=== PATIENT | female | born 1945 | race Caucasian/White ===

== ENCOUNTER 2016-07-07 11:22 | Inpatient (IN) | payer MEDICARE ==
[2016-07-07] MEDS ORDERED: Ondansetron INJ* 2 MG/ML VIAL IV ONE (11:32)
[2016-07-07] MEDS ORDERED: NS 0.9% 1000 ML* 1,000 ML IV ONE (11:32)
[2016-07-07 12:39] LABS: Hematocrit 37 % (35-47); Hemoglobin 11.6 g/dl (12.0-16.0); Mean Corpuscular HGB Conc 32 g/dl (31-36); Mean Corpuscular Hemoglobin 29 pg (27-31); Mean Corpuscular Volume 92 fL (80-97); Mean Platelet Volume 8 um3 (7.4-10.4); Red Blood Count 4.01 10^6/ul (4.0-5.4); Red Cell Distribution Width 16 % (10.5-15); White Blood Count 11.3 10^3/ul (3.5-10.8)
[2016-07-07 12:59] LABS: Albumin 4.1 g/dL (3.2-5.2); BUN/Creatinine Ratio 21.5 (8-20); C Reactive Protein 12.58 mg/L (< 5.00); Calcium 9.1 mg/dL (8.6-10.3); EGFR African American 114.9 (>60); EGFR Non-African American 89.3 (>60); Globulin 3.2 g/dL (2-4); Potassium 4.3 mmol/L (3.5-5.0); Total Bilirubin 0.5 mg/dL (0.2-1.0); Total Protein 7.3 g/dL (6.4-8.9)
[2016-07-07 14:41] LABS: Urine Bacteria 1+ (Absent); Urine Bilirubin Negative (Negative); Urine Glucose Negative (Negative); Urine Nitrite Negative (Negative)
--- NOTE | 2016-07-07 14:49 | RAD ---
Indication: Confusion, history of vomiting. CT of the brain was performed without IV contrast. Comparison is made previous exam dated April 02, 2016. Ventricular structures are midline. No midline shift is noted. The extraction spaces are unremarkable. Patient is status post left craniotomy with placement of aneurysm clip. No intracranial hemorrhage is noted. Overall no changes noted since previous exam of April 02, 2016. IMPRESSION: No intracranial mass or hemorrhage. Patient status post left craniotomy. Patient status post aneurysm repair. No changes noted since March 28, 2016.
--- NOTE | 2016-07-07 15:19 | ED ---
Fernando Abraham Claudia, scribed for Haleigh Hutchins MD on 07/07/16 at 1333 . Complex/Multi-Sys Presentation - HPI Summary HPI Summary: 71 year old female presents to the ED with multi-sx. Since pt was greeted she has become less responsive. Pt reports a SHAH which cause her to have some nausea. Pt is unable to answer questions. Level 5 caveat - History Of Current Complaint Chief Complaint: EDNauseaVomitDiarrh Time Seen by Provider: 07/07/16 11:32 Hx Obtained From: Patient Onset/Duration: Still Present Timing: Constant Associated Signs And Symptoms: Positive: Headache, Nausea - Allergies/Home Medications Allergies/Adverse Reactions: Allergies Allergy/AdvReac Type Severity Reaction Status Date / Time Adhesive Tape Allergy Blisters Verified 05/13/16 09:31 PMH/Surg Hx/FS Hx/Imm Hx Previously Healthy: Yes Endocrine/Hematology History: Denies: Hx Anticoagulant Therapy, Hx Diabetes, Hx Anemia, Hx Unexplained Bleeding Cardiovascular History: Reports: Hx Aneurysm, Hx Congestive Heart Failure Denies: Hx Angina, Hx Angioplasty, Hx Auto Implanted Cardiovert Defib, Hx Cardiac Arrest, Hx Cardiomegaly, Hx Congenital Heart Disease, Hx Coronary Artery Disease, Hx Deep Vein Thrombosis, Hx Embolism, Hx Hypercholesterolemia, Hx Hypotension, Hx Hypertension, Hx Pacemaker/ICD, Hx Peripheral Vascular Disease, Hx Rheumatic Fever, Hx Syncope, Hx Valvular Heart Disease, Other Cardiovascular Problems/Disorders Respiratory History: Reports: Hx Asthma, Hx Chronic Obstructive Pulmonary Disease (COPD), Other Respiratory Problems/Disorders - Emphysema Denies: Hx Cystic Fibrosis, Hx Lung Cancer, Hx Pleural Effusion, Hx Pneumonia , Hx Pulmonary Edema, Hx Pulmonary Embolism, Hx Seasonal Allergies, Hx Sleep Apnea GI History: Reports: Hx Cirrhosis, Hx Gastroesophageal Reflux Disease, Hx Hiatal Hernia, Hx Jaundice - 30+ YEARS AGO History: Denies: Hx Acute Renal Failure, Hx Benign Prostatic Hyperplasia, Hx Chronic Renal Failure, Hx Dialysis, Hx Kidney Infection, Hx Kidney Stones, Hx Renal Disease, Other Problems/Disorders Musculoskeletal History: Reports: Hx Arthritis Denies: Hx Back Problems, Hx Bursitis, Hx Congenital Bone Abnormalities, Hx Fibromyalgia, Hx Gout, Hx Orthopedic Injury, Hx Osteoporosis, Hx Scoliosis, Hx Tendonitis, Other Musculoskeletal History - NERVE PROBLEM IN BACK AMBULATES WITH WALKER Sensory History: Reports: Hx Cataracts, Hx Contacts or Glasses, Hx Legally Blind , Hx Macular Degeneration, Hx Vision Problem Denies: Hx Deafness, Hx Hearing Aid, Hx Hearing Problem, Other Sensory Impairments Opthamlomology History: Reports: Hx Cataracts, Hx Contacts or Glasses, Hx Legally Blind, Hx Macular Degeneration, Hx Vision Problem Denies: Other Sensory Impairments Neurological History: Denies: Hx Dementia, Hx Developmental Delay, Hx Headaches, Hx Migraine, Hx Nerve Disease, Hx Seizures, Hx Spinal Cord Injury, Hx Transient Ischemic Attacks (TIA), Other Neuro Impairments/Disorders Psychiatric History: Reports: Hx Anxiety, Hx Depression - ON MEDICATION FOR Denies: Hx Eating Disorder, Hx Inpatient Treatment, Hx of Violent Episodes Against Others - Cancer History Cancer Type, 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oratory lap in her 20s [place]. Aneurysm in head in her early 50s [place]. Hysterectomy and Bladder surgery [place] [facility] [place] arm and Left shoulder for [place] [facility] [place] 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 Right Cataract 07/01/12 [facility] Hx Anesthesia Reactions: No Infectious Disease History: No Infectious Disease History: Denies: Hx Clostridium Difficile, Hx Hepatitis, Hx Human Immunodeficiency Virus (HIV), Hx of Known/Suspected MRSA, Hx Shingles, Hx Tuberculosis, Hx Known/ Suspected VRE, Hx Known/Suspected VRSA, History Other Infectious Disease, Traveled Outside the [place] in Last 30 Days - Family History Known Family History: Positive: None, Other - Alcoholism Family History: FHx of EtOH abuse. FHx of lymphoma - sister. Full FHx not obtained due to AMS. - Social History [facility]: [facility] Alcohol Use: None Alcohol Amount: hx of alcoholism Hx Substance Use: No Substance Use Type: Reports: None Substance Use Comment - Amount & Last Used: Pt stopped drinking 3 years prior Hx Tobacco Use: Yes Smoking Status (MU): Former Smoker Type: Cigarettes Amount Used/How Often: 1 ppd Length of Time of Smoking/Using Tobacco: 50 years Have You Smoked in the Last Year: Yes Review of Systems - ROS Summary Review of Systems Summary: Level 5 caveat- limited responsiveness Positive: Fever Eyes: Negative ENT: Negative Cardiovascular: Negative Respiratory: Negative Positive: Vomiting, Diarrhea, Nausea Genitourinary: Negative Musculoskeletal: Negative Skin: Negative Positive: Headache Psychological: Normal All Other Systems Reviewed And Are Negative: No Physical Exam Triage Information Reviewed: Yes Vital Signs On Initial Exam: Initial Vitals Temp Pulse Resp BP Pulse Ox 99.1 F 78 20 164/85 97 07/07/16 12:33 07/07/16 12:33 07/07/16 12:33 07/07/16 12:33 07/07/16 12:33 Vital Signs Reviewed: Yes Appearance: Positive: Well-Appearing, No Pain Distress Skin: Positive: Warm, Skin Color Reflects Adequate Perfusion, Dry Eyes: Positive: EOMI, GT ENT: Positive: Pharynx normal, TMs normal Neck: Positive: Supple, Nontender Respiratory/Lung Sounds: Positive: Clear to Auscultation, Breath Sounds Present. Negative: Rales, Rhonchi, Wheezes Cardiovascular: Positive: RRR. Negative: Murmur, Rub Abdomen Description: Positive: Nontender, Soft Musculoskeletal: Positive: Strength/ROM Intact Neurological: Positive: Sensory/Motor Intact, Other - Sinc greeting the pt she has become less responsiveness to questions. Psychiatric: Positive: Affect/Mood Appropriate - [place] Coma Scale Coma Scale Total: 15 Diagnostics - Vital Signs Vital Signs Temp Pulse Resp BP Pulse Ox 07/07/16 12:33 99.1 F 78 20 164/85 97 - Laboratory Lab Results: Lab Results 07/07/16 07/07/16 07/07/16 Range/Units 12:30 12:30 12:30 WBC 11.3 H (3.5-10.8) 10^3/ul RBC 4.01 (4.0-5.4) 10^6/ul Hgb 11.6 L (12.0-16.0) g/dl Hct 37 (35-47) % MCV 92 (80-97) fL MCH 29 (27-31) pg MCHC 32 (31-36) g/dl RDW 16 H (10.5-15) % Plt Count 152 (150-450) 10^3/ul MPV 8 (7.4-10.4) um3 Neut % (Auto) 93.2 H (38-83) % Lymph % (Auto) 3.7 L (25-47) % Kern % (Auto) 2.5 (1-9) % Eos % (Auto) 0.2 (0-6) % Baso % (Auto) 0.4 (0-2) % Absolute Neuts (auto) 10.5 H (1.5-7.7) 10^3/ul Absolute Lymphs (auto) 0.4 L (1.0-4.8) 10^3/ul Absolute Monos (auto) 0.3 (0-0.8) 10^3/ul Absolute Eos (auto) 0 (0-0.6) 10^3/ul Absolute Basos (auto) 0 (0-0.2) 10^3/ul Absolute Nucleated RBC 0.01 10^3/ul Nucleated RBC % 0.1 Sodium 137 (133-145) mmol/L Potassium 4.3 (3.5-5.0) mmol/L Chloride 101 (101-111) mmol/L Carbon Dioxide 32 (22-32) mmol/L Anion Gap 4 (2-11) mmol/L BUN 14 (6-24) mg/dL Creatinine 0.65 (0.51-0.95) mg/dL Est GFR ( Amer) 114.9 (>60) Est GFR (Non-Af Amer) 89.3 (>60) BUN/Creatinine Ratio 21.5 H (8-20) Glucose 139 H (70-100) mg/dL Lactic Acid 1.3 (0.5-2.0) mmol/L Calcium 9.1 (8.6-10.3) mg/dL Magnesium 2.0 (1.9-2.7) mg/dL Total Bilirubin 0.50 (0.2-1.0) mg/dL AST 27 (13-39) U/L ALT 21 (7-52) U/L Alkaline Phosphatase 73 (34-104) U/L C-Reactive Protein 12.58 H (< 5.00) mg/L Total Protein 7.3 (6.4-8.9) g/dL Albumin 4.1 (3.2-5.2) g/dL Globulin 3.2 (2-4) g/dL Albumin/Globulin Ratio 1.3 (1-3) Lipase 54 (11.0-82.0) U/L Result Diagrams: 07/07/16 12:30 07/07/16 12:30 Lab Statement: Any lab studies that have been ordered have been reviewed, and results considered in the medical decision making process. - Radiology BRAIN CT Xray Interpretation: No Acute Changes - NO INTRACRANIAL MASS OR HEMORRHAGE. PATIENT STATUS POST LEFT CRANIOTOMY. PATIENT STATUS POST ANEURYSM REPAIR. NO CHANGES NOTED SINCE MARCH 2016. Radiology Interpretation Completed By: Radiologist Complex Multi-Symp Course/Dx Course Of Treatment: Pt seems to be very sleepy on exam, no history of altered mental status, labs and ct look good having internal medicine evaluate pt for admission - Diagnoses Provider Diagnoses: Vomiting, Altered mental status - Physician Notifications Discussed Care Of Patient With: Discussed care of patient with Dr. Vasquez. Dr. Vasquez will see the patient. Time Discussed With Above Provider: 14:48 Discharge - Discharge Plan Condition: Stable Disposition: ADMITTED TO [facility] Discharge Disposition Comment: Signout per shift change Referrals: Judy Munguia MD [Primary Care Provider] - The documentation as recorded by the Fernando fuentes Claudia accurately reflects the service I personally performed and the decisions made by me, Haleigh Hutchins MD.
[2016-07-07] MEDS ORDERED: NS 0.9% 1000 ML* 1,000 ML IV SCH (15:30)
[2016-07-07] MEDS ORDERED: cefTRIAXone VIAL(*) 1,000 MG in NS 0.9% 50 ML* 50 ML IVPB SCH (16:00)
[2016-07-07] MEDS ORDERED: Albuterol/Ipratropium NEB.SOL* Albuterol 2.5 MG/Ipratropium 0.5 MG 3 ML INH PRN (16:05)
[2016-07-07] MEDS ORDERED: Iohexol 300* (CONTRAST) 10 ML SDV IV ONE (16:06)
--- NOTE | 2016-07-07 16:35 | RAD ---
Indication: Leukocytosis. Single frontal view of the chest performed at 1612 hours was reviewed. Comparison is made with previous exam dated May 13, 2016. Cardiomegaly is noted. Lung fong demonstrate no pleural fluid, pneumonia or pneumothorax. IMPRESSION: NO ACTIVE CARDIOPULMONARY DISEASE IS NOTED.
--- NOTE | 2016-07-07 17:48 | PN ---
Hospitalist Progress Note I tried to contact the son multiple times without success.
--- NOTE | 2016-07-07 18:14 | RAD ---
Indication: Abdominal pain, sepsis. CT of the abdomen and pelvis was performed after oral and IV contrast administration. Coronal and sagittal reconstructed images were obtained. A total of Administered 116.8 ml of OMNIPAQUE 300 mgi/ml was given intravenously without adverse reaction. Comparison is made with previous exam dated May 13, 2016. Lung bases demonstrate no pleural fluid, nodules or masses. Heart is of normal size without evidence of pericardial effusion. Liver is normal in size. No focal lesions or intrahepatic ductal dilatation is noted. Patient status post cholecystectomy. The spleen is normal in size. Common duct is not dilated. The spleen is normal in size. No adrenal masses are noted. The kidneys demonstrate no focal masses. Perinephric fluid is present surrounding both kidneys. Small cortical cysts are noted in the right kidney. No retroperitoneal lymphadenopathy is noted. No dilated loops of bowel are noted. Atherosclerotic aorta is noted. CT of the pelvis demonstrates no dilated small bowel. Anterior abdominal wall hernia containing small bowel and colon is noted. No evidence of obstruction is noted. Urinary bladder is otherwise unremarkable. No hernias are noted. No fluid collections are noted. No free fluid is identified. The bony structures demonstrate degenerative disc disease. Patient is status post hysterectomy. Overall no changes noted since previous exam of May 13, 2016. Lumbar spine demonstrates grade 1 spondylolisthesis of L4 on 5 is unchanged from prior exam. Generative disc disease at multiple levels is noted. IMPRESSION: ANTERIOR ABDOMINAL WALL HERNIA CONTAINING SMALL BOWEL AND COLON. NO EVIDENCE OF BOWEL OBSTRUCTION IS NOTED. PERINEPHRIC INFILTRATION OF FAT IS NOTED SURROUNDING BOTH KIDNEYS. THIS IS NONSPECIFIC. OVERALL NO CHANGES NOTED SINCE MAY 13, 2016 WITH NO NEW MASSES OR FLUID COLLECTION.
[2016-07-07] MEDS: NS 0.9% 1000 ML* 1,000 ML IV SCH (18:33)
[2016-07-07] MEDS: Ciprofloxacin 400MG IVPREMIX(* 400 MG/200 ML BAG IVPB SCH (18:33)
[2016-07-07] MEDS: Acetaminophen TAB* 325 MG PO PRN (18:36)
--- NOTE | 2016-07-07 20:26 | HP ---
HISTORY AND PHYSICAL: DATE OF ADMISSION: 07/07/16 PROVIDER: Ilya Case NP ATTENDING PHYSICIAN: Dr. Pierson *(report dictated by Ilya Case NP). PRIMARY CARE PROVIDER: Dr. Rondon and Lesly Willoughby NP CHIEF COMPLAINT: Sent from [facility] for nausea, vomiting, diarrhea. HISTORY OF PRESENT ILLNESS: Ms. Mejia is a 71-year-old female with past medical history of atrial fibrillation, not on anticoagulation; hypertension; COPD, on 3 L nasal cannula at her baseline; history of schizoaffective disorder , who presented from [facility] for nausea, vomiting, diarrhea. Per the patient, she was in her apartment ringing medical alert system and she reports that she was lying in bed for hours without any help, so she called 911 and an ambulance came and evaluated the patient, brought her to the emergency department for further evaluation. Per [place], they do not think the patient was ringing her beth and the patient has a history of schizoaffective disorder; therefore, it is unclear exactly what happened. Per the patient, she reports that she has been unwell for 2 days, which started with nausea, vomiting, diarrhea, increased urinary frequency, burning with urination. The patient denies fevers or chills. She vomited on arrival to the emergency department as well as as she had a large loose watery stool in the emergency department. Per emergency department nurse, when she arrived, she was covered in caked on dry old and as well as new stool. In the emergency department, per emergency physician, reported that when she came into the emergency department, she appeared to be awake, alert, and oriented, sitting up in the emergency department stretcher and when she went to evaluate her, she appeared to be more lethargic, falling asleep during examination. She underwent a CT of the brain which showed "no intracranial mass or hemorrhage. The patient is status post craniotomy." On admission, she was noted to have a leukocytosis of 11.3. CRP of 12. Urinalysis possibly of positive urinalysis and Hospital Medicine was asked to evaluate the patient for admission. On evaluation in the emergency department, the patient does appear to be lethargic, she does awake to voice, and answers questions appropriately; however , she does fall asleep mid sentence. The patient does report she has intermittent diarrhea at her baseline, but does state it has been more worse over the last 2 days. She denies any hematemesis or blood noted in her stool. Denies myalgias. Denies shortness of breath, chest pain, orthopnea, or lower extremity swelling. Hospital Medicine will admit the patient for sepsis of unclear etiology. PAST MEDICAL HISTORY: 1. Legally blind. 2. COPD, on 3 L nasal cannula. 3. Depression/anxiety. 4. History of psychosis and paraphrenia. 5. AFib, not on anticoagulation. 6. Hypertension. 7. GERD. 8. History of alcohol abuse. 9. Cerebral aneurysm, status post clipping. 10. History of tobacco abuse. 11. History of oral tumor. 12. Last hospitalization, May 2016, for influenza. 13. Chronic pain. PAST SURGICAL HISTORY: 1. Status post cholecystectomy in 2014. 2. Status post mouth resection for cancer. 3. Status post left craniotomy. HOME MEDICATIONS: "Please note these medications still need to be confirmed." 1. Trazodone 25 mg p.o. bedtime. 2. Oxycodone 10 mg p.o. t.i.d. p.r.n. 3. Klonopin 1.5 mg p.o. at bedtime p.r.n. 4. Norvasc 5 mg p.o. daily. 5. Senna-S 8.6/50 mg 2 tabs p.o. bedtime p.r.n. 6. Zantac 150 mg p.o. daily. 7. Lyrica 25 mg p.o. t.i.d. 8. Metoprolol succinate XL 12.5 mg p.o. daily. 9. Lisinopril 10 mg p.o. daily. 10. Gaviscon 2 tabs two p.o. q.12 hours p.r.n. 11. Prozac 40 mg p.o. b.i.d. 12. Symbicort 160/4.5 two puffs INH b.i.d. 13. Aspirin 81 mg p.o. daily. 14. Albuterol nebulized solution 2.5 mg/3 mL INH q.6 hours p.r.n. 15. Acetaminophen Extra Strength 1000 mg p.o. q.8 hours p.r.n. ALLERGIES: ADHESIVE TAPE. FAMILY HISTORY: No family history of coronary artery disease or diabetes. Her sister who from lymph node cancer. SOCIAL HISTORY: Former smoker, smoking a pack a day for approximately 60 years , quitting 10 years ago. History of heavy alcohol use for approximately 60 years. Please note this was taken from the medical record, do not know when the patient stopped drinking. The patient is retired, lives at [facility] in independent apartment. The patient's son, Emanuel Reed, is the surrogate decision maker. REVIEW OF SYSTEMS: A 14-point review of systems was performed. All the pertinent positive and negatives are mentioned in the history of present illness. All the remaining systems are negative. PHYSICAL EXAMINATION GENERAL APPEARANCE: A 71-year-old female, lying in the emergency department stretcher. Appears lethargic, she is alert, and oriented x3. Answering questions appropriately. VITAL SIGNS: Temperature 99.1, heart rate 84, O2 sat 98% on 3 L nasal cannula, blood pressure 165/69, respirations 20. HEENT: Head is normocephalic, atraumatic. Pupils equal and reactive to light. Oropharynx is clear with dry mucous membranes. NECK: Supple. No cervical or supraclavicular lymphadenopathy. RESPIRATORY: Lungs clear to auscultation bilaterally. Good aeration throughout. CARDIAC: S1, S2. Regular rate and rhythm. No murmurs, rubs, or gallops appreciated. No lower extremity edema noted. ABDOMEN: Obese, soft, diffuse tenderness, mild guarding, normal bowel sounds x4. EXTREMITIES: Strength is 5/5 throughout. Full range of motion in all extremities. NEURO: Alert and oriented x3. Appears to be lethargic, falling asleep throughout the exam, unable to perform full cranial nerve examination. No noted slurred speech or facial droop. Tongue is midline. No pronator drift. Sensation to lower extremities intact to light touch. PSYCHOLOGICAL: Answering questions appropriately per ED set staff fitter. The patient is exhibiting signs of paranoia stating "somebody is trying to poison me." SKIN: No rashes, lesions, or open wounds noted. DIAGNOSTIC STUDIES/LAB DATA: WBC is 11.3, RBC 4.01, Hgb 11.6, Hct 37, MCV 92, MCH 29, MCHC 32, RDW 16, platelet count 152. INR 0.97. Sodium 137, potassium 4.3, chloride 101, carbon dioxide 32, anion gap 4, BUN 14, creatinine 0.65, glucose 139, lactic acid 1.3, calcium 9.1, magnesium 2.0. Total bilirubin 0.50 , AST 27, ALT 21, alkaline phosphatase 73. C-reactive protein 12.58. Total protein 7.3, album 4.1, lipase 54. Urinalysis abnormal. Influenza A, B negative. Brain CT: No intracranial mass or hemorrhage. The patient is status post left craniotomy. The patient is status post aneurysm repair. No noted changes from 03/28/16. Chest x-ray, impression: No active cardiopulmonary disease is noted. ASSESSMENT AND PLAN: Bety Mejia is a 71-year-old female with past medical history of chronic obstructive pulmonary disease, on 3 L; atrial fibrillation, not on anticoagulation; anxiety; depression; history of psychosis; gastroesophageal reflux disease, who presents to the emergency department today with report of nausea, vomiting, diarrhea, dysuria, increased urinary frequency. 1. Sepsis of unclear etiology. The patient has mildly elevated WBCs. Appears to be lethargic. Whether this is secondary to sepsis or the patient was awake all night is unclear, respirations were 20. Therefore, I will treat the patient like sepsis as clinically she appears ill. The patient has no lactic acidosis. She is hemodynamically stable. She received only 1 L of normal saline in the emergency department. We will give the patient another 2 L of normal saline. Suspect she either has a gastroenteritis or possible urinary tract infection. The patient also has diffusely tender abdomen and we will send the patient for a CT of the abdomen and pelvis with contrast. Obtain blood cultures. Start the patient on Cipro and Flagyl. Check labs in the morning. Add on drug, urine tox screen. 2. Atrial fibrillation. Continue metoprolol, aspirin. 3. Hypertension. Controlled. Continue metoprolol, lisinopril, Norvasc. 4. Anxiety/depression. Continue Prozac. Hold Klonopin due to lethargy. 5. Chronic obstructive pulmonary disease. The patient does not appear to be in exacerbation and she is on her baseline oxygen of 3 L nasal cannula. Continue p.r.n. nebulizers and home inhalers. 6. Chronic pain. Plan to hold oxycodone due to the patient is somewhat lethargic. Continue acetaminophen p.r.n. 7. DVT prophylaxis. Heparin subcu. 8. Code status. Full code. HOSPITAL STATUS: Inpatient. TIME SPENT: Approximately 60 minutes was spent on this admission. This case is discussed with attending physician, Dr. Pierson, who agrees with plan of care. ILYA CASE, JEANNA [id number]/CPS #: [id number] [facility]
[2016-07-07] MEDS: metroNIDAZOLE IV 500 MG/100ML* 500 MG/100 ML BAG IVPB SCH (20:30)
[2016-07-07] MEDS: Heparin VIAL(*) 5000 UNITS/ML VIAL (FIVE THOUSAND) SUBCUT SCH (21:03)
[2016-07-07] MEDS ORDERED: oxyCODONE/Acetamin 5/325 MG* TAB PO ONE (22:17)
[2016-07-07] MEDS ORDERED: oxyCODONE/Acetamin 5/325 MG* TAB ONE (22:37)
[2016-07-08 02:11] LABS: Benzodiazepine Urine Screen None Detected (None Detect)
[2016-07-08] MEDS: Acetaminophen TAB* 325 MG PO PRN ×3 (02:30→21:49)
[2016-07-08] MEDS: metroNIDAZOLE IV 500 MG/100ML* 500 MG/100 ML BAG IVPB SCH ×3 (02:55→21:18)
[2016-07-08] MEDS: Ciprofloxacin 400MG IVPREMIX(* 400 MG/200 ML BAG IVPB SCH ×2 (05:22→18:13)
[2016-07-08] MEDS: Heparin VIAL(*) 5000 UNITS/ML VIAL (FIVE THOUSAND) SUBCUT SCH ×3 (05:22→21:56)
[2016-07-08 06:21] LABS: Hematocrit 34 % (35-47); Hemoglobin 10.7 g/dl (12.0-16.0); Mean Corpuscular HGB Conc 32 g/dl (31-36); Mean Corpuscular Hemoglobin 29 pg (27-31); Mean Corpuscular Volume 92 fL (80-97); Mean Platelet Volume 9 um3 (7.4-10.4); Red Blood Count 3.66 10^6/ul (4.0-5.4); Red Cell Distribution Width 16 % (10.5-15); White Blood Count 5.6 10^3/ul (3.5-10.8)
[2016-07-08 06:36] LABS: Calcium 8.4 mg/dL (8.6-10.3); Potassium 3.7 mmol/L (3.5-5.0)
[2016-07-08] MEDS: NS 0.9% 1000 ML* 1,000 ML IV SCH (07:14)
--- NOTE | 2016-07-08 07:51 | PN ---
Subjective Date of Service: 07/08/16 Interval History: . Patient is much more alert and oriented on exam this morning compared to admission, but still feels a little drowsy. She now reports she started not feeling well early Friday with N/V/D and think she felt ok Friday and Friday. She reports she takes "MOM quite often for constipation" and believes she has taken this recently. She reports her biggest compliant was the nausea and vomiting, also stating it is very uncommon for her to vomit when she is ill and thinks it has been at least 8-10 years. No abdominal pain. No known sick contacts. Denies fever or chills. Continues to have nausea today - no further vomiting or diarrhea since admission. Denies SOB, CP, cough or URI symptoms. Denies myaglias. No LE edma or orthopnea Objective Active Medications: Acetaminophen (Tylenol Tab*) 650 mg PO Q6H PRN PRN Reason: FEVER/PAIN Last Admin: 07/08/16 02:30 Dose: 650 mg Albuterol/Ipratropium (Duoneb Neb.Mary*) 1 neb INH Q4H PRN PRN Reason: SOB/WHEEZING Heparin Sodium (Porcine) (Heparin Vial(*)) 5,000 units SUBCUT Q8HR [facility] Last Admin: 07/08/16 05:22 Dose: 5,000 units Sodium Chloride (Ns 0.9% 1000 Ml*) 1,000 mls @ 125 mls/hr IV PER RATE [facility] Stop: 07/08/16 23:51 Last Admin: 07/08/16 07:14 Dose: 125 mls/hr Ciprofloxacin/Dextrose (Cipro 400 Mg Ivpremix(*)) 400 mg in 200 mls @ 200 mls/ hr IVPB Q12H [facility] Last Admin: 07/08/16 05:22 Dose: 200 mls/hr Metronidazole/Sodium Chloride (Flagyl 500 Mg Ivpb*) 500 mg in 100 mls @ 100 mls /hr IVPB Q8H [facility] Last Admin: 07/08/16 02:55 Dose: 100 mls/hr Ondansetron HCl (Zofran Inj*) 4 mg IV Q4H PRN PRN Reason: NAUSEA Oxycodone HCl (Roxycodone Tab*) 5 mg PO Q6H PRN PRN Reason: PAIN Vital Signs 07/07/16 07/07/16 07/07/16 16:30 16:52 17:00 Temperature Pulse Rate 79 76 82 Respiratory Rate Blood Pressure 198/156 232/191 136/82 (mmHg) O2 Sat by Pulse 97 97 97 Oximetry 07/07/16 07/07/16 07/07/16 17:18 17:27 17:42 Temperature 97.7 F Pulse Rate 79 77 Respiratory 16 Rate Blood Pressure 136/82 113/66 (mmHg) O2 Sat by Pulse 96 Oximetry 07/07/16 07/07/16 07/07/16 18:00 18:25 18:30 Temperature 100.4 F 100.4 F Pulse Rate 84 87 86 Respiratory 22 22 Rate Blood Pressure 118/102 132/50 132/50 (mmHg) O2 Sat by Pulse 91 97 97 Oximetry 07/07/16 07/07/16 07/07/16 19:42 19:59 22:41 Temperature Pulse Rate Respiratory 22 22 16 Rate Blood Pressure (mmHg) O2 Sat by Pulse Oximetry 07/07/16 07/07/16 07/08/16 23:26 23:35 00:41 Temperature 100.2 F Pulse Rate 90 Respiratory 20 16 20 Rate Blood Pressure 127/96 (mmHg) O2 Sat by Pulse 94 Oximetry 07/08/16 07/08/16 07/08/16 03:53 06:27 07:33 Temperature 100.0 F 98.9 F 99.6 F Pulse Rate 88 84 83 Respiratory 20 16 17 Rate Blood Pressure 118/47 107/53 111/58 (mmHg) O2 Sat by Pulse 96 96 97 Oximetry Oxygen Devices in Use Now: Nasal Cannula - 3L NC Appearance: 71 yo F laying in bed A+O x3 in NAD Eyes: No Scleral Icterus, PERRLA Ears/Nose/Mouth/Throat: NL Teeth, Lips, Gums, Clear Oropharnyx, Mucous Membranes Moist Neck: NL Appearance and Movements; NL JVP Respiratory: Symmetrical Chest Expansion and Respiratory Effort, Clear to Auscultation Cardiovascular: NL Sounds; No Murmurs; No JVD, RRR, No Edema Abdominal: NL Sounds; No Tenderness; No Distention, - - noted RLQ large Hernia, no guarding, or tendernsss Extremities: No Edema, No Clubbing, Cyanosis Skin: No Rash or Ulcers, No Nodules or Sclerosis Neurological: Alert and Oriented x 3, NL Sensation, NL Gait, NL Muscle Strength and Tone Lines/Tubes/Other Access: Clean, Dry and Intact Peripheral IV Nutrition: Taking PO's Result Diagrams: 07/08/16 05:53 07/08/16 05:53 Additional Lab and Data: Lab Results 07/07/16 07/07/16 07/07/16 Range/Units 12:30 12:30 12:30 WBC 11.3 H (3.5-10.8) 10^3/ul RBC 4.01 (4.0-5.4) 10^6/ul Hgb 11.6 L (12.0-16.0) g/dl Hct 37 (35-47) % MCV 92 (80-97) fL MCH 29 (27-31) pg MCHC 32 (31-36) g/dl RDW 16 H (10.5-15) % Plt Count 152 (150-450) 10^3/ul MPV 8 (7.4-10.4) um3 Neut % (Auto) 93.2 H (38-83) % Lymph % (Auto) 3.7 L (25-47) % Carlton % (Auto) 2.5 (1-9) % Eos % (Auto) 0.2 (0-6) % Baso % (Auto) 0.4 (0-2) % Absolute Neuts (auto) 10.5 H (1.5-7.7) 10^3/ul Absolute Lymphs (auto) 0.4 L (1.0-4.8) 10^3/ul Absolute Monos (auto) 0.3 (0-0.8) 10^3/ul Absolute Eos (auto) 0 (0-0.6) 10^3/ul Absolute Basos (auto) 0 (0-0.2) 10^3/ul Absolute Nucleated RBC 0.01 10^3/ul Nucleated RBC % 0.1 Sodium 137 (133-145) mmol/L Potassium 4.3 (3.5-5.0) mmol/L Chloride 101 (101-111) mmol/L Carbon Dioxide 32 (22-32) mmol/L Anion Gap 4 (2-11) mmol/L BUN 14 (6-24) mg/dL Creatinine 0.65 (0.51-0.95) mg/dL Est GFR ( Amer) 114.9 (>60) Est GFR (Non-Af Amer) 89.3 (>60) BUN/Creatinine Ratio 21.5 H (8-20) Glucose 139 H (70-100) mg/dL Lactic Acid 1.3 (0.5-2.0) mmol/L Calcium 9.1 (8.6-10.3) mg/dL Magnesium 2.0 (1.9-2.7) mg/dL Total Bilirubin 0.50 (0.2-1.0) mg/dL AST 27 (13-39) U/L ALT 21 (7-52) U/L Alkaline Phosphatase 73 (34-104) U/L C-Reactive Protein 12.58 H (< 5.00) mg/L Total Protein 7.3 (6.4-8.9) g/dL Albumin 4.1 (3.2-5.2) g/dL Globulin 3.2 (2-4) g/dL Albumin/Globulin Ratio 1.3 (1-3) Lipase 54 (11.0-82.0) U/L Microbiology and Other Data: Microbiology 07/07/16 18:35 Nasal Screen MRSA (PCR)(TOMMY) - Final Nasal Mrsa Negative 07/07/16 16:05 Influenza Types A,B Antigen (TOMMY) - Final Nasal Specimen received for Influenza A/B Molecular testing Assess/Plan/Problems-Billing Assessment: Ms. Mejia is a 71 yo with a PMH of afib not on anticoagulation, HTN, COPD on 3L NC at baseline, paraphrenia who presented with N/V/D screening positive for sepsis. - Patient Problems (1) Sepsis Comment: - Sepsis resolved. Clinically appears to be improving. Leukocytosis resolved. Low grade temp. Continues to have nausea. No abdominal pain. - Suspect viral gastrenteritis vs possible UTI. - urine cx growing ecoli with only colony count 10-25K. - Blood cx pending. Influenza negative - CT abdomen/pelvis w/ contrast - "anterior abdominal wall hernia containing small bowel and colon. No evidence of bowel obstruction. Perinephric infiltraion of fat is noted surrounding both kidneys which is nonspecific. Overall no changes from 05/2016 CT". - Continue Flagyl and Cipro - zofran prn - Continue gentle IVFs and start clear liquid diet (2) COPD (chronic obstructive pulmonary disease) Comment: - controlled. On 3L NC which is her baseline. - Continue nebs - It does not appear she is on spiriva, will start today (3) Depression Comment: - with anxiety - continue prozac. Hold Klonopin for now. (4) Paraphrenia Comment: - hx of psychosis and schizo-affective disorder - stable, no psychosis noted today (5) HTN (hypertension) Comment: Normotensive. Hold lisinopril, continue amlodipine. continue to monitor (6) A-fib Comment: - continue metoprolol (7) Chronic pain Comment: - decrease oxycodone dose - continue lyrica (8) DVT prophylaxis Comment: SQ heparin Status and Disposition: inpatient with sepsis. Lives at [facility] in the assisted care, home when medically stable. PT/OT evals. I have not been able to reach the patients son, have tried multiple times.
[2016-07-08] MEDS: Ondansetron INJ* 2 MG/ML VIAL IV PRN ×2 (08:59→14:02)
[2016-07-08] MEDS: Metoprolol Succinate XL TAB* 25 MG PO SCH (08:59)
[2016-07-08] MEDS: oxyCODONE TAB* 5 MG TAB PO PRN ×3 (08:59→18:10)
[2016-07-08] MEDS ORDERED: NS 0.9% 1000 ML* 1,000 ML IV SCH (11:23)
[2016-07-08] MEDS: Pregabalin CAP(*) 25 MG PO SCH (21:43)
[2016-07-08] MEDS: FLUoxetine CAP* 20 MG PO SCH (21:43)
[2016-07-08] MEDS: clonazePAM TAB(*) 0.5 MG PO SCH (21:44)
[2016-07-08] MEDS: traZODone TAB* 50 MG TAB PO SCH (21:50)
[2016-07-09] MEDS: metroNIDAZOLE IV 500 MG/100ML* 500 MG/100 ML BAG IVPB SCH ×2 (03:58→12:49)
[2016-07-09] MEDS: oxyCODONE TAB* 5 MG TAB PO PRN ×3 (05:38→22:12)
[2016-07-09] MEDS: Ciprofloxacin 400MG IVPREMIX(* 400 MG/200 ML BAG IVPB SCH (05:42)
[2016-07-09] MEDS: Heparin VIAL(*) 5000 UNITS/ML VIAL (FIVE THOUSAND) SUBCUT SCH ×3 (05:50→22:14)
[2016-07-09 07:09] LABS: Hematocrit 33 % (35-47); Hemoglobin 10.6 g/dl (12.0-16.0); Mean Corpuscular HGB Conc 32 g/dl (31-36); Mean Corpuscular Hemoglobin 29 pg (27-31); Mean Corpuscular Volume 92 fL (80-97); Mean Platelet Volume 8 um3 (7.4-10.4); Red Cell Distribution Width 16 % (10.5-15)
[2016-07-09 07:15] LABS: Comments Flag Yes
[2016-07-09 07:23] LABS: BUN/Creatinine Ratio 12.5 (8-20); Calcium 8.6 mg/dL (8.6-10.3); EGFR African American 136.5 (>60); EGFR Non-African American 106.1 (>60); Potassium 3.6 mmol/L (3.5-5.0)
[2016-07-09] MEDS: Tiotropium CAP.INH* CAP.INH/18 MCG (USE ORDER SET !) INH SCH (08:25)
[2016-07-09] MEDS ORDERED: Lisinopril TAB* 5 MG PO SCH (09:00)
[2016-07-09] MEDS ORDERED: Spiriva Inhaler DEVICE* 1 EACH DEVICE INH ONE (09:00)
[2016-07-09] MEDS: Acetaminophen TAB* 325 MG PO PRN (09:47)
[2016-07-09] MEDS: Pregabalin CAP(*) 25 MG PO SCH ×3 (10:51→22:11)
[2016-07-09] MEDS: Nicotine PATCH 7 MG/24 HR* PATCH TRANSDERM SCH (10:52)
[2016-07-09] MEDS: FLUoxetine CAP* 20 MG PO SCH ×2 (10:55→22:12)
[2016-07-09] MEDS: clonazePAM TAB(*) 1 MG PO SCH (10:55)
[2016-07-09] MEDS: Omeprazole CAP* 20 MG PO SCH (10:56)
[2016-07-09] MEDS: Metoprolol Succinate XL TAB* 25 MG PO SCH (10:56)
[2016-07-09] MEDS: amLODIPine TAB* 5 MG PO SCH (10:56)
[2016-07-09] MEDS: Aspirin EC Low Dose* 81 MG TAB.EC PO SCH (10:56)
[2016-07-09] MEDS ORDERED: Ibuprofen TAB* 600 MG PO PRN (11:22)
--- NOTE | 2016-07-09 15:02 | DCNOTE ---
Patient seen this morning. Asking when she can go home. Tolerating clears with no further N/V/D. Had solid lunch with no problems as well. On exam, RRR, s1 and s2 present, no m/g/r, abd soft, NTND, BS hyperactive ABx stopped, likely viral infection. Plan to discharge back to [place] independent living.
[2016-07-09] MEDS ORDERED: Ondansetron ODT TAB* 4 MG PO PRN (18:51)
[2016-07-09] MEDS: clonazePAM TAB(*) 0.5 MG PO SCH (22:12)
[2016-07-09] MEDS: traZODone TAB* 50 MG TAB PO SCH (22:13)
[2016-07-10] MEDS: Heparin VIAL(*) 5000 UNITS/ML VIAL (FIVE THOUSAND) SUBCUT SCH (05:47)
[2016-07-10] MEDS: Tiotropium CAP.INH* CAP.INH/18 MCG (USE ORDER SET !) INH SCH (07:45)
[2016-07-10 07:49] VITALS: BP 142/74
[2016-07-10] MEDS ORDERED: Loperamide CAP* 2 MG PO PRN (08:53)
[2016-07-10] MEDS: Omeprazole CAP* 20 MG PO SCH (09:21)
[2016-07-10] MEDS: amLODIPine TAB* 5 MG PO SCH (09:24)
[2016-07-10] MEDS: Pregabalin CAP(*) 25 MG PO SCH (09:25)
[2016-07-10] MEDS: FLUoxetine CAP* 20 MG PO SCH (09:25)
[2016-07-10] MEDS: Aspirin EC Low Dose* 81 MG TAB.EC PO SCH (09:26)
[2016-07-10] MEDS: clonazePAM TAB(*) 1 MG PO SCH (09:26)
[2016-07-10] MEDS: oxyCODONE TAB* 5 MG TAB PO PRN (09:27)
[2016-07-10] MEDS: Metoprolol Succinate XL TAB* 25 MG PO SCH (09:27)
[2016-07-10] MEDS: Nicotine PATCH 7 MG/24 HR* PATCH TRANSDERM SCH (09:32)
--- NOTE | 2016-10-14 04:07 | DS ---
DISCHARGE SUMMARY: DATE OF ADMISSION: 07/07/16 DATE OF INTENDED DISCHARGE: 07/09/16 DATE OF ACTUAL DISCHARGE: 07/10/16 PRIMARY CARE PHYSICIAN: Dr. Rondon. PRINCIPAL DISCHARGE DIAGNOSES: 1. Nausea. 2. Vomiting. 3. Viral gastroenteritis. SECONDARY DIAGNOSES: 1. Chronic obstructive pulmonary disease, on 3 L nasal cannula. 2. Legally blind. 3. Depression and anxiety. 4. Atrial fibrillation. 5. Hypertension. 6. Gastroesophageal reflux disease. 7. Cerebral aneurysm, status post clipping. STUDIES DONE DURING HOSPITALIZATION: CT of the brain, impression: No intracranial mass or hemorrhage. The patient is status post left craniotomy. The patient is status post aneurysm repair. Chest x-ray, impression: No active cardiopulmonary disease is noted. CT of the abdomen and pelvis with contrast, impression: Anterior abdominal wall hernia containing small bowel and colon. No evidence of bowel obstruction is noted. Perinephric infiltration of fat is noted surrounding both kidneys, this is nonspecific. Overall, no changes noted since 05/13/16 with no new masses or fluid collections. DISCHARGE MEDICATION REGIMEN: 1. Risperidone 2 mg by mouth at bedtime. 2. Oxycodone 10 mg by mouth every 8 hours as needed for pain. 3. Clonazepam 0.25 mg by mouth every 8 hours as needed for anxiety. 4. Amlodipine 5 mg by mouth daily. 5. Theragran 1 tablet by mouth daily. 6. Spiriva 1 capsule inhaled daily. 7. Senna 1 tablet by mouth three times daily. 8. Lyrica 25 mg by mouth three times daily. 9. Zofran 4 mg by mouth every 6 hours as needed for nausea. 10. Omeprazole 40 mg by mouth two times daily. 11. Nystatin 1 application topical three times daily. 12. Mirtazapine 7.5 mg by mouth at bedtime. 13. Metoprolol tartrate 12.5 mg by mouth daily. 14. Magnesium hydroxide 30 mL by mouth daily as needed for constipation. 15. Lisinopril 10 mg by mouth daily. 16. Lasix 20 mg by mouth daily. 17. Pepcid 20 mg by mouth daily. 18. Fluoxetine 40 mg by mouth two times daily. 19. Colace 100 mg by mouth two times daily. 20. Aspirin 81 mg by mouth daily. 21. Albuterol 2.5 mg inhaled every 6 hours as needed for shortness of breath or wheezing. HPI AND HOSPITAL SUMMARY: Please see the full history and physical by Yazmin Wise NP, for full details. Briefly, Ms. Mejia is a 71-year-old female, resident of [place] with past medical history as above, who presented to the hospital with nausea, vomiting, and diarrhea. There was initially concern for possible bacterial infection as underlying etiology. The patient was started on Cipro and Flagyl. She had a mild leukocytosis on admission. However, the following days it was felt that her symptoms were more likely due to a viral cause. The patient had a urine culture that was growing ESBL E. coli ; however, there was only 10,000 to 25,000 colony forming units. Over the following days, the patient's symptoms improved. She was treated with IV fluids and was tolerating a diet with no issues. She was discharged home without any further antibiotics, back to [facility] living and was instructed to follow up with her PCP as an outpatient. TIME SPENT: Total time spent on this discharge, 35 minutes. This is a summary of the hospitalization, please see the full medical record for further details. [id number]/[facility] #: [id number] [facility]
== END 2016-07-10 11:05 | disposition home or self-care (01) | DRG 872 ==
LOC: ED 11:22 → MED 16:04
PROVIDERS: ADMIT Internal Medicine; ATTEND Hospitalist
DX: A41.89 Other specified sepsis (principal); Z99.81 Dependence on supplemental oxygen; N39.0 Urinary tract infection, site not specified; A08.4 Viral intestinal infection, unspecified; B96.20 Unspecified Escherichia coli [E. coli] as the cause of diseases classified elsewhere; J44.9 Chronic obstructive pulmonary disease, unspecified; F32.89 Other specified depressive episodes; F41.9 Anxiety disorder, unspecified; F22 Delusional disorders; I10 Essential (primary) hypertension; I48.91 Unspecified atrial fibrillation; G89.29 Other chronic pain; F25.9 Schizoaffective disorder, unspecified; H54.8 Legal blindness, as defined in USA; Z79.1 Long term (current) use of non-steroidal anti-inflammatories (NSAID); Z79.82 Long term (current) use of aspirin; Z79.899 Other long term (current) drug therapy; Z91.048 Other nonmedicinal substance allergy status; Z80.7 Family history of other malignant neoplasms of lymphoid, hematopoietic and related tissues; Z87.891 Personal history of nicotine dependence
CPT/HCPCS: 36415; 70450; 71010; 74177; 80048; 80053; 80307; 81003; 81015; 83605; 83690; 83735; 85025; 85610; 86140; 87040; 87077; 87086; 87186; 87502; 87641; 93005; 94640; 94760; 99406; A9270-GY; J0744; J1644; J2405; J3490; Q9967

== ENCOUNTER 2016-08-05 09:47 | Inpatient (IN) | payer MEDICARE ==
--- NOTE | 2016-08-05 10:22 | RAD ---
INDICATION: Neurologic change. Code calvin. History of craniotomy/aneurysm clipping COMPARISON: CT brain July 07, 2016 TECHNIQUE: Noncontrast axial source images were acquired from the skull base to the vertex. FINDINGS: Ventricles/sulci: There is cortical atrophy with compensatory dilatation of the CSF spaces. Brain parenchyma: There is no acute focal parenchymal finding, evidence of intracranial mass, or intracranial mass effect. There are findings of chronic microcytic ischemia. There is volume loss in the left temporal lobe at the operative site with evidence of aneurysm clipping, unchanged. Intracranial hemorrhage:None. Extra-axial spaces: There are no abnormal extra axial fluid collections or evidence of extra-axial mass. Calvarium: Left-sided craniotomy defect. Scalp: There is no evidence of scalp or extracalvarial soft tissue abnormality. Paranasal sinuses/mastoid: The paranasal sinuses and mastoid air cells are clear. Other: None. IMPRESSION: No acute intracranial findings. Postsurgical change with aneurysm clipping. Chronic microvascular ischemic changes. Findings called to ED at 1016 hours
[2016-08-05 10:35] LABS: Hematocrit 34 % (35-47); Hemoglobin 10.8 g/dl (12.0-16.0); Mean Corpuscular HGB Conc 32 g/dl (31-36); Mean Corpuscular Hemoglobin 29 pg (27-31); Mean Corpuscular Volume 89 fL (80-97); Mean Platelet Volume 9 um3 (7.4-10.4); Red Blood Count 3.77 10^6/ul (4.0-5.4); Red Cell Distribution Width 16 % (10.5-15); White Blood Count 4.7 10^3/ul (3.5-10.8)
[2016-08-05 10:42] LABS: Urine Bilirubin Negative (Negative); Urine Glucose Negative (Negative); Urine Nitrite Negative (Negative)
[2016-08-05 10:49] LABS: BUN/Creatinine Ratio 17.8 (8-20); Calcium 9.6 mg/dL (8.6-10.3); EGFR African American 100.5 (>60); EGFR Non-African American 78.1 (>60); Globulin 3.3 g/dL (2-4); HDL Cholesterol 52.9 mg/dL; Potassium 4.1 mmol/L (3.5-5.0); Total Bilirubin 0.5 mg/dL (0.2-1.0); Total Protein 7.3 g/dL (6.4-8.9)
--- NOTE | 2016-08-05 10:51 | RAD ---
Indication: Sepsis. Single frontal view of the chest performed at 1010 hours was reviewed. Comparison is made with previous exam dated July 07, 2016. Cardiomegaly is noted. Interstitial edema consistent with CHF is noted. No alveolar consolidation is noted. IMPRESSION: CARDIOMEGALY WITH INTERSTITIAL EDEMA CONSISTENT WITH CHF.
[2016-08-05 10:52] LABS: Troponin I 0.04 ng/mL (<0.04)
[2016-08-05] MEDS ORDERED: Metoclopramide IV* 5 MG/ML 2 ML VIAL IV ONE (11:51)
[2016-08-05] MEDS ORDERED: Metoprolol Tartrate IV* 1 MG/ML 5 ML VIAL IV ONE (11:51)
[2016-08-05] MEDS ORDERED: Acetaminophen TAB* 325 MG PO ONE (12:06)
[2016-08-05] MEDS ORDERED: Furosemide IV* 10 MG/ML 10 ML VIAL (100 MG) IV ONE (12:31)
[2016-08-05] MEDS ORDERED: Albuterol 2.5 MG/3 ML NEB.SOL* (0.083%) INH PRN (14:35)
[2016-08-05] MEDS ORDERED: clonazePAM TAB(*) 1 MG PO PRN ×3 (14:35)
[2016-08-05] MEDS ORDERED: Gaviscon CHEW TAB* 1 TAB PO PRN (14:40)
[2016-08-05] MEDS ORDERED: oxyCODONE TAB* 5 MG TAB PO PRN (14:40)
[2016-08-05 15:57] LABS: C Reactive Protein 14.15 mg/L (< 5.00)
[2016-08-05] MEDS: oxyCODONE TAB* 5 MG TAB PO SCH ×3 (16:26→20:22)
[2016-08-05] MEDS: Acetaminophen TAB* 325 MG PO SCH (20:20)
[2016-08-05] MEDS: FLUoxetine CAP* 20 MG PO SCH (20:21)
[2016-08-05] MEDS: Omeprazole CAP* 20 MG PO SCH (20:22)
[2016-08-05] MEDS: Pregabalin CAP(*) 25 MG PO SCH (20:25)
[2016-08-05] MEDS: traZODone TAB* 50 MG TAB PO SCH (20:28)
--- NOTE | 2016-08-05 22:56 | HP ---
ATTENDING PHYSICIAN ADDENDUM NOW INCLUDED ON THIS REPORT HISTORY AND PHYSICAL: DATE OF ADMISSION: 08/05/16 PRIMARY CARE PROVIDER: Judy Munguia M.D. ATTENDING PHYSICIAN: Dr. Estella Haynes *(dictation provided by Gaby Gaspar NP) CHIEF COMPLAINT: "Not feeling well with multiple somatic complaints" HISTORY OF PRESENT ILLNESS: Ms. Mejia is a 71-year-old female with past medical history of depression, severe anxiety, chronic pain on multiple narcotics, COPD and AFib, who presents today to the hospital with multiple complaints. Ms. Richardson states that she started feeling unwell about 5 days ago. From her estimation, this is when the facility changed the dosing of her oxycodone. She believes that the facility has been withholding oxycodone from her routinely. When I reviewed the list of medication administrations, it appears that the patient actually had increase in her oxycodone on 07/20/16 has been receiving oxycodone 5 times a day routinely. Regardless, Ms. Mejia states that she is very concerned about the decreased oxycodone. She reports cough that is nonproductive. She states that one morning she awoke with chest pain. She states that she has had increased urinary frequency and increased incontinence. Her main complaint seems to be that in the morning for the past 5 days when she awakes she is unable to move. She states that it is secondary to being completely weak. She states that after few minutes her strength returns and she is able to get up. Today, when she awoke this happened again. She states even after most of the weakness resolved, she still did not feel herself and ultimately requested to come to the emergency room for evaluation. I did speak with providers at [facility] regarding the history of present illness. They state that Ms. Mejia has had erratic behavior for sometime and is "allover the place." They have not noticed this episodes of weakness. They have noted that she had towels all over her room, but there is no odor of urine to suggest that she has been incontinent. They have not noticed any neurological deficits. They did report that there is concern for brief left arm drift during neuro checks with the emergency providers, but they did not feel that there was an accurate reflection of her strength, as she was again "allover the place." They report that she has significant paranoia and has called the police to report that there is still in her medications and also reported that people are coming into the facility to steal her clothing. In the emergency room, Ms. Mejia had a fever to 100.4. Her flu swab is negative. Her urine shows no evidence of infection. Her electrolytes are essentially normal, though she does have a slight elevation in her troponin to 0.04. Her white blood cell count is normal. She is slightly anemic, but this is consistent with previous. Her chest x-ray shows concern for vascular congestion and BNP is elevated significantly to 985. I do note that this is consistent with a previous one drawn in May. Based on Ms. Meija complaint with multiple somatic complaints as well as finding of CHF on chest x-ray, Hospital Medicine was called regarding admission. PAST MEDICAL HISTORY: 1. GERD. 2. Depression. 3. COPD, on 3 L nasal cannula routinely. 4. Atrial fibrillation (the patient states that this only happened once). 5. Anxiety, severe. 6. Hypertension. 7. History of brain aneurysm with surgery. 8. Legally blind. 9. History of psychosis and paraphrenia. 10. History of alcohol abuse. 11. History of tobacco abuse. 12. History of oral tumor. 13. History of cholecystectomy. 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 MEDICATIONS: 1. Tylenol 1000 mg p.o. q.8 hours p.r.n. 2. Budesonide/formoterol 160/4.5 2 puffs inhaled b.i.d. 3. Fluticasone/vilanterol 1 puff inhaled daily. 4. Loperamide 2 mg p.o. p.r.n. 5. Nicotine patch 7 mg. 6. Ranitidine 150 mg p.o. daily. 7. Albuterol nebulizers p.r.n. 8. Aspirin 81 mg p.o. daily. 9. Fluoxetine 20 mg p.o. b.i.d. 10. Gaviscon 2 tabs chewable q.12 hours p.r.n. 11. Lisinopril 10 mg p.o. daily. 12. Metoprolol succinate 12.5 mg p.o. daily. 13. Omeprazole 40 mg p.o. b.i.d. 14. Oxycodone 15 mg at 8 a.m. at 1600, 10 mg at bedtime, and 10 mg t.i.d. p.r.n. breakthrough pain. 15. Pregabalin 25 mg p.o. t.i.d. 16. Tiotropium 1 cap inhaled daily. 17. Amlodipine 5 mg p.o. daily. 18. Clonazepam 1 mg in the a.m., 1 mg at 1600 at 1.5 mg at bedtime. 19. Trazodone 25 mg p.o. bedtime. ALLERGIES: ADHESIVE TAPE. FAMILY HISTORY: The patient reports her mother of old age and her father in a car accident. REVIEW OF SYSTEMS: Constitutional: The patient denies fevers or chills or weight loss. Cardiac: Positive for chest pain x1, self limited while at rest. No edema. Respiratory: Positive for cough, nonproductive. No hemoptysis, no shortness of breath. GI: No nausea, vomiting, diarrhea or abdominal pain. She has been tolerating oral intake well. : No gross hematuria or dysuria though the patient does report increased frequency. Neuro: No focal weakness or sensory loss. Eyes: No vision complaints. ENT: No dysphagia. Musculoskeletal: Positive for chronic back pain. Skin: No rashes or lesions. Psych: Positive for depression, anxiety, or paranoia. PHYSICAL EXAMINATION GENERAL: Ms. Mejia is sitting in the bed with no acute distress. She is calm and cooperative with my examination. VITAL SIGNS: Temperature peak in emergency room was 100.4, pulse rate 72, respiratory rate 20, O2 saturation 94% on 3 L nasal cannula with a blood pressure of 165/59. LUNGS: Show very mild wheezing with no accessory muscle use and good aeration. HEART: S1, S2. No murmurs, rubs, or gallops. ABDOMEN: Soft. There is some tenderness in the right mid to lower quadrant at the site of her hernia. Bowel sounds are positive x4. EXTREMITIES: No cyanosis or edema. SKIN: Intact. NEUROLOGIC: She is alert. She is oriented x3. She appears coherent in her thought. LABORATORY DATA: Sodium 135, potassium 4.1, chloride 99, serum bicarbonate 32 , BUN 13, creatinine 0.73, glucose 97, lactic acid 0.5, troponin 0.04, BNP 985. WBC 4.7, hemoglobin 10.8, hematocrit 34, platelet count 159, INR 1.06. Urine shows no evidence of infection. Influenza swab is negative. Chest x-ray shows concern for pulmonary edema. CT of the brain is negative for any acute process and the EKG shows sinus rhythm with heart rate at 80s and no evidence of ischemia. ASSESSMENT: Ms. Mejia is a 71-year-old female with past medical history of anxiety, depression, paranoia as well as COPD, on 3 L nasal cannula, paroxysmal atrial fibrillation and GERD, who presents today to the hospital with multiple complaints, but seems to be primarily of intermittent weakness. In the emergency room, she has been found to have chest x-ray consistent with pulmonary edema, and elevated BNP. Our plan is as follows: 1. Weakness: Exam on Ms. Mejia stay is normal. She has no weakness. Nursing staff in the emergency room also confirmed that there is no weakness noted on arrival. I spoke again to the nursing staff at [facility] and they felt that her exam was inadequate to determine any neurological deficit as the patient was "allover the place." The patient herself denies any localized weakness. My plan for now will just be to observe the patient with neurological checks q.2 hours. I do not think based on the paucity of information that a complete stroke or TIA workup is warranted. 2. Question of CHF. The patient has no history of CHF documented, but I do note that she had a transthoracic echocardiogram in 2012, which was that normal showing concentric hypertrophy and ejection fraction of 65% with moderate-to- severely dilated right ventricular hypertrophy and mild hypokinesis. There is also severe biatrial enlargement noted at that time as well as moderate pulmonary hypertension. The patient has been given one time dose of Lasix in the emergency room. I plan to hold further dosing of Lasix till the a.m. when her labs and her physical assessment can be checked to guide further dosing. The patient will have transthoracic echocardiogram. She will be monitored on telemetry unit. She will have Is and Os. She will have daily weights. 3. Chronic pain. Plan to continue home oxycodone regimen. 4. Anxiety and depression. Continue home regimen of Klonopin and fluoxetine. 5. Hypertension. Continue lisinopril and metoprolol. The patient will also continue her amlodipine. 6. History of COPD. No evidence of exacerbation today. There is a very small wheeze that seems insignificant. The patient will continue on her home Symbicort and Spiriva. 7. DVT prophylaxis with heparin subcu. 8. Disposition to telemetry floor. 9. Code status. DNR. This was reviewed with the patient at the bedside. 10. Elevated temperature. The patient has a temp elevated to 100.4 in the emergency room. Does not quite technically qualify as a fever. She has no focal sign of infection. Her white blood cell count is normal. I am adding on a CRP now, but we will continue to monitor for the development of infection. Chest x-ray does not show pneumonia. Her flu swab is negative. Urinalysis is negative. TIME SPENT: Approximately 70 minutes were spent on the admission of this patient, more than half the time spent with her at the bedside reviewing the events leading up to this hospitalization, performing the physical examination, and reviewing the plan of care. GABY GASPAR NP ADDENDUM: Bety Mejia is a 71-year-old female with history of anxiety and COPD, oxygen dependent, who presents complaining of "pain all over." There was a questionable left-sided weakness, but it was not confirmed by physical evaluation. The patient also denies any focal neuro deficits. She appears to be in new CHF. She is going to be placed on overnight observation. For further details of the patient's presentation and plan, please see history and physical dictated by Gaby Gaspar NP, on 08/05/16 with which I agree. ESTELLA HAYNES MD CC: Judy Munguia M.D. * [id number]/[facility] #: [id number]/[facility] #: [id number] CHOLO
--- NOTE | 2016-08-05 23:13 | HP ---
HISTORY AND PHYSICAL:* ADDENDUM: Bety Mejia is a 71-year-old female with history of anxiety and COPD, oxygen dependent, who presents complaining of "pain all over." There was a questionable left-sided weakness, but it was not confirmed by physical evaluation. The patient also denies any focal neuro deficits. She appears to be in new CHF. She is going to be placed on overnight observation. For further details of the patient's presentation and plan, please see history and physical dictated by Gaby Gaspar NP, on 08/05/16 with which I agree. [id number]/[id number] #: [id number] MTDD
--- NOTE | 2016-08-06 08:06 | ED ---
Johan Abraham Adam, scribed for Ash Grant MD on 08/05/16 at 1024 . Neurological HPI - HPI Summary HPI Summary: Pt is a 71 year old female BIBA from skilled nursing with sudden onset of SHAH and AMS. She developed a SHAH in the front of her head 30-45 minutes ROLFER at the ED and it has grown worse since. The pt also presents with left-sided weakness ( per EMS). According to a caregiver at her nursing facility the pt also exhibits AMS and slurred speech relative to her baseline. Pt's temperature was 100.4 F and glucose was 99 en route to ED (per EMS). PMHx of aneurysm, A Fib, CHF, and COPD. No PMHx of migraines. - History of Current Complaint Stated Complaint: WEAKNESS, Hx Obtained From: Patient, EMS Onset/Duration: Sudden Onset, Started minutes ago, Still Present Timing: Constant Onset Severity: Moderate Current Severity: Moderate Headache Location: Frontal Aggravating: Unknown Alleviating: Nothing Associated Signs and Symptoms: Positive: Weakness - Left side, AMS, Impaired Speech - Additional Pertinent History Primary Care Physician: MARLENI - Allergy/Home Medications Allergies/Adverse Reactions: Allergies Allergy/AdvReac Type Severity Reaction Status Date / Time Adhesive Tape Allergy Blisters Verified 05/13/16 09:31 Home Medications: Home Medications Fluticasone/Vilanterol MDI(NF) [Breo Ellipta MDI (NF)] 1 puff INH DAILY [History Confirmed 08/05/16] Loperamide CAP* [Imodium CAP*] 2 mg PO ONCE PRN 08/05/16 [History Confirmed ] Loperamide CAP* [Imodium CAP*] 4 mg PO DAILY PRN 08/05/16 [History Confirmed ] Oxycodone TAB(NF) [Oxycodone HCl 10 MG] 15 mg PO BID PRN 08/05/16 [History Confirmed 08/05/16] clonazePAM TAB(*) [KlonoPIN TAB(*)] 1 mg PO 1600 PRN 08/05/16 [History Confirmed 08/05/16] clonazePAM TAB(*) [KlonoPIN TAB(*)] 1 mg PO QAM PRN 08/05/16 [History Confirmed 08/05/16] clonazePAM TAB(*) [KlonoPIN TAB(*)] 1.5 mg PO BEDTIME PRN 08/05/16 [History Confirmed 08/05/16] oxyCODONE TAB* [Roxycodone TAB 5 mg*] 5 mg PO TID PRN MDD 15 mg 08/05/16 [ History Confirmed 08/05/16] oxyCODONE TAB* [Roxycodone TAB 5 mg*] 10 mg PO BEDTIME PRN 08/05/16 [History Confirmed 08/05/16] PMH/Surg Hx/FS Hx/Imm Hx Endocrine/Hematology History: Denies: Hx Anticoagulant Therapy, Hx Diabetes, Hx Anemia, Hx Unexplained Bleeding Cardiovascular History: Reports: Hx Aneurysm, Hx Congestive Heart Failure, Other Cardiovascular Problems/Disorders - AFIB Denies: Hx Angina, Hx Angioplasty, Hx Auto Implanted Cardiovert Defib, Hx Cardiac Arrest, Hx Cardiomegaly, Hx Congenital Heart Disease, Hx Coronary Artery Disease, Hx Deep Vein Thrombosis, Hx Embolism, Hx Hypercholesterolemia, Hx Hypotension, Hx Hypertension, Hx Pacemaker/ICD, Hx Peripheral Vascular Disease, Hx Rheumatic Fever, Hx Syncope, Hx Valvular Heart Disease Respiratory History: Reports: Hx Asthma, Hx Chronic Obstructive Pulmonary Disease (COPD) - 3L O2 at baseline, Other Respiratory Problems/Disorders - emphysema Denies: Hx Cystic Fibrosis, Hx Lung Cancer, Hx Pleural Effusion, Hx Pneumonia , Hx Pulmonary Edema, Hx Pulmonary Embolism, Hx Seasonal Allergies, Hx Sleep Apnea GI History: Reports: Hx Cirrhosis, Hx Gastroesophageal Reflux Disease, Hx Hiatal Hernia, Hx Jaundice History: Denies: Hx Acute Renal Failure, Hx Benign Prostatic Hyperplasia, Hx Chronic Renal Failure, Hx Dialysis, Hx Kidney Infection, Hx Kidney Stones, Hx Renal Disease, Other Problems/Disorders Musculoskeletal History: Reports: Hx Arthritis Denies: Hx Back Problems, Hx Bursitis, Hx Congenital Bone Abnormalities, Hx Fibromyalgia, Hx Gout, Hx Orthopedic Injury, Hx Osteoporosis, Hx Scoliosis, Hx Tendonitis, Other Musculoskeletal History - NERVE PROBLEM IN BACK AMBULATES WITH WALKER Sensory History: Reports: Hx Cataracts, Hx Contacts or Glasses, Hx Legally Blind , Hx Macular Degeneration, Hx Vision Problem Denies: Hx Deafness, Hx Hearing Aid, Hx Hearing Problem, Other Sensory Impairments Opthamlomology History: Reports: Hx Cataracts, Hx Contacts or Glasses, Hx Legally Blind, Hx Macular Degeneration, Hx Vision Problem Denies: Other Sensory Impairments Neurological History: Denies: Hx Dementia, Hx Developmental Delay, Hx Headaches, Hx Migraine, Hx Nerve Disease, Hx Seizures, Hx Spinal Cord Injury, Hx Transient Ischemic Attacks (TIA), Other Neuro Impairments/Disorders Psychiatric History: Reports: Hx Anxiety, Hx Depression - ON MEDICATION FOR Denies: Hx Eating Disorder, Hx Inpatient Treatment, Hx of Violent Episodes Against Others - Cancer History Cancer Type, 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 Exploratory lap in her 20s [place]. Aneurysm in head in her early 50s [place]. Hysterectomy and Bladder surgery mesh [place] [facility] [place] Bilateral arm and Left shoulder for fractures [facility] [place] 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 Right Cataract 07/01/12 [facility] Hx Anesthesia Reactions: No Infectious Disease History: Denies: Hx Clostridium Difficile, Hx Hepatitis, Hx Human Immunodeficiency Virus (HIV), Hx of Known/Suspected MRSA, Hx Shingles, Hx Tuberculosis, Hx Known/ Suspected VRE, Hx Known/Suspected VRSA, History Other Infectious Disease - Family History Known Family History: Positive: Other - Alcoholism Family History: FHx of EtOH abuse. FHx of lymphoma - sister. Full FHx not obtained due to AMS. - Social History Occupation: Retired Lives: At [employer] Alcohol Use: Hx of alcoholism Hx Substance Use: No Substance Use Type: Reports: None Substance Use Comment - Amount & Last Used: Pt stopped drinking 3 years prior Hx Tobacco Use: Yes Smoking Status (MU): Former Smoker Type: Cigarettes Amount Used/How Often: 1 ppd Length of Time of Smoking/Using Tobacco: 50 years Have You Smoked in the Last Year: Yes Review of Systems Positive: Fever. Negative: Chills Negative: Erythema Negative: Sore Throat Negative: Chest Pain Negative: Shortness Of Breath, Cough Negative: Abdominal Pain, Vomiting, Nausea Negative: dysuria, hematuria Negative: Myalgia, Edema Negative: Rash Positive: Headache, Weakness - Left side, Slurred Speech All Other Systems Reviewed And Are Negative: Yes Physical Exam - Summary Physical Exam Summary: Constitutional: Well-developed, Well-nourished, Alert. (-) Distressed Skin: Warm, Dry HENT: Eyes: Conjunctiva normal Neck: Musculoskeletal ROM normal neck. (-) JVD, (-) Stridor, (-) Tracheal deviation Cardio: Rhythm regular, rate normal, Heart sounds normal; Intact distal pulses ; The pedal pulses are 2+ and symmetric. Radial pulses are 2+ and symmetric. (- ) Murmur Pulmonary/Chest wall: Effort normal. (-) Respiratory distress, (-) Wheezes, (-) Rales Abd: Soft. (-) Tenderness, (-) Distension, (-) Guarding, (-) Rebound Musculoskeletal: (-) Edema Lymph: (-) Cervical adenopathy Neuro: Alert, Oriented x3, Strength normal, Cranial nerves II-XII are grossly intact. (-) Dysmetria, (-) Nystagmus, (-) Ataxia by finger to nose testing, (-) Sensory deficit. Psych: Mood and affect Normal Triage Information Reviewed: Yes Vital Signs Reviewed: Yes Diagnostics - Laboratory Result Diagrams: 08/05/16 10:15 08/05/16 10:15 Lab Statement: Any lab studies that have been ordered have been reviewed, and results considered in the medical decision making process. - Radiology CXR Radiology Interpretation Completed By: Radiologist - IMPRESSION: CARDIOMEGALY WITH INTERSTITIAL EDEMA CONSISTENT WITH CHF. - CT BRAIN CT Interpretation Completed By: Radiologist - IMPRESSION: No acute intracranial findings. Postsurgical change with aneurysm clipping. Chronic microvascular ischemic changes. - EKG 09:58 Cardiac Rate: NL - 80 BPM EKG Rhythm: Sinus Rhythm EKG Interpretation: First degree AV block. No STEMI. - Additional Comments Diagnostic Additional Comments: Troponin I - 0.04 Course/Dx - Diagnoses Provider Diagnoses: CHF exacerbation, Altered mental status, Uncontrolled hypertension Discharge - Discharge Plan Condition: Stable Disposition: ADMITTED TO [facility] Referrals: Judy Munguia MD [Primary Care Provider] - The documentation as recorded by the Johan fuentes Adam accurately reflects the service I personally performed and the decisions made by me, Ash Grant MD.
[2016-08-06] MEDS ORDERED: Spiriva Inhaler DEVICE* 1 EACH DEVICE INH ONE (09:00)
[2016-08-06] MEDS: oxyCODONE TAB* 5 MG TAB PO SCH ×3 (09:11→20:24)
[2016-08-06] MEDS: Aspirin EC Low Dose* 81 MG TAB.EC PO SCH (09:12)
[2016-08-06] MEDS: Acetaminophen TAB* 325 MG PO SCH ×2 (09:12→20:26)
[2016-08-06] MEDS: amLODIPine TAB* 5 MG PO SCH (09:12)
[2016-08-06] MEDS: FLUoxetine CAP* 20 MG PO SCH ×2 (09:12→20:25)
[2016-08-06] MEDS: Pregabalin CAP(*) 25 MG PO SCH ×2 (09:13→20:26)
[2016-08-06] MEDS: Omeprazole CAP* 20 MG PO SCH ×2 (09:13→20:24)
[2016-08-06] MEDS: Metoprolol Succinate XL TAB* 25 MG PO SCH (09:13)
[2016-08-06] MEDS: Lisinopril TAB* 5 MG PO SCH (09:13)
[2016-08-06] MEDS: Tiotropium CAP.INH* CAP.INH/18 MCG (USE ORDER SET !) INH SCH (09:33)
--- NOTE | 2016-08-06 10:45 | ECHO ---
Patient: BERNARDINO CASEY [facility] Rec#: [id number] : 1945 Date: 08/06/2016 Age: 71y Height: 152.4 cm / 60.0 in Weight: 86.18 kg / 189.9 lbs Sex: F BSA: 1.83 Room#: [facility] Admit Date#: 08/05/2016 Type: Inpatient Referring: Gaby Gaspar NP Reading: Fran Santoro MD Pourer Buggy Ladle: Dora Rowland Pourer Buggy Ladle: Adrienne Khanna RDCS CC: Ezra STARR,Judy Transthoracic Echocardiogram Indication: Pulmonary edema BP: 143/80 HR: 76 Rhythm: NSR with PACs Findings History: HTN, COPD, a-fib, GERD, depression/anxiety. Technical Comments: The study is technically limited due to patient body habitus. The study is technically limited due to the patient's history of COPD. COmpleted at 0914. Left Ventricle: The left ventricular chamber size is normal. Moderate concentric left ventricular hypertrophy is observed. There is diffuse global hypokinesis of the left ventricle. There is mildly decreased left ventricular systolic function. The estimated ejection fraction is 45-50%. The assessment of diastolic function is non-diagnostic. Left Atrium: The left atrium is severely dilated. Right Ventricle: The right ventricular cavity size is normal. The right ventricular global systolic function is mildly reduced. Right Atrium: The right atrium is moderate to severely dilated. Aortic Valve: The aortic valve is trileaflet. The aortic valve leaflets are mildly thickened. There is a trace of aortic regurgitation. There is borderline aortic stenosis present. The highest aortic valve velocity was obtained with the standard probe from the A5C view. Mitral Valve: The mitral valve leaflets are mildly thickened. There is a trace of mitral regurgitation. There is no evidence of mitral stenosis. Tricuspid Valve: The tricuspid valve leaflets are normal. There is trace to mild tricuspid regurgitation. There is evidence of mild pulmonary hypertension. There is no tricuspid stenosis. Pulmonic Valve: The pulmonic valve appears normal. There is mild pulmonic regurgitation. There is no pulmonic stenosis. Pericardium: There is no pericardial effusion. Aorta: The ascending aorta is not well visualized. The aortic arch is not well visualized. There is no dilation of the aortic root. Pulmonary Artery: The main pulmonary artery appears normal. Venous: The inferior vena cava appears normal in size. There is a greater than 50% respiratory change in the inferior vena cava dimension. Conclusions The study is technically limited due to the patient's history of COPD. COmpleted at 0914. The study is technically limited due to patient body habitus. Moderate concentric left ventricular hypertrophy is observed. There is diffuse global hypokinesis of the left ventricle. There is mildly decreased left ventricular systolic function. The estimated ejection fraction is 45-50%. There is a trace of mitral regurgitation. The left atrium is severely dilated. There is trace to mild tricuspid regurgitation. There is evidence of mild pulmonary hypertension. The right atrium is moderate to severely dilated. There is mild pulmonic regurgitation. There is a trace of aortic regurgitation. There is borderline aortic stenosis present.Compared to report of study from 01/28/2013 The LV systolic function has decreased(was reported as normal to hyperdynamic with EF of 65%). The degree of pulmonary hypertension is less (was moderate). Measurements Name Value Normal Range RVIDd (AP) 2D 2.5 cm (0.9 - 2.6) RVDdMajor (2D) 3.4 cm (2.2 - 4.4) RAd ISD 4CH 5.9 cm (3.4 - 4.9) RA (A4C)W 4.6 cm (2.9 - 4.6) IVSd (2D) 1.6 cm (0.6 - 1) LVPWd (2D) 1.3 cm (0.6 - 1) LVIDd (2D) 4.8 cm (3.6 - 5.4) LVIDs (2D) 3.6 cm - LV FS (2D) 25 % (25 - 45) Aortic Annulus 1.9 cm (1.4 - 2.6) Ao root diameter (2D) 2.6 cm (2.1 - 3.5) LA dimension (AP) 2D 4.9 cm (2.3 - 3.8) LAd ISD 4CH 6.8 cm (2.9 - 5.3) LA ISD 4CH W 4.6 cm (2.5 - 4.5) Name Value Normal Range LA ESV SP 4CH (A/L) 106 ml - LA ESV SP 2CH (A/L) 111 ml - LA ESV BP (A/L) 110 ml - LA ESV BP (A/L) index 60.05 ml/m2 - LA ESV SP 4CH (MOD) 102 ml - LA ESV SP 2CH (MOD) 106 ml - Name Value Normal Range MV E-wave Vmax 0.6 m/sec - MV deceleration time 352 msec - MV A-wave Vmax 0.9 m/sec - MV E:A ratio 0.73 ratio - LV septal e' Vmax 0.03 m/sec - LV lateral e' Vmax 0.04 m/sec - LV E:e' septal ratio 20 ratio - LV E:e' lateral ratio 15 ratio - Name Value Normal Range AV Vmax 1.9 m/sec - AV VTI 39 cm - AV peak gradient 15.22 mmHg - AV mean gradient 8.44 mmHg - LVOT diameter 2 cm - LVOT Vmax 0.95 m/sec - LVOT VTI 20 cm - LVOT peak gradient 3.67 mmHg - LVOT mean gradient 1.79 mmHg - HITESH (continuity Vmax) 1.6 cm2 - HITESH (continuity VTI) 1.6 cm2 - Name Value Normal Range TR Vmax 2.9 m/sec - TR peak gradient 34 mmHg - RAP 3 mmHg - RVSP 37 mmHg - IVC diameter 1.5 cm - Name Value Normal Range PV Vmax 1.6 m/sec - PV peak gradient 10.18 mmHg -
--- NOTE | 2016-08-06 13:38 | PN ---
Subjective Date of Service: 08/06/16 Interval History: C/O pain both lower legs. She c/o that her oxycodone was stopped at [place]. No new c/o. She denies cough, SOB, chest pain. Objective Active Medications: Acetaminophen (Tylenol Tab*) 975 mg PO BID [facility] Last Admin: 08/06/16 09:12 Dose: 975 mg Al Hydroxide/Mg Trisilicate (Gaviscon Chew Tab*) 2 tab.chew PO Q12HR PRN PRN Reason: INDIGESTION Albuterol (Ventolin 2.5 Mg/3 Ml Neb.Mary*) 2.5 mg INH Q6H PRN PRN Reason: SHORTNESS OF BREATH Amlodipine Besylate (Norvasc Tab*) 5 mg PO DAILY [facility] Last Admin: 08/06/16 09:12 Dose: 5 mg Aspirin (Aspirin Ec Low Dose*) 81 mg PO DAILY [facility] Last Admin: 08/06/16 09:12 Dose: 81 mg Clonazepam (Klonopin Tab(*)) 1 mg PO 1600 PRN PRN Reason: ANXIETY Clonazepam (Klonopin Tab(*)) 1 mg PO QAM PRN PRN Reason: ANXIETY Clonazepam (Klonopin Tab(*)) 1 mg PO BEDTIME PRN PRN Reason: ANXIETY Fluoxetine HCl (Prozac Cap*) 20 mg PO BID [facility] Last Admin: 08/06/16 09:12 Dose: 20 mg Furosemide (Lasix Tab*) 20 mg PO DAILY [facility] Lisinopril (Prinivil Tab*) 10 mg PO DAILY [facility] Last Admin: 08/06/16 09:13 Dose: 10 mg Metoprolol Succinate (Toprol Xl Tab*) 12.5 mg PO DAILY [facility] Last Admin: 08/06/16 09:13 Dose: 12.5 mg Omeprazole (Prilosec Cap*) 40 mg PO BID [facility] Last Admin: 08/06/16 09:13 Dose: 40 mg Oxycodone HCl (Roxycodone Tab*) 15 mg PO 0800,1600 [facility] Last Admin: 08/06/16 09:11 Dose: 15 mg Oxycodone HCl (Roxycodone Tab*) 10 mg PO TID PRN PRN Reason: PAIN Oxycodone HCl (Roxycodone Tab*) 10 mg PO BEDTIME [facility] Last Admin: 08/05/16 20:22 Dose: 10 mg Pregabalin (Lyrica Cap(*)) 25 mg PO BID [facility] Tiotropium Diana (Spiriva Cap.Inh*) 1 cap INH DAILY [facility] Last Admin: 08/06/16 09:33 Dose: 1 cap.inh Trazodone HCl (Desyrel Tab*) 25 mg PO BEDTIME [facility] Last Admin: 08/05/16 20:28 Dose: 25 mg Vital Signs 08/05/16 08/05/16 08/05/16 14:00 14:30 14:37 Temperature 99.2 F Pulse Rate 68 69 70 Respiratory 14 18 20 Rate Blood Pressure 139/69 135/86 135/86 (mmHg) O2 Sat by Pulse 95 95 Oximetry 08/05/16 08/05/16 08/05/16 15:00 16:00 16:26 Temperature 98.8 F Pulse Rate 68 85 Respiratory 17 16 16 Rate Blood Pressure 145/88 122/60 (mmHg) O2 Sat by Pulse 95 93 Oximetry 08/05/16 08/05/16 08/05/16 18:26 19:28 19:35 Temperature 98.9 F Pulse Rate 25 59 Respiratory 16 16 Rate Blood Pressure 136/63 (mmHg) O2 Sat by Pulse 97 Oximetry 08/05/16 08/05/16 08/05/16 20:00 20:22 20:25 Temperature Pulse Rate Respiratory 16 16 Rate Blood Pressure (mmHg) O2 Sat by Pulse 95 Oximetry 08/05/16 08/05/16 08/05/16 22:22 22:25 23:45 Temperature 97.3 F Pulse Rate 62 Respiratory 16 16 16 Rate Blood Pressure 110/57 (mmHg) O2 Sat by Pulse 95 Oximetry 08/06/16 08/06/16 08/06/16 03:41 09:11 09:13 Temperature 97.5 F Pulse Rate 64 Respiratory 16 16 16 Rate Blood Pressure 143/80 (mmHg) O2 Sat by Pulse 97 Oximetry 08/06/16 08/06/16 08/06/16 09:26 11:11 11:13 Temperature 97.8 F Pulse Rate 64 Respiratory 16 16 Rate Blood Pressure 125/65 (mmHg) O2 Sat by Pulse 96 Oximetry 08/06/16 11:30 Temperature 97.8 F Pulse Rate 78 Respiratory 16 Rate Blood Pressure 117/61 (mmHg) O2 Sat by Pulse 94 Oximetry Oxygen Devices in Use Now: None Appearance: Alert, partly up in bed. Anxious, but otherwise looks comfortable. Eyes: No Scleral Icterus Ears/Nose/Mouth/Throat: Clear Oropharnyx, Mucous Membranes Moist Neck: NL Appearance and Movements; NL JVP, No Thyroid Enlargement, Masses Respiratory: Symmetrical Chest Expansion and Respiratory Effort, Clear to Auscultation, Clear to Percussion Cardiovascular: NL Sounds; No Murmurs; No JVD, RRR, No Edema, - Extremities: No Edema, No Clubbing, Cyanosis, - - many soft varicosities both lower legs Skin: No Rash or Ulcers, No Nodules or Sclerosis, - Neurological: Alert and Oriented x 3, NL Sensation Result Diagrams: 08/05/16 10:15 08/05/16 10:15 Microbiology and Other Data: Microbiology 08/05/16 14:30 Nasal Screen MRSA (PCR)([facility]) - Final Nasal Mrsa Negative 08/05/16 12:55 Influenza Types A,B Antigen (TOMMY) - Final Nasopharyngeal Specimen received for Influenza A/B Molecular testing Assess/Plan/Problems-Billing Assessment: - Patient Problems (1) Cardiomyopathy Current Visit: Yes Status: Acute Code(s): I42.9 - CARDIOMYOPATHY, UNSPECIFIED SNOMED Code(s): 69001802 Comment: Global hypokinesis with LVEF 45-50% 08/05/16. She received furosemide 60 mg IV in ED, but no output recorded. Start furosemide 20 mg po daily 08/07. Note BNP 900+. (2) Chronic pain Current Visit: No Status: Chronic Code(s): G89.29 - OTHER CHRONIC PAIN SNOMED Code(s): 21045735 Comment: Taper pregabalin. I reduced hs clonazepam to 1 mg hs. Taper oxycodone later. She might do better with more frequent doses of a lower dose of oxycodone. (3) COPD (chronic obstructive pulmonary disease) Current Visit: No Status: Chronic Code(s): J44.9 - CHRONIC OBSTRUCTIVE PULMONARY DISEASE, UNSPECIFIED SNOMED Code(s): 59277070 Comment: Continue tiotropium, start Dulera to substitute for Symbicort. (4) HTN (hypertension) Current Visit: No Status: Acute Code(s): I10 - ESSENTIAL (PRIMARY) HYPERTENSION SNOMED Code(s): 62787547 Comment: Resume amlodipine.
[2016-08-06] MEDS: clonazePAM TAB(*) 1 MG PO PRN (19:31)
[2016-08-06] MEDS: Mometasone/Formoter 100/5 MDI INH SCH (19:59)
[2016-08-06] MEDS: traZODone TAB* 50 MG TAB PO SCH (20:26)
[2016-08-07] MEDS: Heparin VIAL(*) 5000 UNITS/ML VIAL (FIVE THOUSAND) SUBCUT SCH ×3 (05:56→22:10)
[2016-08-07] MEDS: Lisinopril TAB* 5 MG PO SCH (09:22)
[2016-08-07] MEDS: Omeprazole CAP* 20 MG PO SCH ×2 (09:22→21:45)
[2016-08-07] MEDS: Metoprolol Succinate XL TAB* 25 MG PO SCH (09:22)
[2016-08-07] MEDS: Furosemide TAB* 20 MG PO SCH (09:22)
[2016-08-07] MEDS: FLUoxetine CAP* 20 MG PO SCH ×2 (09:23→21:45)
[2016-08-07] MEDS: amLODIPine TAB* 5 MG PO SCH (09:23)
[2016-08-07] MEDS: Pregabalin CAP(*) 25 MG PO SCH ×2 (09:23→21:45)
[2016-08-07] MEDS: Aspirin EC Low Dose* 81 MG TAB.EC PO SCH (09:23)
[2016-08-07] MEDS: oxyCODONE TAB* 5 MG TAB PO SCH ×3 (09:23→21:44)
[2016-08-07] MEDS: Acetaminophen TAB* 325 MG PO SCH ×2 (09:24→21:44)
[2016-08-07] MEDS: Tiotropium CAP.INH* CAP.INH/18 MCG (USE ORDER SET !) INH SCH (10:36)
[2016-08-07] MEDS: Mometasone/Formoter 100/5 MDI INH SCH ×2 (10:36→20:34)
--- NOTE | 2016-08-07 16:02 | PN ---
Subjective Date of Service: 08/07/16 Interval History: Patient seen this afternoon. Had a cramp in her lower abdomen that resolved quickly. No acute complaints. Repeatedly states she cannot go back to [place] due to medication problems there, concerned about her Oxycodone. As per nursing patient had mentioned jumping out of the window to PT. I pressed her asking if she had an thoughts of suicide or harming herself and she said no. When asked why she said she recently "found the Lord" and this has been helpful for her. Family History: Unchanged from Admission Social History: Unchanged from Admission Past Medical History: Unchanged from Admission Objective Active Medications: Acetaminophen (Tylenol Tab*) 975 mg PO BID [facility] Al Hydroxide/Mg Trisilicate (Gaviscon Chew Tab*) 2 tab.chew PO Q12HR PRN Albuterol (Ventolin 2.5 Mg/3 Ml Neb.Mary*) 2.5 mg INH Q6H PRN Amlodipine Besylate (Norvasc Tab*) 5 mg PO DAILY [facility] Aspirin (Aspirin Ec Low Dose*) 81 mg PO DAILY [facility] Clonazepam (Klonopin Tab(*)) 1 mg PO 1600 PRN Clonazepam (Klonopin Tab(*)) 1 mg PO QAM PRN Clonazepam (Klonopin Tab(*)) 1 mg PO BEDTIME PRN Fluoxetine HCl (Prozac Cap*) 20 mg PO BID [facility] Furosemide (Lasix Tab*) 20 mg PO DAILY [facility] Heparin Sodium (Porcine) (Heparin Vial(*)) 5,000 units SUBCUT Q8HR [facility] Lisinopril (Prinivil Tab*) 10 mg PO DAILY [facility] Metoprolol Succinate (Toprol Xl Tab*) 12.5 mg PO DAILY [facility] Mometasone Furoate/Formoterol Fumar (Dulera 100/5 Mdi*) 2 puff INH BID [facility] Omeprazole (Prilosec Cap*) 40 mg PO BID [facility] Oxycodone HCl (Roxycodone Tab*) 15 mg PO 0800,1600 [facility] Oxycodone HCl (Roxycodone Tab*) 10 mg PO TID PRN Oxycodone HCl (Roxycodone Tab*) 10 mg PO BEDTIME [facility] Pregabalin (Lyrica Cap(*)) 25 mg PO BID [facility] Tiotropium Mcnary (Spiriva Cap.Inh*) 1 cap INH DAILY [facility] Trazodone HCl (Desyrel Tab*) 25 mg PO BEDTIME [facility] Vital Signs 08/06/16 08/06/16 08/06/16 17:25 19:25 19:30 Temperature 97.9 F Pulse Rate 65 Respiratory 16 12 16 Rate Blood Pressure 109/57 (mmHg) O2 Sat by Pulse 94 Oximetry 08/06/16 08/07/16 08/07/16 22:26 00:09 03:00 Temperature 98.6 F Pulse Rate 67 45 Respiratory 12 20 16 Rate Blood Pressure 137/71 126/51 (mmHg) O2 Sat by Pulse 95 99 Oximetry 08/07/16 08/07/16 08/07/16 11:45 14:39 15:32 Temperature 98.8 F 98.3 F Pulse Rate 62 55 Respiratory 16 16 16 Rate Blood Pressure 119/60 95/45 (mmHg) O2 Sat by Pulse 94 99 Oximetry Oxygen Devices in Use Now: Nasal Cannula - 2L Appearance: Elderly, F, laying in bed in NAD Eyes: No Scleral Icterus Ears/Nose/Mouth/Throat: Mucous Membranes Moist Neck: NL Appearance and Movements; NL JVP Respiratory: Symmetrical Chest Expansion and Respiratory Effort, - - trace rales in B/L bases Cardiovascular: NL Sounds; No Murmurs; No JVD, RRR Abdominal: NL Sounds; No Tenderness; No Distention Lymphatic: No Cervical Adenopathy Extremities: No Edema Skin: No Rash or Ulcers Neurological: Alert and Oriented x 3 Result Diagrams: 08/05/16 10:15 08/05/16 10:15 Microbiology and Other Data: Assess/Plan/Problems-Billing Assessment: Acute on chronic systolic CHF exacerbation in a 71 yo F with hx of HTN, COPD, chronic pain - Patient Problems (1) Cardiomyopathy Current Visit: Yes Comment: Global hypokinesis with LVEF 45-50% 08/05/16. She received furosemide 60 mg IV in ED, but no output recorded. Continue Lasix PO 20 mg daily. Note elevated BNP but no current signs of fluid overload. (2) Chronic pain Current Visit: No Comment: Continue current dose of pregabalin. Dr. Gonzalez reduced hs clonazepam to 1 mg hs. Taper oxycodone later. She might do better with more frequent doses of a lower dose of oxycodone. (3) HTN (hypertension) Current Visit: No Comment: Continue amlodipine. (4) COPD (chronic obstructive pulmonary disease) Current Visit: No Comment: Continue tiotropium, Dulera to substitute for Symbicort. On home 3L. No wheezing appreciated. (5) DVT prophylaxis Current Visit: No Comment: SQ heparin Status and Disposition: Will need LTC placement
[2016-08-07] MEDS: traZODone TAB* 50 MG TAB PO SCH (21:45)
[2016-08-08] MEDS: clonazePAM TAB(*) 1 MG PO PRN (01:14)
[2016-08-08] MEDS: Heparin VIAL(*) 5000 UNITS/ML VIAL (FIVE THOUSAND) SUBCUT SCH ×3 (06:20→23:16)
[2016-08-08] MEDS: oxyCODONE TAB* 5 MG TAB PO SCH ×3 (08:12→23:11)
[2016-08-08] MEDS: Acetaminophen TAB* 325 MG PO SCH ×2 (08:13→23:13)
[2016-08-08] MEDS: Lisinopril TAB* 5 MG PO SCH (08:13)
[2016-08-08] MEDS: FLUoxetine CAP* 20 MG PO SCH ×2 (08:13→23:14)
[2016-08-08] MEDS: Aspirin EC Low Dose* 81 MG TAB.EC PO SCH (08:13)
[2016-08-08] MEDS: Omeprazole CAP* 20 MG PO SCH ×2 (08:13→23:15)
[2016-08-08] MEDS: Pregabalin CAP(*) 25 MG PO SCH ×2 (08:13→23:13)
[2016-08-08] MEDS: amLODIPine TAB* 5 MG PO SCH (08:13)
[2016-08-08] MEDS: Metoprolol Succinate XL TAB* 25 MG PO SCH (08:14)
[2016-08-08] MEDS: Furosemide TAB* 20 MG PO SCH (08:14)
[2016-08-08] MEDS: Mometasone/Formoter 100/5 MDI INH SCH ×2 (09:21→20:39)
[2016-08-08] MEDS: Tiotropium CAP.INH* CAP.INH/18 MCG (USE ORDER SET !) INH SCH (09:21)
[2016-08-08] MEDS ORDERED: Ondansetron ODT TAB* 4 MG PO PRN (12:12)
--- NOTE | 2016-08-08 14:21 | PN ---
Subjective Date of Service: 08/08/16 Interval History: Patient accusatory today, asking if I have been holding her Oxycodone doses from her. Says she feels "off" and attributes it to that (even though she received her normally scheduled dose). Denies chest pain, SOB. Family History: Unchanged from Admission Social History: Unchanged from Admission Past Medical History: Unchanged from Admission Objective Active Medications: Acetaminophen (Tylenol Tab*) 975 mg PO BID [facility] Last Admin: 08/08/16 08:13 Dose: 975 mg Al Hydroxide/Mg Trisilicate (Gaviscon Chew Tab*) 2 tab.chew PO Q12HR PRN PRN Reason: INDIGESTION Albuterol (Ventolin 2.5 Mg/3 Ml Neb.Mary*) 2.5 mg INH Q6H PRN PRN Reason: SHORTNESS OF BREATH Amlodipine Besylate (Norvasc Tab*) 5 mg PO DAILY [facility] Last Admin: 08/08/16 08:13 Dose: 5 mg Aspirin (Aspirin Ec Low Dose*) 81 mg PO DAILY [facility] Last Admin: 08/08/16 08:13 Dose: 81 mg Clonazepam (Klonopin Tab(*)) 1 mg PO 1600 PRN PRN Reason: ANXIETY Clonazepam (Klonopin Tab(*)) 1 mg PO QAM PRN PRN Reason: ANXIETY Clonazepam (Klonopin Tab(*)) 1 mg PO BEDTIME PRN PRN Reason: ANXIETY Last Admin: 08/08/16 01:14 Dose: 1 mg Fluoxetine HCl (Prozac Cap*) 20 mg PO BID [facility] Last Admin: 08/08/16 08:13 Dose: 20 mg Furosemide (Lasix Tab*) 20 mg PO DAILY [facility] Last Admin: 08/08/16 08:14 Dose: 20 mg Heparin Sodium (Porcine) (Heparin Vial(*)) 5,000 units SUBCUT Q8HR [facility] Last Admin: 08/08/16 13:56 Dose: 5,000 units Lisinopril (Prinivil Tab*) 10 mg PO DAILY [facility] Last Admin: 08/08/16 08:13 Dose: 10 mg Melatonin (Melatonin (Nf)) 1 mg PO BEDTIME [facility] Metoprolol Succinate (Toprol Xl Tab*) 12.5 mg PO DAILY [facility] Last Admin: 08/08/16 08:14 Dose: 12.5 mg Mometasone Furoate/Formoterol Fumar (Dulera 100/5 Mdi*) 2 puff INH BID [facility] Last Admin: 08/08/16 09:21 Dose: 2 puff Omeprazole (Prilosec Cap*) 40 mg PO BID [facility] Last Admin: 08/08/16 08:13 Dose: 40 mg Ondansetron HCl (Zofran Odt Tab*) 4 mg PO Q6H PRN PRN Reason: NAUSEA Last Admin: 08/08/16 13:24 Dose: 4 mg Oxycodone HCl (Roxycodone Tab*) 15 mg PO 0800,1600 [facility] Last Admin: 08/08/16 08:12 Dose: 15 mg Oxycodone HCl (Roxycodone Tab*) 10 mg PO TID PRN PRN Reason: PAIN Oxycodone HCl (Roxycodone Tab*) 10 mg PO BEDTIME [facility] Last Admin: 08/07/16 21:44 Dose: 10 mg Pregabalin (Lyrica Cap(*)) 25 mg PO BID [facility] Last Admin: 08/08/16 08:13 Dose: 25 mg Tiotropium [place] (Spiriva Cap.Inh*) 1 cap INH DAILY [facility] Last Admin: 08/08/16 09:21 Dose: 1 cap.inh Trazodone HCl (Desyrel Tab*) 25 mg PO BEDTIME [facility] Last Admin: 08/07/16 21:45 Dose: 25 mg Vital Signs 08/07/16 08/07/16 08/07/16 14:39 15:32 16:08 Temperature 98.3 F Pulse Rate 55 56 Respiratory 16 16 Rate Blood Pressure 95/45 107/53 (mmHg) O2 Sat by Pulse 99 97 Oximetry 08/08/16 08/08/16 08/08/16 03:14 03:39 07:38 Temperature 98.0 F 98.1 F Pulse Rate 54 59 Respiratory 18 18 Rate Blood Pressure 124/65 134/68 (mmHg) O2 Sat by Pulse 97 98 Oximetry 08/08/16 08/08/16 08/08/16 08:12 08:13 09:24 Temperature Pulse Rate 60 Respiratory 16 16 16 Rate Blood Pressure (mmHg) O2 Sat by Pulse 98 Oximetry Oxygen Devices in Use Now: Nasal Cannula - 3L Appearance: Elderly, F, laying in bed in NAD Eyes: No Scleral Icterus Ears/Nose/Mouth/Throat: Mucous Membranes Moist Neck: NL Appearance and Movements; NL JVP Respiratory: Symmetrical Chest Expansion and Respiratory Effort, Clear to Auscultation Cardiovascular: NL Sounds; No Murmurs; No JVD, RRR Abdominal: NL Sounds; No Tenderness; No Distention Lymphatic: No Cervical Adenopathy Extremities: No Edema Skin: No Rash or Ulcers Neurological: - - Alert, oriented, no focal deficits Result Diagrams: 08/05/16 10:15 08/05/16 10:15 Microbiology and Other Data: Assess/Plan/Problems-Billing Assessment: Acute on chronic systolic CHF exacerbation in a 71 yo F with hx of HTN, COPD, chronic pain - Patient Problems (1) Cardiomyopathy Current Visit: Yes Comment: Global hypokinesis with LVEF 45-50% 08/05/16. She received furosemide 60 mg IV in ED, but no output recorded. Continue Lasix PO 20 mg daily. Note elevated BNP but no current signs of fluid overload. (2) Chronic pain Current Visit: No Comment: Continue current dose of pregabalin. Dr. Gonzalez reduced hs clonazepam to 1 mg hs. Taper oxycodone later. She might do better with more frequent doses of a lower dose of oxycodone. (3) HTN (hypertension) Current Visit: No Comment: Continue amlodipine. (4) COPD (chronic obstructive pulmonary disease) Current Visit: No Comment: Continue tiotropium, Dulera to substitute for Symbicort. On home 3L. No wheezing appreciated. (5) DVT prophylaxis Current Visit: No Comment: SQ heparin Status and Disposition: Will discuss transfer back to [place] with the patient
[2016-08-08] MEDS ORDERED: CMCS Melatonin (NF) 3 MG TAB PO SCH (21:00)
[2016-08-08] MEDS: traZODone TAB* 50 MG TAB PO SCH (23:13)
[2016-08-09] MEDS: Heparin VIAL(*) 5000 UNITS/ML VIAL (FIVE THOUSAND) SUBCUT SCH (06:28)
[2016-08-09] MEDS: Pregabalin CAP(*) 25 MG PO SCH (08:35)
[2016-08-09] MEDS: oxyCODONE TAB* 5 MG TAB PO SCH (08:35)
[2016-08-09] MEDS: Lisinopril TAB* 5 MG PO SCH (08:35)
[2016-08-09] MEDS: Aspirin EC Low Dose* 81 MG TAB.EC PO SCH (08:36)
[2016-08-09] MEDS: Furosemide TAB* 20 MG PO SCH (08:36)
[2016-08-09] MEDS: amLODIPine TAB* 5 MG PO SCH (08:36)
[2016-08-09] MEDS: Omeprazole CAP* 20 MG PO SCH (08:36)
[2016-08-09] MEDS: Metoprolol Succinate XL TAB* 25 MG PO SCH (08:36)
[2016-08-09] MEDS: FLUoxetine CAP* 20 MG PO SCH (08:36)
[2016-08-09] MEDS: Acetaminophen TAB* 325 MG PO SCH (08:36)
[2016-08-09 08:38] VITALS: BP 131/59
[2016-08-09] MEDS: Tiotropium CAP.INH* CAP.INH/18 MCG (USE ORDER SET !) INH SCH (09:48)
[2016-08-09] MEDS: Mometasone/Formoter 100/5 MDI INH SCH (09:49)
--- NOTE | 2016-08-09 10:10 | PN ---
Subjective Date of Service: 08/09/16 Interval History: Patient seen this morning. Says she is feeling "more herself" today. No complaints. Explained to her that we need to send her back to [place] as there are no other options at this point. She says she cannot go back there and refuses. She would like to talk to her son but has not attempted to call him this admission, will ask the aide to help patient try to get in touch with him. Family History: Unchanged from Admission Social History: Unchanged from Admission Past Medical History: Unchanged from Admission Objective Active Medications: Acetaminophen (Tylenol Tab*) 975 mg PO BID [facility] Al Hydroxide/Mg Trisilicate (Gaviscon Chew Tab*) 2 tab.chew PO Q12HR PRN Albuterol (Ventolin 2.5 Mg/3 Ml Neb.Mary*) 2.5 mg INH Q6H PRN Amlodipine Besylate (Norvasc Tab*) 5 mg PO DAILY [facility] Aspirin (Aspirin Ec Low Dose*) 81 mg PO DAILY [facility] Clonazepam (Klonopin Tab(*)) 1 mg PO 1600 PRN Clonazepam (Klonopin Tab(*)) 1 mg PO QAM PRN Clonazepam (Klonopin Tab(*)) 1 mg PO BEDTIME PRN Fluoxetine HCl (Prozac Cap*) 20 mg PO BID [facility] Furosemide (Lasix Tab*) 20 mg PO DAILY [facility] Heparin Sodium (Porcine) (Heparin Vial(*)) 5,000 units SUBCUT Q8HR [facility] Lisinopril (Prinivil Tab*) 10 mg PO DAILY [facility] Melatonin (Melatonin (Nf)) 1 mg PO BEDTIME [facility] Metoprolol Succinate (Toprol Xl Tab*) 12.5 mg PO DAILY [facility] Mometasone Furoate/Formoterol Fumar (Dulera 100/5 Mdi*) 2 puff INH BID [facility] Omeprazole (Prilosec Cap*) 40 mg PO BID [facility] Ondansetron HCl (Zofran Odt Tab*) 4 mg PO Q6H PRN Oxycodone HCl (Roxycodone Tab*) 15 mg PO 0800,1600 [facility] Oxycodone HCl (Roxycodone Tab*) 10 mg PO TID PRN Oxycodone HCl (Roxycodone Tab*) 10 mg PO BEDTIME [facility] Pregabalin (Lyrica Cap(*)) 25 mg PO BID [facility] Tiotropium [place] (Spiriva Cap.Inh*) 1 cap INH DAILY [facility] Trazodone HCl (Desyrel Tab*) 25 mg PO BEDTIME [facility] Vital Signs 08/08/16 08/08/16 08/08/16 10:12 15:55 16:14 Temperature 97.8 F Pulse Rate 56 Respiratory 18 17 18 Rate Blood Pressure 116/58 (mmHg) O2 Sat by Pulse 96 Oximetry 08/08/16 08/08/16 08/08/16 19:45 20:00 23:11 Temperature Pulse Rate 55 Respiratory 20 19 16 Rate Blood Pressure (mmHg) O2 Sat by Pulse 96 96 Oximetry 08/08/16 08/08/16 08/09/16 23:13 23:31 01:11 Temperature 97.7 F Pulse Rate 59 Respiratory 16 16 16 Rate Blood Pressure 82/46 (mmHg) O2 Sat by Pulse 94 Oximetry 08/09/16 08/09/16 08/09/16 01:13 07:37 08:35 Temperature 97.2 F Pulse Rate 57 Respiratory 16 16 20 Rate Blood Pressure 131/59 (mmHg) O2 Sat by Pulse 96 Oximetry 08/09/16 09:42 Temperature Pulse Rate Respiratory 20 Rate Blood Pressure (mmHg) O2 Sat by Pulse Oximetry Oxygen Devices in Use Now: Nasal Cannula - 3L Appearance: Elderly, F, laying in bed in NAD Eyes: No Scleral Icterus Ears/Nose/Mouth/Throat: Mucous Membranes Moist Neck: NL Appearance and Movements; NL JVP Respiratory: Symmetrical Chest Expansion and Respiratory Effort, Clear to Auscultation Cardiovascular: NL Sounds; No Murmurs; No JVD, RRR Abdominal: - - ventral hernia, non-tender, BS+ Lymphatic: No Cervical Adenopathy Extremities: No Edema Skin: No Rash or Ulcers Neurological: - - Alert, oriented, no focal deficits Result Diagrams: 08/05/16 10:15 08/05/16 10:15 Microbiology and Other Data: Assess/Plan/Problems-Billing Assessment: Acute on chronic systolic CHF exacerbation in a 71 yo F with hx of HTN, COPD, chronic pain - Patient Problems (1) Cardiomyopathy Current Visit: Yes Comment: Global hypokinesis with LVEF 45-50% 08/05/16. Continue Lasix PO 20 mg daily. Note elevated BNP but no current signs of fluid overload. (2) Chronic pain Current Visit: No Comment: Continue current dose of pregabalin. Dr. Gonzalez reduced hs clonazepam to 1 mg hs. Taper oxycodone later. She might do better with more frequent doses of a lower dose of oxycodone. (3) HTN (hypertension) Current Visit: No Comment: Continue amlodipine. (4) COPD (chronic obstructive pulmonary disease) Current Visit: No Comment: Continue tiotropium, Dulera to substitute for Symbicort. On home 3L. No wheezing appreciated. (5) DVT prophylaxis Current Visit: No Comment: SQ heparin Status and Disposition: [facility] agreeable to take patient back, patient currently refusing discharge, may offer appeal today
--- NOTE | 2016-08-10 04:29 | DS ---
DISCHARGE SUMMARY: DATE OF ADMISSION: 08/05/16 DATE OF DISCHARGE: 08/09/16 PRIMARY CARE PROVIDER: Dr. Judy Munguia. PRINCIPAL DISCHARGE DIAGNOSIS: Acute on chronic congestive heart failure exacerbation. SECONDARY DIAGNOSES: 1. Chronic pain. 2. Hypertension. 3. Anxiety. 4. Chronic obstructive pulmonary disease, on 3 L of oxygen. DISCHARGE MEDICATION REGIMEN: 1. Lasix 20 mg by mouth daily. 2. Fluoxetine 20 mg by mouth 2 times daily. 3. Zantac 150 mg by mouth daily. 4. Spiriva 1 capsule inhaled daily. 5. Aspirin 81 mg by mouth daily. 6. Amlodipine 5 mg by mouth daily. 7. Lisinopril 10 mg by mouth daily. 8. Metoprolol succinate 12.5 mg by mouth daily. 9. Lyrica 25 mg by mouth 3 times daily. 10. Breo Ellipta 1 puff inhaled daily. 11. Trazodone 25 mg by mouth at bedtime. 12. Symbicort 2 puffs inhaled 3 times daily. 13. Omeprazole 40 mg by mouth 2 times daily. 14. Imodium 2 mg by mouth p.r.n. for diarrhea. 15. Gaviscon 2 tablets every 12 hours as needed for indigestion. 16. Imodium 4 mg by mouth daily as needed for diarrhea. 17. Nicotine patch 7 mg transdermal daily. 18. Tylenol 1000 mg by mouth every 8 hours as needed for pain. 19. Albuterol 2.5 mg inhaled every 6 hours as needed for shortness of breath or wheezing. 20. Clonazepam 1mg by mouth every morning as needed for anxiety, 1mg by mouth at 1600 as needed for anxiety, 1mg by mouth at bedtime as needed for anxiety. 21. Oxycodone 15 mg by mouth at 8 a.m. and 1600 as needed for pain. 21. Oxycodone 10 mg by mouth at bedtime as needed for pain. 22. Oxycodone 10 mg by mouth 3 times daily as needed for pain. STUDIES DONE DURING HOSPITALIZATION: CT of the brain without contrast, impression: No acute intracranial findings, post surgical change with aneurysm clipping, chronic microvascular ischemic changes. Chest x-ray, impression: Cardiomegaly with interstitial edema. Transthoracic echocardiogram: Technically limited study due to the patient's history of COPD and body habitus. Moderate concentric LVH, diffuse global hypokinesis of the left ventricle, mildly decreased left ventricular systolic function, estimated ejection fraction of 45% to 50%, trace mitral regurgitation , severely dilated left atrium, [id number] tricuspid regurgitation, mild pulmonary hypertension, [id number] dilated right atrium, mild pulmonic regurgitation, trace aortic regurgitation, borderline aortic stenosis. Compared to report of 01/28/13, the systolic function has decreased, the degree of pulmonary hypertension is less. HISTORY OF PRESENT ILLNESS AND HOSPITAL SUMMARY: Please see the full history and physical by Gaby Gaspar NP, for full details. Briefly, Ms. Mejia is a 71 -year- old female with a past medical history of depression, anxiety, chronic pain, and other medical history as above, who presented to the hospital with multiple somatic complaints. She also reported some increased urinary frequency. In speaking with the providers from [facility], they state that Ms. Mejia has been having very erratic behavior. She is very paranoid about her medications. She did have an elevated B natriuretic peptide and some congestion on chest x-ray and she was treated for CHF exacerbation. She got a dose of IV Lasix and then was transitioned to oral Lasix, which she does not take at home, but she will be discharged on. The patient was on her baseline oxygen throughout the rest of the hospital stay. She was mainly asymptomatic; however, she was constantly inquiring and suspicious about her narcotic regimen. I ensured her that I did not change her oxycodone dosing at all. Dr. Gonzalez who evaluated the patient initially, did her bedtime Xanax to 1 mg. The patient initially did not want to return to [facility]; however, there were no other placement options available and as we were not doing anything acutely in the hospital, she was discharged back to [place], where she can continue to work with her son and with the staff there to try to find somewhere else to live if she would like. TIME SPENT : Total time spent on this discharge 45 minutes. This is a summary of hospitalization. Please see the full medical record for further details. CC: Dr. Judy Munguia* [id number]/CPS #: [id number] MTDD
== END 2016-08-09 12:40 | disposition home health service (06) | DRG 293 ==
LOC: ED 09:47 → MEDTELE 12:48 → OBSVTOIN 08-06 14:28 → INTOOBSV 08-07 14:28 → MED 08-07 19:02
PROVIDERS: ADMIT Internal Medicine; ATTEND Hospitalist
DX: I11.0 Hypertensive heart disease with heart failure (principal); I27.2 Other secondary pulmonary hypertension; I42.9 Cardiomyopathy, unspecified; G89.29 Other chronic pain; F41.9 Anxiety disorder, unspecified; J44.9 Chronic obstructive pulmonary disease, unspecified; I08.3 Combined rheumatic disorders of mitral, aortic and tricuspid valves; F32.9 Major depressive disorder, single episode, unspecified; J45.909 Unspecified asthma, uncomplicated; K74.60 Unspecified cirrhosis of liver; K21.9 Gastro-esophageal reflux disease without esophagitis; M19.90 Unspecified osteoarthritis, unspecified site; H54.8 Legal blindness, as defined in USA; H35.30 Unspecified macular degeneration; F17.210 Nicotine dependence, cigarettes, uncomplicated; F22 Delusional disorders; I48.0 Paroxysmal atrial fibrillation; Z66 Do not resuscitate; R50.9 Fever, unspecified; I50.23 Acute on chronic systolic (congestive) heart failure; Z80.7 Family history of other malignant neoplasms of lymphoid, hematopoietic and related tissues; Z99.81 Dependence on supplemental oxygen; Z91.048 Other nonmedicinal substance allergy status; Z85.51 Personal history of malignant neoplasm of bladder; Z85.819 Personal history of malignant neoplasm of unspecified site of lip, oral cavity, and pharynx; Z98.41 Cataract extraction status, right eye; Z90.710 Acquired absence of both cervix and uterus; Z79.82 Long term (current) use of aspirin
CPT/HCPCS: 36415; 70450; 71010; 80053; 80061; 81003; 83605; 83880; 84484; 85025; 85610; 85730; 86140; 87502; 87641; 93005; 93306; 94640; 94760; 99284; A9270-GY; G0378; G8978-GP-CI; G8978-GP-CJ; G8979-GP-CI; G8980-GP-CI; G8980-GP-CJ; J1644; J1940; J2765; J3490

== ENCOUNTER 2016-08-18 09:47 | Emergency (ER) | payer MEDICARE, MEDICAID ==
[2016-08-18] MEDS ORDERED: NS 0.9% 1000 ML* 1,000 ML IV ONE (11:06)
[2016-08-18] MEDS ORDERED: Morphine INJ* 4 MG/ML 1 ML CARPUJECT IV ONE (11:46)
[2016-08-18] MEDS ORDERED: Ondansetron INJ* 2 MG/ML VIAL IV ONE (11:46)
[2016-08-18 11:58] VITALS: BP 196/61
[2016-08-18 12:06] LABS: Hematocrit 37 % (35-47); Hemoglobin 11.9 g/dl (12.0-16.0); Mean Corpuscular HGB Conc 33 g/dl (31-36); Mean Corpuscular Hemoglobin 29 pg (27-31); Mean Corpuscular Volume 89 fL (80-97); Mean Platelet Volume 9 um3 (7.4-10.4); Red Blood Count 4.11 10^6/ul (4.0-5.4); Red Cell Distribution Width 16 % (10.5-15); White Blood Count 7.3 10^3/ul (3.5-10.8)
[2016-08-18 12:20] LABS: Albumin 4.2 g/dL (3.2-5.2); BUN/Creatinine Ratio 22.8 (8-20); C Reactive Protein 3.45 mg/L (< 5.00); Calcium 9.7 mg/dL (8.6-10.3); EGFR African American 91.7 (>60); EGFR Non-African American 71.3 (>60); Globulin 3.1 g/dL (2-4); Potassium 4.2 mmol/L (3.5-5.0); Total Bilirubin 0.4 mg/dL (0.2-1.0); Total Protein 7.3 g/dL (6.4-8.9)
[2016-08-18 12:25] LABS: Urine Bacteria Absent (Absent); Urine Bilirubin Negative (Negative); Urine Glucose Negative (Negative); Urine Nitrite Negative (Negative)
[2016-08-18] MEDS ORDERED: Iohexol 300* (CONTRAST) 10 ML SDV IV ONE (13:59)
--- NOTE | 2016-08-18 14:06 | RAD ---
Indication: Abdominal pain. Flat and upright views of the abdomen demonstrates no free air. Dextroscoliosis of the lower to upper lumbar spine is noted. No dilated loops of bowel are noted. IMPRESSION: Dextroscoliosis without fracture. No free air or obstruction is noted.
--- NOTE | 2016-08-18 14:55 | RAD ---
Indication: Right lower quadrant pain. Contrast: Administered 112.0 ml of OMNIPAQUE 300 mgi/ml CT of the abdomen and pelvis was performed after oral and IV contrast administration. Coronal and sagittal reconstructed images were obtained. Comparison is made with previous exam dated July 07, 2016. Lung bases demonstrate no pleural fluid, nodules or masses. Heart is of normal size without evidence of pericardial effusion. Liver is normal in size. No focal lesions or intrahepatic ductal dilatation is noted. Patient is status post cholecystectomy. The pancreas demonstrates no mass or pancreatic duct dilatation. Pancreas demonstrates no mass or pancreatic duct dilatation. No adrenal masses are noted. The kidneys demonstrate symmetric nephrograms with scarring of the left kidney. Small renal cortical cysts are noted. No hydronephrosis. Atherosclerotic aorta is noted. The spleen is normal in size. The colon demonstrates transverse colon hernia in the anterior abdominal wall. No evidence of obstruction is noted. No free fluid is identified. Beginning bladder is unremarkable. IMPRESSION: Anterior abdominal wall hernia containing small bowel. No dilated loops of bowel are noted. Atherosclerotic aorta is noted. Overall no changes noted since previous exam of June 28, 2016.
[2016-08-18] MEDS ORDERED: Sodium Phosphate ADULT ENEMA* 118 ml bottle PR PRN (15:08)
--- NOTE | 2016-08-18 17:58 | ED ---
Varsha Abraham Michael, scribed for Sean Mcduffie MD on 08/18/16 at 1127 . Abdominal Pain/Female - HPI Summary HPI Summary: 71 y/o female was BIBA to the ED presenting with constant RUQ abd pain that started 2 days ago. The pt reports that the pain is a 10 out of 10 on a pain severity scale with palpation. She also notes not having a BM for the past couple days. She also c/o nausea and denies vomiting, fever, and chills. The PMHx is significant for A-fib, CHF, and GERD. She has had a cholecystectomy. - History of Current Complaint Chief Complaint: EDAbdPain Stated Complaint: ABD PAIN Time Seen by Provider: 08/18/16 11:05 Hx Obtained From: Patient, EMS, Medical Records Onset/Duration: Gradual Onset, Lasting Days, Still Present Timing: Constant Severity Initially: Moderate Severity Currently: Moderate Pain Intensity: 10 Pain Scale Used: 0-10 Numeric Location: Discrete At: RUQ Radiates: No Aggravating Factor(s): Nothing Alleviating Factor(s): Nothing Associated Signs and Symptoms: Positive: Negative - fever and chills, Nausea. Negative: Vomiting Allergies/Adverse Reactions: Allergies Allergy/AdvReac Type Severity Reaction Status Date / Time Adhesive Tape Allergy Blisters Verified 05/13/16 09:31 PMH/Surg Hx/FS Hx/Imm Hx Endocrine/Hematology History: Denies: Hx Anticoagulant Therapy, Hx Diabetes, Hx Anemia, Hx Unexplained Bleeding Cardiovascular History: Reports: Hx Aneurysm, Hx Atrial Fibrillation, Hx Congestive Heart Failure, Hx Hypertension, Other Cardiovascular Problems/ Disorders - AFIB Denies: Hx Angina, Hx Angioplasty, Hx Auto Implanted Cardiovert Defib, Hx Cardiac Arrest, Hx Cardiomegaly, Hx Congenital Heart Disease, Hx Coronary Artery Disease, Hx Deep Vein Thrombosis, Hx Embolism, Hx Hypercholesterolemia, Hx Hypotension, Hx Pacemaker/ICD, Hx Peripheral Vascular Disease, Hx Rheumatic Fever, Hx Syncope, Hx Valvular Heart Disease Respiratory History: Reports: Hx Asthma, Hx Chronic Obstructive Pulmonary Disease (COPD), Other Respiratory Problems/Disorders - emphysema Denies: Hx Cystic Fibrosis, Hx Lung Cancer, Hx Pleural Effusion, Hx Pneumonia , Hx Pulmonary Edema, Hx Pulmonary Embolism, Hx Seasonal Allergies, Hx Sleep Apnea GI History: Reports: Hx Cirrhosis, Hx Gastroesophageal Reflux Disease, Hx Hiatal Hernia, Hx Jaundice History: Denies: Hx Acute Renal Failure, Hx Benign Prostatic Hyperplasia, Hx Chronic Renal Failure, Hx Dialysis, Hx Kidney Infection, Hx Kidney Stones, Hx Renal Disease, Other Problems/Disorders Musculoskeletal History: Reports: Hx Arthritis Denies: Hx Back Problems, Hx Bursitis, Hx Congenital Bone Abnormalities, Hx Fibromyalgia, Hx Gout, Hx Orthopedic Injury, Hx Osteoporosis, Hx Scoliosis, Hx Tendonitis, Other Musculoskeletal History - NERVE PROBLEM IN BACK AMBULATES WITH WALKER Sensory History: Reports: Hx Cataracts, Hx Contacts or Glasses, Hx Legally Blind , Hx Macular Degeneration, Hx Vision Problem Denies: Hx Deafness, Hx Hearing Aid, Hx Hearing Problem, Other Sensory Impairments Opthamlomology History: Reports: Hx Cataracts, Hx Contacts or Glasses, Hx Legally Blind, Hx Macular Degeneration, Hx Vision Problem Denies: Other Sensory Impairments Neurological History: Denies: Hx Dementia, Hx Developmental Delay, Hx Headaches, Hx Migraine, Hx Nerve Disease, Hx Seizures, Hx Spinal Cord Injury, Hx Transient Ischemic Attacks (TIA), Other Neuro Impairments/Disorders Psychiatric History: Reports: Hx Anxiety, Hx Depression - ON MEDICATION FOR Denies: Hx Eating Disorder, Hx Inpatient Treatment, Hx of Violent Episodes Against Others - Cancer History Cancer Type, 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 Exploratory lap in her 20s [place]. 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 Hysterectomy and Bladder surgery mesh placed [facility]. Bilateral arm and Left shoulder for fractures [facility]. 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 Right Cataract 07/01/12 [facility] Hx Anesthesia Reactions: No Infectious Disease History: No Infectious Disease History: Denies: Hx Clostridium Difficile, Hx Hepatitis, Hx Human Immunodeficiency Virus (HIV), Hx of Known/Suspected MRSA, Hx Shingles, Hx Tuberculosis, Hx Known/ Suspected VRE, Hx Known/Suspected VRSA, History Other Infectious Disease, Traveled Outside the [place] in Last 30 Days - Family History Known Family History: Positive: Other - Alcoholism Family History: FHx of EtOH abuse. FHx of lymphoma - sister. Full FHx not obtained due to AMS. - Social History Occupation: Retired Lives: Alone Alcohol Use: None Alcohol Amount: hx of alcoholism Hx Substance Use: No Substance Use Type: Reports: None Substance Use Comment - Amount & Last Used: Pt stopped drinking 3 years prior Hx Tobacco Use: Yes Smoking Status (MU): Former Smoker Type: Cigarettes Amount Used/How Often: 1 ppd Length of Time of Smoking/Using Tobacco: 50 years Have You Smoked in the Last Year: Yes Review of Systems Negative: Fever, Chills Positive: Abdominal Pain, Nausea. Negative: Vomiting All Other Systems Reviewed And Are Negative: Yes Physical Exam - Summary Physical Exam Summary: VITAL SIGNS: Reviewed. GENERAL: Patient is an obese female who is lying comfortable in the stretcher. Patient is not in any acute respiratory distress. HEAD AND FACE: Normocephalic and atraumatic. EYES: PERRLA, EOMI x 2, No injected conjunctiva. EARS: Hearing grossly intact. Ear canals and tympanic membranes are WNL. MOUTH: Oropharynx within normal limits. NECK: Supple, trachea is midline, no adenopathy, no JVD. CHEST: Symmetric, no tenderness at palpation LUNGS: Clear to auscultation bilaterally. No wheezing or crackles. CVS: RRR,, S1 and S2 present, no murmurs or gallops appreciated. ABDOMEN: Soft, right sided tenders. No signs of distention. Positive bowel sounds. No rebound no guarding, and no masses palpated. No abdominal bruit or pulsations. Multiple lower badominal surgical scars which are well healed. EXTREMITIES: FROM in all major joints, no edema, no cyanosis or clubbing. NEURO: Alert and oriented x 3. No acute neurological deficits. Speech is normal. SKIN: Dry and warm Triage Information Reviewed: Yes Vital Signs On Initial Exam: Initial Vitals Temp Pulse Resp BP Pulse Ox 98.8 F 63 22 175/108 99 08/18/16 09:51 08/18/16 09:51 08/18/16 09:51 08/18/16 09:51 08/18/16 09:51 Vital Signs Reviewed: Yes Diagnostics - Vital Signs Vital Signs Temp Pulse Resp BP Pulse Ox 08/18/16 09:51 98.8 F 63 22 175/108 99 - Laboratory Lab Results: Lab Results 08/18/16 Range/Units 11:57 WBC 7.3 (3.5-10.8) 10^3/ul RBC 4.11 (4.0-5.4) 10^6/ul Hgb 11.9 L (12.0-16.0) g/dl Hct 37 (35-47) % MCV 89 (80-97) fL MCH 29 (27-31) pg MCHC 33 (31-36) g/dl RDW 16 H (10.5-15) % Plt Count 202 (150-450) 10^3/ul MPV 9 (7.4-10.4) um3 Neut % (Auto) 76.5 (38-83) % Lymph % (Auto) 18.3 L (25-47) % [place] % (Auto) 4.2 (1-9) % Eos % (Auto) 0.8 (0-6) % Baso % (Auto) 0.2 (0-2) % Absolute Neuts (auto) 5.6 (1.5-7.7) 10^3/ul Absolute Lymphs (auto) 1.3 (1.0-4.8) 10^3/ul Absolute Monos (auto) 0.3 (0-0.8) 10^3/ul Absolute Eos (auto) 0.1 (0-0.6) 10^3/ul Absolute Basos (auto) 0 (0-0.2) 10^3/ul Absolute Nucleated RBC 0 10^3/ul Nucleated RBC % 0 Result Diagrams: 08/18/16 11:57 08/18/16 11:57 Lab Statement: Any lab studies that have been ordered have been reviewed, and results considered in the medical decision making process. - Radiology ABD XR Xray Interpretation: Positive (See Comments) - Dextroscoliosis without fracture. No free air or obstruction is noted. Radiology Interpretation Completed By: Radiologist - CT CT abd CT Interpretation: Positive (See Comments) - Anterior abdominal wall hernia containing small bowel. No dilated loops of bowel are noted. Atherosclerotic aorta is noted. Overall no changes noted since previous exam of June 28, 2016. CT Interpretation Completed By: Radiologist - EKG EK EKG Rhythm: Sinus Rhythm - 67 bpm EKG Interpretation: no st elevations Abdominal Pain Fem Course/Dx - Course Course Of Treatment: 71 y/o female was BIBA to the ED presenting with constant RUQ abd pain that started 2 days ago. The pt reports that the pain is a 10 out of 10 on a pain severity scale with palpation. She also notes not having a BM for the past couple days. She also c/o nausea and denies vomiting, fever, and chills. The PMHx is significant for A-fib, CHF, and GERD. She has had a cholecystectomy. The blood work is within normal limits except for glucose of 106 and Urine Analysis shows no UTI. CXR abd shows no free air or obstruction noted. In ED course, patient was given IV fluids for nausea and vomiting. Also she was given morphine for pain. The ABD CT shows anterior abdominal wall hernia with no dilated loops of the bowel. Atherosclerotic aorta is noted and no changes from previous CT on 06/28/16. The patient is feeling better and will be discharged home. She will follow up with PCP. The patient is hemodynamically stable and alert/oriented x3. I discussed all the findings and test results with the patient. Patient was instructed to return to the emergency room immediately if any of the symptoms return or worsens. They were explained the possibility of an early abdominal pathology which was not detected at this time despite the physical exam and testing. They understand and agree. Abdominal exam before discharge: Soft, NT. No signs of distention. BS present. No rebound no guarding, and no masses palpated. Patient is alert and oriented and hemodynamically stable. Patient is to follow up with primary care physician in the next 2 to 3 days. Patient agree and understands. - Diagnoses Differential Diagnosis: Positive: Constipation, Diverticulitis, Pancreatitis, Urinary Tract Infection Provider Diagnoses: Abdominal pain, Nausea and vomiting Discharge - Discharge Plan Condition: Stable Disposition: HOME Prescriptions: Ondansetron ODT TAB* [Zofran 4 MG Odt TAB*] 4 mg PO Q8H PRN #10 tab.odt PRN Reason: Vomiting Patient Education Materials: Acute Abdominal Pain (ED), Dehydration in Children (ED) Referrals: Lesly Willoughby NP [Primary Care Provider] - Additional Instructions: You will follow up with Dr. Willoughby within the next 2-3 days. The documentation as recorded by the Varsha fuentes Michael accurately reflects the service I personally performed and the decisions made by me, Sean Mcduffie MD.
--- NOTE | 2016-08-20 11:37 | ED ---
Progress - Progress Note Progress Note: Pt's prelim urine cx reveals 25-50,000 e. coli UTI. No anbx at d/c. This is a moderate quantity of bacteria. Will wait until final results to see if pt is having sx - if so, may benefit from anbx. If not, may increase water intake, void frequently and monitor sx for UTI - if none, no meds necessary. Course/Dx - Course Course Of Treatment: 71 y/o female was BIBA to the ED presenting with constant RUQ abd pain that started 2 days ago. The pt reports that the pain is a 10 out of 10 on a pain severity scale with palpation. She also notes not having a BM for the past couple days. She also c/o nausea and denies vomiting, fever, and chills. The PMHx is significant for A-fib, CHF, and GERD. She has had a cholecystectomy. The blood work is within normal limits except for glucose of 106 and Urine Analysis shows no UTI. CXR abd shows no free air or obstruction noted. In ED course, patient was given IV fluids for nausea and vomiting. Also she was given morphine for pain. The ABD CT shows anterior abdominal wall hernia with no dilated loops of the bowel. Atherosclerotic aorta is noted and no changes from previous CT on 06/28/16. The patient is feeling better and will be discharged home. She will follow up with PCP. The patient is hemodynamically stable and alert/oriented x3. I discussed all the findings and test results with the patient. Patient was instructed to return to the emergency room immediately if any of the symptoms return or worsens. They were explained the possibility of an early abdominal pathology which was not detected at this time despite the physical exam and testing. They understand and agree. Abdominal exam before discharge: Soft, NT. No signs of distention. BS present. No rebound no guarding, and no masses palpated. Patient is alert and oriented and hemodynamically stable. Patient is to follow up with primary care physician in the next 2 to 3 days. Patient agree and understands. - Diagnoses Provider Diagnoses: Abdominal pain, Nausea and vomiting
--- NOTE | 2016-08-21 09:55 | PN ---
Progress Note - Progress Note Note: I spoke with staff at [facility] who state that the patient is asymptomatic without fever, or urinary symptoms. I advised them of her urine analysis from 3 days ago and that if she become symptomatic she should seek evaluation.
== END 2016-08-18 16:19 | disposition home or self-care (01) ==
LOC: ED 09:47
DX: R10.11 Right upper quadrant pain (principal); R11.2 Nausea with vomiting, unspecified; Z87.891 Personal history of nicotine dependence; K46.9 Unspecified abdominal hernia without obstruction or gangrene
CPT/HCPCS: 36415; 74020; 74177; 80053; 81003; 81015; 83690; 85025; 86140; 87077; 87086; 87186; 93005; 99284; A9270-GY; J2270; J2405; Q9967

== ENCOUNTER 2016-08-22 05:58 | Emergency (ER) | payer MEDICARE, MEDICAID ==
[2016-08-22] MEDS ORDERED: NS 0.9% 1000 ML* 1,000 ML IV SCH (06:30)
[2016-08-22 06:44] LABS: Hematocrit 35 % (35-47); Hemoglobin 11.6 g/dl (12.0-16.0); Mean Corpuscular HGB Conc 33 g/dl (31-36); Mean Corpuscular Hemoglobin 29 pg (27-31); Mean Corpuscular Volume 86 fL (80-97); Mean Platelet Volume 9 um3 (7.4-10.4); Red Blood Count 4.09 10^6/ul (4.0-5.4); Red Cell Distribution Width 16 % (10.5-15); White Blood Count 6.6 10^3/ul (3.5-10.8)
[2016-08-22 06:52] LABS: Troponin I 0.03 ng/mL (<0.04)
[2016-08-22 06:53] LABS: ALT 10 U/L (7-52); AST 17 U/L (13-39); Albumin 4.1 g/dL (3.2-5.2); Alkaline Phosphatase 55 U/L (34-104); Ammonia 42 mol/L (16-53); Anion Gap 7 mmol/L (2-11); BUN/Creatinine Ratio 15.4 (8-20); Blood Urea Nitrogen 12 mg/dL (6-24); C Reactive Protein 1.81 mg/L (< 5.00); CO2 Carbon Dioxide 26 mmol/L (22-32); Calcium 9.3 mg/dL (8.6-10.3); Chloride 94 mmol/L (101-111); Creatine Kinase 78 U/L (10-223); EGFR African American 93.1 (>60); EGFR Non-African American 72.4 (>60); Globulin 2.8 g/dL (2-4); Glucose 112 mg/dL (70-100); Lipase 11 U/L (11.0-82.0); Magnesium 1.8 mg/dL (1.9-2.7); Potassium 3.5 mmol/L (3.5-5.0); Sodium 127 mmol/L (133-145); Total Protein 6.9 g/dL (6.4-8.9)
[2016-08-22 06:53] LABS: Urine Bilirubin Negative (Negative); Urine Glucose Negative (Negative); Urine Nitrite Negative (Negative)
[2016-08-22 06:54] LABS: B Type Natriuretic Peptide 253 pg/mL
--- NOTE | 2016-08-22 07:06 | ED ---
charu Abraham Timothy, scribed for Dylan Carrillo MD on 08/22/16 at 0624 . Abdominal Pain/Female - HPI Summary HPI Summary: Bety Mejia is a 71 yo female presenting to [facility] with 5/10 upper abd pain since 0500. She states her "mind is crazy....they gave me the wrong pill". She states that she is having hallucinations and is confused. She is from [place]. Her MHx includes Afib, CHF, murmur, HTN, COPD, asthma, emohysema, GERD , hiatal hernia, jaundice, depression, anxiety, cirrhosis, tobacco use. - History of Current Complaint Stated Complaint: ABD PAIN Time Seen by Provider: 08/22/16 06:21 Hx Obtained From: Patient ?: No Onset/Duration: Sudden Onset, Lasting Hours, Still Present Timing: Constant Severity Initially: Moderate Severity Currently: Moderate Pain Intensity: 5 Pain Scale Used: 0-10 Numeric Location: Epigastric Radiates: No Associated Signs and Symptoms: Positive: Other: - confusion, hallucination Allergies/Adverse Reactions: Allergies Allergy/AdvReac Type Severity Reaction Status Date / Time Adhesive Tape Allergy Blisters Verified 05/13/16 09:31 PMH/Surg Hx/FS Hx/Imm Hx Endocrine/Hematology History: Denies: Hx Anticoagulant Therapy, Hx Diabetes, Hx Anemia, Hx Unexplained Bleeding Cardiovascular History: Reports: Hx Aneurysm, Hx Atrial Fibrillation, Hx Congestive Heart Failure, Hx Hypertension, Other Cardiovascular Problems/ Disorders - AFIB Denies: Hx Angina, Hx Angioplasty, Hx Auto Implanted Cardiovert Defib, Hx Cardiac Arrest, Hx Cardiomegaly, Hx Congenital Heart Disease, Hx Coronary Artery Disease, Hx Deep Vein Thrombosis, Hx Embolism, Hx Hypercholesterolemia, Hx Hypotension, Hx Pacemaker/ICD, Hx Peripheral Vascular Disease, Hx Rheumatic Fever, Hx Syncope, Hx Valvular Heart Disease Respiratory History: Reports: Hx Asthma, Hx Chronic Obstructive Pulmonary Disease (COPD), Other Respiratory Problems/Disorders - emphysema Denies: Hx Cystic Fibrosis, Hx Lung Cancer, Hx Pleural Effusion, Hx Pneumonia , Hx Pulmonary Edema, Hx Pulmonary Embolism, Hx Seasonal Allergies, Hx Sleep Apnea GI History: Reports: Hx Cirrhosis, Hx Gastroesophageal Reflux Disease, Hx Hiatal Hernia, Hx Jaundice History: Denies: Hx Acute Renal Failure, Hx Benign Prostatic Hyperplasia, Hx Chronic Renal Failure, Hx Dialysis, Hx Kidney Infection, Hx Kidney Stones, Hx Renal Disease, Other Problems/Disorders Musculoskeletal History: Reports: Hx Arthritis Denies: Hx Back Problems, Hx Bursitis, Hx Congenital Bone Abnormalities, Hx Fibromyalgia, Hx Gout, Hx Orthopedic Injury, Hx Osteoporosis, Hx Scoliosis, Hx Tendonitis, Other Musculoskeletal History - NERVE PROBLEM IN BACK AMBULATES WITH WALKER Sensory History: Reports: Hx Cataracts, Hx Contacts or Glasses, Hx Legally Blind , Hx Macular Degeneration, Hx Vision Problem Denies: Hx Deafness, Hx Hearing Aid, Hx Hearing Problem, Other Sensory Impairments Opthamlomology History: Reports: Hx Cataracts, Hx Contacts or Glasses, Hx Legally Blind, Hx Macular Degeneration, Hx Vision Problem Denies: Other Sensory Impairments Neurological History: Denies: Hx Dementia, Hx Developmental Delay, Hx Headaches, Hx Migraine, Hx Nerve Disease, Hx Seizures, Hx Spinal Cord Injury, Hx Transient Ischemic Attacks (TIA), Other Neuro Impairments/Disorders Psychiatric History: Reports: Hx Anxiety, Hx Depression - ON MEDICATION FOR Denies: Hx Eating Disorder, Hx Inpatient Treatment, Hx of Violent Episodes Against Others - Cancer History Cancer Type, 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 Exploratory lap in her 20s [place]. 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 Hysterectomy and Bladder surgery mesh placed [facility]. Bilateral arm and Left shoulder for fractures [facility]. 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 Right Cataract 07/01/12 [facility] Hx Anesthesia Reactions: No Infectious Disease History: No Infectious Disease History: Denies: Hx Clostridium Difficile, Hx Hepatitis, Hx Human Immunodeficiency Virus (HIV), Hx of Known/Suspected MRSA, Hx Shingles, Hx Tuberculosis, Hx Known/ Suspected VRE, Hx Known/Suspected VRSA, History Other Infectious Disease, Traveled Outside the [place] in Last 30 Days - Family History Known Family History: Positive: Other - Alcoholism Family History: FHx of EtOH abuse. FHx of lymphoma - sister. Full FHx not obtained due to AMS. - Social History Alcohol Use: None Alcohol Amount: hx of alcoholism Hx Substance Use: No Substance Use Type: Reports: None Substance Use Comment - Amount & Last Used: Pt stopped drinking 3 years prior Hx Tobacco Use: Yes Smoking Status (MU): Former Smoker Type: Cigarettes Amount Used/How Often: 1 ppd Length of Time of Smoking/Using Tobacco: 50 years Have You Smoked in the Last Year: Yes Review of Systems Constitutional: Negative Eyes: Negative ENT: Negative Negative: Epistaxis Cardiovascular: Negative Respiratory: Negative Positive: Abdominal Pain Genitourinary: Negative Musculoskeletal: Negative Skin: Negative Neurological: Negative Psychological: Other - confusion, hallucination All Other Systems Reviewed And Are Negative: Yes Physical Exam Triage Information Reviewed: Yes Vital Signs On Initial Exam: Initial Vitals Temp Pulse Resp BP Pulse Ox 99.3 F 70 11 138/88 98 08/22/16 06:12 08/22/16 06:12 08/22/16 06:12 08/22/16 06:12 08/22/16 06:12 Vital Signs Reviewed: Yes Appearance: Positive: Well-Appearing, No Pain Distress Skin: Positive: Warm, Skin Color Reflects Adequate Perfusion, Dry Head/Face: Positive: Normal Head/Face Inspection Eyes: Positive: EOMI, GT ENT: Positive: Normal ENT inspection Neck: Positive: Supple, Nontender Cardiovascular: Positive: RRR Abdomen Description: Positive: Soft. Negative: Nontender - epigastric tenderness Bowel Sounds: Positive: Present Musculoskeletal: Positive: Normal, Strength/ROM Intact Neurological: Positive: Sensory/Motor Intact Psychiatric: Positive: Anxious Diagnostics - Vital Signs Vital Signs Temp Pulse Resp BP Pulse Ox 08/22/16 06:12 99.3 F 70 11 138/88 98 - Laboratory Lab Results: Lab Results 08/22/16 08/22/16 08/22/16 Range/Units 06:10 06:10 06:10 WBC 6.6 (3.5-10.8) 10^3/ul RBC 4.09 (4.0-5.4) 10^6/ul Hgb 11.6 L (12.0-16.0) g/dl Hct 35 (35-47) % MCV 86 (80-97) fL MCH 29 (27-31) pg MCHC 33 (31-36) g/dl RDW 16 H (10.5-15) % Plt Count 197 (150-450) 10^3/ul MPV 9 (7.4-10.4) um3 Neut % (Auto) 67.9 (38-83) % Lymph % (Auto) 22.3 L (25-47) % [place] % (Auto) 8.6 (1-9) % Eos % (Auto) 0.8 (0-6) % Baso % (Auto) 0.4 (0-2) % Absolute Neuts (auto) 4.5 (1.5-7.7) 10^3/ul Absolute Lymphs (auto) 1.5 (1.0-4.8) 10^3/ul Absolute Monos (auto) 0.6 (0-0.8) 10^3/ul Absolute Eos (auto) 0.1 (0-0.6) 10^3/ul Absolute Basos (auto) 0 (0-0.2) 10^3/ul Absolute Nucleated RBC 0 10^3/ul Nucleated RBC % 0.1 INR (Anticoag Therapy) 1.06 (0.89-1.11) APTT 30.8 (26.0-36.3) seconds Sodium 127 L (133-145) mmol/L Potassium 3.5 (3.5-5.0) mmol/L Chloride 94 L (101-111) mmol/L Carbon Dioxide 26 (22-32) mmol/L Anion Gap 7 (2-11) mmol/L BUN 12 (6-24) mg/dL Creatinine 0.78 (0.51-0.95) mg/dL Est GFR ( Amer) 93.1 (>60) Est GFR (Non-Af Amer) 72.4 (>60) BUN/Creatinine Ratio 15.4 (8-20) Glucose 112 H (70-100) mg/dL Lactic Acid (0.5-2.0) mmol/L Calcium 9.3 (8.6-10.3) mg/dL Magnesium 1.8 L (1.9-2.7) mg/dL Total Bilirubin 0.60 (0.2-1.0) mg/dL AST 17 (13-39) U/L ALT 10 (7-52) U/L Alkaline Phosphatase 55 (34-104) U/L Ammonia (16-53) mol/L Total Creatine Kinase 78 (10-223) U/L CK-MB (CK-2) 5.7 (0.6-6.3) ng/mL Troponin I 0.03 (<0.04) ng/mL C-Reactive Protein 1.81 (< 5.00) mg/L B-Natriuretic Peptide ( - 100) pg/mL Total Protein 6.9 (6.4-8.9) g/dL Albumin 4.1 (3.2-5.2) g/dL Globulin 2.8 (2-4) g/dL Albumin/Globulin Ratio 1.5 (1-3) Lipase 11 (11.0-82.0) U/L TSH Pending Urine Color Urine Appearance Urine pH (5-9) Ur Specific [place] (1.010-1.030) Urine Protein (Negative) Urine Ketones (Negative) Urine Blood (Negative) Urine Nitrate (Negative) Urine Bilirubin (Negative) Urine Urobilinogen (Negative) Ur Leukocyte Esterase (Negative) Urine Glucose (Negative) Salicylates Pending Acetaminophen Pending Serum Alcohol Pending 08/22/16 08/22/16 08/22/16 Range/Units 06:10 06:10 06:30 WBC (3.5-10.8) 10^3/ul RBC (4.0-5.4) 10^6/ul Hgb (12.0-16.0) g/dl Hct (35-47) % MCV (80-97) fL MCH (27-31) pg MCHC (31-36) g/dl RDW (10.5-15) % Plt Count (150-450) 10^3/ul MPV (7.4-10.4) um3 Neut % (Auto) (38-83) % Lymph % (Auto) (25-47) % [place] % (Auto) (1-9) % Eos % (Auto) (0-6) % Baso % (Auto) (0-2) % Absolute Neuts (auto) (1.5-7.7) 10^3/ul Absolute Lymphs (auto) (1.0-4.8) 10^3/ul Absolute Monos (auto) (0-0.8) 10^3/ul Absolute Eos (auto) (0-0.6) 10^3/ul Absolute Basos (auto) (0-0.2) 10^3/ul Absolute Nucleated RBC 10^3/ul Nucleated RBC % INR (Anticoag Therapy) (0.89-1.11) APTT (26.0-36.3) seconds Sodium (133-145) mmol/L Potassium (3.5-5.0) mmol/L Chloride (101-111) mmol/L Carbon Dioxide (22-32) mmol/L Anion Gap (2-11) mmol/L BUN (6-24) mg/dL Creatinine (0.51-0.95) mg/dL Est GFR ( Amer) (>60) Est GFR (Non-Af Amer) (>60) BUN/Creatinine Ratio (8-20) Glucose (70-100) mg/dL Lactic Acid 0.9 (0.5-2.0) mmol/L Calcium (8.6-10.3) mg/dL Magnesium (1.9-2.7) mg/dL Total Bilirubin (0.2-1.0) mg/dL AST (13-39) U/L ALT (7-52) U/L Alkaline Phosphatase (34-104) U/L Ammonia 42 (16-53) mol/L Total Creatine Kinase (10-223) U/L CK-MB (CK-2) (0.6-6.3) ng/mL Troponin I (<0.04) ng/mL C-Reactive Protein (< 5.00) mg/L B-Natriuretic Peptide 253 H ( - 100) pg/mL Total Protein (6.4-8.9) g/dL Albumin (3.2-5.2) g/dL Globulin (2-4) g/dL Albumin/Globulin Ratio (1-3) Lipase (11.0-82.0) U/L TSH Urine Color Yellow Urine Appearance Clear Urine pH 6.0 (5-9) Ur Specific [place] 1.009 L (1.010-1.030) Urine Protein Negative (Negative) Urine Ketones Negative (Negative) Urine Blood Negative (Negative) Urine Nitrate Negative (Negative) Urine Bilirubin Negative (Negative) Urine Urobilinogen Negative (Negative) Ur Leukocyte Esterase Negative (Negative) Urine Glucose Negative (Negative) Salicylates Acetaminophen Serum Alcohol Result Diagrams: 08/22/16 06:10 08/22/16 06:10 Lab Statement: Any lab studies that have been ordered have been reviewed, and results considered in the medical decision making process. Abdominal Pain Fem Course/Dx - Course Course Of Treatment: Bety mejia is a 71 yo female presenting to [facility] with abd pain since 0500 and confusion and hallucinations. She is signed out to Dr. Grant at [address] RESULTS PENDING AT SHIFT CHANGE. - Diagnoses Provider Diagnoses: Altered mental state, Abdominal pain Discharge - Discharge Plan Condition: Stable Disposition: OTHER Discharge Disposition Comment: signed out to Dr. Grant pending further evaluation Referrals: Lesly Willoughby, JEANNA [Primary Care Provider] - The documentation as recorded by the charu fuentes Timothy accurately reflects the service I personally performed and the decisions made by me, Dylan Carrillo MD.
[2016-08-22 07:34] LABS: TSH (Thyroid Stimulating Horm) 1.62 mcIU/mL (0.34-5.60)
[2016-08-22 07:59] LABS: Acetaminophen < 15 mcg/mL; Alcohol < 10 mg/dL (<10); Salicylate < 2.50 mg/dL (<30)
[2016-08-22] MEDS ORDERED: Al Hydrox/Mg Hydrox/Simet LIQ* 30 ML UDC PO ONE (08:00)
[2016-08-22] MEDS ORDERED: oxyCODONE TAB* 5 MG TAB PO ONE (08:00)
[2016-08-22] MEDS ORDERED: Lidocaine 2% VISCOUS* 15 ML UDC PO ONE (08:00)
--- NOTE | 2016-08-22 08:00 | RAD ---
INDICATION: Altered mental status COMPARISON: Chest x-ray dated August 05, 2016 TECHNIQUE: Single AP portable view of the chest was obtained. FINDINGS: Image quality is compromised due to the relative inferiority of a portable chest x-ray. The heart and mediastinum exhibit normal size and contour. There is faint calcified atherosclerosis overlying the arch of the aorta. Overlying the left upper lung there are 2 irregularly-shaped densities measuring 2.1 and 2.9 cm. These densities appear to correspond to calcified pleural plaques visualized on the January 12, 2016 CT examination. There is right lateral lung base density as well as bibasilar costophrenic angle blunting. Visualized bones are normal for the patient's age. IMPRESSION: Density at the bilateral lung bases with blunting of the costophrenic angles could be secondary to atelectasis or small pleural effusions.
[2016-08-22 08:41] LABS: Benzodiazepine Urine Screen None Detected (None Detect)
[2016-08-22] MEDS ORDERED: diPHENhydraMINE PO* 25 MG PO ONE (10:14)
[2016-08-22 14:27] VITALS: BP 141/76
--- NOTE | 2016-08-25 09:42 | ED ---
Bereket Abraham Matthew, scribed for Ash Grant MD on 08/22/16 at 0755 . Progress - Progress Note Progress Note: The patient is a sign out from Dr. Grant. Re-evaluation at 07:54 She continues to have epigastric abdominal pain, but denies vomiting. The patient also states that her SHx includes cholecystectomy. On physical exam, she has epigastric tenderness, but no pain or tenderness over her ventral hernia. Course/Dx - Course Course Of Treatment: The patient refused CT contrast. - Diagnoses Provider Diagnoses: Chronic abdominal pain, Drug-seeking behavior, Insomnia The documentation as recorded by the Bereket fuentes Matthew accurately reflects the service I personally performed and the decisions made by Juanita willis Jerry, MD.
== END 2016-08-22 14:26 | disposition home or self-care (01) ==
LOC: ED 05:58
DX: R10.10 Upper abdominal pain, unspecified (principal); Z87.891 Personal history of nicotine dependence; R41.0 Disorientation, unspecified; R41.82 Altered mental status, unspecified
CPT/HCPCS: 36415; 71010; 80053; 80307; 80320; 80329; 81003; 82140; 82550; 82553; 83605; 83690; 83735; 83880; 84443; 84484; 85025; 85610; 85730; 86140; 99282; A9270-GY; G0480

== ENCOUNTER 2016-08-25 09:09 | Inpatient (IN) | payer MEDICARE ==
[2016-08-25 11:03] LABS: Hematocrit 38 % (35-47); Hemoglobin 12.3 g/dl (12.0-16.0); Mean Corpuscular HGB Conc 33 g/dl (31-36); Mean Corpuscular Hemoglobin 28 pg (27-31); Mean Corpuscular Volume 87 fL (80-97); Mean Platelet Volume 9 um3 (7.4-10.4); Red Blood Count 4.34 10^6/ul (4.0-5.4); Red Cell Distribution Width 16 % (10.5-15); White Blood Count 6.1 10^3/ul (3.5-10.8)
[2016-08-25 11:14] LABS: Albumin 4.2 g/dL (3.2-5.2); BUN/Creatinine Ratio 17.1 (8-20); C Reactive Protein 4.38 mg/L (< 5.00); Calcium 9.4 mg/dL (8.6-10.3); EGFR African American 95.9 (>60); EGFR Non-African American 74.6 (>60); Globulin 2.9 g/dL (2-4); Potassium 3.9 mmol/L (3.5-5.0); Total Bilirubin 0.5 mg/dL (0.2-1.0); Total Protein 7.1 g/dL (6.4-8.9)
[2016-08-25] MEDS ORDERED: Ondansetron INJ* 2 MG/ML VIAL IV ONE (12:24)
[2016-08-25] MEDS ORDERED: HYDROmorphone* 1 MG/ML 1 ML SYR IV ONE (12:24)
[2016-08-25] MEDS ORDERED: Albuterol 2.5 MG/3 ML NEB.SOL* (0.083%) INH PRN (14:59)
[2016-08-25] MEDS ORDERED: Nicotine PATCH 7 MG/24 HR* PATCH TRANSDERM PRN (14:59)
[2016-08-25] MEDS ORDERED: clonazePAM TAB(*) 1 MG PO PRN ×2 (14:59)
[2016-08-25] MEDS ORDERED: Iohexol 300* (CONTRAST) 10 ML SDV IV ONE (15:03)
[2016-08-25] MEDS: Morphine INJ* 4 MG/ML 1 ML SYRINGE IV PRN (16:48)
--- NOTE | 2016-08-25 16:53 | RAD ---
INDICATION: Epigastric abdominal pain. Periumbilical pain. Post appendectomy. Post hysterectomy and bladder surgery. COMPARISON: August 18, 2016 CT. TECHNIQUE: Multidetector CT images were obtained from the lung bases to the ischial tuberosities with 100 mL Omnipaque 300 IV and oral contrast. Multiplanar reformation. REPORT: Mild RIGHT greater than LEFT basilar subsegmental atelectasis. Cardiomegaly. Negative for pericardial effusion. Post cholecystectomy. Negative for biliary dilatation. Unremarkable liver. Moderately atrophic pancreas without suspicious finding. Unremarkable spleen. Negative for CT abnormality of the upper GI or small bowel. Fat and transverse colon containing umbilical level 8 cm AP by 13.5 cm transverse by 13.5 cm cephalocaudal ventral hernia without resulting bowel obstruction or inflammatory change. Mild colonic diverticulosis without findings of diverticulitis. The appendix is not visualized consistent with surgical history. Negative for ascites or free air. Normal adrenal glands. Bilateral too small to characterize hypodense renal cortical lesions most likely representing benign cysts. No suspicious focal renal lesions or hydronephrosis. Cortical scarring at the peripheral mid to upper pole of the LEFT kidney without change. Symmetric nephrograms and pyelograms. Unremarkable ureters and largely decompressed urinary bladder. Post hysterectomy. Unremarkable adnexal regions. Negative for lymphadenopathy. Atherosclerotic plaque of normal diameter abdominal aorta. 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 Significant calcific plaque at the ostia of the celiac axis, superior mesenteric artery, and renal arteries. Decompressed IVC indicating low volume state. Negative for superficial or retroperitoneal hematoma. Polyarticular degenerative arthropathy. Unchanged degenerative appearing grade 2 L4-L5 anterolisthesis. Negative for suspicious focal osseous lesions. IMPRESSION: 1. Post cholecystectomy. 2. Grossly unchanged fat and transverse colon containing umbilical level 8 cm AP by 13.5 cm transverse by 13.5 cm cephalocaudal ventral hernia without resulting bowel obstruction or inflammatory change. 3. 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 Extensive peripheral vascular disease including involvement of the ostia of the visceral arteries. 4. Decompressed IVC indicating low volume state.
[2016-08-25] MEDS: oxyCODONE TAB* 5 MG TAB PO PRN ×3 (17:24→22:52)
[2016-08-25] MEDS: clonazePAM TAB(*) 1 MG PO PRN (17:25)
[2016-08-25] MEDS ORDERED: Haloperidol INJ IV/IM* 5 MG/ML AMP IV SLOW PU ONE (17:44)
--- NOTE | 2016-08-25 17:45 | ED ---
Moi Abraham SooYoung, scribed for Demarcus Chavira MD on 08/25/16 at 0927 . Abdominal Pain/Female - HPI Summary HPI Summary: A 71 y/o F presents to ED with c/o ongoing diffuse epigastric abd pain onset one week ago. Denies bowel changes, melena. Known medical hernia for years. Past abd surgeries. Seen three days ago in ED for similar sx. - History of Current Complaint Chief Complaint: EDAbdPain Stated Complaint: ABD PAIN Time Seen by Provider: 08/25/16 09:25 Hx Obtained From: Patient Onset/Duration: Lasting Days - one week, Still Present Timing: Constant Severity Initially: Moderate Severity Currently: Severe Pain Intensity: 7 Pain Scale Used: 0-10 Numeric Location: Diffuse, Epigastric Allergies/Adverse Reactions: Allergies Allergy/AdvReac Type Severity Reaction Status Date / Time Adhesive Tape Allergy Blisters Verified 05/13/16 09:31 PMH/Surg Hx/FS Hx/Imm Hx Previously Healthy: No Endocrine/Hematology History: Denies: Hx Anticoagulant Therapy, Hx Diabetes, Hx Anemia, Hx Unexplained Bleeding Cardiovascular History: Reports: Hx Aneurysm, Hx Atrial Fibrillation, Hx Congestive Heart Failure, Hx Hypertension, Other Cardiovascular Problems/ Disorders - AFIB Denies: Hx Angina, Hx Angioplasty, Hx Auto Implanted Cardiovert Defib, Hx Cardiac Arrest, Hx Cardiomegaly, Hx Congenital Heart Disease, Hx Coronary Artery Disease, Hx Deep Vein Thrombosis, Hx Embolism, Hx Hypercholesterolemia, Hx Hypotension, Hx Pacemaker/ICD, Hx Peripheral Vascular Disease, Hx Rheumatic Fever, Hx Syncope, Hx Valvular Heart Disease Respiratory History: Reports: Hx Asthma, Hx Chronic Obstructive Pulmonary Disease (COPD), Other Respiratory Problems/Disorders - emphysema Denies: Hx Cystic Fibrosis, Hx Lung Cancer, Hx Pleural Effusion, Hx Pneumonia , Hx Pulmonary Edema, Hx Pulmonary Embolism, Hx Seasonal Allergies, Hx Sleep Apnea GI History: Reports: Hx Cirrhosis, Hx Gastroesophageal Reflux Disease, Hx Hiatal Hernia, Hx Jaundice History: Denies: Hx Acute Renal Failure, Hx Benign Prostatic Hyperplasia, Hx Chronic Renal Failure, Hx Dialysis, Hx Kidney Infection, Hx Kidney Stones, Hx Renal Disease, Other Problems/Disorders Musculoskeletal History: Reports: Hx Arthritis Denies: Hx Back Problems, Hx Bursitis, Hx Congenital Bone Abnormalities, Hx Fibromyalgia, Hx Gout, Hx Orthopedic Injury, Hx Osteoporosis, Hx Scoliosis, Hx Tendonitis, Other Musculoskeletal History - NERVE PROBLEM IN BACK AMBULATES WITH WALKER Sensory History: Reports: Hx Cataracts, Hx Contacts or Glasses, Hx Legally Blind , Hx Macular Degeneration, Hx Vision Problem Denies: Hx Deafness, Hx Hearing Aid, Hx Hearing Problem, Other Sensory Impairments Opthamlomology History: Reports: Hx Cataracts, Hx Contacts or Glasses, Hx Legally Blind, Hx Macular Degeneration, Hx Vision Problem Denies: Other Sensory Impairments Neurological History: Denies: Hx Dementia, Hx Developmental Delay, Hx Headaches, Hx Migraine, Hx Nerve Disease, Hx Seizures, Hx Spinal Cord Injury, Hx Transient Ischemic Attacks (TIA), Other Neuro Impairments/Disorders Psychiatric History: Reports: Hx Anxiety, Hx Depression - ON MEDICATION FOR Denies: Hx Eating Disorder, Hx Inpatient Treatment, Hx of Violent Episodes Against Others - Cancer History Cancer Type, 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 Exploratory lap in her 20s [place]. Aneurysm in head in her early 50s [place]. Hysterectomy and Bladder surgery mesh placed [facility] [place]. Bilateral arm and Left shoulder for fractures [facility] [place]. 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 Right Cataract 07/01/12 [facility] Hx Anesthesia Reactions: No Infectious Disease History: Denies: Hx Clostridium Difficile, Hx Hepatitis, Hx Human Immunodeficiency Virus (HIV), Hx of Known/Suspected MRSA, Hx Shingles, Hx Tuberculosis, Hx Known/ Suspected VRE, Hx Known/Suspected VRSA, History Other Infectious Disease - Family History Known Family History: Positive: None, Other - Alcoholism Family History: FHx of EtOH abuse. FHx of lymphoma - sister. Full FHx not obtained due to AMS. - Social History Occupation: Retired Lives: With Family Alcohol Use: None Alcohol Amount: hx of alcoholism Hx Substance Use: No Substance Use Type: Reports: None Substance Use Comment - Amount & Last Used: Pt stopped drinking 3 years prior Hx Tobacco Use: Yes Smoking Status (MU): Former Smoker Type: Cigarettes Amount Used/How Often: 1 ppd Length of Time of Smoking/Using Tobacco: 50 years Have You Smoked in the Last Year: Yes Review of Systems Positive: Abdominal Pain Positive: other - neg: bowel changes All Other Systems Reviewed And Are Negative: Yes Physical Exam Triage Information Reviewed: Yes Vital Signs On Initial Exam: Initial Vitals Temp Pulse Resp BP Pulse Ox 98.9 F 81 16 157/69 95 08/25/16 09:24 08/25/16 09:24 08/25/16 09:24 08/25/16 09:24 08/25/16 09:24 Vital Signs Reviewed: Yes Appearance: Positive: Well-Appearing, No Pain Distress Skin: Positive: Warm, Skin Color Reflects Adequate Perfusion, Dry Head/Face: Positive: Normal Head/Face Inspection Eyes: Positive: Normal ENT: Positive: Normal ENT inspection, Other - pos: oral mucosa dry - mild Neck: Positive: Supple, Nontender Respiratory/Lung Sounds: Positive: Clear to Auscultation, Breath Sounds Present Cardiovascular: Positive: RRR Abdomen Description: Positive: Soft, Other: - pos: diffusely tender Bowel Sounds: Positive: Hypoactive Musculoskeletal: Positive: Normal Neurological: Positive: Normal Psychiatric: Positive: Normal, Affect/Mood Appropriate Diagnostics - Vital Signs Vital Signs Temp Pulse Resp BP Pulse Ox 08/25/16 12:40 72 18 165/62 98 08/25/16 12:31 20 08/25/16 11:59 69 16 157/70 99 08/25/16 10:49 67 18 132/84 94 08/25/16 09:24 98.9 F 81 16 157/69 95 - Laboratory Lab Results: Lab Results 08/25/16 08/25/16 Range/Units 10:40 10:40 WBC 6.1 (3.5-10.8) 10^3/ul RBC 4.34 (4.0-5.4) 10^6/ul Hgb 12.3 (12.0-16.0) g/dl Hct 38 (35-47) % MCV 87 (80-97) fL MCH 28 (27-31) pg MCHC 33 (31-36) g/dl RDW 16 H (10.5-15) % Plt Count 190 (150-450) 10^3/ul MPV 9 (7.4-10.4) um3 Neut % (Auto) 67.8 (38-83) % Lymph % (Auto) 21.1 L (25-47) % [place] % (Auto) 7.1 (1-9) % Eos % (Auto) 3.6 (0-6) % Baso % (Auto) 0.4 (0-2) % Absolute Neuts (auto) 4.1 (1.5-7.7) 10^3/ul Absolute Lymphs (auto) 1.3 (1.0-4.8) 10^3/ul Absolute Monos (auto) 0.4 (0-0.8) 10^3/ul Absolute Eos (auto) 0.2 (0-0.6) 10^3/ul Absolute Basos (auto) 0 (0-0.2) 10^3/ul Absolute Nucleated RBC 0.01 10^3/ul Nucleated RBC % 0.1 Sodium 128 L (133-145) mmol/L Potassium 3.9 (3.5-5.0) mmol/L Chloride 94 L (101-111) mmol/L Carbon Dioxide 30 (22-32) mmol/L Anion Gap 4 (2-11) mmol/L BUN 13 (6-24) mg/dL Creatinine 0.76 (0.51-0.95) mg/dL Est GFR ( Amer) 95.9 (>60) Est GFR (Non-Af Amer) 74.6 (>60) BUN/Creatinine Ratio 17.1 (8-20) Glucose 98 (70-100) mg/dL Calcium 9.4 (8.6-10.3) mg/dL Total Bilirubin 0.50 (0.2-1.0) mg/dL AST 17 (13-39) U/L ALT 11 (7-52) U/L Alkaline Phosphatase 59 (34-104) U/L C-Reactive Protein 4.38 (< 5.00) mg/L Total Protein 7.1 (6.4-8.9) g/dL Albumin 4.2 (3.2-5.2) g/dL Globulin 2.9 (2-4) g/dL Albumin/Globulin Ratio 1.4 (1-3) Lipase 23 (11.0-82.0) U/L Result Diagrams: 08/25/16 10:40 08/25/16 10:40 Lab Statement: Any lab studies that have been ordered have been reviewed, and results considered in the medical decision making process. Abdominal Pain Fem Course/Dx - Course Course Of Treatment: Ms. Mejia presented to the ED C/O vague abdominal pain. Looking back through the record, I can see that this is a chronic problem that has remained undiagnosed. She was most recently here in the ED a week ago and had a CT scan and subsequently returned a few days ago. She is on chronic narcotics at the senior care. Her labs here were negative and she was given pain medications here. She got very upset at the prospect of going back to the senior care and the hospitalists were asked to evaulate her. - Diagnoses Provider Diagnoses: abdomincal pain - Provider Notifications Discussed Care Of Patient With: Dr. Vasquez, hospitalist Time Discussed With Above Provider: 14:01 Instructed by Provider To: MD Will See In ED Discharge - Discharge Plan Condition: Stable Disposition: ADMITTED TO [facility] documentation as recorded by the Moi fuentes SooYoung accurately reflects the service I personally performed and the decisions made by me, Demarcus Chavira MD.
[2016-08-25] MEDS: Nystatin OINT* 15 GM TOPICAL SCH (21:00)
[2016-08-25] MEDS: Heparin VIAL(*) 5000 UNITS/ML VIAL (FIVE THOUSAND) SUBCUT SCH ×2 (21:05→21:16)
[2016-08-25] MEDS: Pregabalin CAP(*) 25 MG PO SCH (21:15)
[2016-08-25] MEDS: FLUoxetine CAP* 20 MG PO SCH (21:15)
[2016-08-25] MEDS: Omeprazole CAP* 20 MG PO SCH (21:15)
[2016-08-25] MEDS: traZODone TAB* 50 MG TAB PO SCH (21:16)
--- NOTE | 2016-08-26 00:07 | HP ---
HISTORY AND PHYSICAL: DATE OF ADMISSION: 08/25/16 PRIMARY CARE PROVIDER: Joy Willoughby NP CHIEF COMPLAINT: Abdominal pain. HISTORY OF PRESENT ILLNESS: Ms. Mejia is a 71-year-old female who has been in the emergency room on August 18, August 22, and August 25 with complaints of abdominal pain. Today, all the patient is only able to tell me is that she needs help. She is unable to tell me when the abdominal pain began. When specifically asked what the pain feels like, she states she cannot really describe it, but it feels like an ache in her epigastrium. The patient states that she has a large abdominal wall hernia that has been present for a prolonged period of time that does not bother her and the pain again is located in the area between her ribs. She denies any constipation. She denies any nausea. She is unable to tell me if anything makes it feel better or worse. In general, the patient is an incredibly poor historian. PAST MEDICAL HISTORY: 1. GERD. 2. Depression/anxiety - severe. 3. COPD. 4. Atrial fibrillation - single episode. 5. Hypertension. 6. History of brain aneurysm, status post surgery. 7. Legally blind. 8. History of psychosis and paraphrenia. 9. History of alcohol abuse. 10. History of tobacco abuse. 11. History of oral cancer. 12. Cholecystectomy. 13. Oral cancer resection. MEDICATIONS: 1. Imodium 4 mg p.o. daily p.r.n. loose stool followed by 2 mg p.o. q.3 hours p.r.n. each subsequent loose stool up to 16 mg total. 2. DuoNeb 1 neb inhaled q.4 hours p.r.n. shortness of breath. 3. Zofran ODT 4 mg p.o. q.8 hours p.r.n. nausea. 4. Gaviscon 2 tabs p.o. q.12 hours p.r.n. indigestion. 5. Albuterol 1 neb inhaled q.6 hours p.r.n. shortness of breath. 6. Tylenol 1000 mg p.o. q.8 hours p.r.n. pain. 7. Oxycodone 10 mg p.o. q.h.s. p.r.n. pain. 8. Oxycodone 15 mg p.o. at 8 a.m. and 1600 p.r.n. pain. 9. Clonazepam 1 mg p.o. q.a.m., 1600, and bedtime p.r.n. anxiety. 10. Nicotine patch 7 mg per 24 hours topically daily p.r.n. craving. 11. Trazodone 25 mg p.o. q.h.s. 12. Lasix 20 mg p.o. daily. 13. Ranitidine 150 mg p.o. daily. 14. Lyrica 25 mg p.o. t.i.d. 15. Fluoxetine 40 mg p.o. b.i.d. 16. Spiriva 1 puff inhaled daily. 17. Omeprazole 40 mg p.o. b.i.d. 18. Metoprolol tartrate 12.5 mg p.o. daily. 19. Lisinopril 10 mg p.o. daily. 20. Breo Ellipta 100/25 one puff inhaled daily. 21. Aspirin 81 mg p.o. daily. 22. Amlodipine 5 mg p.o. daily. ALLERGIES: ADHESIVE TAPE. FAMILY HISTORY: The patient's mom of old age and father in a car accident. REVIEW OF SYSTEMS: Difficult to obtain from the patient. She perseverates on her abdominal pain and does not answer other questions. PHYSICAL EXAMINATION GENERAL: The patient is a well-developed, elderly female lying in a stretcher, crying mildly, but in no acute distress. VITAL SIGNS: Blood pressure 165/62, pulse 76, respirations 18, temp 98.4, O2 sat 98% on 3 L. HEENT: Pupils are equal. They are round, they react to light. Extraocular muscles are intact. Oropharynx is clear. Oral mucosa is moist. There is no submandibular, cervical, or supraclavicular adenopathy. NECK: Thyroid is not enlarged. No thyroid nodules are noted. PULMONARY: Lungs are clear to auscultation bilaterally. CARDIAC: Normal S1, S2. Regular rate and rhythm. I do not appreciate any murmurs. There is no lower extremity edema. There are varicose veins in the bilateral lower extremities. ABDOMEN: Bowel sounds present. Abdomen is soft. There is an abdominal wall hernia to the right of midline incision. This is nontender to palpation. The patient has deep tenderness to palpation in the epigastrium. MUSCULOSKELETAL: There is no cyanosis or clubbing of the digits. There is full active range of motion. NEURO: Cranial nerves II through XII are grossly intact. Sensation is intact to light touch throughout. Strength is 5/5 and symmetric, both upper and lower extremities bilaterally. PSYCH: The patient is alert. She is oriented x3. She seemed overly dramatic at this time. SKIN: Warm and dry. There are no rashes. DIAGNOSTIC STUDIES/LAB DATA: WBC 6.1, hemoglobin 12.3, hematocrit 38, platelets 190. Sodium 128, potassium 3.9, chloride 94, CO2 30, BUN 13, creatinine 0.76, glucose 98, calcium 9.4. AST 17, ALT 11, alk phos 59, bilirubin 0.5. CRP 4.38. Albumin 4.2. Lipase 23. ASSESSMENT AND PLAN: Ms. Mejia is a 71-year-old female who has presented to the emergency room for the third time in 1 week with complaints of severe abdominal pain though no clear etiology has been identified and is now being admitted under observation status for further monitoring. 1. Abdominal pain: So far, no clear etiology has been identified. The patient 's lab work is completely normal with a normal CRP and white blood cell count making infection seem very unlikely. She did have a CT scan on August 18 that revealed a hernia, but no signs of obstruction at that time. The patient states her pain is now more severe than it was then. Therefore, I will go ahead and repeat her abdominal CT. The patient, in fact, has been quite hysterical about her pain. We will try morphine for the severe pain. If CT scan is unrevealing, we will consider a GI evaluation tomorrow for possible EGD , though I do not believe that this itself will be revealing either. 2. Gastroesophageal reflux disease: The patient will be maintained on her PPI and H2 awais. 3. Depression/anxiety: The patient will be maintained on her Prozac and clonazepam regimen from home. 4. Chronic obstructive pulmonary disease: No signs of exacerbation at this time. 5. Hypertension: The patient's blood pressure is moderately elevated though she is quite worked up currently. She will be maintained on her usual dose of metoprolol tartrate. 6. DVT prophylaxis: According to the Adult Thrombosis Prophylaxis Risk Factor Assessment Guide, the patient has a total risk factor score of 3 making her high risk. She will be placed on heparin 5000 subcutaneous q.8 hours. 7. Code status is DNR. TIME SPENT: Sixty-five minutes was spent admitting this patient. CC: Joy Willoughby NP* [id number]/CPS #: [id number] [facility]
[2016-08-26] MEDS: Morphine INJ* 4 MG/ML 1 ML SYRINGE IV PRN ×2 (02:07→06:39)
[2016-08-26] MEDS: NS 0.9% 1000 ML* 1,000 ML IV SCH ×3 (03:45→14:20)
[2016-08-26] MEDS: Acetaminophen TAB* 325 MG PO PRN (03:46)
[2016-08-26] MEDS: Heparin VIAL(*) 5000 UNITS/ML VIAL (FIVE THOUSAND) SUBCUT SCH ×3 (06:31→21:38)
[2016-08-26 07:18] LABS: BUN/Creatinine Ratio 17.7 (8-20); Calcium 8.9 mg/dL (8.6-10.3); EGFR African American 91.7 (>60); EGFR Non-African American 71.3 (>60); Potassium 4.4 mmol/L (3.5-5.0)
[2016-08-26] MEDS: Metoprolol Tartrate TAB* 25 MG PO SCH (08:38)
[2016-08-26] MEDS: oxyCODONE TAB* 5 MG TAB PO PRN ×3 (08:40→21:48)
[2016-08-26] MEDS: Famotidine TAB* 20 MG PO SCH (08:45)
[2016-08-26] MEDS: amLODIPine TAB* 5 MG PO SCH (08:45)
[2016-08-26] MEDS: FLUoxetine CAP* 20 MG PO SCH ×2 (08:46→21:35)
[2016-08-26] MEDS: Lisinopril TAB* 5 MG PO SCH (08:46)
[2016-08-26] MEDS: Aspirin EC Low Dose* 81 MG TAB.EC PO SCH (08:46)
[2016-08-26] MEDS: Omeprazole CAP* 20 MG PO SCH ×2 (08:46→21:35)
[2016-08-26] MEDS: Pregabalin CAP(*) 25 MG PO SCH ×3 (08:47→21:34)
[2016-08-26] MEDS: Furosemide TAB* 20 MG PO SCH (08:48)
[2016-08-26] MEDS: Nystatin OINT* 15 GM TOPICAL SCH ×3 (09:06→21:37)
[2016-08-26] MEDS: Tiotropium CAP.INH* CAP.INH/18 MCG INH SCH (09:37)
--- NOTE | 2016-08-26 16:51 | PN ---
Subjective Date of Service: 08/26/16 Interval History: Seen and examined Abdominal pain persists but is difficult to characterize. No N/V, diarrhea. Tolerating her diet Feels distressed because she is concerned that she has an infection in her belly Objective Active Medications: Acetaminophen (Tylenol Tab*) 650 mg PO Q4H PRN PRN Reason: PAIN Last Admin: 08/26/16 03:46 Dose: 650 mg Al Hydrox/Mg Hydrox/Simethicone (Maalox Plus*) 30 ml PO Q2H PRN PRN Reason: DYSPEPSIA Albuterol (Ventolin 2.5 Mg/3 Ml Neb.Mary*) 2.5 mg INH Q6H PRN PRN Reason: SHORTNESS OF BREATH Amlodipine Besylate (Norvasc Tab*) 5 mg PO DAILY [facility] Last Admin: 08/26/16 08:45 Dose: 5 mg Aspirin (Aspirin Ec Low Dose*) 81 mg PO DAILY [facility] Last Admin: 08/26/16 08:46 Dose: 81 mg Clonazepam (Klonopin Tab(*)) 1 mg PO 1600 PRN PRN Reason: ANXIETY Last Admin: 08/25/16 17:25 Dose: 1 mg Clonazepam (Klonopin Tab(*)) 1 mg PO BEDTIME PRN PRN Reason: ANXIETY Clonazepam (Klonopin Tab(*)) 1 mg PO QAM PRN PRN Reason: ANXIETY Famotidine (Pepcid Tab*) 20 mg PO DAILY [facility] PRN Reason: Protocol Last Admin: 08/26/16 08:45 Dose: 20 mg Fluoxetine HCl (Prozac Cap*) 40 mg PO BID [facility] Last Admin: 08/26/16 08:46 Dose: 40 mg Furosemide (Lasix Tab*) 20 mg PO DAILY [facility] Last Admin: 08/26/16 08:48 Dose: 20 mg Heparin Sodium (Porcine) (Heparin Vial(*)) 5,000 units SUBCUT Q8HR [facility] Last Admin: 08/26/16 14:18 Dose: 5,000 units Sodium Chloride (Ns 0.9% 1000 Ml*) 1,000 mls @ 100 mls/hr IV PER RATE [facility] Stop: 08/27/16 00:44 Last Admin: 08/26/16 14:20 Dose: 100 mls/hr Lisinopril (Prinivil Tab*) 10 mg PO DAILY [facility] Last Admin: 08/26/16 08:46 Dose: 10 mg Metoprolol Tartrate (Lopressor Tab*) 12.5 mg PO DAILY [facility] Last Admin: 08/26/16 08:38 Dose: 12.5 mg Morphine Sulfate (Morphine Inj (Syringe)*) 4 mg IV Q4H PRN PRN Reason: PAIN Last Admin: 08/26/16 06:39 Dose: 4 mg Nicotine (Nicotine Patch 7 Mg/24 Hr*) 1 patch TRANSDERM DAILY PRN PRN Reason: CRAVING Nystatin (Nystatin Oint*) 1 applic TOPICAL TID [facility] Last Admin: 08/26/16 14:17 Dose: 1 applic Omeprazole (Prilosec Cap*) 40 mg PO BID [facility] Last Admin: 08/26/16 08:46 Dose: 40 mg Ondansetron HCl (Zofran Inj*) 4 mg IV Q6H PRN PRN Reason: NAUSEA Oxycodone HCl (Roxycodone Tab*) 15 mg PO 0800,1600 PRN PRN Reason: PAIN Last Admin: 08/26/16 16:11 Dose: 15 mg Oxycodone HCl (Roxycodone Tab*) 10 mg PO BEDTIME PRN PRN Reason: PAIN Last Admin: 08/25/16 22:52 Dose: 10 mg Pregabalin (Lyrica Cap(*)) 25 mg PO TID [facility] Last Admin: 08/26/16 14:17 Dose: 25 mg Tiotropium [place] (Spiriva Cap.Inh*) 1 cap INH DAILY [facility] Last Admin: 08/26/16 09:37 Dose: Not Given Trazodone HCl (Desyrel Tab*) 25 mg PO BEDTIME [facility] Last Admin: 08/25/16 21:16 Dose: 25 mg Vital Signs 08/25/16 08/25/16 08/25/16 16:48 16:58 17:24 Temperature 99.6 F Pulse Rate 62 Respiratory 14 16 14 Rate Blood Pressure 161/54 (mmHg) O2 Sat by Pulse 100 Oximetry 08/25/16 08/25/16 08/25/16 17:25 17:48 19:24 Temperature Pulse Rate Respiratory 16 14 16 Rate Blood Pressure (mmHg) O2 Sat by Pulse Oximetry 08/25/16 08/25/16 08/25/16 19:25 19:43 20:00 Temperature 98.4 F Pulse Rate 65 Respiratory 16 20 22 Rate Blood Pressure 74/50 (mmHg) O2 Sat by Pulse 97 Oximetry 08/25/16 08/25/16 08/25/16 20:45 20:56 21:15 Temperature Pulse Rate Respiratory 12 20 Rate Blood Pressure 90/61 (mmHg) O2 Sat by Pulse Oximetry 08/25/16 08/25/16 08/25/16 22:52 23:15 23:17 Temperature 98.1 F Pulse Rate 57 Respiratory 22 20 18 Rate Blood Pressure 147/60 (mmHg) O2 Sat by Pulse 98 Oximetry 08/26/16 08/26/16 08/26/16 00:52 02:07 03:07 Temperature Pulse Rate Respiratory 16 20 22 Rate Blood Pressure (mmHg) O2 Sat by Pulse Oximetry 08/26/16 08/26/16 08/26/16 06:39 07:39 07:44 Temperature 97.9 F Pulse Rate 64 Respiratory 20 16 16 Rate Blood Pressure 152/71 (mmHg) O2 Sat by Pulse 100 Oximetry 08/26/16 08/26/16 08/26/16 08:00 08:40 08:47 Temperature Pulse Rate Respiratory 16 18 16 Rate Blood Pressure (mmHg) O2 Sat by Pulse Oximetry 08/26/16 08/26/16 08/26/16 10:40 10:47 12:00 Temperature 98.3 F Pulse Rate 45 Respiratory 16 16 16 Rate Blood Pressure 108/44 (mmHg) O2 Sat by Pulse 98 Oximetry 08/26/16 08/26/16 14:17 16:11 Temperature Pulse Rate Respiratory 16 16 Rate Blood Pressure (mmHg) O2 Sat by Pulse Oximetry Oxygen Devices in Use Now: Nasal Cannula Appearance: NAD Eyes: No Scleral Icterus, PERRLA Ears/Nose/Mouth/Throat: Clear Oropharnyx, Mucous Membranes Moist Neck: NL Appearance and Movements; NL JVP, Trachea Midline Respiratory: Symmetrical Chest Expansion and Respiratory Effort, - - +wheeze Cardiovascular: RRR Abdominal: - - notable hernia, soft, TTP epigastrum, +bs Extremities: No Edema Skin: No Rash or Ulcers Neurological: Alert and Oriented x 3 Result Diagrams: 08/25/16 10:40 08/26/16 06:15 Additional Lab and Data: Lab Results 08/25/16 08/25/16 Range/Units 10:40 10:40 WBC 6.1 (3.5-10.8) 10^3/ul RBC 4.34 (4.0-5.4) 10^6/ul Hgb 12.3 (12.0-16.0) g/dl Hct 38 (35-47) % MCV 87 (80-97) fL MCH 28 (27-31) pg MCHC 33 (31-36) g/dl RDW 16 H (10.5-15) % Plt Count 190 (150-450) 10^3/ul MPV 9 (7.4-10.4) um3 Neut % (Auto) 67.8 (38-83) % Lymph % (Auto) 21.1 L (25-47) % [place] % (Auto) 7.1 (1-9) % Eos % (Auto) 3.6 (0-6) % Baso % (Auto) 0.4 (0-2) % Absolute Neuts (auto) 4.1 (1.5-7.7) 10^3/ul Absolute Lymphs (auto) 1.3 (1.0-4.8) 10^3/ul Absolute Monos (auto) 0.4 (0-0.8) 10^3/ul Absolute Eos (auto) 0.2 (0-0.6) 10^3/ul Absolute Basos (auto) 0 (0-0.2) 10^3/ul Absolute Nucleated RBC 0.01 10^3/ul Nucleated RBC % 0.1 Sodium 128 L (133-145) mmol/L Potassium 3.9 (3.5-5.0) mmol/L Chloride 94 L (101-111) mmol/L Carbon Dioxide 30 (22-32) mmol/L Anion Gap 4 (2-11) mmol/L BUN 13 (6-24) mg/dL Creatinine 0.76 (0.51-0.95) mg/dL Est GFR ( Amer) 95.9 (>60) Est GFR (Non-Af Amer) 74.6 (>60) BUN/Creatinine Ratio 17.1 (8-20) Glucose 98 (70-100) mg/dL Calcium 9.4 (8.6-10.3) mg/dL Total Bilirubin 0.50 (0.2-1.0) mg/dL AST 17 (13-39) U/L ALT 11 (7-52) U/L Alkaline Phosphatase 59 (34-104) U/L C-Reactive Protein 4.38 (< 5.00) mg/L Total Protein 7.1 (6.4-8.9) g/dL Albumin 4.2 (3.2-5.2) g/dL Globulin 2.9 (2-4) g/dL Albumin/Globulin Ratio 1.4 (1-3) Lipase 23 (11.0-82.0) U/L Microbiology and Other Data: Microbiology 08/25/16 19:45 Nasal Screen MRSA (PCR)(TOMMY) - Final Nasal Mrsa Negative Assess/Plan/Problems-Billing Assessment: 71 yo F h/o admissions with multiple somatic complaints including abdominal pain 01/2015 without identification of etiology returning with abdominal pain - Patient Problems (1) Abdominal pain Comment: Concer for anxiety as source in 2014 Has not received maalox Will ask GI for assistance to eval if would benefit from EGD to r/o PUD (2) History of COPD Current Visit: No Status: Chronic Priority: Medium Code(s): Z87.09 - PERSONAL HISTORY OF OTHER DISEASES OF THE RESPIRATORY SYSTEM SNOMED Code(s): 343354587 Comment: Stable- no signs of exacerbation. Continue spiriva and prn albuterol. (3) Hx of portal hypertension Comment: per history (4) Hernia, abdominal Comment: Large RLQ Hernia, reducible (5) Anxiety Comment: clonazepam (6) DVT prophylaxis Comment: SQ heparin
[2016-08-26] MEDS: clonazePAM TAB(*) 1 MG PO PRN (17:16)
[2016-08-26 20:13] LABS: Urine Bacteria Absent (Absent); Urine Bilirubin Negative (Negative); Urine Glucose Negative (Negative); Urine Nitrite Negative (Negative)
[2016-08-26] MEDS: traZODone TAB* 50 MG TAB PO SCH (21:36)
[2016-08-27] MEDS: Ondansetron INJ* 2 MG/ML VIAL IV PRN (05:42)
[2016-08-27] MEDS: Heparin VIAL(*) 5000 UNITS/ML VIAL (FIVE THOUSAND) SUBCUT SCH ×3 (05:42→21:25)
[2016-08-27] MEDS: oxyCODONE TAB* 5 MG TAB PO PRN ×3 (08:57→21:23)
[2016-08-27] MEDS: Furosemide TAB* 20 MG PO SCH (08:59)
[2016-08-27] MEDS: Pregabalin CAP(*) 25 MG PO SCH ×3 (09:00→21:21)
[2016-08-27] MEDS: Famotidine TAB* 20 MG PO SCH (09:00)
[2016-08-27] MEDS: amLODIPine TAB* 5 MG PO SCH (09:00)
[2016-08-27] MEDS: Lisinopril TAB* 5 MG PO SCH (09:00)
[2016-08-27] MEDS: Aspirin EC Low Dose* 81 MG TAB.EC PO SCH (09:00)
[2016-08-27] MEDS: FLUoxetine CAP* 20 MG PO SCH ×2 (09:00→21:23)
[2016-08-27] MEDS: Omeprazole CAP* 20 MG PO SCH ×2 (09:00→21:21)
[2016-08-27] MEDS: Metoprolol Tartrate TAB* 25 MG PO SCH (09:01)
[2016-08-27] MEDS: Nystatin OINT* 15 GM TOPICAL SCH ×3 (09:01→21:26)
[2016-08-27] MEDS: Tiotropium CAP.INH* CAP.INH/18 MCG INH SCH (10:44)
[2016-08-27] MEDS ORDERED: Spiriva Inhaler DEVICE* 1 EACH DEVICE INH ONE (11:00)
--- NOTE | 2016-08-27 14:04 | PN ---
Subjective Date of Service: 08/27/16 Interval History: Ate all of lunch. No nausea, no vomiting, no diarrhea Feels pain is better but because she is receiving medication Still feels pain is severe. Anxious because she does not know what is causing it Relayed that about 1 month prior she had to sell her house in order to pay for [employer]. Very tearful during this conversation. We discussed how sometimes severe stress can manifest as somatic symptoms like abdominal pain and she relayed she thinks this is what is happening now Objective Active Medications: Acetaminophen (Tylenol Tab*) 650 mg PO Q4H PRN PRN Reason: PAIN Last Admin: 08/26/16 03:46 Dose: 650 mg Al Hydrox/Mg Hydrox/Simethicone (Maalox Plus*) 30 ml PO Q2H PRN PRN Reason: DYSPEPSIA Albuterol (Ventolin 2.5 Mg/3 Ml Neb.Mary*) 2.5 mg INH Q6H PRN PRN Reason: SHORTNESS OF BREATH Amlodipine Besylate (Norvasc Tab*) 5 mg PO [facility]ILY [facility] Last Admin: 08/27/16 09:00 Dose: 5 mg Aspirin (Aspirin Ec Low Dose*) 81 mg PO DAILY [facility] Last Admin: 08/27/16 09:00 Dose: 81 mg Clonazepam (Klonopin Tab(*)) 1 mg PO Q8H [facility] Famotidine (Pepcid Tab*) 20 mg PO DAILY [facility] PRN Reason: Protocol Last Admin: 08/27/16 09:00 Dose: 20 mg Fluoxetine HCl (Prozac Cap*) 40 mg PO BID [facility] Last Admin: 08/27/16 09:00 Dose: 40 mg Furosemide (Lasix Tab*) 20 mg PO DAILY [facility] Last Admin: 08/27/16 08:59 Dose: 20 mg Heparin Sodium (Porcine) (Heparin Vial(*)) 5,000 units SUBCUT Q8HR [facility] Last Admin: 08/27/16 05:42 Dose: 5,000 units Lisinopril (Prinivil Tab*) 10 mg PO DAILY [facility] Last Admin: 08/27/16 09:00 Dose: 10 mg Metoprolol Tartrate (Lopressor Tab*) 12.5 mg PO DAILY [facility] Last Admin: 08/27/16 09:01 Dose: 12.5 mg Morphine Sulfate (Morphine Inj (Syringe)*) 4 mg IV Q4H PRN PRN Reason: PAIN Last Admin: 08/26/16 06:39 Dose: 4 mg Nicotine (Nicotine Patch 7 Mg/24 Hr*) 1 patch TRANSDERM DAILY PRN PRN Reason: CRAVING Nystatin (Nystatin Oint*) 1 applic TOPICAL TID [facility] Last Admin: 08/27/16 09:01 Dose: 1 applic Omeprazole (Prilosec Cap*) 40 mg PO BID [facility] Last Admin: 08/27/16 09:00 Dose: 40 mg Ondansetron HCl (Zofran Inj*) 4 mg IV Q6H PRN PRN Reason: NAUSEA Last Admin: 08/27/16 05:42 Dose: 4 mg Oxycodone HCl (Roxycodone Tab*) 15 mg PO 0800,1600 PRN PRN Reason: PAIN Last Admin: 08/27/16 08:57 Dose: 15 mg Oxycodone HCl (Roxycodone Tab*) 10 mg PO BEDTIME PRN PRN Reason: PAIN Last Admin: 08/26/16 21:48 Dose: 10 mg Pregabalin (Lyrica Cap(*)) 25 mg PO TID [facility] Last Admin: 08/27/16 09:00 Dose: 25 mg Tiotropium [place] (Spiriva Cap.Inh*) 1 cap INH DAILY [facility] Last Admin: 08/27/16 10:44 Dose: Not Given Trazodone HCl (Desyrel Tab*) 25 mg PO BEDTIME [facility] Last Admin: 08/26/16 21:36 Dose: 25 mg Vital Signs 08/26/16 08/26/16 08/26/16 14:17 15:53 16:11 Temperature 98.1 F Pulse Rate 47 Respiratory 16 12 16 Rate Blood Pressure 125/57 (mmHg) O2 Sat by Pulse 100 Oximetry 08/26/16 08/26/16 08/26/16 16:17 17:16 18:11 Temperature Pulse Rate Respiratory 16 16 16 Rate Blood Pressure (mmHg) O2 Sat by Pulse Oximetry 08/26/16 08/26/16 08/26/16 19:16 19:36 20:06 Temperature 97.7 F Pulse Rate 45 52 Respiratory 18 20 Rate Blood Pressure 97/40 103/40 (mmHg) O2 Sat by Pulse 100 100 Oximetry 08/26/16 08/26/16 08/26/16 21:34 21:48 22:17 Temperature Pulse Rate Respiratory 18 18 18 Rate Blood Pressure (mmHg) O2 Sat by Pulse Oximetry 08/26/16 08/26/16 08/26/16 23:28 23:34 23:48 Temperature 98.4 F Pulse Rate 58 Respiratory 12 16 16 Rate Blood Pressure 125/57 (mmHg) O2 Sat by Pulse 93 Oximetry 08/27/16 08/27/16 08/27/16 03:25 07:14 08:00 Temperature 97.7 F 98.4 F Pulse Rate 53 62 Respiratory 20 18 16 Rate Blood Pressure 138/57 145/61 (mmHg) O2 Sat by Pulse 99 100 Oximetry 08/27/16 08/27/16 08/27/16 08:57 09:00 11:05 Temperature Pulse Rate Respiratory 16 16 16 Rate Blood Pressure (mmHg) O2 Sat by Pulse Oximetry Oxygen Devices in Use Now: Nasal Cannula Appearance: NAD, tearful Eyes: No Scleral Icterus, PERRLA Ears/Nose/Mouth/Throat: Clear Oropharnyx, Mucous Membranes Moist Neck: NL Appearance and Movements; NL JVP, Trachea Midline Respiratory: Symmetrical Chest Expansion and Respiratory Effort, Clear to Auscultation Cardiovascular: RRR Abdominal: NL Sounds; No Tenderness; No Distention, No Hepatosplenomegaly Extremities: No Edema Skin: No Rash or Ulcers Neurological: Alert and Oriented x 3 Result Diagrams: 08/25/16 10:40 08/26/16 06:15 Additional Lab and Data: Lab Results 08/25/16 08/25/16 Range/Units 10:40 10:40 WBC 6.1 (3.5-10.8) 10^3/ul RBC 4.34 (4.0-5.4) 10^6/ul Hgb 12.3 (12.0-16.0) g/dl Hct 38 (35-47) % MCV 87 (80-97) fL MCH 28 (27-31) pg MCHC 33 (31-36) g/dl RDW 16 H (10.5-15) % Plt Count 190 (150-450) 10^3/ul MPV 9 (7.4-10.4) um3 Neut % (Auto) 67.8 (38-83) % Lymph % (Auto) 21.1 L (25-47) % [place] % (Auto) 7.1 (1-9) % Eos % (Auto) 3.6 (0-6) % Baso % (Auto) 0.4 (0-2) % Absolute Neuts (auto) 4.1 (1.5-7.7) 10^3/ul Absolute Lymphs (auto) 1.3 (1.0-4.8) 10^3/ul Absolute Monos (auto) 0.4 (0-0.8) 10^3/ul Absolute Eos (auto) 0.2 (0-0.6) 10^3/ul Absolute Basos (auto) 0 (0-0.2) 10^3/ul Absolute Nucleated RBC 0.01 10^3/ul Nucleated RBC % 0.1 Sodium 128 L (133-145) mmol/L Potassium 3.9 (3.5-5.0) mmol/L Chloride 94 L (101-111) mmol/L Carbon Dioxide 30 (22-32) mmol/L Anion Gap 4 (2-11) mmol/L BUN 13 (6-24) mg/dL Creatinine 0.76 (0.51-0.95) mg/dL Est GFR ( Amer) 95.9 (>60) Est GFR (Non-Af Amer) 74.6 (>60) BUN/Creatinine Ratio 17.1 (8-20) Glucose 98 (70-100) mg/dL Calcium 9.4 (8.6-10.3) mg/dL Total Bilirubin 0.50 (0.2-1.0) mg/dL AST 17 (13-39) U/L ALT 11 (7-52) U/L Alkaline Phosphatase 59 (34-104) U/L C-Reactive Protein 4.38 (< 5.00) mg/L Total Protein 7.1 (6.4-8.9) g/dL Albumin 4.2 (3.2-5.2) g/dL Globulin 2.9 (2-4) g/dL Albumin/Globulin Ratio 1.4 (1-3) Lipase 23 (11.0-82.0) U/L Microbiology and Other Data: Microbiology 08/25/16 19:45 Nasal Screen MRSA (PCR)(TOMMY) - Final Nasal Mrsa Negative Assess/Plan/Problems-Billing Assessment: 71 yo F h/o admissions with multiple somatic complaints including abdominal pain 01/2015 without identification of etiology returning with abdominal pain - Patient Problems (1) Anxiety Comment: clonazepam - change from PRN to TID with hold parameters If no change tomorrow will involve psych for assistance c/w paroxatine (2) Abdominal pain Comment: Concern for anxiety as source in 2015. Possible conversion disorder c/w maalox PRN c/w oxycodone PRN Will ask GI for assistance to eval if would benefit from EGD to r/o PUD (3) History of COPD Current Visit: No Status: Chronic Priority: Medium Code(s): Z87.09 - PERSONAL HISTORY OF OTHER DISEASES OF THE RESPIRATORY SYSTEM SNOMED Code(s): 111063712 Comment: Stable- no signs of exacerbation. Continue spiriva and prn albuterol. (4) Hx of portal hypertension Comment: per history (5) Hernia, abdominal Comment: Large RLQ Hernia, reducible (6) DVT prophylaxis Comment: SQ heparin
[2016-08-27] MEDS: clonazePAM TAB(*) 1 MG PO SCH ×2 (15:04→21:22)
[2016-08-27] MEDS: traZODone TAB* 50 MG TAB PO SCH (21:22)
[2016-08-28] MEDS: Acetaminophen TAB* 325 MG PO PRN ×2 (02:03→21:32)
[2016-08-28] MEDS: clonazePAM TAB(*) 1 MG PO SCH ×3 (06:06→21:31)
[2016-08-28] MEDS: Heparin VIAL(*) 5000 UNITS/ML VIAL (FIVE THOUSAND) SUBCUT SCH ×3 (06:06→21:33)
[2016-08-28] MEDS: Tiotropium CAP.INH* CAP.INH/18 MCG INH SCH (09:52)
[2016-08-28] MEDS: Omeprazole CAP* 20 MG PO SCH ×2 (09:57→21:30)
[2016-08-28] MEDS: Lisinopril TAB* 5 MG PO SCH (09:58)
[2016-08-28] MEDS: Aspirin EC Low Dose* 81 MG TAB.EC PO SCH (09:58)
[2016-08-28] MEDS: Pregabalin CAP(*) 25 MG PO SCH ×3 (09:58→21:29)
[2016-08-28] MEDS: FLUoxetine CAP* 20 MG PO SCH ×2 (09:59→21:31)
[2016-08-28] MEDS: Famotidine TAB* 20 MG PO SCH (09:59)
[2016-08-28] MEDS: Furosemide TAB* 20 MG PO SCH (09:59)
[2016-08-28] MEDS: amLODIPine TAB* 5 MG PO SCH (09:59)
[2016-08-28] MEDS: oxyCODONE TAB* 5 MG TAB PO PRN ×2 (10:00→18:14)
[2016-08-28] MEDS: Ondansetron INJ* 2 MG/ML VIAL IV PRN (10:00)
[2016-08-28] MEDS: Nystatin OINT* 15 GM TOPICAL SCH ×3 (10:08→22:05)
[2016-08-28] MEDS: Metoprolol Tartrate TAB* 25 MG PO SCH (10:08)
[2016-08-28] MEDS ORDERED: Diazepam TAB(*) 5 MG PO ONE (13:22)
[2016-08-28] MEDS: Al Hydrox/Mg Hydrox/Simet LIQ* 30 ML UDC PO PRN (14:38)
--- NOTE | 2016-08-28 15:39 | CONSULT ---
Consult Consult: S:Psychiatry is asked to see this 71 y.o. , white female with a history of long-standing depression, anxiety and episodic psychosis, who is currently admitted to the Hospitalist service due to presumably non-organic abdominal pain , due to symptoms of anxiety and passive SI. On exam the patient continues to present as highly somatic and is requesting transfer to [facility]. She complains about a woman who, she claims, used to live in her house for 25 years. After reviewing documentation from her [facility] admission in 2014, I can see that this is a chronic delusion, according to her son, who was involved in her care at the time. Documents further state that she did quite well when risperidone 1mg PO qhs was added to her fluoxetine. She does endorse thoughts of but without any plan to harm herself. O: obese, aging white female wearing hospital gown, laying in bed, writhing as though in distress; depressed mood with labile, tearful, somewhat exaggerated affect; thoughts are circumstantial with content that is highly somatic; she endorses passive SI without plan and denies HI. She denies AH or VH. I/J are poor and limited A/P: Likely depression with possible psychotic features: the patient has done well in the past on adjunctive risperidone therapy. Will add risperidone 1mg PO qhs and reassess in the AM. Cannot rule out the need for inpatient psychiatric hospitalization at this time. Will try to reach Joy Willoughby, JEANNA and family for collateral information. Psychiatry to reassess tomorrow (08/29).
--- NOTE | 2016-08-28 16:23 | PN ---
Subjective Date of Service: 08/28/16 Interval History: Seen and examined this AM Ate all of her meals, no N/V, diarrhea Taking PRN oxycodone but not morphine Resistant to the idea that her pain may be related to her current anxiety and depression Very tearful during encounter Expressed passive suicidal ideation without a plan Objective Active Medications: Acetaminophen (Tylenol Tab*) 650 mg PO Q4H PRN PRN Reason: PAIN Last Admin: 08/28/16 02:03 Dose: 650 mg Al Hydrox/Mg Hydrox/Simethicone (Maalox Plus*) 30 ml PO Q2H PRN PRN Reason: DYSPEPSIA Last Admin: 08/28/16 14:38 Dose: 30 ml Albuterol (Ventolin 2.5 Mg/3 Ml Neb.Mary*) 2.5 mg INH Q6H PRN PRN Reason: SHORTNESS OF BREATH Amlodipine Besylate (Norvasc Tab*) 5 mg PO DAILY [facility] Last Admin: 08/28/16 09:59 Dose: 5 mg Aspirin (Aspirin Ec Low Dose*) 81 mg PO DAILY [facility] Last Admin: 08/28/16 09:58 Dose: 81 mg Clonazepam (Klonopin Tab(*)) 1 mg PO Q8H [facility] Last Admin: 08/28/16 14:39 Dose: 1 mg Famotidine (Pepcid Tab*) 20 mg PO DAILY [facility] PRN Reason: Protocol Last Admin: 08/28/16 09:59 Dose: 20 mg Fluoxetine HCl (Prozac Cap*) 40 mg PO BID [facility] Last Admin: 08/28/16 09:59 Dose: 40 mg Furosemide (Lasix Tab*) 20 mg PO DAILY [facility] Last Admin: 08/28/16 09:59 Dose: 20 mg Heparin Sodium (Porcine) (Heparin Vial(*)) 5,000 units SUBCUT Q8HR [facility] Last Admin: 08/28/16 14:37 Dose: 5,000 units Lisinopril (Prinivil Tab*) 10 mg PO DAILY [facility] Last Admin: 08/28/16 09:58 Dose: 10 mg Metoprolol Tartrate (Lopressor Tab*) 12.5 mg PO DAILY [facility] Last Admin: 08/28/16 10:08 Dose: Not Given Morphine Sulfate (Morphine Inj (Syringe)*) 4 mg IV Q4H PRN PRN Reason: PAIN Last Admin: 08/26/16 06:39 Dose: 4 mg Nicotine (Nicotine Patch 7 Mg/24 Hr*) 1 patch TRANSDERM DAILY PRN PRN Reason: CRAVING Nystatin (Nystatin Oint*) 1 applic TOPICAL TID [facility] Last Admin: 08/28/16 14:43 Dose: 1 applic Omeprazole (Prilosec Cap*) 40 mg PO BID [facility] Last Admin: 08/28/16 09:57 Dose: 40 mg Ondansetron HCl (Zofran Inj*) 4 mg IV Q6H PRN PRN Reason: NAUSEA Last Admin: 08/28/16 10:00 Dose: 4 mg Oxycodone HCl (Roxycodone Tab*) 15 mg PO 0800,1600 PRN PRN Reason: PAIN Last Admin: 08/28/16 10:00 Dose: 15 mg Oxycodone HCl (Roxycodone Tab*) 10 mg PO BEDTIME PRN PRN Reason: PAIN Last Admin: 08/27/16 21:23 Dose: 10 mg Pregabalin (Lyrica Cap(*)) 25 mg PO TID [facility] Last Admin: 08/28/16 14:39 Dose: 25 mg Risperidone (Risperdal*) 1 mg PO BEDTIME [facility] Tiotropium [place] (Spiriva Cap.Inh*) 1 cap INH DAILY [facility] Last Admin: 08/28/16 09:52 Dose: 1 cap Trazodone HCl (Desyrel Tab*) 25 mg PO BEDTIME [facility] Last Admin: 08/27/16 21:22 Dose: 25 mg Vital Signs 08/27/16 08/27/16 08/27/16 17:00 17:04 17:46 Temperature Pulse Rate Respiratory 16 16 16 Rate Blood Pressure (mmHg) O2 Sat by Pulse Oximetry 08/27/16 08/27/16 08/27/16 21:21 21:22 21:23 Temperature Pulse Rate Respiratory 18 18 18 Rate Blood Pressure (mmHg) O2 Sat by Pulse Oximetry 08/27/16 08/27/16 08/27/16 23:15 23:18 23:21 Temperature Pulse Rate Respiratory 16 16 18 Rate Blood Pressure (mmHg) O2 Sat by Pulse Oximetry 08/27/16 08/28/16 08/28/16 23:37 06:06 07:29 Temperature 97.8 F Pulse Rate 54 Respiratory 20 16 16 Rate Blood Pressure 100/46 (mmHg) O2 Sat by Pulse 100 Oximetry 08/28/16 08/28/16 08/28/16 07:32 08:06 09:58 Temperature Pulse Rate 56 Respiratory 18 16 14 Rate Blood Pressure 144/57 (mmHg) O2 Sat by Pulse 100 Oximetry 08/28/16 08/28/16 08/28/16 10:00 14:38 14:39 Temperature Pulse Rate Respiratory 14 16 16 Rate Blood Pressure (mmHg) O2 Sat by Pulse Oximetry Oxygen Devices in Use Now: None Appearance: NAD, sitting on edge of bed Eyes: No Scleral Icterus, PERRLA Ears/Nose/Mouth/Throat: Clear Oropharnyx, Mucous Membranes Moist Neck: NL Appearance and Movements; NL JVP, Trachea Midline Respiratory: Symmetrical Chest Expansion and Respiratory Effort, Clear to Auscultation Cardiovascular: RRR Abdominal: NL Sounds; No Tenderness; No Distention, No Hepatosplenomegaly Lymphatic: No Cervical Adenopathy Extremities: No Edema Skin: No Rash or Ulcers Neurological: Alert and Oriented x 3 Result Diagrams: 08/25/16 10:40 08/26/16 06:15 Additional Lab and Data: Lab Results 08/25/16 08/25/16 Range/Units 10:40 10:40 WBC 6.1 (3.5-10.8) 10^3/ul RBC 4.34 (4.0-5.4) 10^6/ul Hgb 12.3 (12.0-16.0) g/dl Hct 38 (35-47) % MCV 87 (80-97) fL MCH 28 (27-31) pg MCHC 33 (31-36) g/dl RDW 16 H (10.5-15) % Plt Count 190 (150-450) 10^3/ul MPV 9 (7.4-10.4) um3 Neut % (Auto) 67.8 (38-83) % Lymph % (Auto) 21.1 L (25-47) % [place] % (Auto) 7.1 (1-9) % Eos % (Auto) 3.6 (0-6) % Baso % (Auto) 0.4 (0-2) % Absolute Neuts (auto) 4.1 (1.5-7.7) 10^3/ul Absolute Lymphs (auto) 1.3 (1.0-4.8) 10^3/ul Absolute Monos (auto) 0.4 (0-0.8) 10^3/ul Absolute Eos (auto) 0.2 (0-0.6) 10^3/ul Absolute Basos (auto) 0 (0-0.2) 10^3/ul Absolute Nucleated RBC 0.01 10^3/ul Nucleated RBC % 0.1 Sodium 128 L (133-145) mmol/L Potassium 3.9 (3.5-5.0) mmol/L Chloride 94 L (101-111) mmol/L Carbon Dioxide 30 (22-32) mmol/L Anion Gap 4 (2-11) mmol/L BUN 13 (6-24) mg/dL Creatinine 0.76 (0.51-0.95) mg/dL Est GFR ( Amer) 95.9 (>60) Est GFR (Non-Af Amer) 74.6 (>60) BUN/Creatinine Ratio 17.1 (8-20) Glucose 98 (70-100) mg/dL Calcium 9.4 (8.6-10.3) mg/dL Total Bilirubin 0.50 (0.2-1.0) mg/dL AST 17 (13-39) U/L ALT 11 (7-52) U/L Alkaline Phosphatase 59 (34-104) U/L C-Reactive Protein 4.38 (< 5.00) mg/L Total Protein 7.1 (6.4-8.9) g/dL Albumin 4.2 (3.2-5.2) g/dL Globulin 2.9 (2-4) g/dL Albumin/Globulin Ratio 1.4 (1-3) Lipase 23 (11.0-82.0) U/L Microbiology and Other Data: Microbiology 08/25/16 19:45 Nasal Screen MRSA (PCR)(TOMMY) - Final Nasal Mrsa Negative Assess/Plan/Problems-Billing Assessment: 71 yo F h/o admissions with multiple somatic complaints including abdominal pain 01/2015 without identification of etiology returning with abdominal pain thought to be somatic in nature - Patient Problems (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 Continue spiriva and prn albuterol. (5) Hx of portal hypertension Comment: per history (6) Hernia, abdominal Comment: Large RLQ Hernia, reducible (7) DVT prophylaxis Comment: SQ heparin
[2016-08-28] MEDS: risperiDONE TAB* 1 MG PO SCH (21:30)
[2016-08-28] MEDS: traZODone TAB* 50 MG TAB PO SCH (21:32)
[2016-08-29] MEDS: clonazePAM TAB(*) 1 MG PO SCH ×3 (06:19→21:13)
[2016-08-29] MEDS: Heparin VIAL(*) 5000 UNITS/ML VIAL (FIVE THOUSAND) SUBCUT SCH ×3 (06:19→21:13)
[2016-08-29] MEDS: Tiotropium CAP.INH* CAP.INH/18 MCG INH SCH (08:47)
[2016-08-29] MEDS: oxyCODONE TAB* 5 MG TAB PO PRN ×2 (09:08→21:04)
[2016-08-29] MEDS: Pregabalin CAP(*) 25 MG PO SCH ×3 (09:09→21:00)
[2016-08-29] MEDS: Omeprazole CAP* 20 MG PO SCH ×2 (09:09→21:00)
[2016-08-29] MEDS: Lisinopril TAB* 5 MG PO SCH (09:10)
[2016-08-29] MEDS: amLODIPine TAB* 5 MG PO SCH (09:10)
[2016-08-29] MEDS: Furosemide TAB* 20 MG PO SCH (09:10)
[2016-08-29] MEDS: Famotidine TAB* 20 MG PO SCH (09:10)
[2016-08-29] MEDS: FLUoxetine CAP* 20 MG PO SCH ×2 (09:10→21:00)
[2016-08-29] MEDS: Metoprolol Tartrate TAB* 25 MG PO SCH (09:11)
[2016-08-29] MEDS: Aspirin EC Low Dose* 81 MG TAB.EC PO SCH (09:11)
[2016-08-29] MEDS: Ondansetron INJ* 2 MG/ML VIAL IV PRN (09:13)
[2016-08-29] MEDS: Nystatin OINT* 15 GM TOPICAL SCH ×3 (09:16→21:06)
--- NOTE | 2016-08-29 11:10 | CONSULT ---
Identification - Patient Identification Reason for Psychiatric Consultation: Suicidal Ideation -: Patient is a 71 year old, F admitted on 08/26/16. - MHU Identification Employment Status: Disabled History - Objective HPI: The patient is seen this morning for follow up. She continues to present as depressed and somatic. "I have no reason to live. I'm just taking up space. Why would you even care about me?" Prior to speaking with her I consulted with DUPLEX TRIMMER, Bety Flynn's PCP, who has been her treating clinician in the community for a number of years. Ms. Willoughby has observed recently that the patient has been very paranoid about care providers at [facility], where she has resided for the past 5-6 months, stating that they give her the wrong medications and otherwise plot against her. A question of dementia has come up , due to some memory deficits that have become apparent. The patient recently had an adjunctive trial of low-dose aripiprazole which did not appear to help. Ms. Willoughby was supportive of the idea of transfer to inpatient psychiatry. The patient is ambivalent about this idea, telling me that she doesn't feel worthy of further care. She is educated about depression being a treatable condition. Lab Results: Laboratory Tests 08/26/16 19:50 Urine Color Yellow Urine Appearance Cloudy Urine pH 5.0 Ur Specific [place] 1.012 Urine Protein Negative Urine Ketones Negative Urine Blood Negative Urine Nitrate Negative Urine Bilirubin Negative Urine Urobilinogen Negative Ur Leukocyte Esterase 3+ H Urine WBC (Auto) 3+(>20/hpf) H Urine RBC (Auto) 1+(3-5/hpf) H Ur Squamous Epith Cells Present H Urine Bacteria Absent Urine Glucose Negative Exam Appearance: Obese Hygiene: Normal Grooming: Disheveled Psychomotor Activities: Abnormal-Decreased Exhibits Abnormal Movement: No Attitude and Relatedness: Irritable Eye Contact: Fair - Speech Quality: Unpressured Latencies: Normal Quantity: Appropriate Patient's Decription of Mood: "Sad" Observed Affect: Depressed Affect Consistent with: Dysphoria Patient's Thought Process: Circumstantial Thought Content: Yes Passive Wish, Yes Paranoid Ideation, No Suicidal Planning, No Homicidal Ideation Experiencing Hallucinations: No, Sensorium is Clear Type of Hallucinations: Visual: No, Auditory: No, Command: No Level of Consciousness: Lethargic Orientation: Yes Intact, Yes Orientated to Time, Yes Orientated to Place, Yes Orientated to Person Impulse Control: Poor Insight and Judgement: Impaired Impression - Impression Clinical Impression: 71 y.o. , white female with a history of depression and episodic psychosis admitted to Medicine due to seemingly non-organic abdominal pain, referred to psychiatry d/t depressed mood, anxiety, somaticization, paranoia and passive suicidality. Merits Inpatient Hospitalization: Yes Problem List - MHU Problems Type of Problem: Mood Status of Problem: Active Plan - Treatment Plan Treatment Plan: Recommend transfer to [facility] for inpatient psychiatric stablization. Care will likely include optimization of antidepressant therapy and addition of low-dose antipsychotic. Cannot rule out the need for ECT. I have spoken with Dr. Lukasz Nava about the case and he is in agreement with recommendations. If the patient will sign voluntary paperwork, this would be acceptable. If not, she would warrant a 2PC. Await transfer to Unit [address]. Continued Medication Management: Different Medication Medications: Current Medications Acetaminophen (Tylenol Tab*) 650 mg PO Q4H PRN PRN Reason: PAIN Last Admin: 08/28/16 21:32 Dose: 650 mg Al Hydrox/Mg Hydrox/Simethicone (Maalox Plus*) 30 ml PO Q2H PRN PRN Reason: DYSPEPSIA Last Admin: 08/28/16 14:38 Dose: 30 ml Albuterol (Ventolin 2.5 Mg/3 Ml Neb.Mary*) 2.5 mg INH Q6H PRN PRN Reason: SHORTNESS OF BREATH Amlodipine Besylate (Norvasc Tab*) 5 mg PO DAILY [facility] Last Admin: 08/29/16 09:10 Dose: 5 mg Aspirin (Aspirin Ec Low Dose*) 81 mg PO DAILY [facility] Last Admin: 08/29/16 09:11 Dose: 81 mg Clonazepam (Klonopin Tab(*)) 1 mg PO Q8H [facility] Last Admin: 08/29/16 06:19 Dose: 1 mg Famotidine (Pepcid Tab*) 20 mg PO DAILY [facility] PRN Reason: Protocol Last Admin: 08/29/16 09:10 Dose: 20 mg Fluoxetine HCl (Prozac Cap*) 40 mg PO BID [facility] Last Admin: 08/29/16 09:10 Dose: 40 mg Furosemide (Lasix Tab*) 20 mg PO DAILY [facility] Last Admin: 03/23/17 09:10 Dose: 20 mg Heparin Sodium (Porcine) (Heparin Vial(*)) 5,000 units SUBCUT Q8HR [facility] Last Admin: 08/29/16 06:19 Dose: 5,000 units Lisinopril (Prinivil Tab*) 10 mg PO DAILY [facility] Last Admin: 08/29/16 09:10 Dose: 10 mg Metoprolol Tartrate (Lopressor Tab*) 12.5 mg PO DAILY [facility] Last Admin: 08/29/16 09:11 Dose: 12.5 mg Nicotine (Nicotine Patch 7 Mg/24 Hr*) 1 patch TRANSDERM DAILY PRN PRN Reason: CRAVING Nystatin (Nystatin Oint*) 1 applic TOPICAL TID [facility] Last Admin: 08/29/16 09:16 Dose: 1 applic Omeprazole (Prilosec Cap*) 40 mg PO BID [facility] Last Admin: 08/29/16 09:09 Dose: 40 mg Ondansetron HCl (Zofran Inj*) 4 mg IV Q6H PRN PRN Reason: NAUSEA Last Admin: 08/29/16 09:13 Dose: 4 mg Oxycodone HCl (Roxycodone Tab*) 15 mg PO 0800,1600 PRN PRN Reason: PAIN Last Admin: 08/29/16 09:08 Dose: 15 mg Oxycodone HCl (Roxycodone Tab*) 10 mg PO BEDTIME PRN PRN Reason: PAIN Last Admin: 08/27/16 21:23 Dose: 10 mg Pregabalin (Lyrica Cap(*)) 25 mg PO TID [facility] Last Admin: 08/29/16 09:09 Dose: 25 mg Risperidone (Risperdal*) 1 mg PO BEDTIME [facility] Last Admin: 08/28/16 21:30 Dose: 1 mg Tiotropium [place] (Spiriva Cap.Inh*) 1 cap INH DAILY [facility] Last Admin: 08/29/16 08:47 Dose: 1 cap Trazodone HCl (Desyrel Tab*) 25 mg PO BEDTIME [facility] Last Admin: 08/28/16 21:32 Dose: 25 mg - Discharge Plan Discharge Plan: Inpatient Hospitalization
[2016-08-29] MEDS: Al Hydrox/Mg Hydrox/Simet LIQ* 30 ML UDC PO PRN (12:52)
[2016-08-29] MEDS ORDERED: Diazepam TAB(*) 5 MG PO ONE (16:58)
--- NOTE | 2016-08-29 18:24 | PN ---
Subjective Date of Service: 08/29/16 Interval History: Pt reported that abdominal pain is improved but still present Very hungry and eating everything brought to her. She really enjoys the food No n/v, diarrhea Today she was open to the idea that anxiety and depression may be influencing her abdominal pain. Objective Active Medications: Acetaminophen (Tylenol Tab*) 650 mg PO Q4H PRN PRN Reason: PAIN Last Admin: 08/28/16 21:32 Dose: 650 mg Al Hydrox/Mg Hydrox/Simethicone (Maalox Plus*) 30 ml PO Q2H PRN PRN Reason: DYSPEPSIA Last Admin: 08/29/16 12:52 Dose: 30 ml Albuterol (Ventolin 2.5 Mg/3 Ml Neb.Mary*) 2.5 mg INH Q6H PRN PRN Reason: SHORTNESS OF BREATH Amlodipine Besylate (Norvasc Tab*) 5 mg PO DAILY [facility] Last Admin: 08/29/16 09:10 Dose: 5 mg Aspirin (Aspirin Ec Low Dose*) 81 mg PO DAILY [facility] Last Admin: 08/29/16 09:11 Dose: 81 mg Clonazepam (Klonopin Tab(*)) 1 mg PO Q8H [facility] Last Admin: 08/29/16 14:03 Dose: 1 mg Famotidine (Pepcid Tab*) 20 mg PO DAILY [facility] PRN Reason: Protocol Last Admin: 08/29/16 09:10 Dose: 20 mg Fluoxetine HCl (Prozac Cap*) 40 mg PO BID [facility] Last Admin: 08/29/16 09:10 Dose: 40 mg Furosemide (Lasix Tab*) 20 mg PO DAILY [facility] Last Admin: 08/29/16 09:10 Dose: 20 mg Heparin Sodium (Porcine) (Heparin Vial(*)) 5,000 units SUBCUT Q8HR [facility] Last Admin: 08/29/16 14:04 Dose: 5,000 units Lisinopril (Prinivil Tab*) 10 mg PO DAILY [facility] Last Admin: 08/29/16 09:10 Dose: 10 mg Nicotine (Nicotine Patch 7 Mg/24 Hr*) 1 patch TRANSDERM DAILY PRN PRN Reason: CRAVING Nystatin (Nystatin Oint*) 1 applic TOPICAL TID [facility] Last Admin: 08/29/16 14:06 Dose: 1 applic Omeprazole (Prilosec Cap*) 40 mg PO BID [facility] Last Admin: 08/29/16 09:09 Dose: 40 mg Ondansetron HCl (Zofran Inj*) 4 mg IV Q6H PRN PRN Reason: NAUSEA Last Admin: 08/29/16 09:13 Dose: 4 mg Oxycodone HCl (Roxycodone Tab*) 15 mg PO 0800,1600 PRN PRN Reason: PAIN Last Admin: 08/29/16 09:08 Dose: 15 mg Oxycodone HCl (Roxycodone Tab*) 10 mg PO BEDTIME PRN PRN Reason: PAIN Last Admin: 08/27/16 21:23 Dose: 10 mg Pregabalin (Lyrica Cap(*)) 25 mg PO TID [facility] Last Admin: 08/29/16 14:05 Dose: 25 mg Risperidone (Risperdal*) 1 mg PO BEDTIME [facility] Last Admin: 08/28/16 21:30 Dose: 1 mg Tiotropium [place] (Spiriva Cap.Inh*) 1 cap INH DAILY [facility] Last Admin: 08/29/16 08:47 Dose: 1 cap Trazodone HCl (Desyrel Tab*) 25 mg PO BEDTIME [facility] Last Admin: 08/28/16 21:32 Dose: 25 mg Vital Signs 08/28/16 08/28/16 08/28/16 20:14 21:29 21:31 Temperature Pulse Rate Respiratory 18 18 18 Rate Blood Pressure (mmHg) O2 Sat by Pulse Oximetry 08/28/16 08/28/16 08/29/16 23:29 23:31 01:04 Temperature 98.1 F Pulse Rate 49 Respiratory 16 16 Rate Blood Pressure 113/49 (mmHg) O2 Sat by Pulse 98 Oximetry 08/29/16 08/29/16 08/29/16 01:07 06:19 07:22 Temperature Pulse Rate 44 Respiratory 18 16 18 Rate Blood Pressure 99/51 (mmHg) O2 Sat by Pulse 98 Oximetry 08/29/16 08/29/16 08/29/16 08:00 09:08 09:09 Temperature Pulse Rate Respiratory 18 16 16 Rate Blood Pressure (mmHg) O2 Sat by Pulse Oximetry 08/29/16 08/29/16 08/29/16 14:03 14:05 15:01 Temperature 97.3 F Pulse Rate 46 Respiratory 16 16 20 Rate Blood Pressure 126/41 (mmHg) O2 Sat by Pulse 100 Oximetry 08/29/16 08/29/16 16:03 17:55 Temperature Pulse Rate Respiratory 16 18 Rate Blood Pressure (mmHg) O2 Sat by Pulse Oximetry Oxygen Devices in Use Now: None Appearance: NAD Eyes: No Scleral Icterus Ears/Nose/Mouth/Throat: NL Teeth, Lips, Gums, Mucous Membranes Moist Neck: NL Appearance and Movements; NL JVP Respiratory: Symmetrical Chest Expansion and Respiratory Effort, Clear to Auscultation Cardiovascular: RRR Abdominal: NL Sounds; No Tenderness; No Distention, No Hepatosplenomegaly Lymphatic: No Cervical Adenopathy Neurological: Alert and Oriented x 3 Result Diagrams: 08/25/16 10:40 08/26/16 06:15 Additional Lab and Data: Lab Results 08/25/16 08/25/16 Range/Units 10:40 10:40 WBC 6.1 (3.5-10.8) 10^3/ul RBC 4.34 (4.0-5.4) 10^6/ul Hgb 12.3 (12.0-16.0) g/dl Hct 38 (35-47) % MCV 87 (80-97) fL MCH 28 (27-31) pg MCHC 33 (31-36) g/dl RDW 16 H (10.5-15) % Plt Count 190 (150-450) 10^3/ul MPV 9 (7.4-10.4) um3 Neut % (Auto) 67.8 (38-83) % Lymph % (Auto) 21.1 L (25-47) % Bland % (Auto) 7.1 (1-9) % Eos % (Auto) 3.6 (0-6) % Baso % (Auto) 0.4 (0-2) % Absolute Neuts (auto) 4.1 (1.5-7.7) 10^3/ul Absolute Lymphs (auto) 1.3 (1.0-4.8) 10^3/ul Absolute Monos (auto) 0.4 (0-0.8) 10^3/ul Absolute Eos (auto) 0.2 (0-0.6) 10^3/ul Absolute Basos (auto) 0 (0-0.2) 10^3/ul Absolute Nucleated RBC 0.01 10^3/ul Nucleated RBC % 0.1 Sodium 128 L (133-145) mmol/L Potassium 3.9 (3.5-5.0) mmol/L Chloride 94 L (101-111) mmol/L Carbon Dioxide 30 (22-32) mmol/L Anion Gap 4 (2-11) mmol/L BUN 13 (6-24) mg/dL Creatinine 0.76 (0.51-0.95) mg/dL Est GFR ( Amer) 95.9 (>60) Est GFR (Non-Af Amer) 74.6 (>60) BUN/Creatinine Ratio 17.1 (8-20) Glucose 98 (70-100) mg/dL Calcium 9.4 (8.6-10.3) mg/dL Total Bilirubin 0.50 (0.2-1.0) mg/dL AST 17 (13-39) U/L ALT 11 (7-52) U/L Alkaline Phosphatase 59 (34-104) U/L C-Reactive Protein 4.38 (< 5.00) mg/L Total Protein 7.1 (6.4-8.9) g/dL Albumin 4.2 (3.2-5.2) g/dL Globulin 2.9 (2-4) g/dL Albumin/Globulin Ratio 1.4 (1-3) Lipase 23 (11.0-82.0) U/L Microbiology and Other Data: Microbiology 08/25/16 19:45 Nasal Screen MRSA (PCR)(TOMMY) - Final Nasal Mrsa Negative Assess/Plan/Problems-Billing Assessment: 71 yo F h/o admissions with multiple somatic complaints including abdominal pain 01/2015 without identification of etiology returning with abdominal pain thought to be somatic in nature - Patient Problems (1) Bradycardia Comment: d/c metoprolol narcotics may also be contributing (2) Depression with somatization Comment: Somatization and psychosis Appreciate pyschiatry assistance Risperdol 1mg Accepted to MHU however no bed currently available (3) Anxiety Comment: clonazepam - change from PRN to TID with hold parameters c/w paroxatine diazepam 5mg PO once again today (4) Abdominal pain Comment: Concern for depression as etiology c/w maalox PRN c/w oxycodone PRN d/c morphine (5) History of COPD Comment: Stable- no signs of exacerbation. Continue spiriva and prn albuterol. (6) Hx of portal hypertension Comment: per history (7) Hernia, abdominal Comment: Large RLQ Hernia, reducible (8) DVT prophylaxis Comment: SQ heparin
[2016-08-29] MEDS: traZODone TAB* 50 MG TAB PO SCH (21:00)
[2016-08-29] MEDS: risperiDONE TAB* 1 MG PO SCH (21:00)
[2016-08-30] MEDS: Acetaminophen TAB* 325 MG PO PRN (01:43)
[2016-08-30] MEDS: clonazePAM TAB(*) 1 MG PO SCH (06:18)
[2016-08-30] MEDS: Heparin VIAL(*) 5000 UNITS/ML VIAL (FIVE THOUSAND) SUBCUT SCH (06:19)
[2016-08-30] MEDS: Tiotropium CAP.INH* CAP.INH/18 MCG INH SCH (08:24)
[2016-08-30] MEDS: Omeprazole CAP* 20 MG PO SCH (08:48)
[2016-08-30] MEDS: Furosemide TAB* 20 MG PO SCH (09:53)
[2016-08-30] MEDS: FLUoxetine CAP* 20 MG PO SCH (09:54)
[2016-08-30] MEDS: Aspirin EC Low Dose* 81 MG TAB.EC PO SCH (09:54)
[2016-08-30] MEDS: Pregabalin CAP(*) 25 MG PO SCH (09:54)
[2016-08-30] MEDS: Lisinopril TAB* 5 MG PO SCH (09:54)
[2016-08-30] MEDS: amLODIPine TAB* 5 MG PO SCH (09:54)
[2016-08-30] MEDS: Famotidine TAB* 20 MG PO SCH (09:55)
[2016-08-30] MEDS: Nystatin OINT* 15 GM TOPICAL SCH (09:56)
[2016-08-30] MEDS: oxyCODONE TAB* 5 MG TAB PO PRN (10:49)
[2016-08-30 12:14] VITALS: BP 125/52
== END 2016-08-30 13:45 | DRG 885 ==
LOC: ED 09:09 → MED 14:42 → OBSVTOIN 08-26 10:07
PROVIDERS: ADMIT Hospitalist; ATTEND Internal Medicine
DX: F32.3 Major depressive disorder, single episode, severe with psychotic features (principal); R00.1 Bradycardia, unspecified; J44.9 Chronic obstructive pulmonary disease, unspecified; F41.9 Anxiety disorder, unspecified; K43.9 Ventral hernia without obstruction or gangrene; F45.41 Pain disorder exclusively related to psychological factors; K21.9 Gastro-esophageal reflux disease without esophagitis; I10 Essential (primary) hypertension; H54.8 Legal blindness, as defined in USA; Z87.891 Personal history of nicotine dependence; Z85.819 Personal history of malignant neoplasm of unspecified site of lip, oral cavity, and pharynx; Z79.82 Long term (current) use of aspirin; Z91.048 Other nonmedicinal substance allergy status
CPT/HCPCS: 36415; 74177; 80048; 80053; 81003; 81015; 83690; 85025; 86140; 87086; 87641; 94640; 94760; A9270-GY; G0378; G8978-GP-CI; G8979-GP-CI; G8980-GP-CI; J1170; J1644; J2270; J2405; Q9967

== ENCOUNTER 2016-08-29 11:02 | Inpatient (IN) | payer MEDICARE ==
[2016-08-29] MEDS ORDERED: Albuterol 2.5 MG/3 ML NEB.SOL* (0.083%) INH PRN (12:51)
[2016-08-29] MEDS ORDERED: clonazePAM TAB(*) 1 MG PO PRN (12:53)
[2016-08-30] MEDS: Pregabalin CAP(*) 25 MG PO SCH ×3 (14:21→21:01)
[2016-08-30] MEDS: Acetaminophen TAB* 325 MG PO PRN (14:21)
[2016-08-30] MEDS: Nystatin CREAM* 15 GM TUBE TOPICAL SCH ×2 (14:35→21:00)
[2016-08-30] MEDS: oxyCODONE TAB* 5 MG TAB PO PRN (17:10)
[2016-08-30] MEDS: Tiotropium CAP.INH* CAP.INH/18 MCG INH SCH (18:01)
[2016-08-30] MEDS: FLUoxetine CAP* 20 MG PO SCH (21:00)
[2016-08-30] MEDS: risperiDONE TAB* 1 MG PO SCH (21:01)
[2016-08-30] MEDS: Omeprazole CAP* 20 MG PO SCH (21:01)
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
--- NOTE | 2016-08-31 01:26 | TRS ---
DISCHARGE/TRANSFER SUMMARY: DATE OF ADMISSION: 08/25/16 DATE OF TRANSFER: 08/30/16 PRIMARY CARE PROVIDER: Joy Willoughby NP. DISPOSITION ON TRANSFER: Transferred from [address] [place] [address] to inpatient mental health unit. PRIMARY DIAGNOSES: 1. Depression with psychotic features including somatic complaints. 2. Abdominal pain. SECONDARY DIAGNOSES: 1. Bradycardia. 2. Anxiety. 3. History of chronic obstructive pulmonary disease. 4. History of portal hypertension. 5. Abdominal hernia. 6. Hypertension. 7. Chronic pain. PERTINENT IMAGING STUDIES: CT abdomen and pelvis, impression: Grossly unchanged fat in transverse colon containing umbilical level 8 cm x 13.5 cm transverse by 13.5 cephalocaudal ventral hernia without resulting bowel obstruction or inflammatory changes. 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 Extensive peripheral vascular disease including involvement of the ostia of the visceral arteries, decompressed IVC indicating low volume state. HISTORY OF PRESENT ILLNESS AND HOSPITAL COURSE: This is a 71-year-old female, past medical history as outlined in the history of present illness on the day of admission including previous hospital stay for abdominal pain without identified etiology, who presented to the hospital 4 times with abdominal pain, ultimately admitted to the hospitalist service for further evaluation. Her pain was not controlled with medications. She was very hungry and tolerated all food brought to her without constipation, diarrhea, nausea, or vomiting. She was noted to be increasingly depressed and made suicidal remarks without a plan. She was evaluated by Psychiatry, who agreed that abdominal pain could be in the setting of somatization; specifically, depression with psychotic features. We thought she would benefit from continued stay at MHU unit which was arranged for. The patient was amenable to transfer to MHU. She was started on Risperdal during the course of the hospital stay with some improvement of her abdominal pain. On some day, she was open to the idea that her abdominal pain may have been in the setting of her depression and anxiety. At other times, she seemed agitated that this author would suggest such a connection. MEDICATIONS AT THE TIME OF DISCHARGE: Include: 1. Albuterol nebulizer every 4 hours as needed for shortness of breath. 2. Ondansetron ODT 4 mg every 8 hours as needed for nausea. 3. Oxycodone 10 mg at bedtime as needed. 4. Oxycodone 15 mg 2 times daily as needed. 5. Nicotine patch 7 mg. 6. Trazodone 25 mg at bedtime. 7. Lasix 20 mg daily. 8. Lyrica 25 mg 3 times daily. 9. Prozac 40 mg twice daily. 10. Spiriva 1 cap daily. 11. Prilosec 40 mg twice daily. 12. Lisinopril 10 mg daily. 13. Breo Ellipta 1 puff daily. 14. Aspirin 81 mg daily. 15. Amlodipine 5 mg daily. 16. Risperdal 1 mg at bedtime. 17. Clonazepam 1 mg 3 times a day. 18. Famotidine 20 mg daily. 19. Maalox every 2 hours as needed for abdominal pain. 20. Acetaminophen 650 mg every 4 hours. At followup, please; 1. Evaluate for continued stability of depression and anxiety. 2. No other specific labs or vitals that need followup. TIME SPENT: Greater than 45 minutes were spent on the transfer of this patient of which greater than half was spent [id number] with the patient. CC: Joy Willoughby NP * [id number]/[facility] #: [id number] [facility]
[2016-08-31] MEDS ORDERED: Spiriva Inhaler DEVICE* 1 EACH DEVICE INH ONE (09:00)
[2016-08-31] MEDS: oxyCODONE TAB* 5 MG TAB PO PRN ×2 (09:56→16:53)
[2016-08-31] MEDS: Omeprazole CAP* 20 MG PO SCH ×4 (09:57→23:25)
[2016-08-31] MEDS: Aspirin EC Low Dose* 81 MG TAB.EC PO SCH ×2 (09:57→23:00)
[2016-08-31] MEDS: Pregabalin CAP(*) 25 MG PO SCH ×5 (09:58→23:25)
[2016-08-31] MEDS: Famotidine TAB* 20 MG PO SCH ×2 (09:58→23:00)
[2016-08-31] MEDS: Lisinopril TAB* 10 MG PO SCH ×2 (09:58→23:01)
[2016-08-31] MEDS: amLODIPine TAB* 5 MG PO SCH ×2 (09:58→23:00)
[2016-08-31] MEDS: FLUoxetine CAP* 20 MG PO SCH ×4 (10:00→23:25)
[2016-08-31] MEDS: Tiotropium CAP.INH* CAP.INH/18 MCG INH SCH (10:00)
[2016-08-31] MEDS: Vitamin THERAPEUTIC TAB PO SCH ×2 (10:00→23:01)
[2016-08-31] MEDS: Metoprolol Tartrate TAB* 25 MG PO SCH ×2 (10:08→23:01)
[2016-08-31] MEDS: Furosemide TAB* 20 MG PO SCH ×2 (10:40→23:01)
[2016-08-31] MEDS: Nystatin CREAM* 15 GM TUBE TOPICAL SCH ×5 (10:53→23:25)
[2016-08-31] MEDS: Acetaminophen TAB* 325 MG PO PRN (14:20)
--- NOTE | 2016-08-31 16:45 | PN ---
Subjective - Subjective Service Type: 76042 Hosp care 15 min low complexity Subjective: Bernardino longoria she is admitted : "why am I here ??!!" She dismisses concerns over her expressions of wish, describing permissive attitudes about suicide and the conviction she wouldn't try it because she would not expect it to work (she cited her prior overdose as evidence). She minimized symptoms when confronted on report of paranoid ideation towards her caregivers. Objective - Appearance Appearance: Obese Hygiene: Normal Grooming: Disheveled - Behavior Psychomotor Activities: Normal - Attitude and Relatedness Attitude and Relatedness: Needy - and help rejecting Eye Contact: Good - Speech Quality: Unpressured Latencies: Short Quantity: Appropriate - Mood Patient's Decription of Mood: "Upset" - Affect Observed Affect: Labile Affect Consistent with: Dysphoria - Thought Process Patient's Thought Process: Over Inclusive - meandering Thought Content: Yes Passive Wish, No Suicidal Planning, No Homicidal Ideation, No Paranoid Ideation - Sensorium Experiencing Hallucinations: No, Sensorium is Clear - Level of Consciousness Level of Consciousness: Alert - Impulse Control Impulse Control: Intact - Insight and Judgement Insight and Judgement: Poor Assessment - Assessment Merits Inpatient Hospitalization: For Stabilization, To Initiate Treatment, For Ongoing Evaluation, For Discharge Planning Inpatient DSM-IV Dx: Major depressive disorder with psychotic features. r/o Cogitive disorder NOS Clinical Impression: 71 y/o female with history of depression, psychosis, psychiatric hospitalization , suicide attempt. She was admitted on transfer from hospitalist services due to concern over impairing symptoms and paranoid ideation, along with passive suicidal ideation. Continues dysphoric. Not spontaneously delusional. Has permissive ideas about suicide, and readily endorses wishes, but frames an attempt as unlikely. Medmgt. added Rispderdal to her regimen (mainly Prozac) - it was previously helpful. And will lower clonazepam AR - to preserve cognitive function, and in view of patient not accessing it on the unit so far. Plan - Plan Treatment Plan: Name: BERNARDINO CASEY Birthdate: 1945 [id number] Continued Medication Management: Start Medication Medications: Current Medications Acetaminophen (Tylenol Tab*) 650 mg PO Q4H PRN PRN Reason: for pain; or Temp >101 F Last Admin: 08/31/16 14:20 Dose: 650 mg Al Hydrox/Mg Hydrox/Simethicone (Maalox Plus*) 30 ml PO Q4H PRN PRN Reason: INDIGESTION Albuterol (Ventolin 2.5 Mg/3 Ml Neb.Mary*) 2.5 mg INH Q6H PRN PRN Reason: SOB/WHEEZING Amlodipine Besylate (Norvasc Tab*) 5 mg PO DAILY [facility] Last Admin: 08/31/16 09:58 Dose: 5 mg Aspirin (Aspirin Ec Low Dose*) 81 mg PO DAILY [facility] Last Admin: 08/31/16 09:57 Dose: 81 mg Clonazepam (Klonopin Tab(*)) 1 mg PO Q8H PRN PRN Reason: AGITATION/ANXIETY/INSOMNIA Famotidine (Pepcid Tab*) 20 mg PO DAILY [facility] Last Admin: 08/31/16 09:58 Dose: 20 mg Fluoxetine HCl (Prozac Cap*) 40 mg PO BID [facility] Last Admin: 08/31/16 10:00 Dose: 40 mg Furosemide (Lasix Tab*) 20 mg PO DAILY [facility] Last Admin: 08/31/16 10:40 Dose: 20 mg Lisinopril (Prinivil Tab*) 10 mg PO DAILY [facility] Last Admin: 08/31/16 09:58 Dose: 10 mg Metoprolol Tartrate (Lopressor Tab*) 12.5 mg PO DAILY [facility] Last Admin: 08/31/16 10:08 Dose: 12.5 mg Multivitamins (Theragran Tab*) 1 tab PO DAILY [facility] Last Admin: 08/31/16 10:00 Dose: 1 tab Nystatin (Nystatin Cream*) 1 applic TOPICAL TID [facility] Last Admin: 08/31/16 14:21 Dose: 1 applic Omeprazole (Prilosec Cap*) 40 mg PO BID [facility] Last Admin: 08/31/16 09:57 Dose: 40 mg Ondansetron HCl (Zofran Tab*) 4 mg PO Q6H PRN PRN Reason: NAUSEA Oxycodone HCl (Roxycodone Tab*) 10 mg PO Q8H PRN PRN Reason: PAIN - MODERATE TO SEVERE Last Admin: 08/31/16 09:56 Dose: 10 mg Pregabalin (Lyrica Cap(*)) 25 mg PO TID [facility] Last Admin: 08/31/16 14:20 Dose: 25 mg Risperidone (Risperdal*) 1 mg PO BEDTIME [facility] Last Admin: 08/30/16 21:01 Dose: 1 mg Tiotropium [place] (Spiriva Cap.Inh*) 1 cap INH DAILY [facility] Last Admin: 08/31/16 10:00 Dose: 1 inhaler Trazodone HCl (Desyrel Tab*) 50 mg PO BEDTIME PRN PRN Reason: INSOMNIA - Discharge Plan Discharge Plan: Outpatient Follow Up
[2016-08-31] MEDS: Al Hydrox/Mg Hydrox/Simet LIQ* 30 ML UDC PO PRN (19:28)
[2016-08-31] MEDS: risperiDONE TAB* 1 MG PO SCH ×3 (21:15→23:26)
[2016-09-01] MEDS: Pregabalin CAP(*) 25 MG PO SCH ×3 (08:56→21:42)
[2016-09-01] MEDS: Omeprazole CAP* 20 MG PO SCH ×2 (08:57→21:42)
[2016-09-01] MEDS: Vitamin THERAPEUTIC TAB PO SCH (08:57)
[2016-09-01] MEDS: Metoprolol Tartrate TAB* 25 MG PO SCH (08:57)
[2016-09-01] MEDS: Famotidine TAB* 20 MG PO SCH (08:58)
[2016-09-01] MEDS: amLODIPine TAB* 5 MG PO SCH (08:59)
[2016-09-01] MEDS: Aspirin EC Low Dose* 81 MG TAB.EC PO SCH (08:59)
[2016-09-01] MEDS: Furosemide TAB* 20 MG PO SCH (09:00)
[2016-09-01] MEDS: FLUoxetine CAP* 20 MG PO SCH ×2 (09:00→21:43)
[2016-09-01] MEDS: Lisinopril TAB* 10 MG PO SCH (09:00)
[2016-09-01] MEDS: Nystatin CREAM* 15 GM TUBE TOPICAL SCH ×4 (09:01→22:24)
[2016-09-01] MEDS: Tiotropium CAP.INH* CAP.INH/18 MCG INH SCH (09:09)
[2016-09-01] MEDS: Al Hydrox/Mg Hydrox/Simet LIQ* 30 ML UDC PO PRN (09:55)
[2016-09-01] MEDS: oxyCODONE TAB* 5 MG TAB PO PRN ×2 (10:59→18:30)
[2016-09-01] MEDS: Magnesium Hydroxide LIQ* 30 ML UDC PO PRN (11:42)
[2016-09-01] MEDS: Docusate CAP* 100 MG PO SCH ×2 (11:42→21:40)
[2016-09-01] MEDS: Acetaminophen TAB* 325 MG PO PRN (11:56)
[2016-09-01] MEDS: clonazePAM TAB(*) 0.5 MG PO PRN (13:06)
--- NOTE | 2016-09-01 16:53 | CONSULT ---
Subjective Date of Service: 09/01/16 Interval History: Continues to report abdominal pain. Unchanged in nature or severity since admission Appetite good. No N/V. No diarrhea Review of Systems - Measurements Intake and Output: Intake and Output Last 24 Hours 08/30/16 08/31/16 09/01/16 09/02/16 11:59 11:59 11:59 11:59 Weight 84.368 kg Objective Active Medications: Acetaminophen (Tylenol Tab*) 650 mg PO Q4H PRN PRN Reason: for pain; or Temp >101 F Last Admin: 09/01/16 11:56 Dose: 650 mg Al Hydrox/Mg Hydrox/Simethicone (Maalox Plus*) 30 ml PO Q4H PRN PRN Reason: INDIGESTION Last Admin: 09/01/16 09:55 Dose: 30 ml Albuterol (Ventolin 2.5 Mg/3 Ml Neb.Mary*) 2.5 mg INH Q6H PRN PRN Reason: SOB/WHEEZING Amlodipine Besylate (Norvasc Tab*) 5 mg PO DAILY [facility] Last Admin: 09/01/16 08:59 Dose: 5 mg Aspirin (Aspirin Ec Low Dose*) 81 mg PO DAILY [facility] Last Admin: 09/01/16 08:59 Dose: 81 mg Clonazepam (Klonopin Tab(*)) 0.25 mg PO Q8H PRN PRN Reason: AGITATION/ANXIETY/INSOMNIA Last Admin: 09/01/16 13:06 Dose: 0.25 mg Docusate Sodium (Colace Cap*) 100 mg PO BID [facility] Last Admin: 09/01/16 11:42 Dose: 100 mg Famotidine (Pepcid Tab*) 20 mg PO DAILY [facility] Last Admin: 09/01/16 08:58 Dose: 20 mg Fluoxetine HCl (Prozac Cap*) 40 mg PO BID [facility] Last Admin: 09/01/16 09:00 Dose: 40 mg Furosemide (Lasix Tab*) 20 mg PO DAILY [facility] Last Admin: 09/01/16 09:00 Dose: 20 mg Lisinopril (Prinivil Tab*) 10 mg PO DAILY [facility] Last Admin: 09/01/16 09:00 Dose: 10 mg Magnesium Hydroxide (Milk Of Magnesia Liq*) 30 ml PO DAILY PRN PRN Reason: CONSTIPATION Last Admin: 09/01/16 11:42 Dose: 30 ml Metoprolol Tartrate (Lopressor Tab*) 12.5 mg PO DAILY [facility] Last Admin: 09/01/16 08:57 Dose: 12.5 mg Multivitamins (Theragran Tab*) 1 tab PO DAILY [facility] Last Admin: 09/01/16 08:57 Dose: 1 tab Nystatin (Nystatin Cream*) 1 applic TOPICAL TID [facility] Last Admin: 09/01/16 14:39 Dose: Not Given Omeprazole (Prilosec Cap*) 40 mg PO BID [facility] Last Admin: 09/01/16 08:57 Dose: 40 mg Ondansetron HCl (Zofran Tab*) 4 mg PO Q6H PRN PRN Reason: NAUSEA Oxycodone HCl (Roxycodone Tab*) 10 mg PO Q8H PRN PRN Reason: PAIN - MODERATE TO SEVERE Last Admin: 09/01/16 10:59 Dose: 10 mg Pregabalin (Lyrica Cap(*)) 25 mg PO TID [facility] Last Admin: 09/01/16 14:39 Dose: 25 mg Risperidone (Risperdal*) 1 mg PO BEDTIME [facility] Last Admin: 08/31/16 23:26 Dose: Not Given Tiotropium [place] (Spiriva Cap.Inh*) 1 cap INH DAILY [facility] Last Admin: 09/01/16 09:09 Dose: 1 inhaler Trazodone HCl (Desyrel Tab*) 50 mg PO BEDTIME PRN PRN Reason: INSOMNIA Vital Signs 08/31/16 08/31/16 08/31/16 16:53 18:53 21:16 Respiratory 16 16 16 Rate 08/31/16 09/01/16 09/01/16 23:16 08:56 10:40 Respiratory 18 16 16 Rate 09/01/16 09/01/16 09/01/16 10:56 10:59 12:59 Respiratory 16 16 16 Rate 09/01/16 09/01/16 09/01/16 13:06 14:39 15:06 Respiratory 18 16 16 Rate Oxygen Devices in Use Now: None Appearance: lying flat, NAD Eyes: No Scleral Icterus, PERRLA Ears/Nose/Mouth/Throat: Clear Oropharnyx, Mucous Membranes Moist Neck: NL Appearance and Movements; NL JVP, Trachea Midline Respiratory: Symmetrical Chest Expansion and Respiratory Effort Cardiovascular: RRR Abdominal: NL Sounds; No Tenderness; No Distention, No Hepatosplenomegaly Neurological: Alert and Oriented x 3 Assessment/Plan - Billing Plan By Medical Problem: 71 yo F admitted to hospitalist service with abdominal pain now thought somatic in nature transferred to MHU with depression and suicidal ideation Abdominal pain - maintains good oral intake without other GI complaints. I still suspect this is somatic in nature. She is convinced there is "poison in my belly." -monitor -no intervention Depression -care per psychiatry COPD with chronic respiratory failure -maintain oxygen 3L Will sign off for now Please call with additional questions or concerns [phone]
[2016-09-01] MEDS: risperiDONE TAB* 1 MG PO SCH (21:43)
[2016-09-01] MEDS: traZODone TAB* 50 MG TAB PO PRN (22:18)
[2016-09-02] MEDS: Pregabalin CAP(*) 25 MG PO SCH ×3 (10:06→21:19)
[2016-09-02] MEDS: Omeprazole CAP* 20 MG PO SCH ×2 (10:07→21:20)
[2016-09-02] MEDS: Vitamin THERAPEUTIC TAB PO SCH (10:08)
[2016-09-02] MEDS: Famotidine TAB* 20 MG PO SCH (10:08)
[2016-09-02] MEDS: FLUoxetine CAP* 20 MG PO SCH ×2 (10:09→21:19)
[2016-09-02] MEDS: Aspirin EC Low Dose* 81 MG TAB.EC PO SCH (10:10)
[2016-09-02] MEDS: Docusate CAP* 100 MG PO SCH ×2 (10:11→21:19)
[2016-09-02] MEDS: Lisinopril TAB* 10 MG PO SCH (10:11)
[2016-09-02] MEDS: amLODIPine TAB* 5 MG PO SCH (10:12)
[2016-09-02] MEDS: Metoprolol Tartrate TAB* 25 MG PO SCH (10:12)
[2016-09-02] MEDS: Furosemide TAB* 20 MG PO SCH (10:13)
[2016-09-02] MEDS: Tiotropium CAP.INH* CAP.INH/18 MCG INH SCH (10:15)
[2016-09-02] MEDS: Nystatin CREAM* 15 GM TUBE TOPICAL SCH ×3 (10:19→21:20)
[2016-09-02] MEDS: clonazePAM TAB(*) 0.5 MG PO PRN ×2 (10:29→22:36)
[2016-09-02] MEDS: oxyCODONE TAB* 5 MG TAB PO PRN ×2 (10:30→18:28)
--- NOTE | 2016-09-02 11:29 | PN ---
Subjective - Subjective Service Type: 13177 Hosp care 15 min low complexity Subjective: The patient is on a 1:1, as she has O2 needs, and sitting up in her bed. "I don 't really understand why I was brought down here. Do I think about dying? Yes , but I'm not going to try anything. I've done that before. It doesn't work." The patient talks about the hurt she feels at having to recently sell her house in order to afford placement at [facility]. She's also upset that her son hasn't visited her yet in the hospital. The patient continues to be somatic and requiring prn oxycodone for pain relief. She displays no paranoia today. Objective - Appearance Appearance: Obese Dysmorphic Features: No Hygiene: Normal Grooming: Fairly Well Kept - Behavior Psychomotor Activities: Normal Exhibits Abnormal Movement: No - Attitude and Relatedness Attitude and Relatedness: Cooperative Eye Contact: Fair - Speech Quality: Unpressured Latencies: Normal Quantity: Appropriate - Mood Patient's Decription of Mood: "Sad" - Affect Observed Affect: Depressed Affect Consistent with: Dysphoria - Thought Process Patient's Thought Process: Coherent Thought Content: Yes Passive Wish, No Suicidal Planning, No Homicidal Ideation, No Paranoid Ideation - Sensorium Experiencing Hallucinations: No, Sensorium is Clear Type of Hallucinations: Visual: No, Auditory: No, Command: No - Level of Consciousness Level of Consciousness: Alert Orientation: Yes Intact, Yes Orientated to Time, Yes Orientated to Place, Yes Orientated to Person - Impulse Control Impulse Control: Poor - Insight and Judgement Insight and Judgement: Impaired - Group Participation Particating in Group Activities: No - Medication Management Medication Management Adherence: Yes Assessment - Assessment Merits Inpatient Hospitalization: For Immediate Safety, For Stabilization Inpatient DSM-IV Dx: Major depressive disorder with psychotic features. r/o Cogitive disorder NOS Clinical Impression: 71 y.o. , white female with a history of depression and episodic psychosis admitted as a transfer from the medical unit, where she had been worked up for non-organic abdominal pain, who presents with psychotic depression and passive SI. Plan - Plan Treatment Plan: Name: BERNARDINO CASEY Birthdate: 1945 [id number] The patient remains on fluoxetine 40mg PO BID and we have added risperidone 1mg PO qhs. Her psychosis seems improved but she is still tearful and depressed. Will try to encourage to come out more onto the milieu. Continued Medication Management: Different Medication Medications: Current Medications Acetaminophen (Tylenol Tab*) 650 mg PO Q4H PRN PRN Reason: for pain; or Temp >101 F Last Admin: 09/01/16 11:56 Dose: 650 mg Al Hydrox/Mg Hydrox/Simethicone (Maalox Plus*) 30 ml PO Q4H PRN PRN Reason: INDIGESTION Last Admin: 09/01/16 09:55 Dose: 30 ml Albuterol (Ventolin 2.5 Mg/3 Ml Neb.Mary*) 2.5 mg INH Q6H PRN PRN Reason: SOB/WHEEZING Amlodipine Besylate (Norvasc Tab*) 5 mg PO DAILY [facility] Last Admin: 09/02/16 10:12 Dose: 5 mg Aspirin (Aspirin Ec Low Dose*) 81 mg PO DAILY [facility] Last Admin: 09/02/16 10:10 Dose: 81 mg Clonazepam (Klonopin Tab(*)) 0.25 mg PO Q8H PRN PRN Reason: AGITATION/ANXIETY/INSOMNIA Last Admin: 09/02/16 10:29 Dose: 0.25 mg Docusate Sodium (Colace Cap*) 100 mg PO BID [facility] Last Admin: 09/02/16 10:11 Dose: 100 mg Famotidine (Pepcid Tab*) 20 mg PO DAILY [facility] Last Admin: 09/02/16 10:08 Dose: 20 mg Fluoxetine HCl (Prozac Cap*) 40 mg PO BID [facility] Last Admin: 09/02/16 10:09 Dose: 40 mg Furosemide (Lasix Tab*) 20 mg PO DAILY [facility] Last Admin: 09/02/16 10:13 Dose: 20 mg Lisinopril (Prinivil Tab*) 10 mg PO DAILY [facility] Last Admin: 09/02/16 10:11 Dose: 10 mg Magnesium Hydroxide (Milk Of Magnesia Liq*) 30 ml PO DAILY PRN PRN Reason: CONSTIPATION Last Admin: 09/01/16 11:42 Dose: 30 ml Metoprolol Tartrate (Lopressor Tab*) 12.5 mg PO DAILY [facility] Last Admin: 09/02/16 10:12 Dose: 12.5 mg Multivitamins (Theragran Tab*) 1 tab PO DAILY [facility] Last Admin: 09/02/16 10:08 Dose: 1 tab Nystatin (Nystatin Cream*) 1 applic TOPICAL TID [facility] Last Admin: 09/02/16 10:19 Dose: 1 applic Omeprazole (Prilosec Cap*) 40 mg PO BID [facility] Last Admin: 09/02/16 10:07 Dose: 40 mg Ondansetron HCl (Zofran Tab*) 4 mg PO Q6H PRN PRN Reason: NAUSEA Oxycodone HCl (Roxycodone Tab*) 10 mg PO Q8H PRN PRN Reason: PAIN - MODERATE TO SEVERE Last Admin: 09/02/16 10:30 Dose: 10 mg Pregabalin (Lyrica Cap(*)) 25 mg PO TID [facility] Last Admin: 09/02/16 10:06 Dose: 25 mg Risperidone (Risperdal*) 1 mg PO BEDTIME [facility] Last Admin: 09/01/16 21:43 Dose: 1 mg Tiotropium [place] (Spiriva Cap.Inh*) 1 cap INH DAILY [facility] Last Admin: 09/02/16 10:15 Dose: 1 inhaler Trazodone HCl (Desyrel Tab*) 50 mg PO BEDTIME PRN PRN Reason: INSOMNIA Last Admin: 09/01/16 22:18 Dose: 50 mg - Discharge Plan Discharge Plan: Inpatient Hospitalization
[2016-09-02] MEDS: Acetaminophen TAB* 325 MG PO PRN (12:19)
[2016-09-02] MEDS: risperiDONE TAB* 1 MG PO SCH (21:20)
[2016-09-02] MEDS: traZODone TAB* 50 MG TAB PO PRN (21:28)
[2016-09-03] MEDS: Aspirin EC Low Dose* 81 MG TAB.EC PO SCH (08:20)
[2016-09-03] MEDS: Furosemide TAB* 20 MG PO SCH (08:20)
[2016-09-03] MEDS: FLUoxetine CAP* 20 MG PO SCH ×2 (08:20→21:12)
[2016-09-03] MEDS: Pregabalin CAP(*) 25 MG PO SCH ×3 (08:20→21:10)
[2016-09-03] MEDS: Docusate CAP* 100 MG PO SCH ×2 (08:20→21:14)
[2016-09-03] MEDS: Metoprolol Tartrate TAB* 25 MG PO SCH (08:20)
[2016-09-03] MEDS: Omeprazole CAP* 20 MG PO SCH ×2 (08:20→21:11)
[2016-09-03] MEDS: amLODIPine TAB* 5 MG PO SCH (08:20)
[2016-09-03] MEDS: Vitamin THERAPEUTIC TAB PO SCH (08:20)
[2016-09-03] MEDS: Famotidine TAB* 20 MG PO SCH (08:20)
[2016-09-03] MEDS: Nystatin CREAM* 15 GM TUBE TOPICAL SCH ×3 (08:37→21:16)
[2016-09-03] MEDS: Lisinopril TAB* 10 MG PO SCH (08:38)
[2016-09-03] MEDS: Tiotropium CAP.INH* CAP.INH/18 MCG INH SCH (08:39)
[2016-09-03 09:00] LABS: HDL Cholesterol 51.5 mg/dL
[2016-09-03] MEDS: oxyCODONE TAB* 5 MG TAB PO PRN ×2 (09:06→17:08)
--- NOTE | 2016-09-03 11:58 | PN ---
Subjective - Subjective Service Type: 89673 Hosp care 15 min low complexity Subjective: The patient is seen along with WENDI Dickson for follow up. She c/o insomnia last night despite HS meds. She is tearful on the subject of meaning and purpose in her life, feeling like she has no real reason to live. She denies active suicidal thoughts although she admits that she would welcome . The patient at one point does start discussing a woman who lived in her house in the past, which is a documented delusion per old records. She is more active on the unit and displays an intact sense of humor, at one point razzing this clinician about my name. Objective - Appearance Appearance: Obese Dysmorphic Features: No Hygiene: Normal Grooming: Fairly Well Kept - Behavior Psychomotor Activities: Normal Exhibits Abnormal Movement: No - Attitude and Relatedness Attitude and Relatedness: Cooperative Eye Contact: Good - Speech Quality: Unpressured Latencies: Normal Quantity: Appropriate - Mood Patient's Decription of Mood: "Sad" - Affect Observed Affect: Depressed Affect Consistent with: Dysphoria - Thought Process Patient's Thought Process: Circumstantial Thought Content: Yes Passive Wish, Yes Paranoid Ideation, No Suicidal Planning, No Homicidal Ideation - Sensorium Experiencing Hallucinations: No, Sensorium is Clear Type of Hallucinations: Visual: No, Auditory: No, Command: No - Level of Consciousness Orientation: Yes Intact, Yes Orientated to Time, Yes Orientated to Place, Yes Orientated to Person - Impulse Control Impulse Control: Poor - Insight and Judgement Insight and Judgement: Impaired - Group Participation Particating in Group Activities: No - Medication Management Medication Management Adherence: Yes Assessment - Assessment Merits Inpatient Hospitalization: For Immediate Safety, For Stabilization Inpatient DSM-IV Dx: Major depressive disorder with psychotic features. r/o Cogitive disorder NOS Clinical Impression: 71 y.o. , white female with a history of depression and episodic psychosis admitted as a transfer from the medical unit, where she had been worked up for non-organic abdominal pain, who presents with psychotic depression and passive SI. Plan - Plan Treatment Plan: Name: BERNARDINO CASEY Birthdate: 1945 [id number] The patient remains on fluoxetine 40mg PO BID and we have added risperidone 1mg PO qhs. Her psychosis seems improved but she is still tearful and depressed and also complaining of insomnia. We will add a trial of mirtazapine 7.5mg PO qhs to her regimen and reassess tomorrow. She needs more intensive residential services than [facility] can provide. Will look into SNF placement. Will try to encourage milieu engagement. Continued Medication Management: Different Medication Medications: Current Medications Acetaminophen (Tylenol Tab*) 650 mg PO Q4H PRN PRN Reason: for pain; or Temp >101 F Last Admin: 09/02/16 12:19 Dose: 650 mg Al Hydrox/Mg Hydrox/Simethicone (Maalox Plus*) 30 ml PO Q4H PRN PRN Reason: INDIGESTION Last Admin: 09/01/16 09:55 Dose: 30 ml Albuterol (Ventolin 2.5 Mg/3 Ml Neb.Mary*) 2.5 mg INH Q6H PRN PRN Reason: SOB/WHEEZING Amlodipine Besylate (Norvasc Tab*) 5 mg PO DAILY [facility] Last Admin: 09/03/16 08:20 Dose: 5 mg Aspirin (Aspirin Ec Low Dose*) 81 mg PO DAILY [facility] Last Admin: 09/03/16 08:20 Dose: 81 mg Clonazepam (Klonopin Tab(*)) 0.25 mg PO Q8H PRN PRN Reason: AGITATION/ANXIETY/INSOMNIA Last Admin: 09/02/16 22:36 Dose: 0.25 mg Docusate Sodium (Colace Cap*) 100 mg PO BID [facility] Last Admin: 09/03/16 08:20 Dose: 100 mg Famotidine (Pepcid Tab*) 20 mg PO DAILY [facility] Last Admin: 09/03/16 08:20 Dose: 20 mg Fluoxetine HCl (Prozac Cap*) 40 mg PO BID [facility] Last Admin: 09/03/16 08:20 Dose: 40 mg Furosemide (Lasix Tab*) 20 mg PO DAILY [facility] Last Admin: 09/03/16 08:20 Dose: 20 mg Lisinopril (Prinivil Tab*) 10 mg PO DAILY [facility] Last Admin: 09/03/16 08:38 Dose: 10 mg Magnesium Hydroxide (Milk Of Magnesia Liq*) 30 ml PO DAILY PRN PRN Reason: CONSTIPATION Last Admin: 09/01/16 11:42 Dose: 30 ml Metoprolol Tartrate (Lopressor Tab*) 12.5 mg PO DAILY [facility] Last Admin: 09/03/16 08:20 Dose: 12.5 mg Multivitamins (Theragran Tab*) 1 tab PO DAILY [facility] Last Admin: 09/03/16 08:20 Dose: 1 tab Nystatin (Nystatin Cream*) 1 applic TOPICAL TID [facility] Last Admin: 09/03/16 08:37 Dose: 1 applic Omeprazole (Prilosec Cap*) 40 mg PO BID [facility] Last Admin: 09/03/16 08:20 Dose: 40 mg Ondansetron HCl (Zofran Tab*) 4 mg PO Q6H PRN PRN Reason: NAUSEA Oxycodone HCl (Roxycodone Tab*) 10 mg PO Q8H PRN PRN Reason: PAIN - MODERATE TO SEVERE Last Admin: 09/03/16 09:06 Dose: 10 mg Pregabalin (Lyrica Cap(*)) 25 mg PO TID [facility] Last Admin: 09/03/16 08:20 Dose: 25 mg Risperidone (Risperdal*) 1 mg PO BEDTIME [facility] Last Admin: 09/02/16 21:20 Dose: 1 mg Tiotropium [place] (Spiriva Cap.Inh*) 1 cap INH DAILY [facility] Last Admin: 09/03/16 08:39 Dose: 1 inhaler Trazodone HCl (Desyrel Tab*) 50 mg PO BEDTIME PRN PRN Reason: INSOMNIA Last Admin: 09/02/16 21:28 Dose: 50 mg - Discharge Plan Discharge Plan: Inpatient Hospitalization
[2016-09-03] MEDS: clonazePAM TAB(*) 0.5 MG PO PRN (12:14)
[2016-09-03] MEDS: Acetaminophen TAB* 325 MG PO PRN (16:17)
[2016-09-03] MEDS: Mirtazapine TAB* 15 MG PO SCH (21:13)
[2016-09-03] MEDS: risperiDONE TAB* 1 MG PO SCH (21:14)
[2016-09-04] MEDS: oxyCODONE TAB* 5 MG TAB PO PRN ×2 (06:24→16:39)
[2016-09-04] MEDS: Tiotropium CAP.INH* CAP.INH/18 MCG INH SCH (09:04)
[2016-09-04] MEDS: Omeprazole CAP* 20 MG PO SCH ×2 (09:05→21:11)
[2016-09-04] MEDS: amLODIPine TAB* 5 MG PO SCH (09:05)
[2016-09-04] MEDS: Furosemide TAB* 20 MG PO SCH (09:05)
[2016-09-04] MEDS: Aspirin EC Low Dose* 81 MG TAB.EC PO SCH (09:05)
[2016-09-04] MEDS: Vitamin THERAPEUTIC TAB PO SCH (09:05)
[2016-09-04] MEDS: Metoprolol Tartrate TAB* 25 MG PO SCH (09:05)
[2016-09-04] MEDS: Docusate CAP* 100 MG PO SCH ×2 (09:05→21:12)
[2016-09-04] MEDS: Famotidine TAB* 20 MG PO SCH (09:05)
[2016-09-04] MEDS: Lisinopril TAB* 10 MG PO SCH (09:06)
[2016-09-04] MEDS: FLUoxetine CAP* 20 MG PO SCH ×2 (09:06→21:11)
[2016-09-04] MEDS: Pregabalin CAP(*) 25 MG PO SCH ×3 (09:07→21:11)
[2016-09-04] MEDS: Nystatin CREAM* 15 GM TUBE TOPICAL SCH ×3 (12:01→21:38)
--- NOTE | 2016-09-04 14:20 | PN ---
Subjective - Subjective Service Type: [id number] Hosp care 15 min low complexity Subjective: The patient is calm and cooperative and states that her abdominal pain is greatly improved since admission to the hospital. She is interactive and with a good sense of humor. Once again she tears up at the subject of her disappointment that her son does not visit her more often, and, in fact, has not visited her yet this hospital course. SW reports that he has not returned numerous phone calls. The patient feels that she doesn't have anything to live for but insists that she would not take her own life. Her affect seems significantly better. Pt. c/o constipation. Objective - Appearance Appearance: Obese Dysmorphic Features: No Hygiene: Normal Grooming: Fairly Well Kept - Behavior Psychomotor Activities: Normal Exhibits Abnormal Movement: No - Attitude and Relatedness Attitude and Relatedness: Cooperative Eye Contact: Good - Speech Quality: Unpressured Latencies: Normal Quantity: Appropriate - Mood Patient's Decription of Mood: "Sad" - Affect Observed Affect: Tearful Affect Consistent with: Dysphoria - Thought Process Patient's Thought Process: Coherent Thought Content: No Passive Wish, No Suicidal Planning, No Homicidal Ideation, No Paranoid Ideation - Sensorium Experiencing Hallucinations: No, Sensorium is Clear Type of Hallucinations: Visual: No, Auditory: No, Command: No - Level of Consciousness Level of Consciousness: Alert Orientation: Yes Intact, Yes Orientated to Time, Yes Orientated to Place, Yes Orientated to Person - Impulse Control Impulse Control: Tenuous - Insight and Judgement Insight and Judgement: Fair - Group Participation Particating in Group Activities: No - Medication Management Medication Management Adherence: Yes Assessment - Assessment Merits Inpatient Hospitalization: For Ongoing Evaluation, Consolidate Improvements, Pending Safe DC Plan Inpatient DSM-IV Dx: Major depressive disorder with psychotic features. r/o Cogitive disorder NOS Clinical Impression: 71 y.o. , white female with a history of depression and episodic psychosis admitted as a transfer from the medical unit, where she had been worked up for non-organic abdominal pain, who presents with psychotic depression and passive SI. Plan - Plan Treatment Plan: Name: BERNARDINO CASEY Birthdate: 1945 [id number] The patient remains on fluoxetine 40mg PO BID and we have added both risperidone 1mg PO qhs and mirtazapine 7.5mg PO qhs. Her psychosis seems improved but she is still tearful at times. She needs more intensive residential services than [facility] can provide and so we are looking into SNF placement. Will try to encourage milieu engagement. Start Senna BID for constipation. Medications: Current Medications Acetaminophen (Tylenol Tab*) 650 mg PO Q4H PRN PRN Reason: for pain; or Temp >101 F Last Admin: 09/03/16 16:17 Dose: 650 mg Al Hydrox/Mg Hydrox/Simethicone (Maalox Plus*) 30 ml PO Q4H PRN PRN Reason: INDIGESTION Last Admin: 09/01/16 09:55 Dose: 30 ml Albuterol (Ventolin 2.5 Mg/3 Ml Neb.Mary*) 2.5 mg INH Q6H PRN PRN Reason: SOB/WHEEZING Amlodipine Besylate (Norvasc Tab*) 5 mg PO DAILY [facility] Last Admin: 09/04/16 09:05 Dose: 5 mg Aspirin (Aspirin Ec Low Dose*) 81 mg PO DAILY [facility] Last Admin: 09/04/16 09:05 Dose: 81 mg Clonazepam (Klonopin Tab(*)) 0.25 mg PO Q8H PRN PRN Reason: AGITATION/ANXIETY/INSOMNIA Last Admin: 09/03/16 12:14 Dose: 0.25 mg Docusate Sodium (Colace Cap*) 100 mg PO BID [facility] Last Admin: 09/04/16 09:05 Dose: 100 mg Famotidine (Pepcid Tab*) 20 mg PO DAILY [facility] Last Admin: 09/04/16 09:05 Dose: 20 mg Fluoxetine HCl (Prozac Cap*) 40 mg PO BID [facility] Last Admin: 09/04/16 09:06 Dose: 40 mg Furosemide (Lasix Tab*) 20 mg PO DAILY [facility] Last Admin: 09/04/16 09:05 Dose: 20 mg Lisinopril (Prinivil Tab*) 10 mg PO DAILY [facility] Last Admin: 09/04/16 09:06 Dose: 10 mg Magnesium Hydroxide (Milk Of Magnesia Liq*) 30 ml PO DAILY PRN PRN Reason: CONSTIPATION Last Admin: 09/01/16 11:42 Dose: 30 ml Metoprolol Tartrate (Lopressor Tab*) 12.5 mg PO DAILY [facility] Last Admin: 09/04/16 09:05 Dose: 12.5 mg Mirtazapine (Remeron Tab*) 7.5 mg PO BEDTIME [facility] Last Admin: 09/03/16 21:13 Dose: 7.5 mg Multivitamins (Theragran Tab*) 1 tab PO DAILY [facility] Last Admin: 09/04/16 09:05 Dose: 1 tab Nystatin (Nystatin Cream*) 1 applic TOPICAL TID [facility] Last Admin: 09/04/16 13:44 Dose: 1 applic Omeprazole (Prilosec Cap*) 40 mg PO BID [facility] Last Admin: 09/04/16 09:05 Dose: 40 mg Ondansetron HCl (Zofran Tab*) 4 mg PO Q6H PRN PRN Reason: NAUSEA Oxycodone HCl (Roxycodone Tab*) 10 mg PO Q8H PRN PRN Reason: PAIN - MODERATE TO SEVERE Last Admin: 09/04/16 06:24 Dose: 10 mg Pregabalin (Lyrica Cap(*)) 25 mg PO TID [facility] Last Admin: 09/04/16 13:27 Dose: 25 mg Risperidone (Risperdal*) 1 mg PO BEDTIME [facility] Last Admin: 09/03/16 21:14 Dose: 1 mg Tiotropium [place] (Spiriva Cap.Inh*) 1 cap INH DAILY [facility] Last Admin: 09/04/16 09:04 Dose: 1 inhaler
[2016-09-04] MEDS: Acetaminophen TAB* 325 MG PO PRN (14:38)
[2016-09-04] MEDS: clonazePAM TAB(*) 0.5 MG PO PRN ×2 (14:38→22:39)
[2016-09-04] MEDS: Senna TAB PO SCH (21:11)
[2016-09-04] MEDS: risperiDONE TAB* 1 MG PO SCH (21:11)
[2016-09-04] MEDS: Mirtazapine TAB* 15 MG PO SCH (21:11)
[2016-09-05] MEDS: Ondansetron TAB* 4 MG PO PRN (07:01)
[2016-09-05] MEDS: oxyCODONE TAB* 5 MG TAB PO PRN ×2 (08:30→17:44)
[2016-09-05] MEDS: Lisinopril TAB* 10 MG PO SCH (09:36)
[2016-09-05] MEDS: Omeprazole CAP* 20 MG PO SCH ×2 (09:36→20:30)
[2016-09-05] MEDS: Docusate CAP* 100 MG PO SCH ×2 (09:36→20:29)
[2016-09-05] MEDS: Pregabalin CAP(*) 25 MG PO SCH ×3 (09:36→20:30)
[2016-09-05] MEDS: FLUoxetine CAP* 20 MG PO SCH ×2 (09:36→20:29)
[2016-09-05] MEDS: Furosemide TAB* 20 MG PO SCH (09:37)
[2016-09-05] MEDS: Vitamin THERAPEUTIC TAB PO SCH (09:37)
[2016-09-05] MEDS: Tiotropium CAP.INH* CAP.INH/18 MCG INH SCH (09:37)
[2016-09-05] MEDS: Famotidine TAB* 20 MG PO SCH (09:37)
[2016-09-05] MEDS: Senna TAB PO SCH ×2 (09:37→20:29)
[2016-09-05] MEDS: Aspirin EC Low Dose* 81 MG TAB.EC PO SCH (09:37)
[2016-09-05] MEDS: amLODIPine TAB* 5 MG PO SCH (09:37)
[2016-09-05] MEDS: Metoprolol Tartrate TAB* 25 MG PO SCH (09:38)
[2016-09-05] MEDS: Nystatin CREAM* 15 GM TUBE TOPICAL SCH ×3 (10:23→20:28)
[2016-09-05] MEDS ORDERED: Bisacodyl SUPP* 10 MG SUPP PR ONE (13:48)
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
[2016-09-05] MEDS: Acetaminophen TAB* 325 MG PO PRN (14:04)
[2016-09-05] MEDS: Benzocaine/Menthol LOZ* 1 LOZENGE PO PRN (15:50)
[2016-09-05] MEDS: Mirtazapine TAB* 15 MG PO SCH (20:28)
[2016-09-05] MEDS: risperiDONE TAB* 2 MG PO SCH (20:30)
[2016-09-05] MEDS: clonazePAM TAB(*) 0.5 MG PO PRN (21:42)
[2016-09-06] MEDS: oxyCODONE TAB* 5 MG TAB PO PRN ×3 (03:20→21:20)
[2016-09-06] MEDS: Pregabalin CAP(*) 25 MG PO SCH ×3 (08:06→21:20)
[2016-09-06] MEDS: amLODIPine TAB* 5 MG PO SCH (08:07)
[2016-09-06] MEDS: Docusate CAP* 100 MG PO SCH ×2 (08:08→21:19)
[2016-09-06] MEDS: Aspirin EC Low Dose* 81 MG TAB.EC PO SCH (08:08)
[2016-09-06] MEDS: FLUoxetine CAP* 20 MG PO SCH ×2 (08:09→21:19)
[2016-09-06] MEDS: Famotidine TAB* 20 MG PO SCH (08:09)
[2016-09-06] MEDS: Lisinopril TAB* 10 MG PO SCH (08:10)
[2016-09-06] MEDS: Furosemide TAB* 20 MG PO SCH (08:10)
[2016-09-06] MEDS: Metoprolol Tartrate TAB* 25 MG PO SCH (08:11)
[2016-09-06] MEDS: Omeprazole CAP* 20 MG PO SCH ×2 (08:11→21:19)
[2016-09-06] MEDS: Acetaminophen TAB* 325 MG PO PRN ×3 (08:12→20:29)
[2016-09-06] MEDS: Vitamin THERAPEUTIC TAB PO SCH (08:12)
[2016-09-06] MEDS: Nystatin CREAM* 15 GM TUBE TOPICAL SCH ×3 (08:12→21:54)
[2016-09-06] MEDS: Senna TAB PO SCH ×2 (08:12→21:19)
[2016-09-06] MEDS: Tiotropium CAP.INH* CAP.INH/18 MCG INH SCH (08:13)
--- NOTE | 2016-09-06 12:11 | PN ---
Subjective - Subjective Service Type: [id number] Hosp care 15 min low complexity Subjective: Bernardino states that she feels "great" today. "You've all been so nice to me. I think I might get a job here." She had two large bowel movements yesterday following administration of [place] dulcolax suppositories. The patient denies SI or paranoid ideation today. Her affect appears much brighter. Objective - Appearance Appearance: Well Developed/Nourished, Obese Dysmorphic Features: No Hygiene: Normal Grooming: Fairly Well Kept - Behavior Psychomotor Activities: Normal Exhibits Abnormal Movement: No - Attitude and Relatedness Attitude and Relatedness: Cooperative Eye Contact: Fair - Speech Quality: Unpressured Latencies: Normal Quantity: Appropriate - Mood Patient's Decription of Mood: "Great" - Affect Observed Affect: Good Affect Consistent with: Euthymia - Thought Process Patient's Thought Process: Coherent Thought Content: No Passive Wish, No Suicidal Planning, No Homicidal Ideation, No Paranoid Ideation - Sensorium Experiencing Hallucinations: No, Sensorium is Clear Type of Hallucinations: Visual: No, Auditory: No, Command: No - Level of Consciousness Level of Consciousness: Alert Orientation: Yes Intact, Yes Orientated to Time, Yes Orientated to Place, Yes Orientated to Person - Impulse Control Impulse Control: Tenuous - Insight and Judgement Insight and Judgement: Fair - Group Participation Particating in Group Activities: Yes - Medication Management Medication Management Adherence: Yes Assessment - Assessment Merits Inpatient Hospitalization: Consolidate Improvements, For Discharge Planning Inpatient DSM-IV Dx: Major depressive disorder with psychotic features. r/o Cogitive disorder NOS Clinical Impression: 71 y.o. , white female with a history of depression and episodic psychosis admitted as a transfer from the medical unit, where she had been worked up for non-organic abdominal pain, who presents with psychotic depression and passive SI. Plan - Plan Treatment Plan: Name: BERNARDINO CASEY Birthdate: 1945 [id number] The patient appears better today. She remains on fluoxetine 40mg PO BID and we have added both risperidone 2mg PO qhs and mirtazapine 7.5mg PO qhs. In terms of disposition, she needs more intensive residential services than [facility] can provide and so we are looking into SNF placement at [facility]. Continued Medication Management: Different Medication Medications: Current Medications Acetaminophen (Tylenol Tab*) 650 mg PO Q4H PRN PRN Reason: for pain; or Temp >101 F Last Admin: 09/06/16 08:12 Dose: 650 mg Al Hydrox/Mg Hydrox/Simethicone (Maalox Plus*) 30 ml PO Q4H PRN PRN Reason: INDIGESTION Last Admin: 09/01/16 09:55 Dose: 30 ml Albuterol (Ventolin 2.5 Mg/3 Ml Neb.Mary*) 2.5 mg INH Q6H PRN PRN Reason: SOB/WHEEZING Amlodipine Besylate (Norvasc Tab*) 5 mg PO DAILY [facility] Last Admin: 09/06/16 08:07 Dose: 5 mg Aspirin (Aspirin Ec Low Dose*) 81 mg PO DAILY [facility] Last Admin: 09/06/16 08:08 Dose: 81 mg Clonazepam (Klonopin Tab(*)) 0.25 mg PO Q8H PRN PRN Reason: AGITATION/ANXIETY/INSOMNIA Last Admin: 09/05/16 21:42 Dose: 0.25 mg Docusate Sodium (Colace Cap*) 100 mg PO BID [facility] Last Admin: 09/06/16 08:08 Dose: 100 mg Famotidine (Pepcid Tab*) 20 mg PO DAILY [facility] Last Admin: 09/06/16 08:09 Dose: 20 mg Fluoxetine HCl (Prozac Cap*) 40 mg PO BID [facility] Last Admin: 09/06/16 08:09 Dose: 40 mg Furosemide (Lasix Tab*) 20 mg PO DAILY [facility] Last Admin: 09/06/16 08:10 Dose: 20 mg Lisinopril (Prinivil Tab*) 10 mg PO DAILY [facility] Last Admin: 09/06/16 08:10 Dose: 10 mg Magnesium Hydroxide (Milk Of Magnesia Liq*) 30 ml PO DAILY PRN PRN Reason: CONSTIPATION Last Admin: 09/01/16 11:42 Dose: 30 ml Metoprolol Tartrate (Lopressor Tab*) 12.5 mg PO DAILY [facility] Last Admin: 09/06/16 08:11 Dose: 12.5 mg Mirtazapine (Remeron Tab*) 7.5 mg PO BEDTIME [facility] Last Admin: 09/05/16 20:28 Dose: 7.5 mg Multivitamins (Theragran Tab*) 1 tab PO DAILY [facility] Last Admin: 09/06/16 08:12 Dose: 1 tab Nystatin (Nystatin Cream*) 1 applic TOPICAL TID [facility] Last Admin: 09/06/16 08:12 Dose: Not Given Omeprazole (Prilosec Cap*) 40 mg PO BID [facility] Last Admin: 09/06/16 08:11 Dose: 40 mg Ondansetron HCl (Zofran Tab*) 4 mg PO Q6H PRN PRN Reason: NAUSEA Last Admin: 09/05/16 07:01 Dose: 4 mg Oxycodone HCl (Roxycodone Tab*) 10 mg PO Q8H PRN PRN Reason: PAIN - MODERATE TO SEVERE Last Admin: 09/06/16 03:20 Dose: 10 mg Pregabalin (Lyrica Cap(*)) 25 mg PO TID [facility] Last Admin: 09/06/16 08:06 Dose: 25 mg Risperidone (Risperdal*) 2 mg PO BEDTIME [facility] Last Admin: 09/05/16 20:30 Dose: 2 mg Senna (Senokot Tab*) 1 tab PO BID [facility] Last Admin: 09/06/16 08:12 Dose: 1 tab Throat Lozenges (Chloraseptic Mary*) 1 mary PO Q6H PRN PRN Reason: PAIN Last Admin: 09/05/16 15:50 Dose: 1 mary Tiotropium [place] (Spiriva Cap.Inh*) 1 cap INH DAILY [facility] Last Admin: 09/06/16 08:13 Dose: 1 inhaler - Discharge Plan Discharge Plan: Outpatient Follow Up Outpatient Program: [facility] Cavazos [facility]
[2016-09-06] MEDS: clonazePAM TAB(*) 0.5 MG PO PRN (18:18)
[2016-09-06] MEDS: risperiDONE TAB* 2 MG PO SCH (21:19)
[2016-09-06] MEDS: Mirtazapine TAB* 15 MG PO SCH (21:20)
[2016-09-07] MEDS: clonazePAM TAB(*) 0.5 MG PO PRN ×2 (06:16→16:15)
[2016-09-07] MEDS: Tiotropium CAP.INH* CAP.INH/18 MCG INH SCH (09:06)
[2016-09-07] MEDS: Famotidine TAB* 20 MG PO SCH (09:15)
[2016-09-07] MEDS: Metoprolol Tartrate TAB* 25 MG PO SCH (09:15)
[2016-09-07] MEDS: Senna TAB PO SCH ×2 (09:15→21:00)
[2016-09-07] MEDS: Lisinopril TAB* 10 MG PO SCH (09:16)
[2016-09-07] MEDS: Docusate CAP* 100 MG PO SCH ×2 (09:16→21:00)
[2016-09-07] MEDS: Aspirin EC Low Dose* 81 MG TAB.EC PO SCH (09:17)
[2016-09-07] MEDS: Vitamin THERAPEUTIC TAB PO SCH (09:17)
[2016-09-07] MEDS: Pregabalin CAP(*) 25 MG PO SCH ×3 (09:17→21:01)
[2016-09-07] MEDS: Furosemide TAB* 20 MG PO SCH (09:17)
[2016-09-07] MEDS: Nystatin CREAM* 15 GM TUBE TOPICAL SCH ×3 (09:18→21:07)
[2016-09-07] MEDS: Omeprazole CAP* 20 MG PO SCH ×2 (09:18→21:01)
[2016-09-07] MEDS: amLODIPine TAB* 5 MG PO SCH (09:18)
[2016-09-07] MEDS: FLUoxetine CAP* 20 MG PO SCH ×2 (09:18→21:00)
[2016-09-07] MEDS: Acetaminophen TAB* 325 MG PO PRN (16:15)
[2016-09-07] MEDS: Mirtazapine TAB* 15 MG PO SCH (21:00)
[2016-09-07] MEDS: risperiDONE TAB* 2 MG PO SCH (21:00)
[2016-09-08] MEDS: clonazePAM TAB(*) 0.5 MG PO PRN ×2 (00:10→19:06)
[2016-09-08] MEDS: oxyCODONE TAB* 5 MG TAB PO PRN ×2 (00:39→15:04)
[2016-09-08] MEDS: Ondansetron TAB* 4 MG PO PRN (06:25)
[2016-09-08] MEDS: Tiotropium CAP.INH* CAP.INH/18 MCG INH SCH (09:10)
[2016-09-08] MEDS: Pregabalin CAP(*) 25 MG PO SCH ×3 (09:11→21:02)
[2016-09-08] MEDS: Omeprazole CAP* 20 MG PO SCH ×2 (09:11→21:03)
[2016-09-08] MEDS: Aspirin EC Low Dose* 81 MG TAB.EC PO SCH (09:11)
[2016-09-08] MEDS: FLUoxetine CAP* 20 MG PO SCH ×2 (09:11→21:04)
[2016-09-08] MEDS: Famotidine TAB* 20 MG PO SCH (09:12)
[2016-09-08] MEDS: Metoprolol Tartrate TAB* 25 MG PO SCH (09:12)
[2016-09-08] MEDS: Furosemide TAB* 20 MG PO SCH (09:12)
[2016-09-08] MEDS: amLODIPine TAB* 5 MG PO SCH (09:12)
[2016-09-08] MEDS: Senna TAB PO SCH ×2 (09:13→21:03)
[2016-09-08] MEDS: Vitamin THERAPEUTIC TAB PO SCH (09:13)
[2016-09-08] MEDS: Lisinopril TAB* 10 MG PO SCH (09:13)
[2016-09-08] MEDS: Docusate CAP* 100 MG PO SCH ×2 (09:13→21:04)
[2016-09-08] MEDS: Nystatin CREAM* 15 GM TUBE TOPICAL SCH ×4 (09:17→21:06)
[2016-09-08] MEDS: risperiDONE TAB* 2 MG PO SCH (21:03)
[2016-09-08] MEDS: Mirtazapine TAB* 15 MG PO SCH (21:04)
[2016-09-09] MEDS: Ondansetron TAB* 4 MG PO PRN (04:46)
[2016-09-09] MEDS: oxyCODONE TAB* 5 MG TAB PO PRN ×3 (04:49→22:01)
[2016-09-09] MEDS: amLODIPine TAB* 5 MG PO SCH (08:27)
[2016-09-09] MEDS: Docusate CAP* 100 MG PO SCH ×2 (08:28→21:36)
[2016-09-09] MEDS: Aspirin EC Low Dose* 81 MG TAB.EC PO SCH (08:28)
[2016-09-09] MEDS: Famotidine TAB* 20 MG PO SCH (08:29)
[2016-09-09] MEDS: FLUoxetine CAP* 20 MG PO SCH ×2 (08:29→21:36)
[2016-09-09] MEDS: Furosemide TAB* 20 MG PO SCH (08:29)
[2016-09-09] MEDS: Lisinopril TAB* 10 MG PO SCH (08:29)
[2016-09-09] MEDS: Metoprolol Tartrate TAB* 25 MG PO SCH (08:30)
[2016-09-09] MEDS: Omeprazole CAP* 20 MG PO SCH ×2 (08:31→21:37)
[2016-09-09] MEDS: Pregabalin CAP(*) 25 MG PO SCH ×3 (08:31→21:36)
[2016-09-09] MEDS: Vitamin THERAPEUTIC TAB PO SCH (08:32)
[2016-09-09] MEDS: Senna TAB PO SCH ×2 (08:32→21:38)
[2016-09-09] MEDS: Acetaminophen TAB* 325 MG PO PRN (08:33)
[2016-09-09] MEDS: Tiotropium CAP.INH* CAP.INH/18 MCG INH SCH (08:34)
[2016-09-09] MEDS: Nystatin CREAM* 15 GM TUBE TOPICAL SCH ×3 (08:38→21:40)
--- NOTE | 2016-09-09 11:00 | PN ---
Subjective - Subjective Service Type: [id number] Hosp care 15 min low complexity Subjective: Bernardino reported doing well. She expressed appreciation, had no complaints, and made no delusional comments. Denied feeling depressed. Was content with plan for transfer to SNF. Objective - Appearance Appearance: Obese Hygiene: Normal Grooming: Fairly Well Kept - Behavior Psychomotor Activities: Normal - Attitude and Relatedness Attitude and Relatedness: pleasant Eye Contact: Good - Speech Quality: Unpressured Latencies: Normal Quantity: Terse - Mood Patient's Decription of Mood: "Good" - Affect Observed Affect: Non-labile Affect Consistent with: Euthymia - Thought Process Patient's Thought Process: Coherent, Impoverished Thought Content: No Passive Wish, No Suicidal Planning, No Homicidal Ideation, No Paranoid Ideation - Sensorium Experiencing Hallucinations: No, Sensorium is Clear - Level of Consciousness Level of Consciousness: Alert - Impulse Control Impulse Control: Intact - Insight and Judgement Insight and Judgement: Fair Assessment - Assessment Merits Inpatient Hospitalization: To Initiate Treatment, For Ongoing Evaluation , Consolidate Improvements, For Discharge Planning Inpatient DSM-IV Dx: Major depressive disorder with psychotic features. r/o Cogitive disorder NOS Clinical Impression: 71 y/o female with history of depression, psychosis, psychiatric hospitalization , suicide attempt. She was admitted on transfer from hospitalist services due to concern over impairing symptoms and paranoid ideation, along with passive suicidal ideation. Stabilized here. Mood symptoms are improved. She is not spontaneously delusional. She is safe on checks, free of active suicidal ideation. Medmgt. added Rispderdal to her regimen (now Prozac and Remeron). Plan - Plan Treatment Plan: Name: BERNARDINO CASEY Birthdate: 1945 [id number] Medications: Current Medications Acetaminophen (Tylenol Tab*) 650 mg PO Q4H PRN PRN Reason: for pain; or Temp >101 F Last Admin: 09/09/16 08:33 Dose: 650 mg Al Hydrox/Mg Hydrox/Simethicone (Maalox Plus*) 30 ml PO Q4H PRN PRN Reason: INDIGESTION Last Admin: 09/01/16 09:55 Dose: 30 ml Albuterol (Ventolin 2.5 Mg/3 Ml Neb.Mary*) 2.5 mg INH Q6H PRN PRN Reason: SOB/WHEEZING Amlodipine Besylate (Norvasc Tab*) 5 mg PO DAILY [facility] Last Admin: 09/09/16 08:27 Dose: 5 mg Aspirin (Aspirin Ec Low Dose*) 81 mg PO DAILY [facility] Last Admin: 09/09/16 08:28 Dose: 81 mg Clonazepam (Klonopin Tab(*)) 0.25 mg PO Q8H PRN PRN Reason: AGITATION/ANXIETY/INSOMNIA Last Admin: 09/08/16 19:06 Dose: 0.25 mg Docusate Sodium (Colace Cap*) 100 mg PO BID [facility] Last Admin: 09/09/16 08:28 Dose: 100 mg Famotidine (Pepcid Tab*) 20 mg PO DAILY [facility] Last Admin: 09/09/16 08:29 Dose: 20 mg Fluoxetine HCl (Prozac Cap*) 40 mg PO BID [facility] Last Admin: 09/09/16 08:29 Dose: 40 mg Furosemide (Lasix Tab*) 20 mg PO DAILY [facility] Last Admin: 09/09/16 08:29 Dose: 20 mg Lisinopril (Prinivil Tab*) 10 mg PO DAILY [facility] Last Admin: 09/09/16 08:29 Dose: 10 mg Magnesium Hydroxide (Milk Of Magnesia Liq*) 30 ml PO DAILY PRN PRN Reason: CONSTIPATION Last Admin: 09/01/16 11:42 Dose: 30 ml Metoprolol Tartrate (Lopressor Tab*) 12.5 mg PO DAILY [facility] Last Admin: 09/09/16 08:30 Dose: 12.5 mg Mirtazapine (Remeron Tab*) 7.5 mg PO BEDTIME [facility] Last Admin: 09/08/16 21:04 Dose: 7.5 mg Multivitamins (Theragran Tab*) 1 tab PO DAILY [facility] Last Admin: 09/09/16 08:32 Dose: 1 tab Nystatin (Nystatin Cream*) 1 applic TOPICAL TID [facility] Last Admin: 09/09/16 08:38 Dose: 1 applic Omeprazole (Prilosec Cap*) 40 mg PO BID [facility] Last Admin: 09/09/16 08:31 Dose: 40 mg Ondansetron HCl (Zofran Tab*) 4 mg PO Q6H PRN PRN Reason: NAUSEA Last Admin: 09/09/16 04:46 Dose: 4 mg Oxycodone HCl (Roxycodone Tab*) 10 mg PO Q8H PRN PRN Reason: PAIN - MODERATE TO SEVERE Last Admin: 09/09/16 04:49 Dose: 10 mg Pregabalin (Lyrica Cap(*)) 25 mg PO TID [facility] Last Admin: 09/09/16 08:31 Dose: 25 mg Risperidone (Risperdal*) 2 mg PO BEDTIME [facility] Last Admin: 09/08/16 21:03 Dose: 2 mg Senna (Senokot Tab*) 1 tab PO BID [facility] Last Admin: 09/09/16 08:32 Dose: 1 tab Throat Lozenges (Chloraseptic Mary*) 1 mary PO Q6H PRN PRN Reason: PAIN Last Admin: 09/05/16 15:50 Dose: 1 mary Tiotropium [place] (Spiriva Cap.Inh*) 1 cap INH DAILY [facility] Last Admin: 09/09/16 08:34 Dose: 1 inhaler - Discharge Plan Discharge Plan: Outpatient Follow Up
[2016-09-09] MEDS: Benzocaine/Menthol LOZ* 1 LOZENGE PO PRN (14:07)
[2016-09-09] MEDS: clonazePAM TAB(*) 0.5 MG PO PRN (19:17)
[2016-09-09] MEDS: risperiDONE TAB* 2 MG PO SCH (21:36)
[2016-09-09] MEDS: Mirtazapine TAB* 15 MG PO SCH (21:37)
[2016-09-10] MEDS: clonazePAM TAB(*) 0.5 MG PO PRN (06:32)
[2016-09-10 07:42] VITALS: BP 154/70
[2016-09-10] MEDS: Pregabalin CAP(*) 25 MG PO SCH ×2 (08:40→13:35)
[2016-09-10] MEDS: Lisinopril TAB* 10 MG PO SCH (08:40)
[2016-09-10] MEDS: Furosemide TAB* 20 MG PO SCH (08:40)
[2016-09-10] MEDS: Famotidine TAB* 20 MG PO SCH (08:41)
[2016-09-10] MEDS: Docusate CAP* 100 MG PO SCH (08:41)
[2016-09-10] MEDS: Vitamin THERAPEUTIC TAB PO SCH (08:41)
[2016-09-10] MEDS: Aspirin EC Low Dose* 81 MG TAB.EC PO SCH (08:41)
[2016-09-10] MEDS: Metoprolol Tartrate TAB* 25 MG PO SCH (08:42)
[2016-09-10] MEDS: oxyCODONE TAB* 5 MG TAB PO PRN (08:43)
[2016-09-10] MEDS: FLUoxetine CAP* 20 MG PO SCH (08:43)
[2016-09-10] MEDS: amLODIPine TAB* 5 MG PO SCH (08:44)
[2016-09-10] MEDS: Tiotropium CAP.INH* CAP.INH/18 MCG INH SCH (08:44)
[2016-09-10] MEDS: Senna TAB PO SCH (08:44)
[2016-09-10] MEDS: Omeprazole CAP* 20 MG PO SCH (08:45)
[2016-09-10] MEDS: Magnesium Hydroxide LIQ* 30 ML UDC PO PRN (11:01)
[2016-09-10] MEDS: Nystatin CREAM* 15 GM TUBE TOPICAL SCH ×2 (11:51→14:36)
[2016-09-10] MEDS: Acetaminophen TAB* 325 MG PO PRN (13:41)
--- NOTE | 2016-09-11 07:32 | DS ---
DISCHARGE SUMMARY: DATE OF ADMISSION: 08/30/16 DATE OF DISCHARGE: 09/10/16 DISCHARGE DIAGNOSES: As follows: [place] I: Major depressive disorder, recurrent, severe with psychotic features; alcohol use disorder in sustained remission. [place] II: Deferred. [place] III: Unspecified abdominal pain; gastroesophageal reflux disease; chronic obstructive pulmonary disease; atrial fibrillation; hypertension; history of brain aneurysm, status post surgery; legally blind; history of oral cancer with cancer resection; and history of cholecystectomy. [place] IV: Severe primary support stressors. [place] V: At the time of admission was 30 and at the time of discharge is 60. CONDITION AT THE TIME OF DISCHARGE: Stable. The patient is calm, polite, and pleasant. Her affect is full and bright. She shows no evidence of paranoid delusional thinking. She is quiet, cooperative, and easy to interact with. She is much more future oriented, stating that she is looking forward to moving to the [facility] stating that she feels that will meet her needs better than the [facility], where she was residing until recently. Furthermore, she is denying suicidal or homicidal ideations. She is tolerating her medication changes quite well and she has denied thoughts of self harm on routine checks for the last several days. She is being transferred to the [facility], which can meet all of her half-way needs. MENTAL STATUS EXAM: The patient is an overweight, elderly white female who has an oxygen nasal cannula on. She is sitting on her bed, listening to books on tape. She makes eye contact and is readily engageable. She is fairly well- groomed, wearing a pink nightgown. She is calm, cooperative. Speech has a normal rate, tone, and volume. Mood is euthymic with full affect. Thought process is linear and goal-directed. Thought content is significant for her desire to be transferred to [facility]. She is denying suicidal or homicidal ideation. She denies auditory or visual hallucinations. Insight and judgment are fair given her willingness to follow up with outpatient treatment. Cognitively, she is awake and alert. DISCHARGE INSTRUCTIONS FOR THE PATIENT: As follows: A. Medications: She is currently takin. Albuterol 2.5 mg inhaled on an as needed basis for wheezing. 2. Zofran 4 mg up to every 6 hours as needed for nausea. 3. Oxycodone 10 mg every 8 hours p.r.n. for pain. 4. Nystatin cream apply topically t.i.d. 5. Pregabalin 25 mg p.o. t.i.d. 6. Fluoxetine 40 mg p.o. b.i.d. 7. Omeprazole 40 mg p.o. b.i.d. 8. Amlodipine 5 mg p.o. every day. 9. Aspirin 81 mg p.o. every day. 10. Famotidine 20 mg p.o. every day. 11. Furosemide 20 mg p.o. every day. 12. Lisinopril 10 mg p.o. every day. 13. Metoprolol 12.5 mg p.o. every day. 14. Spiriva 1 cap inhaled daily. 15. Therapeutic vitamin 1 tablet p.o. every day. 16. Klonopin 0.25 mg up to every 8 hours p.r.n. for anxiety. 17. Colace 100 mg p.o. b.i.d. 18. Milk of magnesia p.r.n. for constipation. 19. Mirtazapine 7.5 mg p.o. at bedtime. 20. Senna 1 tab p.o. b.i.d. 21. Chloraseptic lozenge as needed for sore throat. 22. Risperidone 2 mg p.o. at bedtime. B. Diet: Regular. C. Activities: As per the [facility] protocol. The patient is a nonsmoker. D. Followup care: The patient will follow up with her primary care provider, nurse practitioner, Joy Willoughby. HOSPITAL COURSE: As follows: Part A: Reason for admission: The patient is a 71-year-old white female with a longstanding history of recurrent depression, anxiety, and episodic psychosis who was transferred from the hospitalist service where she had been medically worked up for nonorganic abdominal pain, who now presents with symptoms of anxiety and passive suicidality. She was indicating at the time of admission that she still believes there was something wrong with her abdomen and she was requesting a transfer to the [facility] in [place], [place]. She goes on to complain about a woman who she states she is to live with in her house for 25 years. After reviewing documentation from a prior behavioral science unit admission in 2014, I could see that this was a chronic delusion according to her son, Mr. Levy Reed, who was involved in her care at that time. Documents further stated that she did quite well when taking Risperdal 1 mg p.o. at bedtime when this was added to fluoxetine. Currently, she is endorsing thoughts of indicating that she gets no pleasure out of life and she feels like waste of everyone's time and she is asking why I would care about her wellbeing. I was able to speak with her primary care provider and nurse practitioner, Joy Willoughby, who has been treating her in the community for a number of years. Ms. Willoughby has observed recently that the patient has been very paranoid about caregivers at the [facility], where she had been residing for the past 5 to 6 months stating that they had given her the wrong medications and had otherwise been plotting against her. The question of dementia had come up due to some memory deficits and the patient had recently received an adjunctive trial of low-dose aripiprazole, which did not appear to help. Ms. Willoughby was supportive of the idea of transfer to inpatient psychiatry. The patient apparently was ambivalent about the idea of coming to our unit and was resistant to signing voluntary paperwork and was therefore placed on a 9.39 legal status. In terms of depressive symptoms, she was clearly endorsing poor sleep, anhedonia, guilt, poor energy, limited concentration, deficits in appetite, psychomotor retardation, and passive thoughts of dying. When I asked her about a plan for suicide, she indicated "what am I going to do in a fci, there is no possible way that I could end my life." Despite this, she continued to make statements to the effect that she wished that her life was over with and she appeared to be quite depressed. Part B: Psychiatric treatment rendered: The patient was admitted to the Adult Behavioral Health Unit, where she was placed on q.30-minute checks and all her past medications including fluoxetine were carried over. She continued to endorse delusional believes about a female friend of hers being a murderer and for this reason, her risperidone, which we have just started on the medical service, was increased from 1 mg to 2 mg. Additionally, she suffered through some appetite disturbance and poor sleep as well as continued depressive symptomatology because she was at a maximal dose for fluoxetine, we felt that augmentation with mirtazapine was warranted and this was started at the therapeutic dose of 7.5 mg p.o. at bedtime. This combination of the supportive milieu setting and increase in her Risperdal and the introduction of mirtazapine seemed to work quite well. Her affect became much more bright. She stopped being tearful. She stopped spontaneously discussing her delusional believes. She indicated that she did not enjoy living at [facility] and we did receive word from the [facility] staff that they did not feel that they commit to the patient's needs. The patient was given options in terms of the half-way facility placement and she felt that she had good experiences in the past at [facility] and therefore her case was referred to that agency, which promptly accepted her. At this time, she has markedly improved with a quite bright affect and she is actually a delightful person to work with. We think that she will do well with the more supportive environment at [facility]. Followup will be with her nurse practitioner, Joy Willoughby, who notes her issues quite well and we wish her the best for safe and healthy future. [id number]/[facility] #: [id number] [facility]ITAL[facility]
== END 2016-09-10 15:55 | DRG 885 ==
LOC: BSU 08-30 14:02
PROVIDERS: ADMIT Psychiatry & Neurology Psychiatry; ATTEND Psychiatry & Neurology Psychiatry
DX: F33.3 Major depressive disorder, recurrent, severe with psychotic symptoms (principal); J96.10 Chronic respiratory failure, unspecified whether with hypoxia or hypercapnia; J44.9 Chronic obstructive pulmonary disease, unspecified; I48.91 Unspecified atrial fibrillation; R45.851 Suicidal ideations; F10.10 Alcohol abuse, uncomplicated; R10.9 Unspecified abdominal pain; K21.9 Gastro-esophageal reflux disease without esophagitis; I10 Essential (primary) hypertension; F17.210 Nicotine dependence, cigarettes, uncomplicated; H54.8 Legal blindness, as defined in USA; Z85.819 Personal history of malignant neoplasm of unspecified site of lip, oral cavity, and pharynx; Z81.1 Family history of alcohol abuse and dependence
CPT/HCPCS: 36415; 80061; 83036; 99222; 99231; 99238; A9270-GY

== ENCOUNTER 2017-05-05 11:11 | Emergency (ER) | payer MEDICARE, MEDICAID ==
[2017-05-05 14:58] LABS: Hematocrit 29 % (35-47); Hemoglobin 9.1 g/dl (12.0-16.0); Mean Corpuscular HGB Conc 32 g/dl (31-36); Mean Corpuscular Hemoglobin 29 pg (27-31); Mean Corpuscular Volume 92 fL (80-97); Mean Platelet Volume 9 um3 (7.4-10.4); Red Blood Count 3.12 10^6/ul (4.0-5.4); Red Cell Distribution Width 14 % (10.5-15)
[2017-05-05 15:11] LABS: Albumin 3.5 g/dL (3.2-5.2); BUN/Creatinine Ratio 21.5 (8-20); Calcium 9.3 mg/dL (8.6-10.3); EGFR African American 55.9 (>60); EGFR Non-African American 43.5 (>60); Potassium 4.6 mmol/L (3.5-5.0); Total Bilirubin 0.3 mg/dL (0.2-1.0); Total Protein 6.5 g/dL (6.4-8.9)
[2017-05-05 16:30] VITALS: BP 115/51
--- NOTE | 2017-05-05 19:28 | ED ---
Upper Extremity Pain - HPI Summary HPI Summary: Patient presents to the ED from [facility] with aid. She states she has been having shaking fits for several months and has received no help. She has never had this before. Medical problems are extensive including COPD and psych issues. She denies feeling ill. She has never been dx with parkinsons or other tremors. The tremors began abruptly and are worse with movement like eating. She denies worsening SOB. A-fib, CHF, and GERD. She has had a cholecystectomy. - History of Current Complaint Chief Complaint: EDGeneral Stated Complaint: SHAKINESS X 3 MONTHS Time Seen by Provider: 05/05/17 14:31 Hx Obtained From: Patient Onset/Duration: Started Weeks Ago Timing: Constant Severity Initially: Mild Severity Currently: Mild Pain Location: Arm Aggravating Factor(s): Movement Alleviating Factor(s): Rest Associated Signs & Symptoms: Positive: Negative - Risk Factors Non-Orthopedic Risk Factor: Negative DVT Risk Factors: Negative Septic Arthritis Risk Factor: Negative - Allergies/Home Medications Allergies/Adverse Reactions: Allergies Allergy/AdvReac Type Severity Reaction Status Date / Time Adhesive Tape Allergy Blisters Verified 08/30/16 17:38 PMH/Surg Hx/FS Hx/Imm Hx Previously Healthy: Yes Endocrine/Hematology History: Denies: Hx Anticoagulant Therapy, Hx Diabetes, Hx Anemia, Hx Unexplained Bleeding Cardiovascular History: Reports: Hx Aneurysm, Hx Atrial Fibrillation, Hx Congestive Heart Failure, Hx Hypertension, Other Cardiovascular Problems/ Disorders - AFIB Denies: Hx Angina, Hx Angioplasty, Hx Auto Implanted Cardiovert Defib, Hx Cardiac Arrest, Hx Cardiomegaly, Hx Congenital Heart Disease, Hx Coronary Artery Disease, Hx Deep Vein Thrombosis, Hx Embolism, Hx Hypercholesterolemia, Hx Hypotension, Hx Pacemaker/ICD, Hx Peripheral Vascular Disease, Hx Rheumatic Fever, Hx Syncope, Hx Valvular Heart Disease Respiratory History: Reports: Hx Asthma, Hx Chronic Obstructive Pulmonary Disease (COPD) - home O2 (not consistently compliant), Other Respiratory Problems/Disorders - Emphysema Denies: Hx Cystic Fibrosis, Hx Lung Cancer, Hx Pleural Effusion, Hx Pneumonia , Hx Pulmonary Edema, Hx Pulmonary Embolism, Hx Seasonal Allergies, Hx Sleep Apnea GI History: Reports: Hx Cirrhosis, Hx Gastroesophageal Reflux Disease, Hx Hiatal Hernia, Hx Jaundice History: Reports: Other Problems/Disorders - Bladder cancer Denies: Hx Acute Renal Failure, Hx Benign Prostatic Hyperplasia, Hx Chronic Renal Failure, Hx Dialysis, Hx Kidney Infection, Hx Kidney Stones, Hx Renal Disease Musculoskeletal History: Reports: Hx Arthritis Denies: Hx Back Problems, Hx Bursitis, Hx Congenital Bone Abnormalities, Hx Fibromyalgia, Hx Gout, Hx Orthopedic Injury, Hx Osteoporosis, Hx Scoliosis, Hx Tendonitis, Other Musculoskeletal History - NERVE PROBLEM IN BACK AMBULATES WITH WALKER Sensory History: Reports: Hx Cataracts, Hx Legally Blind, Hx Macular Degeneration, Hx Vision Problem Denies: Hx Contacts or Glasses, Hx Deafness, Hx Hearing Aid, Hx Hearing Problem, Other Sensory Impairments Opthamlomology History: Reports: Hx Cataracts, Hx Legally Blind, Hx Macular Degeneration, Hx Vision Problem Denies: Hx Contacts or Glasses, Other Sensory Impairments Neurological History: Reports: Hx Headaches Denies: Hx Dementia, Hx Developmental Delay, Hx Migraine, Hx Nerve Disease, Hx Seizures, Hx Spinal Cord Injury, Hx Transient Ischemic Attacks (TIA), Other Neuro Impairments/Disorders Psychiatric History: Reports: Hx Anxiety, Hx Depression, Hx Inpatient Treatment , Hx Suicide Attempt - OD, Hx Substance Abuse - Alcohol Denies: Hx Eating Disorder, Hx of Violent Episodes Against Others - Cancer History Cancer Type, 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 Exploratory lap in her 20s [place]. Aneurysm in head in her early 50s [place]. Hysterectomy and Bladder surgery [place] [facility]ilateral arm and Left shoulder for [place] [facility] 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 Right Cataract 07/01/12 [facility] Hx Anesthesia Reactions: No - Immunization History Hx Pertussis Vaccination: No Immunizations Up to Date: Unable to Obtain/Confirm Infectious Disease History: No Infectious Disease History: Denies: Hx Clostridium Difficile, Hx Hepatitis, Hx Human Immunodeficiency Virus (HIV), Hx of Known/Suspected MRSA, Hx Shingles, Hx Tuberculosis, Hx Known/ Suspected VRE, Hx Known/Suspected VRSA, History Other Infectious Disease, Traveled Outside the [place] in Last 30 Days - Family History Known Family History: Positive: None, Other - Alcoholism Family History: FHx of EtOH abuse. FHx of lymphoma - sister. Full FHx not obtained due to AMS. - Social History Occupation: Disabled Lives: [facility] Alcohol Use: None Alcohol Amount: History of alcohol abuse Hx Substance Use: No Substance Use Type: Reports: None Substance Use Comment - Amount & Last Used: Pt stopped drinking 3 years prior Hx Tobacco Use: Yes Smoking Status (MU): Former Smoker Type: Cigarettes Amount Used/How Often: 1 ppd Length of Time of Smoking/Using Tobacco: 50 years Have You Smoked in the Last Year: Yes Review of Systems Constitutional: Negative Negative: Fever, Chills, Fatigue Eyes: Negative Positive: Shortness Of Breath Gastrointestinal: Negative Positive: no symptoms reported, see HPI Neurological: Other - tremors in bilateral arms Psychological: Normal All Other Systems Reviewed And Are Negative: Yes Physical Exam Triage Information Reviewed: Yes Vital Signs On Initial Exam: Initial Vitals Temp Pulse Resp BP Pulse Ox 97.8 F 67 20 101/64 93 05/05/17 11:22 05/05/17 11:22 05/05/17 11:22 05/05/17 11:22 05/05/17 11:22 Vital Signs Reviewed: Yes Appearance: Positive: Ill-Appearing, Cachectic Skin: Positive: Warm, Dry, Other - dry Head/Face: Positive: Normal Head/Face Inspection Eyes: Positive: EOMI, GT, Conjunctiva Clear Neck: Positive: Nontender, No Lymphadenopathy Respiratory/Lung Sounds: Positive: Wheezes - bilateral Cardiovascular: Positive: RRR, Pulses are Symmetrical in both Upper and Lower Extremities Musculoskeletal: Positive: Normal, Strength/ROM Intact Neurological: Positive: Normal, Sensory/Motor Intact, Speech Normal Psychiatric: Positive: Normal, Affect/Mood Appropriate AVPU Assessment: Alert - [place] Coma Scale Coma Scale Total: 15 Diagnostics - Vital Signs Vital Signs Temp Pulse Resp BP Pulse Ox 05/05/17 16:29 73 20 115/51 100 05/05/17 11:22 97.8 F 67 20 101/64 93 - Laboratory Lab Results: Lab Results 05/05/17 05/05/17 05/05/17 Range/Units 14:44 14:44 14:44 WBC 6.0 (3.5-10.8) 10^3/ul RBC 3.12 L (4.0-5.4) 10^6/ul Hgb 9.1 L (12.0-16.0) g/dl Hct 29 L (35-47) % MCV 92 (80-97) fL MCH 29 (27-31) pg MCHC 32 (31-36) g/dl RDW 14 (10.5-15) % Plt Count 149 L (150-450) 10^3/ul MPV 9 (7.4-10.4) um3 Neut % (Auto) 71.7 (38-83) % Lymph % (Auto) 18.6 L (25-47) % [place] % (Auto) 7.6 (1-9) % Eos % (Auto) 1.9 (0-6) % Baso % (Auto) 0.2 (0-2) % Absolute Neuts (auto) 4.3 (1.5-7.7) 10^3/ul Absolute Lymphs (auto) 1.1 (1.0-4.8) 10^3/ul Absolute Monos (auto) 0.5 (0-0.8) 10^3/ul Absolute Eos (auto) 0.1 (0-0.6) 10^3/ul Absolute Basos (auto) 0 (0-0.2) 10^3/ul Absolute Nucleated RBC 0 10^3/ul Nucleated RBC % 0 Sodium 138 (133-145) mmol/L Potassium 4.6 (3.5-5.0) mmol/L Chloride 95 L (101-111) mmol/L Carbon Dioxide 41 H* (22-32) mmol/L Anion Gap 2 (2-11) mmol/L BUN 26 H (6-24) mg/dL Creatinine 1.21 H (0.51-0.95) mg/dL Est GFR ( Amer) 55.9 (>60) Est GFR (Non-Af Amer) 43.5 (>60) BUN/Creatinine Ratio 21.5 H (8-20) Glucose 164 H (70-100) mg/dL Lactic Acid 1.3 (0.5-2.0) mmol/L Calcium 9.3 (8.6-10.3) mg/dL Total Bilirubin 0.30 (0.2-1.0) mg/dL AST 13 (13-39) U/L ALT 8 (7-52) U/L Alkaline Phosphatase 72 (34-104) U/L Total Creatine Kinase 39 (10-223) U/L CK-MB (CK-2) 2.3 (0.6-6.3) ng/mL Myoglobin 41.1 (14.3-65.8) ng/mL Total Protein 6.5 (6.4-8.9) g/dL Albumin 3.5 (3.2-5.2) g/dL Globulin 3.0 (2-4) g/dL Albumin/Globulin Ratio 1.2 (1-3) Result Diagrams: 05/05/17 14:44 05/05/17 14:44 Lab Statement: Any lab studies that have been ordered have been reviewed, and results considered in the medical decision making process. Course/Dx - Course Course Of Treatment: Patient evaluated for tremors bilaterally. Labs show CO2 levels elevated, however has stated she has been on decreased O2 and on arrival to the ED, she had ran out of her oxygen and given more after labs obtained. I have explained she will need to follow up with her PCP about further labs and possible imaging, however the tremors appear to be new parkinsonian in origin with pill rolling and worse with movement. Patient is willing to follow up with her PCP. - Diagnoses Provider Diagnoses: Tremor of both hands Discharge - Discharge Plan Condition: Stable Disposition: HOME Referrals: Lesly Willoughby, SOCIAL SCIENCE INSTRUCTOR [Primary Care Provider] - 3 Days (Lesly needs to be evaluted for parkinsonian like symptoms. ) Additional Instructions: Please follow up with your PCP about your shaking Please call today for an appt.
== END 2017-05-05 16:30 | disposition home or self-care (01) ==
LOC: ED 11:11
DX: R25.1 Tremor, unspecified (principal); R06.02 Shortness of breath; Z87.891 Personal history of nicotine dependence
CPT/HCPCS: 36415; 80053; 82550; 82553; 83605; 83874; 85025; 99282

== ENCOUNTER → 2017-08-06 08:58 | Day surgery (SDC) | payer MEDICARE, MEDICAID ==
[~2017-08-06 08:58] MED LIST: Acetylcysteine CAP (RENAL)* 600 MG PO ONE; Albuterol 2.5 MG/3 ML NEB.SOL* (0.083%) INH PRN; FLUoxetine CAP* 20 MG PO SCH; Famotidine TAB* 20 MG PO SCH; Flumazenil* 0.1 MG/ML 5 ML MDV ONE; Heparin 2 UNITS/ML IVPREMIX* 2,000 ML IV ONE; Heparin(*) 1000 UNIT/ML 10 ML VIAL CATH LAB IV ONE; Iodixanol* (CONTRAST) 320 MG/ML 100 ML SDV IV ONE; Iodixanol* (CONTRAST) 320 MG/ML 100 ML SDV ONE; Lidocaine 1% INJ* 10 MG/ML 30 ML SDV ONE; Midazolam* 1 MG/ML 5 ML VIAL (5 MG) ONE; Naloxone* 0.4 MG/ML 1 ML VIAL ONE; Tiotropium CAP.INH* CAP.INH/18 MCG (USE ORDER SET !) INH SCH; fentaNYL* 50 MCG/ML 2 ML VIAL (100 MCG VIAL) ONE; risperiDONE TAB* 2 MG PO SCH
--- NOTE | 2017-08-07 04:37 | CATH ---
CC: Wound Clinic * PERIPHERAL ANGIOGRAM REPORT: DATE OF PROCEDURE: 08/06/17 - [facility] CATH INDICATIONS: A 72-year-old woman, care home resident with a nonhealing wound in left foot, heel area, undergoing angiography as a part of evaluation for revascularization for limb salvage. Her noninvasive studies show only modestly reduced pressures, CT scan from last year of the pelvis showed extensive calcified atherosclerosis in the aortoiliac vessels. She has a palpable though diminished left femoral pulse which on my ultrasound evaluation is associated with a probably significant distal left common femoral stenosis but with a patent lumen above. PROCEDURE ACCESS: Left common femoral artery with ultrasound guidance and a Doppler needle to facilitate entry above the distal common femoral plaque. With ultrasound guidance and Doppler needle, there was pulsatile flow, a Wholey wire was introduced and advanced without resistance, approximately 20 cm. A 5- [place] sheath was placed; however, would not aspirate. I then gradually pulled the sheath back until there was free return of blood flow. An angiogram was then obtained showing sheath entry in the common femoral with more proximal dissection and no clear demonstration of a proximal lumen. I attempted to identify the true lumen more proximally with the Wholey wire, which was unsuccessful, the procedure was aborted. She will be undergoing a CT angiogram to define her pelvic anatomy. MEDICATIONS: 1. Subcu lidocaine. 2. IV Versed. 3. IV fentanyl. No heparin was given. HEMODYNAMICS: Initial BP 157/97, final BP 136/75. ANGIOGRAPHY: Single injection through the sheath in the left common femoral shows extensive calcification of the femoral artery, a small contained perforation, and dissection surrounding the external iliac artery. There is no visualization of more proximal lumen. The common femoral is calcified and irregular, was visualized only in the upper half. CONCLUSION: 1. 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 2. Unsuccessful incomplete angiogram because of inability to access true lumen. The retrograde dissection was asymptomatic and without hemodynamic sequelae. [id number]/[facility] #: [id number] [facility]
--- NOTE | 2017-08-07 18:00 | RAD ---
INDICATION: Left groin pain following percutaneous arterial access and attempted angiography Relevant surgical history includes appendectomy, hysterectomy, cholecystectomy. COMPARISON: CT abdomen pelvis August 25, 2016 TECHNIQUE: A CT angiogram of the abdomen, pelvis and lower extremities was performed before and following arterial phase intravenous contrast enhancement with 125 mL Visipaque 320. Delayed images of the lower legs were acquired as well. Contiguous axial sections were obtained and reconstructed in the sagittal, coronal planes and a maximum intensity projection 3-D was created. FINDINGS: Non-arterial findings: The lung bases appear clear without significant infiltrate. There are no large pleural effusions. The liver exhibits questionable faint multifocal foci of enhancement. For example at the lateral aspect of the right lobe of the liver there is a subcapsular focus of enhancement measuring 1.2 cm in greatest dimension (axial image 52). The spleen, pancreas and adrenal glands appear to be within normal limits. The gallbladder is surgically absent with clips in the gallbladder fossa.. The renal cortices enhance promptly and symmetrically on these arterial phase images. There is no mass or hydronephrosis. There is a midline abdominal wall hernia containing loop of transverse colon. There are no signs of bowel obstruction or focal inflammatory change. Scattered distal colonic diverticula are seen. Multilevel degenerative changes of the lower thoracic and lumbar spine include loss of intervertebral disc height, marginal osteophyte formation and vacuum disc phenomenon at L2/L3. There is grade 1 anterolisthesis at L4 over L5 similar in appearance to the previous CT examination. Arterial findings: Abdomen & Pelvis: There is advanced calcified atherosclerosis of the lower thoracic and abdominal aorta extending into the bilateral iliac arteries. Coarse atherosclerotic narrowing at the origins of the celiac trunk and superior mesenteric artery causes at least mild stenosis at the origin of the celiac trunk and likely high-grade stenosis at the origin of the superior mesenteric artery. There is coarse atherosclerotic calcification at the bilateral renal arteries causing high-grade stenosis bilaterally. Right leg: There appears to be in-line flow from the aorta through the common and external iliac arteries into the coarsely calcified right common femoral artery where there is eccentric calcification causing at least 50% degree stenosis. There is in-line flow into the proximal right femoral profundus and superficial femoral artery. There are multiple foci of coarse calcification along the right superficial femoral artery most severely at the abductor canal but in-line flow appears to be retained into the popliteal artery. There is continuous arterial phase flow into the proximal infrapopliteal arteries with apparent 2 vessel runoff provided by the right MATTY and SCALPING MACHINE OPERATOR. Left leg: On the noncontrast imaging there is extravascular contrast seen at the level of the left common femoral artery. This contrast tracks superiorly adjacent to the abdominal wall and tracks in the caudal direction surrounding the external iliac artery and vein and superiorly along the anterior surface of the distal psoas muscle. This same amount of contrast in the same area is seen on the arterial phase imaging. At the inferior left retroperitoneal space anterolateral to the psoas muscle there is an asymmetric hyperattenuating collection that measures up to 4.3 x 5.1 cm in the axial plane (image 114 of 506). Dense contrast is seen along the inferior margin of this. Again, there is no significant change or site of active extravasation on the arterial phase imaging. There appears to be patent in-line flow through the left common and external iliac arteries into the left common femoral artery. At the junction of the left external iliac artery and common femoral artery there is a focus of calcification (axial image 143) that causes at least high-grade stenosis if not out right occlusion. There appears to be in-line flow from the distal common femoral artery into the femoral profundus and superficial femoral artery. The left superficial femoral artery exhibits multiple foci of coarse calcification most severely affecting the junction of the SFA and left popliteal artery where there is likely at least high-grade stenosis if not out right occlusion (for example image 284). At the origin of the left anterior tibial artery there is coarse atherosclerotic calcification that likely causes at least high-grade stenosis. The infrapopliteal arteries are diminutive but appear to fill on arterial phase imaging. IMPRESSION: 1. CT findings are consistent with acute extravasation at the distal left external iliac artery/[employer] junction. There is extravascular contrast tracking along the left external iliac artery into the retroperitoneal space communicating with a retroperitoneal hematoma that measures 4.3 x 5.1 cm in the axial plane. Comparing the noncontrast to arterial phase imaging does not reveal any definite active extravasation and the extravascular contrast seen on the CT examination is believed to be from the patient's angiographic procedure. 2. Widespread calcified atherosclerosis as described in more detail above. The more severe and/or clinically relevant following does follows: * There is coarse calcification at the origin of the superior mesenteric artery and bilateral renal arteries. The patient's body habitus indicates she is not suffering clinically from mesenteric ischemia but the appearance of her renal arteries could be seen in the setting of refractory hypertension due to renal artery stenosis. * Coarse calcification causes at least 50% degree narrowing at the right common femoral artery with multiple foci of stenosis at the right superficial femoral artery. Otherwise 2 vessel runoff appears to be provided in the right by the MATTY and SCALPING MACHINE OPERATOR. * At the distal left external iliac artery there is a focus of calcification that at least causes high-grade stenosis if not focal occlusion. * Coarse calcification at the distal left SFA into the popliteal artery causes at least high-grade stenosis if not focal occlusion. * Coarse calcification is seen at the origins of the anterior tibial artery and the tibioperoneal trunk. * Determining patency in the femoral popliteal and infrapopliteal arteries particularly the left lower extremity will likely require catheter arteriography. 3. Questionable multiple enhancing foci seen throughout the liver. This could be due to the timing of the contrast bolus (i.e. this appears to be late arterial phase, early venous phase) which causes the appearance of inhomogenous enhancement of the liver. Recommend nonemergent ultrasound of the liver for further characterization. 4. Additional chronic, degenerative and iatrogenic findings described in the body the report unlikely to be acutely symptomatic or directly related to the patient's current presentation. Dr. Saldaña was made aware of the extravasation and retroperitoneal hematoma at approximately 1400 hours on August 06, [address] images were reviewed in person with him shortly afterwards.
== END | disposition home or self-care (01) ==
LOC: CHICATH 08:58
PROVIDERS: ATTEND Internal Medicine Cardiovascular Disease
DX: I70.244 Atherosclerosis of native arteries of left leg with ulceration of heel and midfoot (principal); I48.0 Paroxysmal atrial fibrillation; J44.9 Chronic obstructive pulmonary disease, unspecified; D64.9 Anemia, unspecified; I10 Essential (primary) hypertension; Z87.891 Personal history of nicotine dependence
CPT/HCPCS: 75635; 75736; 76937; 99156; 99157; A9270-GY; C1887; J1644; J2250; J2310; J3010; Q9967

== ENCOUNTER 2017-08-06 16:30 | Observation (INO) | payer MEDICARE, MEDICAID ==
[2017-08-06] MEDS ORDERED: oxyCODONE TAB* 5 MG TAB PO PRN (18:26)
[2017-08-06] MEDS ORDERED: Magnesium Hydroxide LIQ* 30 ML UDC PO PRN (18:26)
[2017-08-06] MEDS ORDERED: Albuterol 2.5 MG/3 ML NEB.SOL* (0.083%) INH PRN (18:26)
[2017-08-06] MEDS ORDERED: clonazePAM TAB(*) 0.5 MG PO PRN (18:26)
[2017-08-06 19:50] LABS: Hematocrit 30 % (35-47); Hemoglobin 9.8 g/dl (12.0-16.0)
[2017-08-06] MEDS: Pregabalin CAP(*) 25 MG PO SCH (20:10)
[2017-08-06] MEDS: FLUoxetine CAP* 20 MG PO SCH (20:10)
[2017-08-06] MEDS: Senna TAB PO SCH (20:11)
[2017-08-06] MEDS: Omeprazole CAP* 20 MG PO SCH (20:11)
[2017-08-06] MEDS: Mirtazapine TAB* 15 MG PO SCH (20:13)
[2017-08-06] MEDS: risperiDONE TAB* 2 MG PO SCH (20:15)
[2017-08-06] MEDS: Nystatin TOP POWDER* 15 GM BTL TOPICAL SCH (20:15)
[2017-08-06] MEDS: Nystatin CREAM* 15 GM TUBE TOPICAL SCH (20:48)
[2017-08-07] MEDS: Tiotropium CAP.INH* CAP.INH/18 MCG (USE ORDER SET !) INH SCH (08:28)
[2017-08-07] MEDS ORDERED: Spiriva Inhaler DEVICE* 1 EACH DEVICE INH ONE (09:00)
[2017-08-07] MEDS: Lisinopril TAB* 10 MG PO SCH (11:24)
[2017-08-07] MEDS: FLUoxetine CAP* 20 MG PO SCH ×2 (11:24→20:19)
[2017-08-07] MEDS: Furosemide TAB* 20 MG PO SCH (11:24)
[2017-08-07] MEDS: Aspirin EC Low Dose* 81 MG TAB.EC PO SCH (11:24)
[2017-08-07] MEDS: Omeprazole CAP* 20 MG PO SCH ×2 (11:24→17:37)
[2017-08-07] MEDS: Senna TAB PO SCH ×2 (11:25→20:20)
[2017-08-07] MEDS: Famotidine TAB* 20 MG PO SCH (11:25)
[2017-08-07] MEDS: Metoprolol Tartrate TAB* 25 MG PO SCH (11:25)
[2017-08-07] MEDS: Nystatin TOP POWDER* 15 GM BTL TOPICAL SCH ×3 (11:25→20:27)
[2017-08-07] MEDS: amLODIPine TAB* 5 MG PO SCH (11:25)
[2017-08-07] MEDS: Nystatin CREAM* 15 GM TUBE TOPICAL SCH ×3 (11:26→22:02)
[2017-08-07] MEDS: Pregabalin CAP(*) 25 MG PO SCH ×3 (11:38→20:18)
[2017-08-07] MEDS ORDERED: Ondansetron INJ* 2 MG/ML VIAL IV ONE (13:00)
[2017-08-07 15:14] LABS: ABS Basophils 0 10^3/ul (0-0.2); ABS Eosinophils 0 10^3/ul (0-0.6); ABS Lymphocytes 1.5 10^3/ul (1.0-4.8); ABS Monocytes 0.4 10^3/ul (0-0.8); ABS Neutrophils 3.6 10^3/ul (1.5-7.7); ABS Nucleated RBC 0 10^3/ul; Eosinophil % 0.4 % (0-6); Hematocrit 28 % (35-47); Hemoglobin 9.4 g/dl (12.0-16.0); Lymphocyte % 26.8 % (25-47); Mean Corpuscular HGB Conc 33 g/dl (31-36); Mean Corpuscular Hemoglobin 31 pg (27-31); Mean Corpuscular Volume 92 fL (80-97); Mean Platelet Volume 9 um3 (7.4-10.4); Nucleated Red Blood Cells % 0; Platelet Count 138 10^3/ul (150-450); Red Blood Count 3.07 10^6/ul (4.0-5.4); Red Cell Distribution Width 14 % (10.5-15); White Blood Count 5.6 10^3/ul (3.5-10.8)
[2017-08-07 15:41] LABS: EGFR Non-African American 55.5 (>60)
[2017-08-07] MEDS: Mirtazapine TAB* 15 MG PO SCH (20:19)
[2017-08-07] MEDS: risperiDONE TAB* 2 MG PO SCH (20:19)
[2017-08-08 01:30] LABS: ABS Basophils 0 10^3/ul (0-0.2); ABS Eosinophils 0.1 10^3/ul (0-0.6); ABS Lymphocytes 1.8 10^3/ul (1.0-4.8); ABS Monocytes 0.5 10^3/ul (0-0.8); ABS Neutrophils 2.9 10^3/ul (1.5-7.7); ABS Nucleated RBC 0 10^3/ul; Eosinophil % 2.2 % (0-6); Hematocrit 26 % (35-47); Hemoglobin 8.4 g/dl (12.0-16.0); Lymphocyte % 33.3 % (25-47); Mean Corpuscular HGB Conc 33 g/dl (31-36); Mean Corpuscular Hemoglobin 30 pg (27-31); Mean Corpuscular Volume 92 fL (80-97); Mean Platelet Volume 9 um3 (7.4-10.4); Nucleated Red Blood Cells % 0; Platelet Count 131 10^3/ul (150-450); Red Blood Count 2.81 10^6/ul (4.0-5.4); Red Cell Distribution Width 14 % (10.5-15); White Blood Count 5.4 10^3/ul (3.5-10.8)
[2017-08-08] MEDS: Tiotropium CAP.INH* CAP.INH/18 MCG (USE ORDER SET !) INH SCH (08:18)
[2017-08-08] MEDS: Pregabalin CAP(*) 25 MG PO SCH (09:04)
[2017-08-08] MEDS: Aspirin EC Low Dose* 81 MG TAB.EC PO SCH (09:05)
[2017-08-08] MEDS: amLODIPine TAB* 5 MG PO SCH (09:05)
[2017-08-08] MEDS: Omeprazole CAP* 20 MG PO SCH (09:05)
[2017-08-08] MEDS: Furosemide TAB* 20 MG PO SCH (09:05)
[2017-08-08] MEDS: Famotidine TAB* 20 MG PO SCH (09:05)
[2017-08-08] MEDS: FLUoxetine CAP* 20 MG PO SCH (09:05)
[2017-08-08] MEDS: Senna TAB PO SCH (09:05)
[2017-08-08] MEDS: Metoprolol Tartrate TAB* 25 MG PO SCH (09:05)
[2017-08-08] MEDS: Nystatin TOP POWDER* 15 GM BTL TOPICAL SCH (09:06)
[2017-08-08] MEDS: Nystatin CREAM* 15 GM TUBE TOPICAL SCH (09:06)
[2017-08-08] MEDS: Lisinopril TAB* 10 MG PO SCH (09:06)
[2017-08-08 09:12] VITALS: BP 123/59
--- NOTE | 2017-08-08 14:56 | DS ---
CC: Dr. Willoughby; Dr. Unique Saldaña; Dr. Rondon DISCHARGE SUMMARY: DATE OF ADMISSION: 08/06/17 DATE OF DISCHARGE: 08/07/17 PRIMARY CARE PHYSICIAN: Dr. Willoughby. DISCHARGE DIAGNOSES: 1. Critical limb ischemia. 2. Hypertension. 3. Atrial fibrillation. 4. Gastroesophageal reflux disease. 5. Chronic obstructive pulmonary disease. PROCEDURE: Left femoral artery angiogram CT and angiography. HISTORY: See outpatient H and P. LABORATORY DATA: CBC on 08/01/17, hemoglobin 9.3, hematocrit 29, on the hemoglobin 9.8. Today, hemoglobin is 9.4. Platelet count low at 138,000 today , which is chronic. BNP 323, BUN 16, creatinine 0.95, today BUN 17, creatinine 0.98. HOSPITAL COURSE: She underwent outpatient angiography for evaluation of a nonhealing calcaneal wound, left foot. Ultrasound evaluation in the [facility] by myself revealed distal left common femoral artery plaque with patency, but stenosis, but a patent common femoral artery more proximally. Prior CT in 2017 revealed calcified atherosclerosis at the proximal iliacs bilaterally, hence left femoral artery was approached for retrograde puncture with ultrasound and a Doppler needle with the intent of revascularizing inflow. The mid common femoral was easily entered with a Doppler needle with pulsatile flow, a Wholey wire was advanced, but resulted in dissection which was contained. It was impossible to reenter the true lumen. The procedure was terminated. A CT scan was obtained, which showed extravasation of contrast within the pelvis around the iliac artery, but no additional bleeding from the initial images after contrast injection. She had no hypotension, hemoglobin remained stable, there was no physical exam evidence of groin bleeding. She was observed overnight with stable pressures, stable hemoglobin, she is now being returned back to her care home. The plan is to bring her back for contralateral access as the distal iliac disease is too close to the common femoral to allow retrograde revascularization. At that time, we will also image the left lower extremity for potential lower extremity revascularization. Today, vitals are stable, the left groin site is stable without hematoma or bruits. [id number]/[facility] #: [id number] [facility]IDE HOSPITALDennis
== END 2017-08-08 09:45 ==
LOC: MEDTELE 16:31
PROVIDERS: ADMIT Internal Medicine Cardiovascular Disease; ATTEND Internal Medicine Cardiovascular Disease
DX: I70.244 Atherosclerosis of native arteries of left leg with ulceration of heel and midfoot (principal); I99.8 Other disorder of circulatory system; I10 Essential (primary) hypertension; I48.91 Unspecified atrial fibrillation; K21.9 Gastro-esophageal reflux disease without esophagitis; J44.9 Chronic obstructive pulmonary disease, unspecified; I73.9 Peripheral vascular disease, unspecified; I72.3 Aneurysm of iliac artery; Z79.899 Other long term (current) drug therapy; Z95.0 Presence of cardiac pacemaker; Z87.891 Personal history of nicotine dependence
CPT/HCPCS: 36415; 80048; 85014; 85018; 85025; 87641; 94640; 94760; 96374; A9270-GY; G0378; J2405

== ENCOUNTER → 2017-09-02 10:38 | Day surgery (SDC) | payer MEDICARE, MEDICAID ==
[~2017-09-02 10:38] MED LIST changes: -Acetylcysteine CAP (RENAL)* 600 MG PO ONE; -Albuterol 2.5 MG/3 ML NEB.SOL* (0.083%) INH PRN; +Atropine SYRINGE* 0.1 MG/ML 10 ML SYRINGE (1 MG) ONE; +Clopidogrel TAB* 300 MG ONE; -FLUoxetine CAP* 20 MG PO SCH; +Famotidine IV* 10 MG/ML 2 ML (20 mg) ONE; -Famotidine TAB* 20 MG PO SCH; -Flumazenil* 0.1 MG/ML 5 ML MDV ONE; +Heparin 2 UNITS/ML IVPREMIX* 1,000 ML IV ONE; +Iohexol 350 (CONTRAST) 200 ML MDV IV ONE; +NS 0.9% 1000 ML* 1,000 ML IV SCH; -Naloxone* 0.4 MG/ML 1 ML VIAL ONE; +Ondansetron INJ* 2 MG/ML VIAL ONE; -Tiotropium CAP.INH* CAP.INH/18 MCG (USE ORDER SET !) INH SCH; +nitroGLYCERIN DRIP* 0 MCG/0 ML BTL ONE; -risperiDONE TAB* 2 MG PO SCH
[2017-09-02 18:59] LABS: ABS Basophils 0 10^3/ul (0-0.2); ABS Eosinophils 0.1 10^3/ul (0-0.6); ABS Lymphocytes 2.7 10^3/ul (1.0-4.8); ABS Monocytes 0.4 10^3/ul (0-0.8); ABS Neutrophils 3.5 10^3/ul (1.5-7.7); ABS Nucleated RBC 0 10^3/ul; Eosinophil % 1.5 % (0-6); Hematocrit 25 % (35-47); Hemoglobin 8.4 g/dl (12.0-16.0); Lymphocyte % 40.1 % (25-47); Mean Corpuscular HGB Conc 33 g/dl (31-36); Mean Corpuscular Hemoglobin 30 pg (27-31); Mean Corpuscular Volume 92 fL (80-97); Nucleated Red Blood Cells % 0; Platelet Count 127 10^3/ul (150-450); Red Blood Count 2.75 10^6/ul (4.0-5.4); Red Cell Distribution Width 14 % (10.5-15); White Blood Count 6.7 10^3/ul (3.5-10.8)
[2017-09-02 19:10] LABS: EGFR Non-African American 62.8 (>60)
--- NOTE | 2017-09-02 20:57 | RAD ---
CLINICAL HISTORY: Right groin hematoma after cardiac catheterization COMPARISON: Most recent comparison CT of the abdomen and pelvis is dated August 25, 2016 TECHNIQUE: Noncontrast images of the abdomen and pelvis were obtained. Contrast enhanced CT examination of the pelvis from the lung bases through the initial tuberosities. The patient received 1 mL Visipaque 320 intravenously prior to imaging according to the arterial, portal venous phase and delayed phase images. FINDINGS: VISUALIZED LUNG BASES: The visualized lung bases are grossly clear. There is no pleural effusion. ABDOMEN AND PELVIS: The liver, spleen, pancreas and adrenal glands are grossly normal in appearance. The gallbladder is normal. The kidneys are normal in appearance without focal mass, calcification or signs of hydronephrosis. Excreted contrast from the patient's cardiac catheterization is noted. Evaluation of the gastrointestinal tract is limited without oral contrast. The small and large bowel are not distended. There is a left of midline abdominal hernia containing loops of colon. There are no signs of obstruction. There is no gross retroperitoneal or mesenteric lymphadenopathy. The uterus is surgically absent. Degenerative changes include multilevel loss of intervertebral disc height involving the lower thoracic and lumbar spine.There are no sinister bone lesions. In the subcutaneous tissue overlying the right groin there is a hyperattenuating collection measuring 6.3 x 9.7 cm in the axial plane and approximately 12 cm in cephalocaudal dimension. This is consistent with a large hematoma according to the patient's history. There is extensive calcified atherosclerosis of the abdominal aorta extending into the iliac arteries and bilateral common femoral arteries. Arterial phase images do not reveal any definite active extravasation from the right external iliac artery, common femoral artery or superficial femoral artery. On the portal venous phase and delayed phase imaging there is no significant change either in the size or density of the subcutaneous hematoma. IMPRESSION: 1. Large subcutaneous hematoma overlying the right groin status post percutaneous arterial access for cardiac catheterization. [address] imaging does not demonstrate any active extravasation, change in size of the hematoma or progressive increased density that would be consistent with active bleeding. 2. Extensive chronic and degenerative changes described in the body the report unrelated to the recent cardiac catheterization. Findings were discussed with Dr. Santoro over the telephone shortly after image acquisition on September 02, 2017.
== END | disposition short-term general hospital (02) ==
LOC: CHICATH 10:38
PROVIDERS: ATTEND Internal Medicine Cardiovascular Disease
DX: I70.244 Atherosclerosis of native arteries of left leg with ulceration of heel and midfoot (principal); Y83.8 Other surgical procedures as the cause of abnormal reaction of the patient, or of later complication, without mention of misadventure at the time of the procedure
CPT/HCPCS: 36415; 74176; 74177; 75625; 76937; 80053; 84484; 85025; 85730; 86850; 86900; 86901; 86922; 99156; 99157; A9270-GY; C1725; C1769; C1887; J0461; J1644; J2250; J2405; J3010; P9040; Q9967

== ENCOUNTER 2017-09-02 18:30 | Observation (INO) | payer MEDICARE, MEDICAID ==
[2017-09-02] MEDS ORDERED: Iodixanol* (CONTRAST) 320 MG/ML 100 ML SDV IV ONE (20:37)
[2017-09-02] MEDS ORDERED: Ondansetron INJ* 2 MG/ML VIAL IV PRN (21:13)
[2017-09-02] MEDS ORDERED: fentaNYL* 50 MCG/ML 2 ML VIAL (100 MCG VIAL) IV PRN (21:14)
[2017-09-02] MEDS: DOPAMINE IV SCH (22:34)
[2017-09-02] MEDS: [UNRECOGNIZED DRUG - OTHER] IV SCH (22:34)
[2017-09-03 00:35] LABS: Hematocrit 29 % (35-47); Hemoglobin 9.7 g/dl (12.0-16.0)
[2017-09-03] MEDS ORDERED: diPHENhydraMINE IV* 50 MG/ML 1 ml VIAL (BENADRYL) IV ONE (03:00)
[2017-09-03] MEDS ORDERED: Acetaminophen SUPP* 650 MG SUPP PR PRN (03:03)
[2017-09-03] MEDS ORDERED: Acetaminophen TAB* 325 MG PO PRN (03:04)
[2017-09-03] MEDS: [UNRECOGNIZED DRUG - OTHER] IV SCH (03:08)
[2017-09-03] MEDS: DOPAMINE IV SCH (03:08)
[2017-09-03 03:31] LABS: Hematocrit 27 % (35-47); Hemoglobin 9.1 g/dl (12.0-16.0); Mean Corpuscular HGB Conc 33 g/dl (31-36); Mean Corpuscular Hemoglobin 30 pg (27-31); Mean Corpuscular Volume 89 fL (80-97); Mean Platelet Volume 8.7 um3 (7.4-10.4); Platelet Count 134 10^3/ul (150-450); Red Blood Count 3.05 10^6/ul (4.0-5.4); Red Cell Distribution Width 15 % (10.5-15); White Blood Count 6.9 10^3/ul (3.5-10.8)
[2017-09-03] MEDS ORDERED: Albuterol 2.5 MG/3 ML NEB.SOL* (0.083%) INH PRN (07:22)
[2017-09-03 07:24] LABS: Hematocrit 26 % (35-47); Hemoglobin 8.8 g/dl (12.0-16.0); Mean Corpuscular HGB Conc 34 g/dl (31-36); Mean Corpuscular Hemoglobin 30 pg (27-31); Mean Corpuscular Volume 89 fL (80-97); Mean Platelet Volume 8.9 um3 (7.4-10.4); Platelet Count 132 10^3/ul (150-450); Red Blood Count 2.91 10^6/ul (4.0-5.4); Red Cell Distribution Width 15 % (10.5-15); White Blood Count 6.1 10^3/ul (3.5-10.8)
--- NOTE | 2017-09-03 07:24 | CONSULT ---
Consult Consult: PCP: Wally Willoughby NP Date/Time: 09/02/2017 0230 Reason for Consult: fever HPI: Mrs Mejia is a 72YO female HX AFIB, HTN, COPD, cerebral aneurysm s/p surgery who underwent an elective cardiac cath today complicated by hemorrhage for which she is being observed. Unexpectedly she developed a fever of 102F undergoing a blood transfusion. Consult was requested to evaluate for infectious etiology vs more likely transfusion reaction. Upon evaluation, Mrs Mejia reports feeling hot, but otherwise denies complaints, specifically cough, congestion, change in bowel/bladder, abdominal pain, N/V, or other issues. PMedHx cerebral aneurysm s/p surgery AFIB COPD HTN HLD GERD legally blind psychosis oral cancer s/p excision Ambulatory Orders Aspirin EC Low Dose* [Ecotrin EC Low Dose 81 MG*] 81 mg PO DAILY tab.ec Furosemide TAB* [Lasix TAB*] 20 mg PO DAILY tab 09/10/16 Mirtazapine TAB* [Remeron TAB*] 7.5 mg PO BEDTIME tab 09/10/16 Lisinopril TAB* [Prinivil TAB 10 MG*] 10 mg PO DAILY #0 tab 08/08/17 Albuterol 2.5MG/3ML (0.083%)* [Ventolin 2.5 MG/3 ML NEB.LINDA*] 2.5 mg INH Q6HR FLUoxetine CAP* [Prozac CAP*] 40 mg PO BID 08/18/17 Ferrous Sulfate 325 mg PO DAILY 08/18/17 Omeprazole CAP* [Prilosec CAP* 20 MG] 40 mg PO BID 08/18/17 Pregabalin CAP(*) [Lyrica CAP(*)] 25 mg PO TID MDD 100 08/18/17 amLODIPine TAB* [Norvasc 5 mg TAB*] 5 mg PO DAILY 08/18/17 clonazePAM TAB(*) [Klonopin TAB(*)] 0.5 mg PO BID MDD 1 08/18/17 risperiDONE TAB* [Risperdal*] 1 mg PO Q12H 08/18/17 Multivitamin [Multivitamins] 1 cap PO DAILY 09/01/17 Cyanocobalamin INJ * [Vitamin B12 INJ *] 1,000 mcg IM MONTHLY 09/02/17 Famotidine TAB* [Pepcid 20 MG TAB*] 20 mg PO DAILY 09/02/17 Oxycodone HCl 5 mg PO Q6HR 09/02/17 Propylene Glycol/Peg 400/Pf [Systane 0.3-0.4% Eye Drops] 1 each OP QID 09/02/17 Tiotropium CAP.INH* [Spiriva CAP.INH*] 1 cap.inh INH DAILY 09/02/17 Allergies Adhesive Tape Allergy (Verified 08/30/16 17:38) Blisters PSurgHx oral cancer excision cholecystectomy SocHx: former smoker w/ ~10PYHX, HX alcohol abuse but denies currently, denies recreational drugs; DNR code status FamHx: Mother: passed of "old age"; Father: passed 2nd MVA ROS: as above, otherwise reviewed and all were negative vitals: Vital Signs Temp 37.7 C 09/03/17 06:24 Pulse 55 09/03/17 06:30 Resp 20 09/03/17 06:30 BP 110/59 09/03/17 06:30 Pulse Ox 98 09/03/17 06:30 Constitutional: NAD, normally developed, obese elderly white female HEENM: atraumatic; sclera/conjunctiva: anicteric/clear; hearing: clinically mildly decreased; oropharynx: clear, moist Neck: soft tissue: non-tender; thyroid: normal Pulmonary: clear to auscultation bilaterally, good aeration, no accessory muscle use CV: RR/RR, normal S1S2, no carotid bruit, no jugular venous distention, 2+ B DP/ PT, no edema Abdominal: soft, non-distended, non-tender, no rebound/guarding/rigidity, normoactive bowel sounds, no hepatosplenomegaly or masses, no costovertebral angle tenderness Musculoskeletal: general: grossly intact Integumental: stage 2 ulcer L heal without warmth, erythema, induration, drainage, or maloder; stage 1 coccygeal pressure wound Psychiatric orientation: AA&O to PPS affect: calm mood: cooperative eye contact: fair content: reliable responses: mildly slowed insight: fair Testing: urine pending Lab Results 09/03/17 09/03/17 09/03/17 Range/Units 00:30 02:20 03:05 WBC 6.9 (3.5-10.8) 10^3/ul RBC 3.05 L (4.0-5.4) 10^6/ul Hgb 9.7 L 9.1 L (12.0-16.0) g/dl Hct 29 L 27 L (35-47) % MCV 89 (80-97) fL MCH 30 (27-31) pg MCHC 33 (31-36) g/dl RDW 15 (10.5-15) % Plt Count 134 L (150-450) 10^3/ul MPV 8.7 (7.4-10.4) um3 Influenza A (Rapid) (Negative) Influenza B (Rapid) (Negative) Transfusion React Rpt Pending Donor Unit # [id number] Post-Trans Blood Type A Negative Post-Trans DORON Negative Reaction Interpretation Pending 09/03/17 Range/Units 06:12 WBC (3.5-10.8) 10^3/ul RBC (4.0-5.4) 10^6/ul Hgb (12.0-16.0) g/dl Hct (35-47) % MCV (80-97) fL MCH (27-31) pg MCHC (31-36) g/dl RDW (10.5-15) % Plt Count (150-450) 10^3/ul MPV (7.4-10.4) um3 Influenza A (Rapid) Negative (Negative) Influenza B (Rapid) Negative (Negative) Transfusion React Rpt Donor Unit # Post-Trans Blood Type Post-Trans DORON Reaction Interpretation CXR, personally reviewed: cardiomegaly, no acute process noted Impression: 72F admitted for post-cardiac cath hemorrhage who developed a fever of 102F DIAGNOSIS & PLAN Primary fever : most likely transfusion reaction : blood CX & UA pending : influenza negative : CXR negative : no source identified : continue to monitor temperature & WBC curves : no indication for ABX at this time : supportive care post-cath hemorrhage : management per cardiology Secondary cerebral aneurysm s/p surgery : no acute issues AFIB : management per cardiology COPD : albuterol PRN : continue tiotropium HTN : management per cardiology HLD : management per cardiology GERD : continue omeprazole & famotidine legally blind : no acute issues psychosis : continue risperidone
[2017-09-03 07:56] LABS: EGFR Non-African American 59.7 (>60)
[2017-09-03] MEDS ORDERED: risperiDONE TAB* 1 MG PO SCH (08:00)
--- NOTE | 2017-09-03 08:04 | RAD ---
HISTORY: Sepsis COMPARISONS: August 22, 2016 VIEWS: 1: frontal portable view of the chest at 2:58 PM FINDINGS: LINES AND TUBES: None. CARDIOMEDIASTINAL SILHOUETTE: The cardiac silhouette is mildly enlarged. The cardiomediastinal silhouette is otherwise normal for portable technique. PLEURA: Again noted are calcified pleural plaques. LUNG PARENCHYMA: The lungs are clear. ABDOMEN: The upper abdomen is clear. There is no subphrenic gas. BONES AND SOFT TISSUES: Degenerative changes are noted IMPRESSION: 1. MILD CARDIOMEGALY. 2. CALCIFIED PLEURAL PLAQUES. 3. NO ACTIVE CARDIOPULMONARY DISEASE.
[2017-09-03] MEDS: NS 0.9% 1000 ML* 1,000 ML IV SCH ×2 (08:22)
[2017-09-03] MEDS ORDERED: Spiriva Inhaler DEVICE* 1 EACH DEVICE INH ONE (09:00)
[2017-09-03] MEDS ORDERED: Tiotropium CAP.INH* CAP.INH/18 MCG (USE ORDER SET !) INH SCH (09:00)
[2017-09-03] MEDS ORDERED: Omeprazole CAP* 20 MG PO SCH (09:00)
[2017-09-03] MEDS ORDERED: Nystatin TOP POWDER* 15 GM BTL TOPICAL SCH (10:00)
[2017-09-03 12:08] LABS: Hematocrit 24 % (35-47); Hemoglobin 8.2 g/dl (12.0-16.0)
[2017-09-03 12:09] LABS: Urine Appearance Clear; Urine Blood 1+ (Negative); Urine Color Yellow; Urine Ketones Negative (Negative); Urine Protein Negative (Negative); Urine Specific Gravity 1.027 (1.010-1.030); Urine Urobilinogen Negative (Negative)
[2017-09-03 15:48] VITALS: BP 140/54
--- NOTE | 2017-09-03 18:36 | DS ---
CC: Dr. Willoughby; [facility] * DISCHARGE SUMMARY: DATE OF ADMISSION: 09/02/17 DATE OF DISCHARGE: 09/03/17 PRIMARY CARE PHYSICIAN: Dr. Willoughby. DISCHARGE DIAGNOSES: 1. Critical limb ischemia, left heel. 2. Hypotension due to acute blood loss. 3. Hypertension. 4. History of atrial fibrillation. 5. Gastroesophageal reflux disease. 6. Chronic obstructive pulmonary disease. 7. Debility. PROCEDURE: Right common femoral artery access, angioplasty left anterior tibial and left TP trunk. CONSULTATION: Dr. Mckeon, Hospitalist Medicine. DISCHARGE INSTRUCTIONS: Do not lift more than 20 pounds for 3 days. Wound care , shower only for 3 days. DISCHARGE MEDICATIONS: 1. Pepcid 20 mg daily. 2. Spiriva daily. 3. Vitamin B12, 1000 mcg monthly. 4. Oxycodone 5 mg q.6 p.r.n. 5. Klonopin 0.5 mg b.i.d. 6. Norvasc 5 mg daily, to resume on 09/04/17. 7. Lyrica 25 mg t.i.d. 8. Remeron 7.5 mg h.s. 9. Lasix 20 mg daily, to resume on 09/04/17. 10. Lisinopril 10 mg daily, to resume on 09/04/17. 11. Prozac 40 mg b.i.d. 12. Ventolin 2.5/3 q.6 p.r.n. 13. Aspirin 81 mg daily. 14. Iron 325 mg daily. 15. Risperdal 1 mg q.12. 16. Plavix 75 mg daily. LABORATORY DATA: BMP on 09/02/17 notable only for random blood sugar of 252. On 09/02/17, hemoglobin was 8.4; 09/03/17, 9.7 and 9.1; this morning 8.8, this afternoon at 11:30, 8.2. Platelet count chronically depressed in the 120,000's to 130,000's. Creatinine stable at 0.92 with normal electrolytes. HOSPITAL COURSE: She underwent an outpatient angiography for evaluation of a nonhealing wound left heel, recent angiogram via the left groin demonstrated distal external iliac disease, procedure was accompanied by dissection and was abandoned. She now returns for right groin retrograde access with up and over angiography. Access was achieved with ultrasound guidance just proximal to a calcified common femoral plaque. Angiography demonstrated a plaque in the distal left external iliac/common femoral as well as the SFA origin, but there was no gradient using a 4- Armenian catheter. This area was therefore not treated. More distally, she had high- grade stenosis at the origin of the anterior tibial as well as the TP trunk, the peroneal was patent as was the distal anterior tibial. The posterior tibial was occluded proximally, as well as occluded in the lateral plantar. She had successful balloon angioplasty of the anterior tibial origin and the TP trunk origin with improved antegrade flow with perfusion to the foot and side branch filling to the area of the ulcer of the lateral aspect of the left heel. If she fails to heal with continued wound care, there is the option for pedal access to attempt to revascularize the posterior tibial and lateral plantar branches. Postprocedure, she developed a hematoma in the abdominal wall without any retroperitoneal bleeding, was hypotensive and required dopamine as well as _ and 1 unit of packed cells. Hemoglobin today as above. She is off dopamine, blood pressure is stable, she is asymptomatic. She has tenderness in the right groin without bruits or evident hematoma. She will return to [facility]. I have stopped her low-dose beta-awais as she has episodes of asymptomatic sinus bradycardia in the 30s and 40s. She will resume her antihypertensives tomorrow. She has a scheduled wound check for next week. We will check CBC and BMP day after tomorrow. [id number]/[facility] #: [id number] [facility]
[2017-09-03] MEDS ORDERED: Mirtazapine TAB* 15 MG PO SCH (21:00)
--- NOTE | 2017-09-05 09:15 | CATH ---
CC: Dr. Rondon; [facility]. * PERIPHERAL ANGIOGRAM AND INTERVENTION REPORT: DATE OF PROCEDURE: 09/02/17 - ROOM #ICU-05 PRIMARY PHYSICIAN: Dr. Rondon. PROCEDURE: Right common femoral artery access, retrograde with ultrasound guidance; bilateral aortoiliac angiography, left common femoral artery, SFA and popliteal angiography, left below-knee DSA with injection in the popliteal. HISTORY: A 72-year-old woman with nonhealing wound left lateral heel. Three weeks ago, left common femoral retrograde access was performed to assess a suspected significant common iliac artery stenosis; this was accompanied by dissection, procedure was terminated without sequelae. She is now brought back for right-sided contralateral access. PROCEDURE: Access right common femoral artery with ultrasound guidance, sheath 5 x 11. A 5-Australian pigtail was introduced, used for bilateral aortoiliac angiography. A 6-Australian 90 Destination sheath was then introduced over ZIPwire and positioned in the left common femoral. A 4-Australian straight catheter was used to measure gradient through the left common femoral and SFA origins; no gradient was present. Below- knee angiography demonstrated significant stenosis at the origin of the anterior tibial and TP trunk. This was dilated with a 2.5 x 40 mm NanoCross Balloon with stepwise inflation to 5 atmospheres for 180 seconds in the anterior tibial. The same balloon was then used for gradual stepwise inflation to 6 atmospheres for 180 seconds in the TP trunk and peroneal. MEDICATIONS: 1. Subcu lidocaine. 2. IV Versed. 3. IV Fentanyl. 4. Heparin 6,000 units. HEMODYNAMICS: Initial BP 170/78. Final BP 160/75. ANGIOGRAPHY: Sheath entry is just above a calcified eccentric common femoral plaque which was identified on ultrasound; the artery was entered just above the calcified plaque. Right common femoral angiogram shows the SFA proximally to be patent on the right as is the right profunda. There is a calcified plaque in the distal common femoral. The right external and internal iliacs are patent. Pigtail injection distal abdominal aorta shows the common iliacs bilaterally to be patent as are the internal and external iliacs. The left common femoral has an eccentric 40% stenosis, the profunda is patent, the SFA origin has a 50% stenosis, and there was no gradient through both of these. Left SFA is patent with luminal irregularity, but no significant stenosis. The left popliteal is patent without stenosis. The left anterior tibial has ostial 75-80% stenosis followed by a centimeter of moderate stenosis before the anterior tibial is occluded at the ankle without filling of the dorsalis pedis. The peroneal is patent to the ankle. The posterior tibial is occluded proximally. There is faint filling of the plantars via collaterals. Patent to the deep plantar. CONCLUSION: Successful revascularization of origin of left anterior tibial and peroneal and TP trunk; occluded posterior tibial. There is potential for revascularization in the posterior tibial anterograde as well as possibly retrograde. The pedal loop is not patent. If she fails to heal her heel wound , she is a candidate for repeat attempt at percutaneous revascularization of the posterior tibial as well as possibly a pedal approach. [id number]/[facility] #: [id number] CHOLO
== END 2017-09-03 15:45 | disposition home or self-care (01) ==
LOC: ICU 18:30 → INTOOBSV 18:30
PROVIDERS: ADMIT Internal Medicine Cardiovascular Disease; ATTEND Internal Medicine Cardiovascular Disease
DX: I99.8 Other disorder of circulatory system (principal); I95.89 Other hypotension; I67.1 Cerebral aneurysm, nonruptured; R50.9 Fever, unspecified; I10 Essential (primary) hypertension; I48.91 Unspecified atrial fibrillation; J44.9 Chronic obstructive pulmonary disease, unspecified; R53.81 Other malaise; Z79.01 Long term (current) use of anticoagulants; Z79.899 Other long term (current) drug therapy; I97.621 Postprocedural hematoma of a circulatory system organ or structure following other procedure; L76.32 Postprocedural hematoma of skin and subcutaneous tissue following other procedure; Y83.8 Other surgical procedures as the cause of abnormal reaction of the patient, or of later complication, without mention of misadventure at the time of the procedure; Y92.239 Unspecified place in hospital as the place of occurrence of the external cause; Z87.891 Personal history of nicotine dependence; K21.9 Gastro-esophageal reflux disease without esophagitis; E78.5 Hyperlipidemia, unspecified; I51.7 Cardiomegaly; I70.244 Atherosclerosis of native arteries of left leg with ulceration of heel and midfoot
CPT/HCPCS: 36415; 36430; 71045; 74176; 74177; 75625; 76937; 80053; 81003; 81015; 84484; 85014; 85018; 85025; 85027; 85730; 86078; 86140; 86850; 86900; 86901; 86922; 87040; 87086; 87502; 87641; 94640; 96374; 96375; 99156; 99157; A9270-GY; C1725; C1769; C1887; G0378; J0461; J1200; J1265; J1644; J2250; J2405; J3010; P9040; Q9967

== ENCOUNTER 2018-09-17 16:40 | Inpatient (IN) | payer MEDICARE, MEDICAID ==
--- NOTE | 2018-09-17 17:04 | ED ---
Shortness of Breath - HPI Summary HPI Summary: 73 year old F brought in by [facility] ambulance from [facility] to [facility] complains of shortness of breath since yesterday. Symptoms aggravated by nothing. Symptoms alleviated by nothing. Patient denies chest pain. Patient wears 3L O2 at home. Resp rate in 20s and O2 100 on bipap in room. - History of Current Complaint Chief Complaint: EDRespiratoryDistress Time Seen by Provider: 09/17/18 16:53 Hx Obtained From: Patient Onset/Duration: Lasting Days - yesterday, Still Present Timing: Constant Aggrevating Factors: Nothing Alleviating Factors: Nothing - Allergy/Home Medications Allergies/Adverse Reactions: Allergies Allergy/AdvReac Type Severity Reaction Status Date / Time Adhesive Tape Allergy Blisters Verified 08/30/16 17:38 Home Medications: Home Medications ALPRAZolam TAB* [Xanax TAB*] 0.25 mg PO Q8H PRN 09/17/18 [History Confirmed 04/27] Acetaminophen TAB* [Tylenol TAB*] 650 mg PO Q6H PRN 09/17/18 [History Confirmed 09/17/18] Ammonium Lactate [Amlactin] 12 % TOPICAL DAILY 09/17/18 [History Confirmed 09/17] Docusate CAP* [Colace Cap*] 200 mg PO BEDTIME 09/17/18 [History Confirmed ] Ferrous Sulfate TAB* 325 mg PO DAILY 09/17/18 [History Confirmed 09/17/18] Ipratropium 0.5MG/2.5ML NEB* [Atrovent 0.5 MG NEB.LINDA*] 0.5 mg INH QID 09/17/18 [History Confirmed 09/17/18] Menthol [Icy Hot Advanced Relief P] 7.5 % TOPICAL DAILY 09/17/18 [History Confirmed 09/17/18] Methyl Salicylate/Menth/Camph [Bengay Ultra Strength] 1 cre TOPICAL Q4HR PRN 04/27 [History Confirmed 09/17/18] Multivitamins/Minerals TAB* [Theragran/minerals TAB*] 1 tab PO DAILY 09/17/18 [ History Confirmed 09/17/18] Oxycodone TAB(NF) [Oxycodone HCl 10 MG] 10 mg PO QID 09/17/18 [History Confirmed 09/17/18] Umeclidin/Vilant 62.5 MDI(NF) [ANORO 62.5/25 Ellipta DEVICE (NF)] 1 puff INH DAILY 09/17/18 [History Confirmed 09/17/18] predniSONE TAB* [Deltasone 10 MG TAB*] 50 mg PO DAILY 09/17/18 [History Confirmed 09/17/18] risperiDONE TAB* [RisperDAL*] 1 mg PO BID 09/17/18 [History Confirmed 09/17/18] PMH/Surg Hx/FS Hx/Imm Hx Previously Healthy: No Endocrine/Hematology History: Denies: Hx Anticoagulant Therapy, Hx Diabetes, Hx Anemia, Hx Unexplained Bleeding Cardiovascular History: Reports: Hx Aneurysm - cerebral aneurysm repair in history, Hx Atrial Fibrillation, Hx Congestive Heart Failure, Hx Hypertension, Other Cardiovascular Problems/Disorders - AFIB Denies: Hx Angina, Hx Angioplasty, Hx Auto Implanted Cardiovert Defib, Hx Cardiac Arrest, Hx Cardiomegaly, Hx Congenital Heart Disease, Hx Coronary Artery Disease, Hx Deep Vein Thrombosis, Hx Embolism, Hx Hypercholesterolemia, Hx Hypotension, Hx Pacemaker/ICD, Hx Peripheral Vascular Disease, Hx Rheumatic Fever, Hx Syncope, Hx Valvular Heart Disease Respiratory History: Reports: Hx Asthma, Hx Chronic Obstructive Pulmonary Disease (COPD) - home O2 (not consistently compliant), Other Respiratory Problems/Disorders - Emphysema Denies: Hx Cystic Fibrosis, Hx Lung Cancer, Hx Pleural Effusion, Hx Pneumonia , Hx Pulmonary Edema, Hx Pulmonary Embolism, Hx Seasonal Allergies, Hx Sleep Apnea GI History: Reports: Hx Cirrhosis, Hx Gastroesophageal Reflux Disease, Hx Hiatal Hernia, Hx Jaundice History: Reports: Other Problems/Disorders - Bladder cancer Denies: Hx Acute Renal Failure, Hx Benign Prostatic Hyperplasia, Hx Chronic Renal Failure, Hx Dialysis, Hx Kidney Infection, Hx Kidney Stones, Hx Renal Disease Musculoskeletal History: Reports: Hx Arthritis Denies: Hx Back Problems, Hx Bursitis, Hx Congenital Bone Abnormalities, Hx Fibromyalgia, Hx Gout, Hx Orthopedic Injury, Hx Osteoporosis, Hx Scoliosis, Hx Tendonitis, Other Musculoskeletal History - NERVE PROBLEM IN BACK AMBULATES WITH WALKER Sensory History: Reports: Hx Cataracts, Hx Legally Blind, Hx Macular Degeneration, Hx Vision Problem Denies: Hx Contacts or Glasses, Hx Deafness, Hx Hearing Aid, Hx Hearing Problem, Other Sensory Impairments Opthamlomology History: Reports: Hx Cataracts, Hx Legally Blind, Hx Macular Degeneration, Hx Vision Problem Denies: Hx Contacts or Glasses, Other Sensory Impairments Neurological History: Reports: Hx Headaches Denies: Hx Dementia, Hx Developmental Delay, Hx Migraine, Hx Nerve Disease, Hx Seizures, Hx Spinal Cord Injury, Hx Transient Ischemic Attacks (TIA), Other Neuro Impairments/Disorders Psychiatric History: Reports: Hx Anxiety, Hx Depression, Hx Inpatient Treatment , Hx Suicide Attempt - OD, Hx Substance Abuse - Alcohol Denies: Hx Eating Disorder, Hx of Violent Episodes Against Others - Cancer History Cancer Type, 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oratory lap in her 20s [place]. Aneurysm in head in her early 50s [place]. Hysterectomy and Bladder surgery mesh placed [facility] [place] arm and [place] shoulder [place] [facility] [place] 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 [place]/01[place] [facility] [place] Hx Anesthesia Reactions: No Infectious Disease History: No Infectious Disease History: Reports: Hx Hepatitis Denies: Hx Clostridium Difficile, Hx Human Immunodeficiency Virus (HIV), Hx of Known/Suspected MRSA, Hx Shingles, Hx Tuberculosis, Hx Known/Suspected VRE, Hx Known/Suspected VRSA, History Other Infectious Disease, Traveled Outside the [place] in Last 30 Days - Family History Known Family History: Positive: Other - Alcoholism Family History: FHx of EtOH abuse. FHx of lymphoma - sister. Full FHx not obtained due to AMS. - Social History Alcohol Amount: History of alcohol abuse Hx Substance Use: Yes Substance Use Comment - Amount & Last Used: Pt stopped drinking 3 years prior Hx Tobacco Use: Yes Smoking Status (MU): Former Smoker Type: Cigarettes Amount Used/How Often: 1 ppd Length of Time of Smoking/Using Tobacco: 50 years Have You Smoked in the Last Year: Yes Review of Systems Negative: Chest Pain Positive: Shortness Of Breath All Other Systems Reviewed And Are Negative: Yes Physical Exam - Summary Physical Exam Summary: Constitutional: Well-developed, Well-nourished, Alert. (-) Distressed Skin: Warm, Dry HENT: Normocephalic; Atraumatic Eyes: Conjunctiva normal Neck: Musculoskeletal ROM normal neck. (-) JVD, (-) Stridor, (-) Tracheal deviation Cardio: Rhythm regular, rate normal, Heart sounds normal; Intact distal pulses; The pedal pulses are 2+ and symmetric. Radial pulses are 2+ and symmetric. Pulmonary/Chest wall: Effort normal. (-) Respiratory distress, (-) Wheezes, (-) Rales Abd: Soft, (-) tenderness, (-) Distension, (-) Guarding, (-) Rebound Musculoskeletal: (-) Edema Neuro: Alert, Oriented x3 Psych: Mood and affect Normal Diffuse rhonchi and wheezing everywhere Expiratory phase is longer than inspiratory phase heart sounds are nml, has S1 and S2 Obese belly that is soft and tender Somewhat disoriented Awake to verbal, answering questions Triage Information Reviewed: Yes Vital Signs On Initial Exam: Initial Vitals Temp Pulse Resp BP Pulse Ox 98.2 F 86 28 85/59 99 09/17/18 16:41 09/17/18 16:41 09/17/18 16:41 09/17/18 16:41 09/17/18 16:41 Vital Signs Reviewed: Yes Diagnostics - Vital Signs Vital Signs Temp Pulse Resp BP Pulse Ox 09/17/18 16:47 90 85/59 99 09/17/18 16:46 86 99 09/17/18 16:41 98.2 F 86 28 85/59 99 - Laboratory Result Diagrams: 09/17/18 17:39 09/17/18 17:39 Lab Statement: Any lab studies that have been ordered have been reviewed, and results considered in the medical decision making process. - Radiology CXR Radiology Interpretation Completed By: Radiologist Summary of Radiographic Findings: CARDIOMEGALY. HYPERINFLATION. ED physician has reviewed this report. - EKG 1801 Summary of EKG Findings: Nonspecific STTW abn AVR that are old compared to 08/18. PACs are no longer seen. First degree AVB that is old. QTc is prolonged although slightly longer from 479 to 187. Non STEMI. Course/Dx - Course Course Of Treatment: This patient is DNR. Patient arrives in respiratory distress. She is on bipap. She was exhibiting symptoms of decreased mental status consistent with hypercarbic . Patient was placed on rescue bipap. Her symptoms of altered mental status improved while in ED. Her respiratory rate also improved to within normal limits. On ABG, her CO2 is now in the 60s which is also in conjunction with mag, decadron and duonebs. Spoke with Dr. Haskins , ICU, who will come see patient in ED, agrees with the current assessment, and thinks that patient will end up in unit as well. Patient will require continued management of respiratory failure, CO2 nacrosis now improving on rescue bipap. The patient will be admitted to the ICU. THe patient is agreeable to this plan. - Diagnoses Provider Diagnoses: COPD exacerbation, Respiratory failure - Physician Notifications Discussed Care of Patient With: David Haskins Time Discussed With Above Provider: 18:11 Instructed by Provider To: Other - Dr. Haskins, ICU, will come see patient in ED, agrees with the current assessment, and thinks that patient will end up in unit as well. - Critical Care Time Critical Care Time: 30-74 min - 35 minutes Discharge - Sign-Out/Discharge Documenting (check all that apply): Patient Departure - Admit Patient Received Moderate/Deep Sedation with Procedure: No - Discharge Plan Condition: Fair Disposition: ADMITTED TO [facility] Referrals: Lesly Willoughby ACTIVITY THERAPIST [Primary Care Provider] - - Billing Disposition and Condition Condition: FAIR Disposition: Admitted to [facility] - Attestation Statements Documenting Scribe: Moira El Provider For Whom Scribe is Documenting (Include Credential): Buzz Castañeda MD Scribe Documentation Reviewed: Yes
[2018-09-17] MEDS ORDERED: Magnesium Sulfate 2 GM IV* 2 GM/50 ML BAG IVPB ONE (17:11)
[2018-09-17] MEDS ORDERED: Albuterol/Ipratropium NEB.SOL* Albuterol 2.5 MG/Ipratropium 0.5 MG 3 ML ONE (17:12)
[2018-09-17] MEDS: Albuterol/Ipratropium NEB.SOL* Albuterol 2.5 MG/Ipratropium 0.5 MG 3 ML INH SCH (17:13)
[2018-09-17] MEDS ORDERED: Dexamethasone IV* 4 MG/ML 5 ML VIAL (20 MG) IVPB ONE (17:47)
[2018-09-17 17:50] LABS: ABS Basophils 0 10^3/ul (0-0.2); ABS Eosinophils 0 10^3/ul (0-0.6); ABS Lymphocytes 0.8 10^3/ul (1.0-4.8); ABS Monocytes 0.4 10^3/ul (0-0.8); ABS Nucleated RBC 0 10^3/ul; Eosinophil % 0.2 %; Hematocrit 30 % (33-41); Hemoglobin 10.2 g/dL (12.0-16.0); Lymphocyte % 12.3 %; Mean Corpuscular HGB Conc 34 g/dL (31-36); Mean Corpuscular Hemoglobin 31 pg (27-31); Mean Corpuscular Volume 92 fL (80-97); Mean Platelet Volume 8.1 fL (7.4-10.4); Nucleated Red Blood Cells % 0.1; Platelet Count 170 10^3/uL (150-450); Red Blood Count 3.31 10^6 /uL (3.70-4.87); Red Cell Distribution Width 14 % (10.5-15); White Blood Count 6.2 10^3/uL (3.5-10.8)
[2018-09-17 17:51] LABS: INR 0.97 (0.77-1.02)
[2018-09-17 18:06] LABS: Troponin I 0.11 ng/mL (<0.04)
[2018-09-17 18:14] LABS: ALT 15 U/L (7-52); AST 21 U/L (13-39); Albumin 3.7 g/dL (3.2-5.2); Albumin/Globulin Ratio 1.3 (1-3); Alkaline Phosphatase 71 U/L (34-104); Anion Gap 6 mmol/L (2-11); BUN/Creatinine Ratio 18.5 (8-20); Blood Urea Nitrogen 24 mg/dL (6-24); CO2 Carbon Dioxide 33 mmol/L (22-32); Calcium 9.1 mg/dL (8.6-10.3); Chloride 90 mmol/L (101-111); EGFR African American 48.3 (>60); EGFR Non-African American 39.9 (>60); Globulin 2.9 g/dL (2-4); Glucose 130 mg/dL (70-100); Potassium 4.5 mmol/L (3.5-5.0); Sodium 129 mmol/L (135-145); Total Protein 6.6 g/dL (6.4-8.9)
[2018-09-17] MEDS ORDERED: Albuterol/Ipratropium NEB.SOL* Albuterol 2.5 MG/Ipratropium 0.5 MG 3 ML INH PRN (19:19)
--- NOTE | 2018-09-17 19:28 | HP ---
H&P (Free Text) History and Physical: History and Physical -- Critical Care Limitations in history/physical: none; blindness HPI: 73y F w/pmhx of Afib, HTN, COPD on 3L O2, Left MCA aneurysm s/p clipping 2017, GERD, HTN, Legally blind, psychosis, oral cancer s/p excision, h/o PVD with left leg intervention in AT; patient comes to ER from [facility] for respiratory distress. She states she has been getting more SOB for days now, no fever/cough/sputum/chest pain. No n/v/abd pain. No diarrhea. No recent illness. She comes to ER in extremis, tachypneic, confused and altered according to ER records.She was placed on NIV immediately on arrival. She was given steroids and nebulizer and started to improve. She is currently awake/alert, giving history, still feels short of breath. She is legally blind but able to have some visualization. ROS: negative except for pertinent positives mentioned above. PMHx: Afib, HTN, COPD, Left MCA aneurysm s/p clipping 09/2017, GERD, HTN, Legally blind, psychosis, oral cancer s/p excision PSHx: oral cancer excision; cholecystectomy; appendectomy; hysterectomy Family History: mother of old age; father passed after 2nd MVA Social History: Alcohol-h/o alcohol abuse in past but stopped, Smoking-former smoker 10pack/year, Drug use-none Allergies: Allergies Allergy/AdvReac Type Severity Reaction Status Date / Time Adhesive Tape Allergy Blisters Verified 08/30/16 17:38 Home Medications: Aspirin EC TAB* [Ecotrin EC Low Dose 81 MG*] 81 mg PO DAILY tab.ec 09/10/16 [ Rx Confirmed 09/17/18] Furosemide TAB* [Lasix TAB*] 20 mg PO DAILY tab 09/10/16 [Rx Confirmed 09/17/18 ] Lisinopril TAB* [Prinivil TAB 10 MG*] 10 mg PO DAILY #0 tab 08/08/17 [Rx Confirmed 09/17/18] Albuterol 2.5MG/3ML (0.083%)* [Ventolin 2.5 MG/3 ML NEB.LINDA*] 2.5 mg INH Q6HR [History Confirmed 09/17/18] FLUoxetine CAP* [Prozac CAP*] 40 mg PO BID 08/18/17 [History Confirmed 09/17/18] Pregabalin CAP(*) [Lyrica CAP(*)] 25 mg PO TID MDD 100 08/18/17 [History Confirmed 09/17/18] amLODIPine TAB* [Norvasc 5 mg TAB*] 5 mg PO DAILY 08/18/17 [History Confirmed ] clonazePAM TAB(*) [Klonopin TAB(*)] 0.5 mg PO TID MDD 1 08/18/17 [History Confirmed 09/17/18] Cyanocobalamin INJ * [Vitamin B12 INJ *] 1,000 mcg IM MONTHLY 09/02/17 [History Confirmed 09/17/18] Propylene Glycol/Peg 400/Pf [Systane 0.3-0.4% Eye Drop] 1 each OPHTHALMIC BID PRN 09/02/17 [History Confirmed 09/17/18] Clopidogrel TAB* [Plavix TAB*] 75 mg PO DAILY #90 tab 09/03/17 [Rx Confirmed 04/27] ALPRAZolam TAB* [Xanax TAB*] 0.25 mg PO Q8H PRN 09/17/18 [History Confirmed 04/27] Acetaminophen TAB* [Tylenol TAB*] 650 mg PO Q6H PRN 09/17/18 [History Confirmed 09/17/18] Ammonium Lactate [Amlactin] 12 % TOPICAL DAILY 09/17/18 [History Confirmed 09/17] Docusate CAP* [Colace Cap*] 200 mg PO BEDTIME 09/17/18 [History Confirmed ] Ferrous Sulfate TAB* 325 mg PO DAILY 09/17/18 [History Confirmed 09/17/18] Ipratropium 0.5MG/2.5ML NEB* [Atrovent 0.5 MG NEB.LINDA*] 0.5 mg INH QID 09/17/18 [History Confirmed 09/17/18] Menthol [Icy Hot Advanced Relief P] 7.5 % TOPICAL DAILY 09/17/18 [History Confirmed 09/17/18] Methyl Salicylate/Menth/Camph [Bengay Ultra Strength] 1 cre TOPICAL Q4HR PRN 04/27 [History Confirmed 09/17/18] Multivitamins/Minerals TAB* [Theragran/minerals TAB*] 1 tab PO DAILY 09/17/18 [ History Confirmed 09/17/18] Oxycodone TAB(NF) [Oxycodone HCl 10 MG] 10 mg PO QID 09/17/18 [History Confirmed 09/17/18] Umeclidin/Vilant 62.5 MDI(NF) [ANORO 62.5/25 Ellipta DEVICE (NF)] 1 puff INH DAILY 09/17/18 [History Confirmed 09/17/18] predniSONE TAB* [Deltasone 10 MG TAB*] 50 mg PO DAILY 09/17/18 [History Confirmed 09/17/18] risperiDONE TAB* [RisperDAL*] 1 mg PO BID 09/17/18 [History Confirmed 09/17/18] Tele: NSR Vitals: Vital Signs Temp 98.2 F 09/17/18 16:41 Pulse 82 09/17/18 19:00 Resp 23 09/17/18 19:00 BP 99/62 09/17/18 18:55 Pulse Ox 100 09/17/18 19:00 Intake & Output 09/17/18 09/17/18 09/18/18 06:59 18:59 06:59 Weight 99.79 kg O2/Vent: NIV 05/14 60% Infusions: heplock Current Medications: Albuterol (Ventolin 2.5 Mg/3 Ml Neb.Linda*) 2.5 mg INH Q4H ARLEN Stop: 09/18/18 16:01 Albuterol/Ipratropium (Duoneb (Albuterol 2.5 Mg/Ipratropium 0.5 Mg)) 1 neb INH Q4H PRN PRN Reason: SOB/WHEEZING Alprazolam (Xanax Tab*) 0.25 mg PO Q12H PRN PRN Reason: TREMORS Amlodipine Besylate (Norvasc Tab*) 5 mg PO DAILY [facility] Aspirin (Aspirin Ec Tab*) 81 mg PO DAILY ARLEN Clonazepam (Klonopin Tab(*)) 0.5 mg PO TID ARLEN Clopidogrel Bisulfate (Plavix Tab*) 75 mg PO DAILY ARLEN Fluoxetine HCl (Prozac Cap*) 40 mg PO BID ARLEN Furosemide (Lasix Tab*) 20 mg PO DAILY [facility] Methylprednisolone Sodium Succinate (Solu-Medrol 40 Mg) 40 mg IV Q8H [facility] Oxycodone HCl (Oxycodone Tab(Nf)) 10 mg PO QID PRN PRN Reason: PAIN Pregabalin (Lyrica Cap(*)) 25 mg PO TID [facility] Risperidone (Risperdal*) 1 mg PO BID [facility] Physical Exam: Constitutional: awake, alert, mild tachypnea+, no diaphoresis Head: normocephalic, atraumatic Eyes: no pallor, no icterus ENT: moist mucous membranes Neck: soft, supple, no jvd, no stridor CVS: normal rate, regular, no murmur Resp: bilateral air entry, bilateral wheeze++, no rhales, no rhonchi, no acc muscle use Abdomen/GI: soft, nontender, nondistended, BS+ Ext/Msk: warm, pulses+, no edema Skin: intact, warm Neuro: awake, alert, orientedx3, moving all extremities, no gross focal deficit Labs: Laboratory Results - last 24 hr 09/17/18 09/17/18 09/17/18 17:39 17:39 17:39 WBC 6.2 RBC 3.31 L Hgb 10.2 L Hct 30 L MCV 92 MCH 31 MCHC 34 RDW 14 Plt Count 170 MPV 8.1 Neut % (Auto) 80.4 Lymph % (Auto) 12.3 [place] % (Auto) 7.0 Eos % (Auto) 0.2 Baso % (Auto) 0.1 Absolute Neuts (auto) 5.0 Absolute Lymphs (auto) 0.8 L Absolute Monos (auto) 0.4 Absolute Eos (auto) 0 Absolute Basos (auto) 0 Absolute Nucleated RBC 0 Nucleated RBC % 0.1 INR (Anticoag Therapy) 0.97 Patient Temperature ABG pH ABG pH (Temp Correct) ABG pCO2 ABG pCO2 (Temp Corrct ABG pO2 ABG pO2 (Temp Correct ABG HCO3 ABG O2 Saturation ABG Base Excess Respiration Rate O2 Delivery Device Ventilator Type Vent Mode FiO2 Inspiratory Time PEEP Pressure Support Pressure Control EPAP IPAP BiPAP Sodium 129 L Potassium 4.5 Chloride 90 L Carbon Dioxide 33 H Anion Gap 6 BUN 24 Creatinine 1.30 H Est GFR ( Amer) 48.3 Est GFR (Non-Af Amer) 39.9 BUN/Creatinine Ratio 18.5 Glucose 130 H Lactic Acid Calcium 9.1 Total Bilirubin 0.20 AST 21 ALT 15 Alkaline Phosphatase 71 Troponin I 0.11 H* B-Natriuretic Peptide Total Protein 6.6 Albumin 3.7 Globulin 2.9 Albumin/Globulin Ratio 1.3 09/17/18 09/17/18 09/17/18 17:39 17:39 17:50 WBC RBC Hgb Hct MCV MCH MCHC RDW Plt Count MPV Neut % (Auto) Lymph % (Auto) [place] % (Auto) Eos % (Auto) Baso % (Auto) Absolute Neuts (auto) Absolute Lymphs (auto) Absolute Monos (auto) Absolute Eos (auto) Absolute Basos (auto) Absolute Nucleated RBC Nucleated RBC % INR (Anticoag Therapy) Patient Temperature Not Reportable ABG pH 7.29 L ABG pH (Temp Correct) Not Reportable ABG pCO2 63 H ABG pCO2 (Temp Corrct Not Reportable ABG pO2 329 H ABG pO2 (Temp Correct Not Reportable ABG HCO3 26.5 ABG O2 Saturation 100.0 H ABG Base Excess 2.0 Respiration Rate Not Reportable O2 Delivery Device bipap Ventilator Type Not Reportable Vent Mode Not Reportable FiO2 100 Inspiratory Time Not Reportable PEEP Not Reportable Pressure Support Not Reportable Pressure Control Not Reportable EPAP [address] Sodium Potassium Chloride Carbon Dioxide Anion Gap BUN Creatinine Est GFR ( Amer) Est GFR (Non-Af Amer) BUN/Creatinine Ratio Glucose Lactic Acid 1.3 Calcium Total Bilirubin AST ALT Alkaline Phosphatase Troponin I B-Natriuretic Peptide 379 H Total Protein Albumin Globulin Albumin/Globulin Ratio Imaging: Cxr 09/17 hyperinflated, no infiltrates Assessment: 73y F w/pmhx of Afib, HTN, COPD on 3L O2, Left MCA aneurysm s/p clipping 09/2017, GERD, HTN, Legally blind, psychosis, oral cancer s/p excision, h/o PVD with left leg intervention in AT; patient comes to ER from [facility] for respiratory distress. She states she has been getting more SOB for days now , no fever/cough/sputum/chest pain. No n/v/abd pain. No diarrhea. No recent illness. She comes to ER in extremis, tachypneic, confused and altered, with according to ER records.She was placed on NIV immediately on arrival. She was given steroids and nebulizer and started to improve. She is currently awake/ alert, giving history, still feels short of breath. She is legally blind but able to have some visualization. -Acute COPD exacerbation -Acute Hypercapneic respiratory failure -Chronic Hypoxic Respiratory failure -FRANK -Hyponatremia Legally blind Psychosis Afib Plan: Neuro- -improved mental status; able to answer most questions -likely to have had acute encephalopathy from elevated CO2 on initial arrival -legally blind; blindness precautions -pain control PRN -cont clonazepam for anxiety/psychosis and resperidal -neurochecks q4h -Delirium prec; avoid BDZ CVS- -BP stable; no signs of volume overload -HR stable -AFib; currently in NSR; not on AC; cont rate control meds as needed -cont norvasc for hypertension -cont asa/plavix for PVD -hold lasix 20mg po daily, reassess tomorrow -no clear sepsis signs -Titrate Pressors to Maintain MAP>65 Resp- -on NIV; seems to be improved after NIV -ABG reviewed, still has acidosis with CO2 60s; consistent with acute respiratory acidosis -CXR 09/17 with hyperinflated lungs, no infiltrate -no acute infectious process; hold iv abx -check influenza swab -active wheezing+; cont albuterol q4h rtc; solumedrol 40mg IV q8h -check influenza swab -asked patient about code status, she states she was never a DNR/DNI, would like everything done; change code state to full code for now till discussed with Son -trial off NIV later tonight; liquid diet only for now as tolerated -Wean Fio2 to keep sat>92% -Bronchodilators PRN, Aspiration prec, Pulmonary Toilet ID- afebrile. wbc normal. -cxr 09/17 without focal process -check influenza swab -no abx indicated currently, close monitoring GI- -can trial clear liquid for now as tolerated till resp status better and off NIV completely -GI prophylaxis Renal- -FRANK, Cr 1.3; K okay, no acidosis -no clear volume overload noted -follow urine output -hyponatremia may be from infection; possible loss of fluid? -hold lasix 20mg po daily for now; reassess tomorrow; will need to restart at some point -strict I/O, replete to keep K>4, Mg>2 -price as indicated Heme- anemia, hg 10s; no bleeding, monitor for now -plt okay -DVT proph with SCD/heparin sq Endo- Maintain BG<200, insulin protocol as needed Musculsk- pressure ulcer prophylaxis. Bedrest. Wounds- none Nutrition- liquid diet DVT prophylaxis: SCD/heparin sq GI prophylaxis: h2b po Central Line: no Arterial Line: no Price Cathetor: no Disposition: Admit to ICU; Patient requires Critical Care/ICU for acute hypercap respiratory failure and Acute COPD exacc req NIV Expected LOS>2 midnights Patient Clinical Status: guarded, critical Code Status: full code Total Critical Care time is 60 minutes, excluding procedures/teaching David Haskins MD [employer] (Electronically Signed)
[2018-09-17 21:18] LABS: Influenza A Molecular NEGATIVE (Negative); Influenza B Molecular NEGATIVE (Negative)
[2018-09-17 21:21] LABS: Troponin I 0.13 ng/mL (<0.04)
[2018-09-17] MEDS: Albuterol 2.5 MG/3 ML NEB.SOL* (0.083%) INH SCH ×2 (22:16→23:50)
[2018-09-17] MEDS: Heparin VIAL(*) 5000 UNITS/ML VIAL (FIVE THOUSAND) SUBCUT SCH (22:25)
[2018-09-17] MEDS: clonazePAM TAB(*) 0.5 MG PO SCH (22:25)
[2018-09-17] MEDS: FLUoxetine CAP* 20 MG PO SCH (22:25)
[2018-09-17] MEDS: risperiDONE TAB* 1 MG PO SCH (22:25)
[2018-09-17] MEDS: Pregabalin CAP(*) 25 MG PO SCH (22:25)
[2018-09-17] MEDS: amLODIPine TAB* 5 MG PO SCH (22:26)
[2018-09-17 23:57] LABS: Troponin I 0.12 ng/mL (<0.04)
[2018-09-18] MEDS: methylPREDNISolone SOD 40 MG* 1 ML VIAL IV SCH ×3 (01:25→17:37)
[2018-09-18] MEDS ORDERED: methylPREDNISolone SOD 40 MG* 1 ML VIAL IV SCH (02:00)
[2018-09-18] MEDS: Albuterol 2.5 MG/3 ML NEB.SOL* (0.083%) INH SCH ×3 (03:34→11:27)
[2018-09-18] MEDS: Heparin VIAL(*) 5000 UNITS/ML VIAL (FIVE THOUSAND) SUBCUT SCH ×3 (06:24→21:29)
[2018-09-18 06:59] LABS: Hematocrit 33 % (33-41); Mean Corpuscular HGB Conc 34 g/dL (31-36); Mean Corpuscular Hemoglobin 31 pg (27-31); Mean Corpuscular Volume 92 fL (80-97); Mean Platelet Volume 8.5 fL (7.4-10.4); Platelet Count 172 10^3/uL (150-450); Red Blood Count 3.57 10^6 /uL (3.70-4.87); Red Cell Distribution Width 13 % (10.5-15); White Blood Count 5.2 10^3/uL (3.5-10.8)
[2018-09-18 07:05] LABS: Urine Chloride Concentration < 22 mmol/L; Urine Potassium Concentration 22.7 mmol/L
[2018-09-18 07:09] LABS: BUN/Creatinine Ratio 23.8 (8-20); Calcium 9.3 mg/dL (8.6-10.3); EGFR African American 61.8 (>60); EGFR Non-African American 51.1 (>60); Magnesium 2.4 mg/dL (1.9-2.7)
[2018-09-18 07:11] LABS: Potassium 5.2 mmol/L (3.5-5.0)
[2018-09-18 07:13] LABS: Urine Creatinine Concentration 53.69 mg/dL; Urine Sodium Concentration 21 mmol/L
[2018-09-18] MEDS ORDERED: Furosemide TAB* 20 MG PO SCH (09:00)
[2018-09-18] MEDS ORDERED: Albuterol 2.5 MG/3 ML NEB.SOL* (0.083%) INH PRN (11:46)
[2018-09-18] MEDS: Aspirin EC TAB* 81 MG TAB.EC PO SCH (12:24)
[2018-09-18] MEDS: FLUoxetine CAP* 20 MG PO SCH ×2 (12:24→21:29)
[2018-09-18] MEDS: Famotidine TAB* 20 MG PO SCH (12:24)
[2018-09-18] MEDS: clonazePAM TAB(*) 0.5 MG PO SCH ×3 (12:24→21:28)
[2018-09-18] MEDS: amLODIPine TAB* 5 MG PO SCH (12:24)
[2018-09-18] MEDS: Clopidogrel TAB* 75 MG PO SCH (12:24)
[2018-09-18] MEDS: Pregabalin CAP(*) 25 MG PO SCH ×3 (12:25→21:28)
[2018-09-18] MEDS: risperiDONE TAB* 1 MG PO SCH ×2 (12:31→21:29)
[2018-09-18] MEDS: ALPRAZolam TAB* 0.25 MG PO PRN (14:28)
--- NOTE | 2018-09-18 15:37 | PN ---
Progress Note - Progress Note Date of Service: 09/18/18 - PUlmonary note Note: Pt seen and examined at bedside. Pt reports feeling slightly better. No events o /n. c/o SOB this am. Has been on BiPAP since this am. Denies cough, chest pain Active Medications Generic Name Dose Route Start Last Admin Trade Name Freq PRN Reason Stop Dose Admin Albuterol 2.5 mg 09/18/18 11:46 Ventolin 2.5 Mg/3 Ml Neb.Mary* INH Q4H PRN SOB/WHEEZING Albuterol/Ipratropium 1 neb 09/18/18 15:00 Duoneb (Albuterol 2.5 Mg/Ipratropium 0.5 Mg) INH [id number] AWAKE ARLEN Alprazolam 0.25 mg 09/17/18 21:00 09/18/18 14:28 Xanax Tab* PO 0.25 mg Q12H PRN Administration TREMORS Amlodipine Besylate 5 mg 09/17/18 20:00 09/18/18 12:24 Norvasc Tab* PO 5 mg DAILY ARLEN Administration Aspirin 81 mg 09/18/18 09:00 09/18/18 12:24 Aspirin Ec Tab* PO 81 mg DAILY ARLEN Administration Clonazepam 0.5 mg 09/17/18 21:00 09/18/18 12:38 Klonopin Tab(*) PO Not Given TID ARLEN Clopidogrel Bisulfate 75 mg 09/18/18 09:00 09/18/18 12:24 Plavix Tab* PO 75 mg DAILY ARLEN Administration Famotidine 20 mg 09/18/18 09:00 09/18/18 12:24 Pepcid Tab* PO 20 mg DAILY ARLEN Administration Fluoxetine HCl 40 mg 09/17/18 21:00 09/18/18 12:24 Prozac Cap* PO 40 mg BID ARLEN Administration Heparin Sodium (Porcine) 5,000 units 09/17/18 22:00 09/18/18 12:25 Heparin Vial(*) SUBCUT 5,000 units Q8HR ARLEN Administration Methylprednisolone Sodium Succinate 40 mg 09/18/18 01:00 09/18/18 12:25 Solu-Medrol 40 Mg IV 40 mg Q8H ARLEN Administration Oxycodone HCl 10 mg 09/17/18 19:21 Roxycodone Tab* PO QID PRN PAIN Pregabalin 25 mg 09/17/18 21:00 09/18/18 12:25 Lyrica Cap(*) PO 25 mg TID ARLEN Administration Risperidone 1 mg 09/17/18 21:00 09/18/18 12:31 Risperdal* PO 1 mg BID ARLEN Administration Vital Signs Temp Pulse Resp BP Pulse Ox 97.5 F 83 20 130/76 96 09/18/18 08:00 09/18/18 13:01 09/18/18 14:28 09/18/18 05:31 09/18/18 13:01 O/E: Pt in NAD HEENT: PERRLA, mucus membranes moist Lungs: Diminished air entry b/l, wheeze + CVS: S1, S2+, regular Abd: Soft, BS+ Ext: Normal ROM Skin: NO rash Neuro: ALert, awake, no focal deficits Laboratory Results - last 24 hr 09/17/18 09/17/18 09/17/18 17:39 17:39 17:39 WBC 6.2 RBC 3.31 L Hgb 10.2 L Hct 30 L MCV 92 MCH 31 MCHC 34 RDW 14 Plt Count 170 MPV 8.1 Neut % (Auto) 80.4 Lymph % (Auto) 12.3 [place] % (Auto) 7.0 Eos % (Auto) 0.2 Baso % (Auto) 0.1 Absolute Neuts (auto) 5.0 Absolute Lymphs (auto) 0.8 L Absolute Monos (auto) 0.4 Absolute Eos (auto) 0 Absolute Basos (auto) 0 Absolute Nucleated RBC 0 Nucleated RBC % 0.1 INR (Anticoag Therapy) 0.97 Patient Temperature ABG pH ABG pH (Temp Correct) ABG pCO2 ABG pCO2 (Temp Corrct ABG pO2 ABG pO2 (Temp Correct ABG HCO3 ABG O2 Saturation ABG Base Excess Respiration Rate O2 Delivery Device Ventilator Type Vent Mode FiO2 Inspiratory Time PEEP Pressure Support Pressure Control EPAP IPAP BiPAP Sodium 129 L Potassium 4.5 Chloride 90 L Carbon Dioxide 33 H Anion Gap 6 BUN 24 Creatinine 1.30 H Est GFR ( Amer) 48.3 Est GFR (Non-Af Amer) 39.9 BUN/Creatinine Ratio 18.5 Glucose 130 H Serum Osmolality Lactic Acid Calcium 9.1 Magnesium Total Bilirubin 0.20 AST 21 ALT 15 Alkaline Phosphatase 71 Troponin I 0.11 H* B-Natriuretic Peptide Total Protein 6.6 Albumin 3.7 Globulin 2.9 Albumin/Globulin Ratio 1.3 Urine Osmolality Ur Creatinine Concen U Sodium Concentration Urine Potassium Ur Chloride Concentrat Influenza A (Rapid) Influenza B (Rapid) 09/17/18 09/17/18 09/17/18 17:39 17:39 17:50 WBC RBC Hgb Hct MCV MCH MCHC RDW Plt Count MPV Neut % (Auto) Lymph % (Auto) [place] % (Auto) Eos % (Auto) Baso % (Auto) Absolute Neuts (auto) Absolute Lymphs (auto) Absolute Monos (auto) Absolute Eos (auto) Absolute Basos (auto) Absolute Nucleated RBC Nucleated RBC % INR (Anticoag Therapy) Patient Temperature Not Reportable ABG pH 7.29 L ABG pH (Temp Correct) Not Reportable ABG pCO2 63 H ABG pCO2 (Temp Corrct Not Reportable ABG pO2 329 H ABG pO2 (Temp Correct Not Reportable ABG HCO3 26.5 ABG O2 Saturation 100.0 H ABG Base Excess 2.0 Respiration Rate Not Reportable O2 Delivery Device bipap Ventilator Type Not Reportable Vent Mode Not Reportable FiO2 100 Inspiratory Time Not Reportable PEEP Not Reportable Pressure Support Not Reportable Pressure Control Not Reportable EPAP [address] Sodium Potassium Chloride Carbon Dioxide Anion Gap BUN Creatinine Est GFR ( Amer) Est GFR (Non-Af Amer) BUN/Creatinine Ratio Glucose Serum Osmolality Lactic Acid 1.3 Calcium Magnesium Total Bilirubin AST ALT Alkaline Phosphatase Troponin I B-Natriuretic Peptide 379 H Total Protein Albumin Globulin Albumin/Globulin Ratio Urine Osmolality Ur Creatinine Concen U Sodium Concentration Urine Potassium Ur Chloride Concentrat Influenza A (Rapid) Influenza B (Rapid) 09/17/18 09/17/18 09/17/18 20:38 20:53 23:25 WBC RBC Hgb Hct MCV MCH MCHC RDW Plt Count MPV Neut % (Auto) Lymph % (Auto) [place] % (Auto) Eos % (Auto) Baso % (Auto) Absolute Neuts (auto) Absolute Lymphs (auto) Absolute Monos (auto) Absolute Eos (auto) Absolute Basos (auto) Absolute Nucleated RBC Nucleated RBC % INR (Anticoag Therapy) Patient Temperature ABG pH ABG pH (Temp Correct) ABG pCO2 ABG pCO2 (Temp Corrct ABG pO2 ABG pO2 (Temp Correct ABG HCO3 ABG O2 Saturation ABG Base Excess Respiration Rate O2 Delivery Device Ventilator Type Vent Mode FiO2 Inspiratory Time PEEP Pressure Support Pressure Control EPAP IPAP BiPAP Sodium Potassium Chloride Carbon Dioxide Anion Gap BUN Creatinine Est GFR ( Amer) Est GFR (Non-Af Amer) BUN/Creatinine Ratio Glucose Serum Osmolality Lactic Acid Calcium Magnesium Total Bilirubin AST ALT Alkaline Phosphatase Troponin I 0.13 H* 0.12 H* B-Natriuretic Peptide Total Protein Albumin Globulin Albumin/Globulin Ratio Urine Osmolality Ur Creatinine Concen U Sodium Concentration Urine Potassium Ur Chloride Concentrat Influenza A (Rapid) Negative Influenza B (Rapid) Negative 09/18/18 09/18/18 09/18/18 00:01 05:50 05:50 WBC 5.2 RBC 3.57 L Hgb 11.0 L Hct 33 MCV 92 MCH 31 MCHC 34 RDW 13 Plt Count 172 MPV 8.5 Neut % (Auto) Lymph % (Auto) [place] % (Auto) Eos % (Auto) Baso % (Auto) Absolute Neuts (auto) Absolute Lymphs (auto) Absolute Monos (auto) Absolute Eos (auto) Absolute Basos (auto) Absolute Nucleated RBC Nucleated RBC % INR (Anticoag Therapy) Patient Temperature ABG pH ABG pH (Temp Correct) ABG pCO2 ABG pCO2 (Temp Corrct ABG pO2 ABG pO2 (Temp Correct ABG HCO3 ABG O2 Saturation ABG Base Excess Respiration Rate O2 Delivery Device Ventilator Type Vent Mode FiO2 Inspiratory Time PEEP Pressure Support Pressure Control EPAP IPAP BiPAP Sodium 126 L Potassium 5.2 H Chloride 90 L Carbon Dioxide 29 Anion Gap 7 BUN 25 H Creatinine 1.05 H Est GFR ( Amer) 61.8 Est GFR (Non-Af Amer) 51.1 BUN/Creatinine Ratio 23.8 H Glucose 142 H Serum Osmolality 277 Lactic Acid Calcium 9.3 Magnesium 2.4 Total Bilirubin AST ALT Alkaline Phosphatase Troponin I B-Natriuretic Peptide Total Protein Albumin Globulin Albumin/Globulin Ratio Urine Osmolality Ur Creatinine Concen U Sodium Concentration Urine Potassium Ur Chloride Concentrat Influenza A (Rapid) Influenza B (Rapid) 09/18/18 09/18/18 09/18/18 05:55 05:55 11:28 WBC RBC Hgb Hct MCV MCH MCHC RDW Plt Count MPV Neut % (Auto) Lymph % (Auto) [place] % (Auto) Eos % (Auto) Baso % (Auto) Absolute Neuts (auto) Absolute Lymphs (auto) Absolute Monos (auto) Absolute Eos (auto) Absolute Basos (auto) Absolute Nucleated RBC Nucleated RBC % INR (Anticoag Therapy) Patient Temperature Not Reportable ABG pH 7.38 ABG pH (Temp Correct) Not Reportable ABG pCO2 56 H ABG pCO2 (Temp Corrct Not Reportable ABG pO2 158 H ABG pO2 (Temp Correct Not Reportable ABG HCO3 29.9 ABG O2 Saturation 100.0 H ABG Base Excess 6.3 H Respiration Rate 16 O2 Delivery Device bipap Ventilator Type Not Reportable Vent Mode Not Reportable FiO2 50 Inspiratory Time Not Reportable PEEP Not Reportable Pressure Support Not Reportable Pressure Control Not Reportable EPAP 5 IPAP 12 BiPAP Not Reportable Sodium Potassium Chloride Carbon Dioxide Anion Gap BUN Creatinine Est GFR ( Amer) Est GFR (Non-Af Amer) BUN/Creatinine Ratio Glucose Serum Osmolality Lactic Acid Calcium Magnesium Total Bilirubin AST ALT Alkaline Phosphatase Troponin I B-Natriuretic Peptide Total Protein Albumin Globulin Albumin/Globulin Ratio Urine Osmolality 280 Ur Creatinine Concen 53.69 U Sodium Concentration 21 Urine Potassium 22.7 Ur Chloride Concentrat < 22 Influenza A (Rapid) Influenza B (Rapid) I/R: 73y F w/pmhx of Afib, HTN, COPD on 3L O2, Left MCA aneurysm s/p clipping 2017, GERD, HTN, Legally blind, psychosis, oral cancer s/p excision, h/o PVD with left leg intervention in AT; patient comes to ER from [facility] for respiratory distress. Pt admitted for hypercapnic resp failure secondary to COPD Pt tolerated BIPAP Rpt ABG reviewed, improved acidosis Will c/w BiPAP at night Will change to Duoneb q 4 hrs C/w Solumedrol C/w abx DVT px Titrate FiO2 as tolerated Pt to be monitored closely in ICU D/w bedside RICK
[2018-09-18] MEDS ORDERED: Acetaminophen TAB* 325 MG PO ONE ×2 (16:12→16:15)
[2018-09-18] MEDS: Albuterol/Ipratropium NEB.SOL* Albuterol 2.5 MG/Ipratropium 0.5 MG 3 ML INH SCH ×3 (16:32→23:02)
[2018-09-18] MEDS ORDERED: Acetaminophen TAB* 325 MG ONE (16:38)
[2018-09-18] MEDS: guaiFENesin ER TAB 600 MG PO SCH (21:29)
[2018-09-18] MEDS: oxyCODONE TAB* 5 MG TAB PO PRN (23:37)
[2018-09-19] MEDS: methylPREDNISolone SOD 40 MG* 1 ML VIAL IV SCH ×3 (01:06→17:24)
[2018-09-19] MEDS: Albuterol/Ipratropium NEB.SOL* Albuterol 2.5 MG/Ipratropium 0.5 MG 3 ML INH SCH ×6 (03:17→23:31)
[2018-09-19 05:39] LABS: Hematocrit 32 % (33-41); Hemoglobin 10.5 g/dL (12.0-16.0); Mean Corpuscular HGB Conc 33 g/dL (31-36); Mean Corpuscular Hemoglobin 30 pg (27-31); Mean Corpuscular Volume 90 fL (80-97); Mean Platelet Volume 8.4 fL (7.4-10.4); Platelet Count 179 10^3/uL (150-450); Red Blood Count 3.49 10^6 /uL (3.70-4.87); Red Cell Distribution Width 13 % (10.5-15); White Blood Count 5.9 10^3/uL (3.5-10.8)
[2018-09-19 05:55] LABS: BUN/Creatinine Ratio 26.1 (8-20); Calcium 9.5 mg/dL (8.6-10.3); EGFR African American 75.8 (>60); EGFR Non-African American 62.6 (>60); Magnesium 2.2 mg/dL (1.9-2.7)
[2018-09-19] MEDS: Heparin VIAL(*) 5000 UNITS/ML VIAL (FIVE THOUSAND) SUBCUT SCH ×3 (06:05→21:01)
[2018-09-19] MEDS: FLUoxetine CAP* 20 MG PO SCH ×2 (08:02→20:59)
[2018-09-19] MEDS: Aspirin EC TAB* 81 MG TAB.EC PO SCH (08:03)
[2018-09-19] MEDS: guaiFENesin ER TAB 600 MG PO SCH ×2 (08:03→21:00)
[2018-09-19] MEDS: Clopidogrel TAB* 75 MG PO SCH (08:03)
[2018-09-19] MEDS: Famotidine TAB* 20 MG PO SCH (08:04)
[2018-09-19] MEDS: Pregabalin CAP(*) 25 MG PO SCH ×3 (08:04→21:00)
[2018-09-19] MEDS: clonazePAM TAB(*) 0.5 MG PO SCH ×3 (08:04→21:00)
[2018-09-19] MEDS: amLODIPine TAB* 5 MG PO SCH (08:04)
[2018-09-19] MEDS: risperiDONE TAB* 1 MG PO SCH ×2 (08:04→20:59)
--- NOTE | 2018-09-19 10:19 | PN ---
Progress Note - Progress Note Date of Service: 09/19/18 - Progress note/Pulmonary note Note: Pt seen and examined at bedside. Pt was able to tolerate BiPAP last night. Reports improvement in SOB. Having cough, not able to expectorate phleghm. Less anxious today Active Medications Generic Name Dose Route Start Last Admin Trade Name Freq PRN Reason Stop Dose Admin Albuterol 2.5 mg 09/18/18 11:46 Ventolin 2.5 Mg/3 Ml Neb.Mary* INH Q4H PRN SOB/WHEEZING Albuterol/Ipratropium 1 neb 09/18/18 15:00 09/19/18 08:17 Duoneb (Albuterol 2.5 Mg/Ipratropium 0.5 Mg) INH 1 neb [id number] AWAKE ARLEN Administration Alprazolam 0.25 mg 09/17/18 21:00 09/18/18 14:28 Xanax Tab* PO 0.25 mg Q12H PRN Administration TREMORS Amlodipine Besylate 5 mg 09/17/18 20:00 09/19/18 08:04 Norvasc Tab* PO 5 mg DAILY ARLEN Administration Aspirin 81 mg 09/18/18 09:00 09/19/18 08:03 Aspirin Ec Tab* PO 81 mg DAILY ARLEN Administration Clonazepam 0.5 mg 09/17/18 21:00 09/19/18 08:04 Klonopin Tab(*) PO 0.5 mg TID ARLEN Administration Clopidogrel Bisulfate 75 mg 09/18/18 09:00 09/19/18 08:03 Plavix Tab* PO 75 mg DAILY ARLEN Administration Famotidine 20 mg 09/18/18 09:00 09/19/18 08:04 Pepcid Tab* PO 20 mg DAILY ARLEN Administration Fluoxetine HCl 40 mg 09/17/18 21:00 09/19/18 08:02 Prozac Cap* PO 40 mg BID ARLEN Administration Guaifenesin 600 mg 09/18/18 21:00 09/19/18 08:03 Mucinex* PO 600 mg BID ARLEN Administration Heparin Sodium (Porcine) 5,000 units 09/17/18 22:00 09/19/18 06:05 Heparin Vial(*) SUBCUT 5,000 units Q8HR ARLEN Administration Methylprednisolone Sodium Succinate 40 mg 09/18/18 01:00 09/19/18 01:06 Solu-Medrol 40 Mg IV 40 mg Q8H ARLEN Administration Oxycodone HCl 10 mg 09/17/18 19:21 09/18/18 23:37 Roxycodone Tab* PO 10 mg QID PRN Administration PAIN Pregabalin 25 mg 09/17/18 21:00 09/19/18 08:04 Lyrica Cap(*) PO 25 mg TID ARLEN Administration Risperidone 1 mg 09/17/18 21:00 09/19/18 08:04 Risperdal* PO 1 mg BID ARLEN Administration Vital Signs Temp Pulse Resp BP Pulse Ox 98.1 F 97 23 148/125 100 09/19/18 07:53 09/19/18 09:01 09/19/18 09:01 09/19/18 09:01 09/19/18 09:01 O/E: Pt in NAD HEENT: PERRLA, mucus membranes moist Lungs: Diminished air entry b/l, wheeze +, improved from yesterday CVS: S1, S2+, regular Abd: Soft, BS+ Ext: Normal ROM Skin: No rash Neuro: ALert, awake, no focal deficits Laboratory Results - last 24 hr 09/18/18 09/19/18 09/19/18 11:28 05:21 05:21 WBC 5.9 RBC 3.49 L Hgb 10.5 L Hct 32 L MCV 90 MCH 30 MCHC 33 RDW 13 Plt Count 179 MPV 8.4 Patient Temperature Not Reportable ABG pH 7.38 ABG pH (Temp Correct) Not Reportable ABG pCO2 56 H ABG pCO2 (Temp Corrct Not Reportable ABG pO2 158 H ABG pO2 (Temp Correct Not Reportable ABG HCO3 29.9 ABG O2 Saturation 100.0 H ABG Base Excess 6.3 H Respiration Rate 16 O2 Delivery Device bipap Ventilator Type Not Reportable Vent Mode Not Reportable FiO2 50 Inspiratory Time Not Reportable PEEP Not Reportable Pressure Support Not Reportable Pressure Control Not Reportable EPAP 5 IPAP 12 BiPAP Not Reportable Sodium 129 L Potassium 5.0 Chloride 92 L Carbon Dioxide 32 Anion Gap 5 BUN 23 Creatinine 0.88 Est GFR ( Amer) 75.8 Est GFR (Non-Af Amer) 62.6 BUN/Creatinine Ratio 26.1 H Glucose 138 H Calcium 9.5 Magnesium 2.2 I/R: 73y F w/pmhx of Afib, HTN, COPD on 3L O2, Left MCA aneurysm s/p clipping 2017, GERD, HTN, Legally blind, psychosis, oral cancer s/p excision, h/o PVD with left leg intervention in AT; patient comes to ER from [facility] for respiratory distress. 1.Pt admitted for hypercapnic resp failure secondary to COPD, required NIPPV Pt improved since admission, hypercapnia resolved Has been requiring BiPAP at night Duoneb q 6hrs while awake c/w mucomyst c/w Solumedrol, would start taper from tomorrow Requiring O2 at 3L/min which is her baseline 2.HTN: Stable, c/w Norvasc 3. Lt MCA aneurysm s/p clipping and PVD: c/w Plavix 4. Anxiety: c/w Klonepin GI ppx DVT px PT/OT Fall precautions, pt is legally blind Code status: DNR Pt stable to be transferred out of ICU with BiPAP at night D/w Dr Alvarado
[2018-09-20] MEDS: methylPREDNISolone SOD 40 MG* 1 ML VIAL IV SCH ×2 (01:12→09:45)
[2018-09-20] MEDS: Albuterol/Ipratropium NEB.SOL* Albuterol 2.5 MG/Ipratropium 0.5 MG 3 ML INH SCH ×6 (02:57→23:27)
[2018-09-20] MEDS: Heparin VIAL(*) 5000 UNITS/ML VIAL (FIVE THOUSAND) SUBCUT SCH ×3 (05:25→20:09)
[2018-09-20] MEDS ORDERED: Furosemide IV* 10 MG/ML 2 ML VIAL (20 MG) IV ONE (09:19)
[2018-09-20] MEDS: Famotidine TAB* 20 MG PO SCH (09:41)
[2018-09-20] MEDS: clonazePAM TAB(*) 0.5 MG PO SCH ×3 (09:41→20:08)
[2018-09-20] MEDS: guaiFENesin ER TAB 600 MG PO SCH ×2 (09:42→20:09)
[2018-09-20] MEDS: FLUoxetine CAP* 20 MG PO SCH ×2 (09:42→20:09)
[2018-09-20] MEDS: Clopidogrel TAB* 75 MG PO SCH (09:43)
[2018-09-20] MEDS: amLODIPine TAB* 5 MG PO SCH (09:43)
[2018-09-20] MEDS: Aspirin EC TAB* 81 MG TAB.EC PO SCH (09:43)
[2018-09-20] MEDS: Pregabalin CAP(*) 25 MG PO SCH ×3 (09:43→20:09)
[2018-09-20] MEDS: risperiDONE TAB* 1 MG PO SCH ×2 (09:44→20:09)
[2018-09-20] MEDS: methylPREDNISolone 125 MG* 2 ML VIAL IV SCH ×2 (09:44→17:41)
--- NOTE | 2018-09-20 10:54 | PN ---
Subjective Date of Service: 09/20/18 Interval History: Patient seen today on the floor as initial encounter. Transferred out of the ICU overnight for COPD exacerbations s/p rescue Bipap on admission for COPD exacerbations. This morning she was dyspneic and tacchypneic on 3 liters nasal canula with diffuse wheezing. Stat CXR obtained and given stat dose of lasix and solumedrol increased to 60 mg IV q8hrs. Past Medical History: Unchanged from Admission Objective Active Medications: Albuterol (Ventolin 2.5 Mg/3 Ml Neb.Mary*) 2.5 mg INH Q4H PRN PRN Reason: SOB/WHEEZING Albuterol/Ipratropium (Duoneb (Albuterol 2.5 Mg/Ipratropium 0.5 Mg)) 1 neb INH [id number] AWAKE [facility] Last Admin: 09/20/18 10:40 Dose: 1 neb Alprazolam (Xanax Tab*) 0.25 mg PO Q12H PRN PRN Reason: TREMORS Last Admin: 09/18/18 14:28 Dose: 0.25 mg Amlodipine Besylate (Norvasc Tab*) 5 mg PO DAILY [facility] Last Admin: 09/20/18 09:43 Dose: 5 mg Aspirin (Aspirin Ec Tab*) 81 mg PO DAILY [facility] Last Admin: 09/20/18 09:43 Dose: 81 mg Clonazepam (Klonopin Tab(*)) 0.5 mg PO TID [facility] Last Admin: 09/20/18 09:41 Dose: 0.5 mg Clopidogrel Bisulfate (Plavix Tab*) 75 mg PO DAILY [facility] Last Admin: 09/20/18 09:43 Dose: 75 mg Famotidine (Pepcid Tab*) 20 mg PO DAILY [facility] Last Admin: 09/20/18 09:41 Dose: 20 mg Fluoxetine HCl (Prozac Cap*) 40 mg PO BID [facility] Last Admin: 09/20/18 09:42 Dose: 40 mg Guaifenesin (Mucinex*) 600 mg PO BID [facility] Last Admin: 09/20/18 09:42 Dose: 600 mg Heparin Sodium (Porcine) (Heparin Vial(*)) 5,000 units SUBCUT Q8HR [facility] Last Admin: 09/20/18 05:25 Dose: 5,000 units Methylprednisolone Sodium Succinate (Solu-Medrol 125mg *) 60 mg IV Q8H [facility] Last Admin: 09/20/18 09:44 Dose: 60 mg Oxycodone HCl (Roxycodone Tab*) 10 mg PO QID PRN PRN Reason: PAIN Last Admin: 09/18/18 23:37 Dose: 10 mg Pregabalin (Lyrica Cap(*)) 25 mg PO TID [facility] Last Admin: 09/20/18 09:43 Dose: 25 mg Risperidone (Risperdal*) 1 mg PO BID [facility] Last Admin: 09/20/18 09:44 Dose: 1 mg Vital Signs - 8 hr 09/20/18 09/20/18 09/20/18 02:57 03:15 07:36 Temperature 97.6 F Pulse Rate 95 90 75 Respiratory 20 17 20 Rate Blood Pressure 119/61 (mmHg) O2 Sat by Pulse 96 95 96 Oximetry 09/20/18 09/20/18 09/20/18 07:49 08:00 09:41 Temperature 98.1 F Pulse Rate 102 Respiratory 20 24 22 Rate Blood Pressure 114/73 (mmHg) O2 Sat by Pulse 97 Oximetry 09/20/18 09/20/18 09:43 10:41 Temperature Pulse Rate 78 Respiratory 22 18 Rate Blood Pressure (mmHg) O2 Sat by Pulse 95 Oximetry Oxygen Devices in Use Now: Nasal Cannula Appearance: Awake, disoriented. mild respiratory distress Eyes: No Scleral Icterus, - - EOMI Ears/Nose/Mouth/Throat: NL Teeth, Lips, Gums, Mucous Membranes Moist Neck: NL Appearance and Movements; NL JVP, Trachea Midline Respiratory: - - coarse rhonchi, expiratory wheezing and diffuse rales Cardiovascular: NL Sounds; No Murmurs; No JVD, No Edema Abdominal: NL Sounds; No Tenderness; No Distention Neurological: NL Muscle Strength and Tone, - - disoriented to place and time Result Diagrams: 09/19/18 05:21 09/19/18 05:21 Microbiology and Other Data: Microbiology 09/17/18 22:40 Nasal Screen MRSA (PCR) - Final Nasal Mrsa Not Detected Assess/Plan/Problems-Billing Assessment: 73 y/o male admitted from [facility] for acute hypoxic respiratory failure and hypercapnea due to COPD exacerbations requiring Rescue bipap in ICU transferred out of the ICU on 09/19/18 - Patient Problems (1) COPD exacerbation Current Visit: No Status: Acute Code(s): J44.1 - CHRONIC OBSTRUCTIVE PULMONARY DISEASE W (ACUTE) EXACERBATION SNOMED Code(s): 448105018 Comment: - She was in mild respiratory distress, mixed picture of COPD and possible CHF - I did increase her solumedrol to 60 mg IV q8hrs - Continue Albuterol 2.5 Mg/3 Ml Neb.Mary Q2 hrs prn and Albuterol/Ipratropium ( Duoneb Neb.Mary) 1 neb INH Q4H ATC while awake - Not on antibiotics but given her COPD and the fact she remains in distress, I will add antiobitcs despite negative CXR as it will help shortness the durations of exacerbations even if with colonizations. I will place her on oral doxycycline 100 mg bid starting today 09/20/18 - Follow up CXR ordered today (2) Cardiomyopathy Current Visit: No Status: Acute Code(s): I42.9 - CARDIOMYOPATHY, UNSPECIFIED SNOMED Code(s): 50340503 Comment: - Global hypokinesis with LVEF 45-50% on 08/05/16. - CXR ordered stat. 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 - Continue her wally and oxycodone for her chronic pain (4) History of cerebral aneurysm repair Current Visit: Yes Status: Acute Code(s): Z98.890 - OTHER SPECIFIED POSTPROCEDURAL STATES; Z86.79 - PERSONAL HISTORY OF OTHER DISEASES OF THE CIRCULATORY SYSTEM SNOMED Code(s): 595863306 Comment: - s/p Clipping 09/2017 (5) HTN (hypertension) Current Visit: No Status: Acute Code(s): I10 - ESSENTIAL (PRIMARY) HYPERTENSION SNOMED Code(s): 60821955 Comment: - BP stable on amlodipine 5mg daily (6) A-fib Current Visit: No Status: Chronic Code(s): I48.91 - UNSPECIFIED ATRIAL FIBRILLATION SNOMED Code(s): 40227217 Comment: - Aspirin and plavix will continue, Balwinder in sinus rhythm - She is not on any chronotropic cardiac medications - Not on anticoagulation d/t portal gastropathy. (7) History of depression Current Visit: No Status: Chronic Priority: Medium Code(s): Z86.59 - PERSONAL HISTORY OF OTHER MENTAL AND BEHAVIORAL DISORDERS SNOMED Code(s): 397596398 Comment: - Continue Xanax PRN, and klonazepam ATC as per home - continue fluoxetine 40 mg bid, risperidone 1 mg bid (8) History of gastroesophageal reflux (GERD) Current Visit: No Status: Chronic Priority: Medium Code(s): Z87.19 - PERSONAL HISTORY OF OTHER DISEASES OF THE DIGESTIVE SYSTEM SNOMED Code(s): 48460272309451 Comment: - Continue pepcid 20 mg daily (9) DVT prophylaxis Current Visit: No Status: Acute Priority: Medium Onset Date: 08/26/14 Code(s): DQJ7187 - SNOMED Code(s): 350464326 Comment: SQ heparin
[2018-09-20] MEDS: DOXYcycline CAP(*) 100 MG PO SCH ×2 (13:14→20:09)
[2018-09-20] MEDS ORDERED: Al Hydrox/Mg Hydrox/Simet LIQ* 30 ML UDC PO PRN (20:20)
[2018-09-20] MEDS: Lactobacillus Acidophilus* 1 TAB PO SCH (23:34)
[2018-09-21] MEDS: methylPREDNISolone 125 MG* 2 ML VIAL IV SCH ×3 (01:48→18:04)
[2018-09-21] MEDS: oxyCODONE TAB* 5 MG TAB PO PRN (01:48)
[2018-09-21] MEDS: Albuterol/Ipratropium NEB.SOL* Albuterol 2.5 MG/Ipratropium 0.5 MG 3 ML INH SCH ×6 (03:33→22:48)
[2018-09-21] MEDS: Heparin VIAL(*) 5000 UNITS/ML VIAL (FIVE THOUSAND) SUBCUT SCH ×3 (05:22→20:40)
[2018-09-21 06:51] LABS: ABS Basophils 0 10^3/ul (0-0.2); ABS Eosinophils 0 10^3/ul (0-0.6); ABS Lymphocytes 0.7 10^3/ul (1.0-4.8); ABS Monocytes 0.4 10^3/ul (0-0.8); ABS Neutrophils 4.8 10^3/ul (1.5-7.7); ABS Nucleated RBC 0 10^3/ul; Eosinophil % 0 %; Hematocrit 35 % (33-41); Hemoglobin 11.8 g/dL (12.0-16.0); Lymphocyte % 11.6 %; Mean Corpuscular HGB Conc 34 g/dL (31-36); Mean Corpuscular Hemoglobin 31 pg (27-31); Mean Corpuscular Volume 91 fL (80-97); Nucleated Red Blood Cells % 0.1; Platelet Count 247 10^3/uL (150-450); Red Blood Count 3.81 10^6 /uL (3.70-4.87); Red Cell Distribution Width 14 % (10.5-15); White Blood Count 5.9 10^3/uL (3.5-10.8)
[2018-09-21 07:07] LABS: BUN/Creatinine Ratio 31.3 (8-20); Calcium 9.7 mg/dL (8.6-10.3); EGFR African American 66.2 (>60); EGFR Non-African American 54.7 (>60); Magnesium 2.1 mg/dL (1.9-2.7); Phosphorus 3.6 mg/dL (2.5-5.0); Potassium 4.8 mmol/L (3.5-5.0)
[2018-09-21] MEDS: FLUoxetine CAP* 20 MG PO SCH ×2 (09:23→20:41)
[2018-09-21] MEDS: clonazePAM TAB(*) 0.5 MG PO SCH ×3 (09:23→20:40)
[2018-09-21] MEDS: Lactobacillus Acidophilus* 1 TAB PO SCH ×2 (09:23→20:40)
[2018-09-21] MEDS: Aspirin EC TAB* 81 MG TAB.EC PO SCH (09:23)
[2018-09-21] MEDS: Clopidogrel TAB* 75 MG PO SCH (09:24)
[2018-09-21] MEDS: Pregabalin CAP(*) 25 MG PO SCH ×3 (09:24→20:40)
[2018-09-21] MEDS: guaiFENesin ER TAB 600 MG PO SCH ×2 (09:24→20:41)
[2018-09-21] MEDS: amLODIPine TAB* 5 MG PO SCH (09:24)
[2018-09-21] MEDS: risperiDONE TAB* 1 MG PO SCH ×2 (09:25→20:41)
[2018-09-21] MEDS: Famotidine TAB* 20 MG PO SCH (09:25)
[2018-09-21] MEDS: DOXYcycline CAP(*) 100 MG PO SCH ×2 (09:25→20:41)
--- NOTE | 2018-09-21 10:28 | ECHO ---
Patient: BERNARDINO CASEY [facility] Rec#: [id number] : 1945 Date: 09/21/2018 Age: 73y Height: 157 cm / 61.8 in Weight: 84 kg / 185.1 lbs Sex: F BSA: 1.85 Room#: [facility] Admit Date#: 09/17/2018 Type: Inpatient Referring: ISAAC CHAVARRIA G Reading: Bobo Whiting DO Quick Technician: Adrienne Gonzalez,BLANCHECS,RDMS CC: Lesly Willoughby NP Transthoracic Echocardiogram Indication: CHF BP: 106/69 HR: 83 Rhythm: NSR with PVCs Findings History: COPD, AFIB, HTN, MCA aneurysm Technical Comments: The study quality is fair. Left Ventricle: The left ventricular chamber size is decreased. Moderate concentric left ventricular hypertrophy is observed. Left ventricular systolic function is at the lower limits of normal. The estimated ejection fraction is 50-55%. Abnormal left ventricular diastolic function is observed. Left Atrium: The left atrium is severely dilated. Right Ventricle: The right ventricular chamber size and systolic function are within normal limits. Right Atrium: The right atrium is moderate to severely dilated. Aortic Valve: The aortic valve leaflets are mildly thickened. There is aortic annular calcification. There is mild aortic regurgitation. There is borderline aortic stenosis present. Mitral Valve: There is mitral annular calcification. The mitral valve leaflets are mildly thickened. There is a trace of mitral regurgitation. There is no evidence of mitral stenosis. Tricuspid Valve: The tricuspid valve leaflets are normal. There is trace to mild tricuspid regurgitation. Unable to estimate the right ventricular systolic pressure. Pulmonic Valve: The pulmonic valve structure is not well visualized. There is a trace pulmonic regurgitation. Pericardium: There is no significant pericardial effusion. A pericardial fat pad is visualized. Aorta: The ascending aorta is not well visualized. The aortic arch is not well visualized. The aortic root is normal in size. Pulmonary Artery: The main pulmonary artery is not well visualized. Venous: The inferior vena cava is dilated. There is a greater than 50% respiratory change in the inferior vena cava dimension. Conclusions The study quality is fair. The left ventricular chamber size is decreased. Moderate concentric left ventricular hypertrophy is observed. Left ventricular systolic function is at the lower limits of normal. The estimated ejection fraction is 50-55% without any obvious segmental wall motion abnormalities noted The left atrium is severely dilated. The right ventricular chamber size and systolic function are within normal limits. The right atrium is moderate to severely dilated. There is borderline aortic stenosis present. Unable to estimate the right ventricular systolic pressure. Compared to prior study from 07/2016, LVEF previously reported at 45-50% and estimated mild pulmonary hypertension previously Measurements Name Value Normal Range RVIDd (AP) 2D 3.6 cm (0.9 - 2.6) RAd ISD 4CH 6.2 cm (3.4 - 4.9) RA (A4C)W 3.9 cm (2.9 - 4.6) IVSd (2D) 1.7 cm (0.6 - 1) LVPWd (2D) 1.5 cm (0.6 - 1) LVIDd (2D) 3.1 cm (3.6 - 5.4) LVIDs (2D) 2.4 cm - LV FS (2D) 22 % (25 - 45) Aortic Annulus 1.9 cm (1.4 - 2.6) Ao root diameter (2D) 2.5 cm (2.1 - 3.5) LA dimension (AP) 2D 5.3 cm (2.3 - 3.8) LAd ISD 4CH 8 cm (2.9 - 5.3) LA ISD 4CH W 5.6 cm (2.5 - 4.5) Name Value Normal Range LA ESV BP (A/L) index 62.5 ml/m2 - Name Value Normal Range MV E-wave Vmax 1.1 m/sec - MV deceleration time 136 msec - MV A-wave Vmax 0.9 m/sec - MV E:A ratio 1.2 ratio - LV septal e' Vmax 0.05 m/sec - LV lateral e' Vmax 0.06 m/sec - LV E:e' septal ratio 24 ratio - LV E:e' lateral ratio 20 ratio - Name Value Normal Range AV Vmax 1.7 m/sec - AV VTI 37.5 cm - AV peak gradient 12 mmHg - AV mean gradient 7 mmHg - LVOT diameter 2 cm - LVOT Vmax 0.9 m/sec - LVOT VTI 19 cm - LVOT peak gradient 3.2 mmHg - LVOT mean gradient 2 mmHg - DOI (VTI) 0.5 ratio - HITESH (continuity Vmax) 1.7 cm2 - HITESH (continuity VTI) 1.6 cm2 - Name Value Normal Range MV Vmax 1.3 m/sec - MV VTI 30 cm - MV peak gradient 7 mmHg - MV mean gradient 3 mmHg - MV PHT 64 msec - MVA (PHT) 3.4 cm2 - MVA (continuity VTI) 2 cm2 - Name Value Normal Range IVC diameter 2.4 cm - Name Value Normal Range PV Vmax 1.1 m/sec - PV peak gradient 5 mmHg -
--- NOTE | 2018-09-21 16:50 | PN ---
Progress Note - Progress Note Date of Service: 09/21/18 - Pulm f/u note Note: Pt seen and examined at bedside. Pt reports feeling better. Denies significant cough or sputum production. Was SOB while ambulating. reports couldnot tolerate BiPAP as air was hot. Active Medications Generic Name Dose Route Start Last Admin Trade Name Freq PRN Reason Stop Dose Admin Al Hydrox/Mg Hydrox/Simethicone 30 ml 09/20/18 20:20 Maalox Plus* PO Q6H PRN DYSPEPSIA Albuterol 2.5 mg 09/18/18 11:46 Ventolin 2.5 Mg/3 Ml Neb.Mary* INH Q4H PRN SOB/WHEEZING Albuterol/Ipratropium 1 neb 09/18/18 15:00 09/21/18 14:50 Duoneb (Albuterol 2.5 Mg/Ipratropium 0.5 Mg) INH 1 neb [id number] AWAKE ARLEN Administration Alprazolam 0.25 mg 09/17/18 21:00 09/18/18 14:28 Xanax Tab* PO 0.25 mg Q12H PRN Administration TREMORS Amlodipine Besylate 5 mg 09/17/18 20:00 09/21/18 09:24 Norvasc Tab* PO 5 mg DAILY ARLEN Administration Aspirin 81 mg 09/18/18 09:00 09/21/18 09:23 Aspirin Ec Tab* PO 81 mg DAILY ARLEN Administration Clonazepam 0.5 mg 09/17/18 21:00 09/21/18 14:02 Klonopin Tab(*) PO 0.5 mg TID ARLEN Administration Clopidogrel Bisulfate 75 mg 09/18/18 09:00 09/21/18 09:24 Plavix Tab* PO 75 mg DAILY ARLEN Administration Doxycycline Hyclate 100 mg 09/20/18 12:00 09/21/18 09:25 Vibramycin Cap(*) PO 100 mg BID ARLEN Administration Famotidine 20 mg 09/18/18 09:00 09/21/18 09:25 Pepcid Tab* PO 20 mg DAILY ARLEN Administration Fluoxetine HCl 40 mg 09/17/18 21:00 09/21/18 09:23 Prozac Cap* PO 40 mg BID ARLEN Administration Guaifenesin 600 mg 09/18/18 21:00 09/21/18 09:24 Mucinex* PO 600 mg BID ARLEN Administration Heparin Sodium (Porcine) 5,000 units 09/17/18 22:00 09/21/18 14:03 Heparin Vial(*) SUBCUT 5,000 units Q8HR ARLEN Administration Lactobacillus Rhamnosus 1 tab 09/20/18 21:00 09/21/18 09:23 Lactobacillus Acidophilus* PO 1 tab BID ARLEN Administration Methylprednisolone Sodium Succinate 60 mg 09/20/18 09:30 09/21/18 09:21 Solu-Medrol 125mg * IV 60 mg Q8H ARLEN Administration Ondansetron HCl 4 mg 09/20/18 13:54 Zofran Inj* IV Q6H PRN NAUSEA Oxycodone HCl 10 mg 09/17/18 19:21 09/21/18 01:48 Roxycodone Tab* PO 10 mg QID PRN Administration PAIN Pregabalin 25 mg 09/17/18 21:00 09/21/18 14:02 Lyrica Cap(*) PO 25 mg TID ARLEN Administration Risperidone 1 mg 09/17/18 21:00 09/21/18 09:25 Risperdal* PO 1 mg BID ARLEN Administration Vital Signs Temp Pulse Resp BP Pulse Ox 97.0 F 75 16 101/73 98 09/21/18 11:41 09/21/18 14:53 09/21/18 14:53 09/21/18 11:41 09/21/18 14:53 O/E: Pt in NAD, lying in bed HEENT: PERRLA, mucus membranes moist, legally blind Lungs: Diminished air entry b/l, wheeze +, improved from yesterday CVS: S1, S2+, regular Abd: Soft, BS+ Ext: Normal ROM Skin: No rash Neuro: Alert, awake, no focal deficits Laboratory Results - last 24 hr 09/21/18 09/21/18 06:19 06:19 WBC 5.9 RBC 3.81 Hgb 11.8 L Hct 35 MCV 91 MCH 31 MCHC 34 RDW 14 Plt Count 247 MPV 8.0 Neut % (Auto) 82.1 Lymph % (Auto) 11.6 [place] % (Auto) 6.2 Eos % (Auto) 0 Baso % (Auto) 0.1 Absolute Neuts (auto) 4.8 Absolute Lymphs (auto) 0.7 L Absolute Monos (auto) 0.4 Absolute Eos (auto) 0 Absolute Basos (auto) 0 Absolute Nucleated RBC 0 Nucleated RBC % 0.1 Sodium 134 L Potassium 4.8 Chloride 91 L Carbon Dioxide 37 H Anion Gap 6 BUN 31 H Creatinine 0.99 H Est GFR ( Amer) 66.2 Est GFR (Non-Af Amer) 54.7 BUN/Creatinine Ratio 31.3 H Glucose 135 H Calcium 9.7 Phosphorus 3.6 Magnesium 2.1 I/R: 73y F w/pmhx of Afib, HTN, COPD on 3L O2, Left MCA aneurysm s/p clipping 2017, GERD, HTN, Legally blind, psychosis, oral cancer s/p excision, h/o PVD with left leg intervention in AT; patient comes to ER from [facility] for respiratory distress. Pt admitted to ICU for hypercapnic resp failure secondary to COPD, required NIPPV Pt improved, was transferred to floor She still has wheeze on auscultation Encouraged pt to use BiPAP at night Duoneb q 4hrs while awake c/w mucomyst c/w Solumedrol, would not taper yet given wheezing Requiring O2 at 3L/min which is her baseline GI ppx DVT px PT/OT Fall precautions, pt is legally blind Code status: DNR
--- NOTE | 2018-09-21 16:53 | PN ---
Subjective Date of Service: 09/21/18 Interval History: Patient feel SOB, but better than yesterday. Has been on BiPAP at night, but now when napping. Patient awoken from nap, seems confused. Denies chest pain. Not on BiPAP at home. Past Medical History: Unchanged from Admission Objective Active Medications: Al Hydrox/Mg Hydrox/Simethicone (Maalox Plus*) 30 ml PO Q6H PRN PRN Reason: DYSPEPSIA Albuterol (Ventolin 2.5 Mg/3 Ml Neb.Mary*) 2.5 mg INH Q4H PRN PRN Reason: SOB/WHEEZING Albuterol/Ipratropium (Duoneb (Albuterol 2.5 Mg/Ipratropium 0.5 Mg)) 1 neb INH [id number] AWAKE [facility] Last Admin: 09/21/18 14:50 Dose: 1 neb Alprazolam (Xanax Tab*) 0.25 mg PO Q12H PRN PRN Reason: TREMORS Last Admin: 09/18/18 14:28 Dose: 0.25 mg Amlodipine Besylate (Norvasc Tab*) 5 mg PO DAILY [facility] Last Admin: 09/21/18 09:24 Dose: 5 mg Aspirin (Aspirin Ec Tab*) 81 mg PO DAILY [facility] Last Admin: 09/21/18 09:23 Dose: 81 mg Clonazepam (Klonopin Tab(*)) 0.5 mg PO TID [facility] Last Admin: 09/21/18 14:02 Dose: 0.5 mg Clopidogrel Bisulfate (Plavix Tab*) 75 mg PO DAILY [facility] Last Admin: 09/21/18 09:24 Dose: 75 mg Doxycycline Hyclate (Vibramycin Cap(*)) 100 mg PO BID [facility] Last Admin: 09/21/18 09:25 Dose: 100 mg Famotidine (Pepcid Tab*) 20 mg PO DAILY [facility] Last Admin: 09/21/18 09:25 Dose: 20 mg Fluoxetine HCl (Prozac Cap*) 40 mg PO BID [facility] Last Admin: 09/21/18 09:23 Dose: 40 mg Guaifenesin (Mucinex*) 600 mg PO BID [facility] Last Admin: 09/21/18 09:24 Dose: 600 mg Heparin Sodium (Porcine) (Heparin Vial(*)) 5,000 units SUBCUT Q8HR [facility] Last Admin: 09/21/18 14:03 Dose: 5,000 units Lactobacillus Rhamnosus (Lactobacillus Acidophilus*) 1 tab PO BID [facility] Last Admin: 09/21/18 09:23 Dose: 1 tab Methylprednisolone Sodium Succinate (Solu-Medrol 125mg *) 60 mg IV Q8H [facility] Last Admin: 09/21/18 09:21 Dose: 60 mg Ondansetron HCl (Zofran Inj*) 4 mg IV Q6H PRN PRN Reason: NAUSEA Oxycodone HCl (Roxycodone Tab*) 10 mg PO QID PRN PRN Reason: PAIN Last Admin: 09/21/18 01:48 Dose: 10 mg Pregabalin (Lyrica Cap(*)) 25 mg PO TID [facility] Last Admin: 09/21/18 14:02 Dose: 25 mg Risperidone (Risperdal*) 1 mg PO BID [facility] Last Admin: 09/21/18 09:25 Dose: 1 mg Vital Signs - 8 hr 09/21/18 09/21/18 09/21/18 09:23 09:24 10:59 Temperature Pulse Rate 96 Respiratory 20 20 17 Rate Blood Pressure (mmHg) O2 Sat by Pulse 98 Oximetry 09/21/18 09/21/18 09/21/18 11:01 11:23 11:41 Temperature 36.1 C Pulse Rate 96 79 Respiratory 18 16 16 Rate Blood Pressure 101/73 (mmHg) O2 Sat by Pulse 98 99 Oximetry 09/21/18 09/21/18 09/21/18 14:02 14:52 14:53 Temperature Pulse Rate 98 75 Respiratory 24 74 16 Rate Blood Pressure (mmHg) O2 Sat by Pulse 16 98 Oximetry Oxygen Devices in Use Now: Nasal Cannula Appearance: somnolent, arousable Ears/Nose/Mouth/Throat: Clear Oropharnyx Neck: NL Appearance and Movements; NL JVP Respiratory: - - diffuse wheezing, moderate air movement Abdominal: NL Sounds; No Tenderness; No Distention, No Hepatosplenomegaly Extremities: No Edema Result Diagrams: 09/21/18 06:19 09/21/18 06:19 Assess/Plan/Problems-Billing Assessment: 73 y/o woman admitted from [facility] for acute hypoxic respiratory failure and hypercapnea due to COPD exacerbations requiring rescue BiPAP in ICU transferred out of the ICU on 4/13/19 - Patient Problems (1) Acute respiratory failure with hypoxia and hypercapnia Current Visit: Yes Status: Acute Priority: High Code(s): J96.01 - ACUTE RESPIRATORY FAILURE WITH HYPOXIA; J96.02 - ACUTE RESPIRATORY FAILURE WITH HYPERCAPNIA SNOMED Code(s): 248638346 Comment: -Patient on maximal therapy, slowly improving -If somnolent after napping, should wear BiPAP when asleep, likely retaining CO2 again -Continue present medications (2) MDD (major depressive disorder), recurrent, severe, with psychosis Current Visit: No Status: Acute Priority: Medium Code(s): F33.3 - MAJOR DEPRESSV DISORDER, RECURRENT, SEVERE W PSYCH SYMPTOMS SNOMED Code(s): 138348495 Comment: -Continue prozac, risperdone -behavior in good control (3) DVT prophylaxis Current Visit: No Status: Acute Priority: Low Onset Date: 08/26/14 Code( s): DEY7198 - SNOMED Code(s): 344043426 Comment: SQ heparin Status and Disposition: inpatient, possible discharge 2-3 days
--- NOTE | 2018-09-21 19:31 | PN ---
Progress Note - Progress Note Date of Service: 09/21/18 Note: Event note- Called re patient with HR 108. Has h/o a-fib, but had been in NSR when last had EKG, and on telemetry. EKG taken, shows a-fib. Patient not anticoagulated at baseline. Will lower dose amlodipine, start diltiazem for rate control.
[2018-09-21] MEDS: Ondansetron INJ* 2 MG/ML VIAL IV PRN (20:37)
[2018-09-21] MEDS: Diltiazem CD CAP* 120 MG PO SCH (20:41)
[2018-09-22] MEDS: methylPREDNISolone 125 MG* 2 ML VIAL IV SCH ×2 (01:17→09:37)
[2018-09-22] MEDS: Albuterol/Ipratropium NEB.SOL* Albuterol 2.5 MG/Ipratropium 0.5 MG 3 ML INH SCH ×4 (03:11→20:37)
[2018-09-22] MEDS: Heparin VIAL(*) 5000 UNITS/ML VIAL (FIVE THOUSAND) SUBCUT SCH ×3 (05:11→21:46)
[2018-09-22] MEDS: DOXYcycline CAP(*) 100 MG PO SCH ×2 (09:30→20:17)
[2018-09-22] MEDS: Clopidogrel TAB* 75 MG PO SCH (09:30)
[2018-09-22] MEDS: risperiDONE TAB* 1 MG PO SCH ×2 (09:30→20:17)
[2018-09-22] MEDS: guaiFENesin ER TAB 600 MG PO SCH ×2 (09:30→20:17)
[2018-09-22] MEDS: Aspirin EC TAB* 81 MG TAB.EC PO SCH (09:31)
[2018-09-22] MEDS: amLODIPine TAB* 5 MG PO SCH (09:31)
[2018-09-22] MEDS: Lactobacillus Acidophilus* 1 TAB PO SCH ×2 (09:31→20:17)
[2018-09-22] MEDS: FLUoxetine CAP* 20 MG PO SCH ×2 (09:31→20:17)
[2018-09-22] MEDS: Pregabalin CAP(*) 25 MG PO SCH ×3 (09:32→20:17)
[2018-09-22] MEDS: Diltiazem CD CAP* 120 MG PO SCH ×2 (09:34→20:17)
[2018-09-22] MEDS: clonazePAM TAB(*) 0.5 MG PO SCH ×3 (09:36→20:17)
[2018-09-22] MEDS: Famotidine TAB* 20 MG PO SCH (09:36)
[2018-09-22] MEDS: Ondansetron INJ* 2 MG/ML VIAL IV PRN (11:09)
[2018-09-22] MEDS: ALPRAZolam TAB* 0.25 MG PO PRN (12:06)
--- NOTE | 2018-09-22 16:18 | PN ---
Subjective Date of Service: 09/22/18 Interval History: Patient feels fatigued. She says she wished she had in the ICU. She is tired of using O2, BiPAP. Denies chest pain, but feels breathing is labored at rest. Eating well, moved bowels 2 days ago. Family History: Unchanged from Admission Social History: Unchanged from Admission Past Medical History: Unchanged from Admission Objective Active Medications: Al Hydrox/Mg Hydrox/Simethicone (Maalox Plus*) 30 ml PO Q6H PRN PRN Reason: DYSPEPSIA Albuterol (Ventolin 2.5 Mg/3 Ml Neb.Mary*) 2.5 mg INH Q4H PRN PRN Reason: SOB/WHEEZING Albuterol/Ipratropium (Duoneb (Albuterol 2.5 Mg/Ipratropium 0.5 Mg)) 1 neb INH [id number] AWAKE [facility] Last Admin: 09/22/18 13:29 Dose: 1 neb Alprazolam (Xanax Tab*) 0.25 mg PO Q12H PRN PRN Reason: TREMORS Last Admin: 09/22/18 12:06 Dose: 0.25 mg Amlodipine Besylate (Norvasc Tab*) 2.5 mg PO DAILY [facility] Last Admin: 09/22/18 09:31 Dose: 2.5 mg Aspirin (Aspirin Ec Tab*) 81 mg PO DAILY [facility] Last Admin: 09/22/18 09:31 Dose: 81 mg Clonazepam (Klonopin Tab(*)) 0.5 mg PO TID [facility] Last Admin: 09/22/18 14:22 Dose: 0.5 mg Clopidogrel Bisulfate (Plavix Tab*) 75 mg PO DAILY [facility] Last Admin: 09/22/18 09:30 Dose: 75 mg Diltiazem HCl (Cardizem Cd Cap*) 120 mg PO BID [facility] Doxycycline Hyclate (Vibramycin Cap(*)) 100 mg PO BID [facility] Last Admin: 09/22/18 09:30 Dose: 100 mg Famotidine (Pepcid Tab*) 20 mg PO DAILY [facility] Last Admin: 09/22/18 09:36 Dose: 20 mg Fluoxetine HCl (Prozac Cap*) 40 mg PO BID [facility] Last Admin: 09/22/18 09:31 Dose: 40 mg Guaifenesin (Mucinex*) 600 mg PO BID [facility] Last Admin: 09/22/18 09:30 Dose: 600 mg Heparin Sodium (Porcine) (Heparin Vial(*)) 5,000 units SUBCUT Q8HR [facility] Last Admin: 09/22/18 14:22 Dose: 5,000 units Lactobacillus Rhamnosus (Lactobacillus Acidophilus*) 1 tab PO BID [facility] Last Admin: 09/22/18 09:31 Dose: 1 tab Methylprednisolone Sodium Succinate (Solu-Medrol 125mg *) 60 mg IV Q8H [facility] Last Admin: 09/22/18 09:37 Dose: 60 mg Ondansetron HCl (Zofran Inj*) 4 mg IV Q6H PRN PRN Reason: NAUSEA Last Admin: 09/22/18 11:09 Dose: 4 mg Oxycodone HCl (Roxycodone Tab*) 10 mg PO QID PRN PRN Reason: PAIN Last Admin: 09/21/18 01:48 Dose: 10 mg Pregabalin (Lyrica Cap(*)) 25 mg PO TID [facility] Last Admin: 09/22/18 14:22 Dose: 25 mg Risperidone (Risperdal*) 1 mg PO BID [facility] Last Admin: 09/22/18 09:30 Dose: 1 mg Vital Signs - 8 hr 09/22/18 09/22/18 09/22/18 11:21 11:26 12:06 Temperature 36.8 C Pulse Rate 88 Respiratory 24 16 24 Rate Blood Pressure 105/64 (mmHg) O2 Sat by Pulse 99 Oximetry Oxygen Devices in Use Now: Nasal Cannula Appearance: alert, NAD Ears/Nose/Mouth/Throat: NL Teeth, Lips, Gums Neck: NL Appearance and Movements; NL JVP Respiratory: Clear to Auscultation, - - diminished throughout Cardiovascular: - - irregularly irregular, distant Abdominal: NL Sounds; No Tenderness; No Distention Lymphatic: No Cervical Adenopathy Neurological: Alert and Oriented x 3 Lines/Tubes/Other Access: Clean, Dry and Intact Peripheral IV Nutrition: Taking PO's Result Diagrams: 09/21/18 06:19 09/21/18 06:19 EKG Data: Telemetry: HR 80-120 generally Assess/Plan/Problems-Billing Assessment: 73 y/o woman admitted from [facility] for acute hypoxic respiratory failure and hypercapnea due to COPD exacerbations requiring rescue BiPAP in ICU transferred out of the ICU on 09/19/18 - Patient Problems (1) Acute respiratory failure with hypoxia and hypercapnia Current Visit: Yes Status: Acute Priority: High Code(s): J96.01 - ACUTE RESPIRATORY FAILURE WITH HYPOXIA; J96.02 - ACUTE RESPIRATORY FAILURE WITH HYPERCAPNIA SNOMED Code(s): 418421310 Comment: -Patient on maximal therapy, slowly improving, wheezing has broken -If somnolent after napping, should wear BiPAP when asleep, likely to retain CO2 again -Continue present medications, switching steroids to oral (2) MDD (major depressive disorder), recurrent, severe, with psychosis Current Visit: No Status: Acute Priority: Medium Code(s): F33.3 - MAJOR DEPRESSV DISORDER, RECURRENT, SEVERE W PSYCH SYMPTOMS SNOMED Code(s): 381468183 Comment: -Continue prozac, risperdone -behavior in good control (3) DVT prophylaxis Current Visit: No Status: Acute Priority: Low Onset Date: 08/26/14 Code( s): [id number] - SNOMED Code(s): 278482522 Comment: SQ heparin (4) Atrial fibrillation with rapid ventricular response Current Visit: Yes Status: Acute Priority: High Code(s): I48.91 - UNSPECIFIED ATRIAL FIBRILLATION SNOMED Code(s): 179684233480397 Comment: -A-Fib noted yesterday evening -Rate control better w/ oral diltiazem -Increased diltiazem to 240/day as of this evening -[id number] score 2, would start anticoagulation, but will discuss with family first (5) DNR (do not resuscitate) discussion Current Visit: Yes Status: Acute Priority: Medium Code(s): Z71.89 - OTHER SPECIFIED COUNSELING SNOMED Code(s): 848877261 Comment: -Discussed code status with patient, she clearly articulates she is DNR/DNI -Would not force patient to use BiPAP. She understands this was life-saving in ICU recently. Status and Disposition: inpatient, possible discharge 1-2 days
--- NOTE | 2018-09-22 17:02 | PN ---
Progress Note - Progress Note Date of Service: 09/22/18 - Pulm f/u note Note: Pt seen and examined at bedside. Pt upset regarding need to use BiPAP Active Medications Generic Name Dose Route Start Last Admin Trade Name Freq PRN Reason Stop Dose Admin Al Hydrox/Mg Hydrox/Simethicone 30 ml 09/20/18 20:20 Maalox Plus* PO Q6H PRN DYSPEPSIA Albuterol 2.5 mg 09/18/18 11:46 Ventolin 2.5 Mg/3 Ml Neb.Mary* INH Q4H PRN SOB/WHEEZING Albuterol/Ipratropium 1 neb 09/22/18 13:00 09/22/18 13:29 Duoneb (Albuterol 2.5 Mg/Ipratropium 0.5 Mg) INH 1 neb [id number] AWAKE [facility] Administration Alprazolam 0.25 mg 09/17/18 21:00 09/22/18 12:06 Xanax Tab* PO 0.25 mg Q12H PRN Administration TREMORS Amlodipine Besylate 2.5 mg 09/22/18 09:00 09/22/18 09:31 Norvasc Tab* PO 2.5 mg DAILY [facility] Administration Aspirin 81 mg 09/18/18 09:00 09/22/18 09:31 Aspirin Ec Tab* PO 81 mg DAILY [facility] Administration Clonazepam 0.5 mg 09/17/18 21:00 09/22/18 14:22 Klonopin Tab(*) PO 0.5 mg TID [facility] Administration Clopidogrel Bisulfate 75 mg 09/18/18 09:00 09/22/18 09:30 Plavix Tab* PO 75 mg DAILY [facility] Administration Diltiazem HCl 120 mg 09/22/18 21:00 Cardizem Cd Cap* PO BID [facility] Doxycycline Hyclate 100 mg 09/20/18 12:00 09/22/18 09:30 Vibramycin Cap(*) PO 100 mg BID [facility] Administration Famotidine 20 mg 09/18/18 09:00 09/22/18 09:36 Pepcid Tab* PO 20 mg DAILY [facility] Administration Fluoxetine HCl 40 mg 09/17/18 21:00 09/22/18 09:31 Prozac Cap* PO 40 mg BID [facility] Administration Guaifenesin 600 mg 09/18/18 21:00 09/22/18 09:30 Mucinex* PO 600 mg BID [facility] Administration Heparin Sodium (Porcine) 5,000 units 09/17/18 22:00 09/22/18 14:22 Heparin Vial(*) SUBCUT 5,000 units Q8HR [facility] Administration Lactobacillus Rhamnosus 1 tab 09/20/18 21:00 09/22/18 09:31 Lactobacillus Acidophilus* PO 1 tab BID [facility] Administration Ondansetron HCl 4 mg 09/20/18 13:54 09/22/18 11:09 Zofran Inj* IV 4 mg Q6H PRN Administration NAUSEA Oxycodone HCl 10 mg 09/17/18 19:21 09/21/18 01:48 Roxycodone Tab* PO 10 mg QID PRN Administration PAIN Prednisone 50 mg 09/23/18 09:00 Deltasone Tab* PO DAILY [facility] Pregabalin 25 mg 09/17/18 21:00 09/22/18 14:22 Lyrica Cap(*) PO 25 mg TID [facility] Administration Risperidone 1 mg 09/17/18 21:00 09/22/18 09:30 Risperdal* PO 1 mg BID [facility] Administration Vital Signs Temp Pulse Resp BP Pulse Ox 98.2 F 101 20 128/56 100 09/22/18 15:24 09/22/18 15:24 09/22/18 16:19 09/22/18 15:24 09/22/18 15:24 O/E: Pt in NAD HEENT: PERRLA Lungs: Diminished air entry b/l, wheeze+ CVS: S1, S2+ Abd: Soft, BS+ Ext: Normal ROM Neuro: Legally blind, no focal deficits Labs: No new labs I/R: 73y F w/pmhx of Afib, HTN, COPD on 3L O2, Left MCA aneurysm s/p clipping 2017, GERD, HTN, Legally blind, psychosis, oral cancer s/p excision, h/o PVD with left leg intervention in AT; patient comes to ER from [facility] for respiratory distress. Pt admitted to ICU for hypercapnic resp failure secondary to COPD, required NIPPV Pt improved, was transferred to floor She still has wheeze on auscultation, bicar was elevated on BMP Pt not wanting to use BiPAP Duoneb q 4hrs while awake c/w mucomyst on prednisone po Requiring O2 at 3L/min which is her baseline GI ppx DVT px PT/OT Fall precautions, pt is legally blind
[2018-09-23] MEDS: Albuterol/Ipratropium NEB.SOL* Albuterol 2.5 MG/Ipratropium 0.5 MG 3 ML INH SCH ×2 (01:13→08:20)
[2018-09-23] MEDS: Heparin VIAL(*) 5000 UNITS/ML VIAL (FIVE THOUSAND) SUBCUT SCH ×2 (05:29→13:02)
[2018-09-23] MEDS: guaiFENesin ER TAB 600 MG PO SCH ×2 (08:09→20:15)
[2018-09-23] MEDS: Diltiazem CD CAP* 120 MG PO SCH ×3 (08:09→20:15)
[2018-09-23] MEDS: predniSONE TAB* 50 MG PO SCH (08:09)
[2018-09-23] MEDS: Famotidine TAB* 20 MG PO SCH (08:09)
[2018-09-23] MEDS: clonazePAM TAB(*) 0.5 MG PO SCH ×3 (08:09→20:16)
[2018-09-23] MEDS: risperiDONE TAB* 1 MG PO SCH ×2 (08:09→20:15)
[2018-09-23] MEDS: DOXYcycline CAP(*) 100 MG PO SCH ×2 (08:09→20:16)
[2018-09-23] MEDS: Clopidogrel TAB* 75 MG PO SCH (08:09)
[2018-09-23] MEDS: Lactobacillus Acidophilus* 1 TAB PO SCH ×2 (08:09→20:16)
[2018-09-23] MEDS: Pregabalin CAP(*) 25 MG PO SCH ×2 (08:09→13:02)
[2018-09-23] MEDS: amLODIPine TAB* 5 MG PO SCH ×2 (08:10→09:00)
[2018-09-23] MEDS: Aspirin EC TAB* 81 MG TAB.EC PO SCH (08:10)
[2018-09-23] MEDS: FLUoxetine CAP* 20 MG PO SCH ×2 (08:10→20:15)
[2018-09-23] MEDS: oxyCODONE TAB* 5 MG TAB PO PRN (09:32)
[2018-09-23] MEDS ORDERED: Albuterol/Ipratropium NEB.SOL* Albuterol 2.5 MG/Ipratropium 0.5 MG 3 ML INH PRN (10:18)
--- NOTE | 2018-09-23 16:19 | PN ---
Subjective Date of Service: 09/23/18 Interval History: Patient has discomfort in buttocks. Denies dyspnea at rest. Has some cough. Spoke with son, he is concerned about tremor present intermittently for 1-2 years. Family History: Unchanged from Admission Social History: Unchanged from Admission Past Medical History: Unchanged from Admission Objective Active Medications: Al Hydrox/Mg Hydrox/Simethicone (Maalox Plus*) 30 ml PO Q6H PRN PRN Reason: DYSPEPSIA Albuterol (Ventolin 2.5 Mg/3 Ml Neb.Mary*) 2.5 mg INH Q4H PRN PRN Reason: SOB/WHEEZING Albuterol/Ipratropium (Duoneb (Albuterol 2.5 Mg/Ipratropium 0.5 Mg)) 1 neb INH Q4H PRN PRN Reason: SOB/WHEEZING Alprazolam (Xanax Tab*) 0.25 mg PO Q12H PRN PRN Reason: TREMORS Last Admin: 09/22/18 12:06 Dose: 0.25 mg Aspirin (Aspirin Ec Tab*) 81 mg PO DAILY [facility] Last Admin: 09/23/18 08:10 Dose: 81 mg Clonazepam (Klonopin Tab(*)) 0.5 mg PO TID [facility] Last Admin: 09/23/18 13:01 Dose: 0.5 mg Clopidogrel Bisulfate (Plavix Tab*) 75 mg PO DAILY [facility] Last Admin: 09/23/18 08:09 Dose: 75 mg Diltiazem HCl (Cardizem Cd Cap*) 120 mg PO BID [facility] Last Admin: 09/23/18 09:03 Dose: 120 mg Doxycycline Hyclate (Vibramycin Cap(*)) 100 mg PO BID [facility] Last Admin: 09/23/18 08:09 Dose: 100 mg Famotidine (Pepcid Tab*) 20 mg PO DAILY [facility] Last Admin: 09/23/18 08:09 Dose: 20 mg Fluoxetine HCl (Prozac Cap*) 40 mg PO BID [facility] Last Admin: 09/23/18 08:10 Dose: 40 mg Guaifenesin (Mucinex*) 600 mg PO BID [facility] Last Admin: 09/23/18 08:09 Dose: 600 mg Heparin Sodium (Porcine) (Heparin Vial(*)) 5,000 units SUBCUT Q8HR [facility] Last Admin: 09/23/18 13:02 Dose: 5,000 units Lactobacillus Rhamnosus (Lactobacillus Acidophilus*) 1 tab PO BID [facility] Last Admin: 09/23/18 08:09 Dose: 1 tab Ondansetron HCl (Zofran Inj*) 4 mg IV Q6H PRN PRN Reason: NAUSEA Last Admin: 09/22/18 11:09 Dose: 4 mg Oxycodone HCl (Roxycodone Tab*) 10 mg PO QID PRN PRN Reason: PAIN Last Admin: 09/23/18 09:32 Dose: 10 mg Prednisone (Deltasone Tab*) 50 mg PO DAILY [facility] Last Admin: 09/23/18 08:09 Dose: 50 mg Pregabalin (Lyrica Cap(*)) 25 mg PO TID [facility] Last Admin: 09/23/18 13:02 Dose: 25 mg Risperidone (Risperdal*) 1 mg PO BID [facility] Last Admin: 09/23/18 08:09 Dose: 1 mg Vital Signs - 8 hr 09/23/18 09/23/18 09/23/18 11:03 11:45 13:01 Temperature 36.8 C Pulse Rate 88 Respiratory 20 16 16 Rate Blood Pressure 102/53 (mmHg) O2 Sat by Pulse 96 Oximetry 09/23/18 09/23/18 09/23/18 13:02 14:40 15:22 Temperature 36.1 C Pulse Rate 91 Respiratory 16 16 24 Rate Blood Pressure 103/61 (mmHg) O2 Sat by Pulse 100 Oximetry Oxygen Devices in Use Now: Nasal Cannula Appearance: alert, no distress Eyes: No Scleral Icterus Ears/Nose/Mouth/Throat: Clear Oropharnyx Respiratory: - - scattered wheezes, ronchi RT base Cardiovascular: NL Sounds; No Murmurs; No JVD, - - irregular, 1+ edema bilat LE Abdominal: NL Sounds; No Tenderness; No Distention Neurological: Alert and Oriented x 3 Lines/Tubes/Other Access: Clean, Dry and Intact Peripheral IV Nutrition: Taking PO's Result Diagrams: 09/21/18 06:19 09/21/18 06:19 Assess/Plan/Problems-Billing Assessment: 73 y/o woman admitted from [facility] [place] for acute hypoxic respiratory failure and hypercapnea due to COPD exacerbations requiring rescue BiPAP in ICU transferred out of the ICU on 09/19/18 - Patient Problems (1) Acute respiratory failure with hypoxia and hypercapnia Current Visit: Yes Status: Acute Priority: High Code(s): J96.01 - ACUTE RESPIRATORY FAILURE WITH HYPOXIA; J96.02 - ACUTE RESPIRATORY FAILURE WITH HYPERCAPNIA SNOMED Code(s): 571660673 Comment: -Patient on oral/inhaled therapy, slowly improving -If somnolent after napping, should wear BiPAP when asleep, likely to retain CO2 again -Suspect will be ready for discharge tomorrow -Will need overnight O2 study, as may need BiPAP at SNF (2) MDD (major depressive disorder), recurrent, severe, with psychosis Current Visit: No Status: Acute Priority: Medium Code(s): F33.3 - MAJOR DEPRESSV DISORDER, RECURRENT, SEVERE W PSYCH SYMPTOMS SNOMED Code(s): 416739336 Comment: -Continue prozac, risperdone -behavior in good control -Tremor may be due to Lyrica, risperdone -No clear need for Lyrica, will stop (3) DVT prophylaxis Current Visit: No Status: Acute Priority: Low Onset Date: 08/26/14 Code( s): LBH0020 - SNOMED Code(s): 287514664 Comment: SQ heparin (4) Atrial fibrillation with rapid ventricular response Current Visit: Yes Status: Acute Priority: High Code(s): I48.91 - UNSPECIFIED ATRIAL FIBRILLATION SNOMED Code(s): 982988998145873 Comment: -A-Fib noted after ICU stay -Rate control better w/ oral diltiazem 240 mg -[id number] score 3, starting anticoagulation, discussed with son (5) DNR (do not resuscitate) discussion Current Visit: Yes Status: Acute Priority: Medium Code(s): Z71.89 - OTHER SPECIFIED COUNSELING SNOMED Code(s): 404329718 Comment: -MOLST form completed yesterday Status and Disposition: inpatient, plan discharge tomorrow Counseling and/or Coordination of Care Minutes: w/ son
[2018-09-23] MEDS: ALPRAZolam TAB* 0.25 MG PO PRN (17:35)
[2018-09-23] MEDS: Apixaban* 5 MG TAB PO SCH (20:16)
[2018-09-24 07:01] LABS: BUN/Creatinine Ratio 44.4 (8-20); Calcium 9.7 mg/dL (8.6-10.3); EGFR African American 59.8 (>60); EGFR Non-African American 49.5 (>60); Potassium 4.5 mmol/L (3.5-5.0)
[2018-09-24] MEDS: clonazePAM TAB(*) 0.5 MG PO SCH (08:53)
[2018-09-24] MEDS: Apixaban* 5 MG TAB PO SCH (08:54)
[2018-09-24] MEDS: risperiDONE TAB* 1 MG PO SCH (08:54)
[2018-09-24] MEDS: FLUoxetine CAP* 20 MG PO SCH (08:54)
[2018-09-24] MEDS: DOXYcycline CAP(*) 100 MG PO SCH (08:54)
[2018-09-24] MEDS: Lactobacillus Acidophilus* 1 TAB PO SCH (08:54)
[2018-09-24] MEDS: Diltiazem CD CAP* 120 MG PO SCH (08:55)
[2018-09-24] MEDS: predniSONE TAB* 50 MG PO SCH (08:55)
[2018-09-24] MEDS: Aspirin EC TAB* 81 MG TAB.EC PO SCH (08:55)
[2018-09-24] MEDS: guaiFENesin ER TAB 600 MG PO SCH (08:55)
[2018-09-24] MEDS: Famotidine TAB* 20 MG PO SCH (08:55)
[2018-09-24 11:30] VITALS: BP 96/66
--- NOTE | 2018-09-24 13:03 | DS ---
CC: Dr. Temple; [facility]* DATE OF ADMISSION: 09/17/2018. DATE OF DISCHARGE: 09/24/2018. PRIMARY DIAGNOSIS: Acute on chronic respiratory failure with hypoxia and hypercapnia. SECONDARY DIAGNOSES: COPD exacerbation, asbestosis seen on chest x-ray, atrial fibrillation, hypertension, history of left MCA aneurysm clipping September 2017, GERD, legal blindness, depression with psychotic features, history of oral cancer status post excision. MEDICATIONS ON DISCHARGE: 1. Acetaminophen 350 mg p.o. q.6 hours prn pain. 2. Albuterol nebulizer 2.5 mg inhaled q.6 hours prn wheezing. 3. Xanax 25 mg p.o. q.8 hours prn anxiety. 4. Ammonium Lactate 12% topical as needed. 5. Clonazepam 0.5 mg p.o. t.i.d. 6. Vitamin B12 injection 1,000 mcg IM monthly. 7. Colace 200 mg p.o. q.p.m. 8. Ferrous Sulfate 325 mg p.o. daily. 9. Fluoxetine 40 mg p.o. b.i.d. 10. Icy Hot 7.5% topical patches as needed. 11. Methyl Salicylate menthol cream topically as needed. 12. Multivitamin one tab p.o. daily. 13. Oxycodone 10 mg p.o. q.i.d. prn pain. 14. Systane eye drops as needed. 15. Risperidone 1 mg p.o. b.i.d. 16. Anoro Ellipta 62.5 mg one inhalation daily. 17. Maalox 30 ml q.6 hours prn dyspepsia. 18. Apixaban 5 mg p.o. b.i.d. 19. Aspirin 81 mg p.o. daily. 20. Diltiazem CD 120 mg p.o. b.i.d. 21. Pepcid 20 mg p.o. daily. 22. Furosemide 20 mg p.o. q.a.m. 23. Guaifenesin ER 600 mg p.o. b.i.d. 24. Acidophilus one tab p.o. b.i.d. 25. Prednisone 10 mg tablets, taper 40 mg times 2 days, then 30 mg times 2 days , then 20 mg times 2 days, then 10 mg times 2 days, then stop. HOSPITAL COURSE: The patient with a history of COPD was admitted to the emergency department on transfer from [facility] with increasing shortness of breath. She came in in extremis and tachypneic. No history could be obtained from the patient. She was admitted to Intensive Care on a noninvasive rescue BiPAP. She had ABG's that showed hypercapnic respiratory failure as well as hypoxemia. Chest x-ray showed no infiltrates, but did show some pleural plaquing consistent with asbestosis. The patient's initial pH was 7.29. She was also anemic with a hemoglobin of 10.2. Her creatinine was at above baseline at 1.3. Initial troponin was 0.11 and went up to 0.13 as a peak. BNP was 379. The patient was treated with IV antibiotics, IV steroids, nebulizers, and BiPAP as above. She by hospital day two had improvement in the shortness of breath, was tolerating BiPAP only at nighttime. She was down to her baseline 3 liters per minute of oxygen by nasal cannula. The patient was transferred to the medical floor where she had continued treatment with IV and with oral steroids and continuation with oral Doxycycline for her antibiotic which she completed seven days and this was stopped. The patient expressed her wishes that she would not be intubated or have cardiac resuscitation in the event of arrhythmia or cardiac arrest. She had a MOLST form filled out, so she was DNR/DNI. The patient's depression interfered with her recovery. She stated that she wanted to and that she did not have energy to do anything. She did get up a couple steps to a chair with assistance and encouragement. On the day of discharge, she was tolerating food and on 3 liters nasal cannula. We did an overnight oxygen study to assess for the need for continued BiPAP at night. She did not drop below 88 percent saturation when on just 3 liters nasal cannula oxygen, so she does not qualify or need BiPAP. The patient did have an elevated troponin which did not need further work-up because this was due to demand ischemia. She did have rapid atrial fibrillation response to her pulmonary disease and she was initiated on oral Diltiazem which helps with rate control. She was taken off of her Norvasc as a result of being on a different calcium channel awais. I discussed the patient's atrial fibrillation with her son and discussed the risk of stroke. We elected to start her on Apixaban for anticoagulation. DISPOSITION: To [facility] where she resides. ACTIVITY: Out of bed to chair with assistance and walk with a walker, and physical therapy. DIET: Low salt. CONDITION ON DISCHARGE: Her condition was guarded and is now stable. STATUS: Inpatient. FOLLOW-UP: The patient should be seen within a week by her staff physician at the correction. We recommend tapering Prednisone as directed above. TIME SPENT: Fifty minutes coordinating care of this patient's discharge, doing a final physical exam, and completing the necessary documentation. [id number]/CPS #: [id number] CHOL[facility]
== END 2018-09-24 14:10 | DRG 189 ==
LOC: ED 16:40 → ICU 19:14 → MEDTELE 09-19 11:01
PROVIDERS: ADMIT Internal Medicine Critical Care Medicine; ATTEND Internal Medicine
PROC: 5A09357 Assistance with Respiratory Ventilation, Less than 24 Consecutive Hours, Continuous Positive Airway Pressure (ICD-10-PCS; principal; 2018-09-17)
DX: J96.22 Acute and chronic respiratory failure with hypercapnia (principal); J44.1 Chronic obstructive pulmonary disease with (acute) exacerbation; F32.3 Major depressive disorder, single episode, severe with psychotic features; I24.8 Other forms of acute ischemic heart disease; I42.9 Cardiomyopathy, unspecified; N17.9 Acute kidney failure, unspecified; E87.1 Hypo-osmolality and hyponatremia; J96.21 Acute and chronic respiratory failure with hypoxia; J61 Pneumoconiosis due to asbestos and other mineral fibers; I48.91 Unspecified atrial fibrillation; K21.9 Gastro-esophageal reflux disease without esophagitis; H54.8 Legal blindness, as defined in USA; D64.9 Anemia, unspecified; Z66 Do not resuscitate; I73.9 Peripheral vascular disease, unspecified; F41.9 Anxiety disorder, unspecified; I50.9 Heart failure, unspecified; I11.0 Hypertensive heart disease with heart failure; K41.90 Unilateral femoral hernia, without obstruction or gangrene, not specified as recurrent; K74.60 Unspecified cirrhosis of liver; M19.90 Unspecified osteoarthritis, unspecified site; H35.30 Unspecified macular degeneration; H26.9 Unspecified cataract; Z90.89 Acquired absence of other organs; Z98.41 Cataract extraction status, right eye; Z81.1 Family history of alcohol abuse and dependence; Z85.89 Personal history of malignant neoplasm of other organs and systems; Z85.819 Personal history of malignant neoplasm of unspecified site of lip, oral cavity, and pharynx; Z79.01 Long term (current) use of anticoagulants; Z79.82 Long term (current) use of aspirin; Z80.7 Family history of other malignant neoplasms of lymphoid, hematopoietic and related tissues; Z87.891 Personal history of nicotine dependence
CPT/HCPCS: 36415; 36600; 71045; 80048; 80053; 82436; 82570; 82803; 83605; 83735; 83880; 83930; 83935; 84100; 84133; 84300; 84484; 85025; 85027; 85610; 87641; 93005; 93306; 94640; 94660; 94667; 94668; 94762; 99285; A9270-GY; G8978-GP-CK; G8979-GP-CI; G8987-GO-CM; G8988-GO-CK; J1100; J1644; J1940; J2405; J2920; J2930; J3475; J7512